=== PATIENT | female | born 1985 | race Caucasian/White ===

== ENCOUNTER 2018-04-23 19:58 | Inpatient (IN) ==
--- NOTE | 2018-04-23 21:26 | ED ---
HPI General Chief Complaint: Psychiatric Symptoms Stated Complaint: Medical Time Seen by Provider: 04/23/18 21:05 Source: patient Mode of arrival: EMS Limitations: no limitations History of Present Illness HPI Narrative: This is a 32-year-old 2 para 0 AB 1 with a 33-week estimated gestational age IUP who presents under a [place] act and psychiatric clearance from [facility]. Patient was initially admitted due to report patient trying to starve herself to start the baby. Patient was delusional. It was noted that she had elevated transaminases. They had discontinued her psychotropic medicines and felt that her elevated transaminases were most likely due to cholestasis. Patient also has had a history of chronic C. difficile. She is on oral vancomycin. Patient's liver functions have normalized according to the medical record. She was transferred to another facility then transferred to our facility for a mental health evaluation. Patient now states that she does want to eat. She does not want to hurt her child at this time. She denies any homicidal or suicidal ideation. She denies any fever chills. No nausea or vomiting. No abdominal pain. No leakage of fluid or abnormal vaginal bleeding. Symptoms are mild at this time. Exacerbated by mental health. Past medical history: IBS, anxiety, chronic C. difficile, depression and agoraphobia. Surgical history: Denies Social history: Denies alcohol tobacco. Denies drugs. Currently . Related Data Allergies Allergy/AdvReac Type Severity Reaction Status Date / Time vortioxetine Allergy Hives Verified 04/23/18 20:36 [From Brintellix] ziprasidone [From Geodon] Allergy Chest Pain Verified 04/23/18 20:36 Review of Systems ROS: all other systems reviewed are negative PMFSH Medical History Medical History Agoraphobia with panic attacks (Acute) Anxiety (Acute) C. difficile diarrhea (Acute) Depression (Acute) History of IBS (Acute) Social History Social History Recent Travel in [facility] within the Last 8 Weeks: No Recent Out of Country Travel within the Last 8 Weeks: No Exam Narrative Exam Narrative: GENERAL: Well-nourished, well-developed patient. SKIN: Warm and dry. HEAD: Normocephalic and atraumatic. EYES: No scleral icterus. No injection or drainage. ENT: No nasal drainage noted. Mucous membranes pink. Airway patent. NECK: Supple, trachea midline. Moves head freely without obvious discomfort. CARDIOVASCULAR: Regular rate and rhythm without murmurs, gallops, or rubs. RESPIRATORY: Breath sounds equal bilaterally. No accessory muscle use. GASTROINTESTINAL: Abdomen soft, non-tender, gravid consistent with 33 weeks. heart tones of 144 noted by nursing staff.. EXTREMITIES: No cyanosis or edema. BACK: Nontender without obvious deformity. No CVA tenderness. NEURO: Patient is alert and oriented. no sensorimotor deficits. Nonfocal. Normal speech. PSYCH: No delusions. No auditory or visual hallucinations. Course Initial Documented Vital Signs Temperature 98.0 F 04/23/18 20:36 Pulse Rate 109 H 04/23/18 20:36 Respiratory Rate 18 04/23/18 20:36 Blood Pressure 117/74 04/23/18 20:36 Pulse Oximetry 96 04/23/18 20:36 Last Documented Vital Signs Temperature 98.0 F 04/23/18 20:36 Pulse Rate 109 H 04/23/18 20:36 Respiratory Rate 18 04/23/18 20:36 Blood Pressure 117/74 04/23/18 20:36 Pulse Oximetry 96 04/23/18 20:36 Medical Decision Making MDM Narrative Medical decision making narrative: Patient is transferred from [facility] for psychiatric evaluation. Patient has been medically cleared. Patient is 33 weeks . She had elevated transaminases at her initial evaluation which allegedly has resolved. Patient has chronic C. difficile is on oral vancomycin. Has been medically cleared to be evaluated by psychiatry. Medical Screen Exam Complete: Yes Emergency Medical Condition: Yes Differential Diagnosis Differential Diagnosis: MDM: High Differential diagnoses: Schizophrenia, schizoaffective disorder, bipolar, anxiety, depression, adjustment reaction, mood disorder NOS, ODD, depressive disorder NOS, psychosis NOS, substance induced mood disorder, -induced help syndrome. Mental health screening discussed with the patient. Psychiatric screen ordered. Discharge Plan Discharge Disposition Patient Disposition: 30 Still Patient Discharge Condition Condition: Stable Discharge Details Anticipated Discharge Date: 04/24/18 Physicians Team ED Provider: Moises Manzano ED Midlevel Provider: Bryan Elliott Status ED Status: With Doctor
[2018-04-24] MEDS ORDERED: Haloperidol Inj 5 MG/ML Ampul IM ONE (11:21)
[2018-04-24] MEDS ORDERED: Aluminum/Magnesium/Simethacone Susp 30 ML UDC PO PRN (11:25)
[2018-04-24] MEDS ORDERED: Bisacodyl 10 MG Supp RECTAL PRN (11:25)
--- NOTE | 2018-04-24 15:27 | P.CONOB ---
History of Present Illness Consult date: 04/24/18 Reason for Consult: 33weeks gestation Primary Care Physician: UNKNOWN History of Present Illness: Neon Sign Worker consulted for pt in mental desai that is 33wks , from records. Upon entering medical desai we are informed that the patient is attempting to leave the desai, and is at the door. We see the pt actively trying to elope. She is not aggressive at this time. We have informed the patient that we will be using a monitor to check on the baby, and she says "he's already ". with further questioning she continues to say the same statement. The following history is obtained for chart review. Past medical history: IBS, anxiety, chronic C. difficile, depression and agoraphobia. Surgical history: Denies Social history: Denies alcohol tobacco. Denies drugs. Currently . Review of Systems All other systems reviewed negative except as stated in HPI [facility] - History History Provided By: Patient - Medical History Medical History: Medical History (Last Reviewed 04/23/18 @ 21:22 by ARIA Arroyo) Agoraphobia with panic attacks Anxiety C. difficile diarrhea Depression History of IBS - Tobacco History Second Hand Smoke Exposure: No Smoking Status: Never smoker - Alcohol History How Often Do You Have a Drink Containing Alcohol: Never - Travel History Recent Travel in the [place] Within the Last 8 Weeks: No Recent Travel Out of the Country Within the Last 8 Weeks: No - Immunization History Tetanus Immunization: Unsure Hx Influenza Vaccine This Season: No Medications and Allergies Active Medications: Active Medications Al Hydrox/Mg Hydrox/Simethicone (Mag-Al Plus Susp Liq) 30 ml PO Q6H PRN PRN Reason: DYSPEPSIA Al Hydroxide/Mg Hydroxide (Milk Of Magnesia Liq) 30 ml PO Q12H PRN PRN Reason: Mild Constipation Bisacodyl (Dulcolax Supp) 10 mg RECTAL DAILY PRN PRN Reason: SEVERE CONSITIPATION Lactulose (Lactulose Liq) 30 ml PO DAILY PRN PRN Reason: SEVERE CONSITIPATION Senna/Docusate Sodium (Gretchen-Colace) 1 tab PO BID VINNY Sennosides (Senokot) 17.2 mg PO Q12H PRN PRN Reason: Moderate Constipation Allergies Allergy/AdvReac Type Severity Reaction Status Date / Time vortioxetine Allergy Hives Verified 04/23/18 20:36 [From Brintellix] ziprasidone [From Geodon] Allergy Chest Pain Verified 04/23/18 20:36 Home Medications Medication Instructions Recorded Confirmed Type PNV cmb#95-ferrous fumarate-FA 1 tab PO DAILY 04/23/18 04/23/18 History [] fluvoxamine 75 mg HS 04/23/18 04/23/18 History lactated Ringers 125 ml 04/23/18 History lamotrigine [Lamictal] 25 PO TID 04/23/18 History mirtazapine [Remeron] 15 mg PO HS 04/23/18 04/23/18 History olanzapine [Zyprexa] BID PRN 04/23/18 History quetiapine [Seroquel] 50 mg PO BID 04/23/18 04/23/18 History quetiapine [Seroquel] 300 mg PO HS 04/23/18 04/23/18 History trazodone 100 mg HS 04/23/18 04/23/18 History ursodiol [Actigall] 300 mg PO BID 04/23/18 04/23/18 History vancomycin 250 mg BID 04/23/18 04/23/18 History Exam Vital signs: Vital Signs 04/23/18 20:36 04/23/18 21:28 04/24/18 01:41 Temperature 98.0 F Pulse Rate 109 H 99 H 88 Respiratory Rate 18 16 16 Blood Pressure 117/74 Pulse Oximetry 96 99 99 04/24/18 03:37 04/24/18 07:27 04/24/18 12:47 Temperature 98.5 F Pulse Rate 98 H 90 86 Respiratory Rate 18 16 18 Blood Pressure 115/74 121/75 120/70 Pulse Oximetry 96 98 99 Intake & Output 04/23/18 04/24/18 04/24/18 18:59 06:59 18:59 Intake Total 320 / 320 Balance 320 / 320 Weight 84.368 kg Intake: Oral 320 / 320 Narrative: Exam unable to be performed due to the patient actively eloping Assessment and Plan - Diagnosis (1) 33 weeks gestation of Code(s): Z3A.33 - 33 weeks gestation of Status: Acute Plan: 33wks gestation - unknown hx, we can attempt to retrieve records from [facility] in [place]? - unable to monitor at this time while pt is up, will have nursing attempt doppler vs have pt come do u/s - will continue to follow as best as we can
--- NOTE | 2018-04-24 16:31 | P.HPPSY ---
Provisional Diagnosis Admission Date: April 24, 2018 11:36 [place] I.: Unspecified psychosis, r/o psychosis with peripartum onset, OCD, LIZ, MDD [place] II.: Deferred [place] III.: 33 weeks , IBS Competence Certification of Person's Competence To Provide Express and Informed Consent I have personally examined Anali Miranda, a person being served at [facility] on, April 24, 2018 1606. Express and informed consent means consent voluntarily given in writing, by a competent person, after sufficient explanation and disclosure of the subject matter involved to enable the person to make a knowing and willful decision without any element of force, fraud, deceit, duress, or other form of constraint or coercion. This person is 18 years of age or older, is not now known to be incompetent to consent to treatment with a guardian advocate, and does not have a health care surrogate or proxy currently making medical treatment decisions. I have found this person to be one of the following: [] Competent to provide express and informed consent, as defined above, for voluntary admission to this facility and is competent to provide express and informed consent for treatment. He/she has the consistent capacity to make well reasoned, willful, and knowing decisions concerning his or her medical or mental health treatment. The person fully and consistently understands the purpose of the admission for examination/placement and is fully capable of personally exercising all rights assured under [place] [x] Incompetent to provide express and informed consent to voluntary admission, and this is incompetent to provide express and informed consent to treatment. The person must be transferred to involuntary status and a petition for a guardian advocate filed with the Circuit Court. [] Refusing to provide express and informed consent to voluntary admission but is competent to provide express and informed consent for treatment. The person must be discharged or transferred to involuntary status. Form shall be completed within 24 hours of a person's arrival at the receiving facility and filed in the clinical record of each person: 1. Admitted on a voluntary basis 2. Permitted to provide express and informed consent to his/her own treatment 3. Allowed to transfer from involuntary to voluntary status 4. Prior to permitting a person to consent to his or her own treatment after having been previously found incompetent to consent to treatment. History of Present Illness Capacity: Lacks capacity History of Present Illness: The patient is a 32-year-old woman, , domiciled in [place] with her , unemployed, with a psychiatric history of OCD, MDD, LIZ, peripartum psychosis,1 recent previous psychiatric hospitalization due to a new onset psychosis (admitted due to report patient trying to starve herself to start the baby), no previous suicidal attempts, the patient has being on Luvox 75 mg, Lamictal 25 mg daily, Seroquel 50 mg twice daily, trazodone 100 mg at bedtime she has an outpatient psychiatric doctor in [place], with a medical history of irritable bowel syndrome, 2 para 0 AB 1 with a 33-week estimated gestational age IUP, chronic C. difficile, hepatic cholangitis, who presents under a Leone act and psychiatric clearance from [facility]. On my psychiatric evaluation today I find a patient that is very agitated, very psychotic, paranoid, stating that she needs to go home, but she is afraid and she does not want to talk with anybody. She says that she carries at baby, "I killed my two babys and the are inside of my". The patient refuses to answer any of my questions. And she continued to try to elope from the ER and have finally to be medicated with Haldol 5 mg IM and Benadryl 25 mg IM in order to calm her down. I got collateral information from her , Ollie Miranda [phone], who explains that the patient has psychiatric history of anxiety, obsessive- compulsive disorder and depression. But about 2 months ago 1 of her checkups it was noted that she had elevated transaminases. They had discontinued her psychotropic medicines and felt that her elevated transaminases were most likely due to cholestasis. Patient also has had a history of chronic C. difficile. She is on oral vancomycin. ( Patient's liver functions have normalized according to the medical record). After the medication was discontinued, the patient started to become psychotic. Initially the patient refused to eat a stating that by eating she was hurting her baby. Then, 1 day he found her inside the bathroom with a knife stating that she wanted to kill her baby. She was hospitalized for 2 weeks in a psychiatric hospital in [facility], but she was discharged back home in 2 -3 days after discharge the patient became psychotic again. He clarifies that the patient does not have any history of schizophrenia or bipolar disorder. The patient has been treated for anxiety and depression as an outpatient by a private psychiatrist in [place]. Patient does not have any previous suicidal attempt. She did become depressed after a miscarriage before this she has been anxious since then. Past psychiatric history :OCD, MDD, LIZ, peripartum psychosis,1 recent previous psychiatric hospitalization due to a new onset psychosis (admitted due to report patient trying to starve herself to start the baby), no previous suicidal attempts, the patient has being on Luvox 75 mg, Lamictal 25 mg daily, Seroquel 50 mg twice daily, trazodone 100 mg at bedtime she has an outpatient psychiatric doctor in [place], past medical history: IBS, anxiety, chronic C. difficile, depression and agoraphobia. Surgical history: Denies Social history: The patient was born in [place], she lives in [place] with her she is unemployed, supported by her , her highest level of education is a master degree in occupational therapy. Substance abuse history :denies alcohol tobacco. Denies drugs. Currently . - Inpatient Certification I certify that the inpatient services were ordered in accordance with Medicare regulations governing the order. This includes certification that hospital inpatient services are reasonable and necessary and in the case of services not specified as inpatient-only under 42 CFR 419.22(n), that they are appropriately provided as inpatient services in accordance to with the 2-midnight benchmark under 43 CFR 412.3(e) I certify that inpatient psychiatric hospital services are medically necessary. Evaluation and treatment and/or diagnostic testing are expected to improve the patient's condition. The patient needs on a daily basis, active treatment furnished directly by or requiring the supervision of inpatient psychiatric facility personnel. Estimated Total Length of Stay (Days): 7 Plans for Post Hospital Care: Home [facility] - History History Provided By: Patient - Medical History Medical History: Medical History (Last Reviewed 04/23/18 @ 21:22 by ARIA Arroyo) Agoraphobia with panic attacks Anxiety C. difficile diarrhea Depression History of IBS - Tobacco History Second Hand Smoke Exposure: No Smoking Status: Never smoker - Alcohol History How Often Do You Have a Drink Containing Alcohol: Never - Substance Use History Substance History: No History of Abuse - Travel History Recent Travel in the [facility] Within the Last 8 Weeks: No Recent Travel Out of the Country Within the Last 8 Weeks: No - Immunization History Tetanus Immunization: Unable to Assess Hx Influenza Vaccine This Season: Unable to Assess Medications and Allergies Active Medications: Active Medications Al Hydrox/Mg Hydrox/Simethicone (Mag-Al Plus Susp Liq) 30 ml PO Q6H PRN PRN Reason: DYSPEPSIA Al Hydroxide/Mg Hydroxide (Milk Of Magnesia Liq) 30 ml PO Q12H PRN PRN Reason: Mild Constipation Bisacodyl (Dulcolax Supp) 10 mg RECTAL DAILY PRN PRN Reason: SEVERE CONSITIPATION Lactulose (Lactulose Liq) 30 ml PO DAILY PRN PRN Reason: SEVERE CONSITIPATION Senna/Docusate Sodium (Gretchen-Colace) 1 tab PO BID VINNY Sennosides (Senokot) 17.2 mg PO Q12H PRN PRN Reason: Moderate Constipation Allergies Allergy/AdvReac Type Severity Reaction Status Date / Time vortioxetine Allergy Hives Verified 04/23/18 20:36 [From Brintellix] ziprasidone [From Geodon] Allergy Chest Pain Verified 04/23/18 20:36 Home Medications Medication Instructions Recorded Confirmed Type PNV cmb#95-ferrous fumarate-FA 1 tab PO DAILY 04/23/18 04/23/18 History [] fluvoxamine 75 mg HS 04/23/18 04/23/18 History lactated Ringers 125 ml 04/23/18 History lamotrigine [Lamictal] 25 PO TID 04/23/18 History mirtazapine [Remeron] 15 mg PO HS 04/23/18 04/23/18 History olanzapine [Zyprexa] BID PRN 04/23/18 History quetiapine [Seroquel] 50 mg PO BID 04/23/18 04/23/18 History quetiapine [Seroquel] 300 mg PO HS 04/23/18 04/23/18 History trazodone 100 mg HS 04/23/18 04/23/18 History ursodiol [Actigall] 300 mg PO BID 04/23/18 04/23/18 History vancomycin 250 mg BID 04/23/18 04/23/18 History Exam Vital signs: Vital Signs 04/23/18 20:36 04/23/18 21:28 04/24/18 01:41 Temperature 98.0 F Pulse Rate 109 H 99 H 88 Respiratory Rate 18 16 16 Blood Pressure 117/74 Pulse Oximetry 96 99 99 04/24/18 03:37 04/24/18 07:27 04/24/18 12:47 Temperature 98.5 F Pulse Rate 98 H 90 86 Respiratory Rate 18 16 18 Blood Pressure 115/74 121/75 120/70 Pulse Oximetry 96 98 99 Intake & Output 04/23/18 04/24/18 04/24/18 18:59 06:59 18:59 Intake Total 320 / 320 Balance 320 / 320 Weight 84.368 kg Intake: Oral 320 / 320 Narrative: Patient is psychomotor agitated, irritable, restless - Constitutional moderate distress - Routine HEENT Exam Head: Present: normocephalic, atraumatic Eye: Present: EOMI ENT: Present: mucous membranes moist Mental Status Examination Appearance: Appropriate Consciousness: Alert Orientation: Person, Place Speech: Incoherent Fund of Knowledge: Poor Attention and Concentration: Easily distracted, Inadequate Memory: Impaired Mood: Angry, Oppositional Affect: Irritable Thought Content: Thought blocking, Delusional Hallucination Type: None Delusion Type: Bizarre, Paranoid, Somatic Suicidal Ideation: No Suicidal Plan: No Suicidal Intention: No Homicidal Ideation: No Homicidal Plan: No Homicidal Intention: No Insight: Poor Judgment: Poor Assessment and Plan - Assessment (1) Brief psychotic disorder with peripartum onset Code(s): O99.345 - Other mental disorders complicating the puerperium Status: Acute - Plan Plan: Estimated LOS: [] days On my psychiatric evaluation today I find a patient that is extremely paranoid, disorganized, agitated, restless, requesting to be discharged, unable to provide any significant information for the psychiatric assessment at the moment. The patient had to be medicated with Haldol 5 mg and Benadryl 25 mg IM in order to calm her down. As per , the patient has been presenting increase symptoms of psychosis in the last month, she was recently hospitalized for 2 weeks in a psychiatric hospital in [place], treated with Seroquel 50 mg in the morning, 300 mg at bedtime, but the patient was discharged still psychotic. The patient has being stating that she has 2 babies inside her , has been refusing to eat stating that the food will kill her baby and at some point she took a knife and tried to stab herself. There is a patient with a psychiatric history of anxiety, depression, but before this psychotic episode she did not have any psychiatric hospitalization, no suicide attempts. She does have a family history of "bipolar/psychosis", but more information needs to be gathered in this aspect. The patient has an elevated risk of danger to herself and her baby given her level of psychosis. She need psychiatric admission for stabilization. I am going to start Haldol 5 mg twice daily, Benadryl 25 mg twice daily for psychosis and EPS respectively. Will consult hospitalist for underlying medical conditions, [employer] to help with . Transfer to med psych unit. Justification for Continued Inpatient Stay: Patient is psychiatric admission
[2018-04-24] MEDS: Senna/Docusate Sodium 8.6/50 MG Tablet PO SCH (21:22)
--- NOTE | 2018-04-25 08:23 | P.OBANTE ---
Subjective Interval History: pt continues to be delusional with psychosis believing her baby is inspite of the normal US last night and reactive NST this morning Objective Vital Signs and I&O: Vital Signs 04/24/18 12:47 04/24/18 18:00 04/25/18 06:00 Temperature 97.5 F L 97.6 F Pulse Rate 86 133 H 120 H Respiratory Rate 18 20 18 Blood Pressure 120/70 162/76 H 129/80 Pulse Oximetry 99 95 97 Physical Exam: GENERAL: Well-nourished, well-developed patient. CARDIOVASCULAR: Regular rate and rhythm without murmurs, gallops, or rubs. RESPIRATORY: Breath sounds equal bilaterally. No accessory muscle use. ABDOMEN/GI: Abdomen soft, non-tender. Fundus: [33-] GENITO Uterine Contractions: [none-] FHT's: Category: [1-] Baseline: [133-] Reactive: [R-] Variability: [mod-] Decels: [-none] Assessment and Plan - Diagnosis (1) 33 weeks gestation of Code(s): Z3A.33 - 33 weeks gestation of Status: Acute (2) Psychosis Code(s): F29 - Unspecified psychosis not due to a substance or known physiological condition Status: Acute - Plan continue daily NSTs
[2018-04-25] MEDS: Senna/Docusate Sodium 8.6/50 MG Tablet PO SCH (08:40)
[2018-04-25 09:19] LABS: Anion Gap 10 meq/L (5-15); Blood Urea Nitrogen 5 mg/dL (7-18); Calcium 8.5 mg/dL (8.5-10.1); Chloride 107 meq/L (98-107); Glomerular Filtration Rate Greater Than 89 mL/min (>89); Glucose,Random 91 mg/dL (74-106); Potassium 3.3 meq/L (3.5-5.1); Sodium 141 meq/L (136-145)
[2018-04-25 09:20] LABS: Cholesterol 193 mg/dL (120-200); Triglycerides 216 mg/dL (42-150)
[2018-04-25 09:22] LABS: Chol/HDL Ratio 5.18 Ratio; HDL Cholesterol 37.2 mg/dL (40.0-60.0); LDL Cholesterol,Calculated 113 mg/dL (0-99)
[2018-04-25 10:50] LABS: Baso % (Auto) 0.4 % (0.0-2.0); Eos # (Auto) 0.1 th/mm3 (0.0-0.4); Eos % (Auto) 0.8 % (0.0-4.0); Hematocrit 35.8 % (35.0-46.0); Lymph # (Auto) 2.2 th/mm3 (1.0-4.8); Lymph % (Auto) 22.1 % (9.0-44.0); Mean Corpuscular HGB Conc 33.6 % (32.0-36.0); Mean Corpuscular Hemoglobin 29.8 pg (27.0-34.0); Mean Corpuscular Volume 88.9 fL (80.0-100.0); Mean Platelet Volume 11.5 fL (7.0-11.0); Mono # (Auto) 0.8 th/mm3 (0.0-0.9); Mono % (Auto) 8.3 % (0.0-8.0); Neut # (Auto) 6.9 th/mm3 (1.8-7.7); Neut % (Auto) 68.4 % (16.0-70.0); Platelet Count 217 th/mm3 (150-450); Red Blood Count 4.03 mil/mm3 (4.00-5.30); Red Cell Distribution Width 15.4 % (11.6-17.2)
[2018-04-25 11:03] LABS: Total Protein 5.4 g/dL (6.4-8.2)
[2018-04-25 11:21] LABS: Albumin 2.1 g/dL (3.4-5.0); Anion Gap 12 meq/L (5-15); Aspartate Aminotransferase 57 U/L (15-37); Blood Urea Nitrogen 4 mg/dL (7-18); Calcium 9.1 mg/dL (8.5-10.1); Carbon Dioxide 21.8 meq/L (21.0-32.0); Chloride 108 meq/L (98-107); Glomerular Filtration Rate Greater Than 89 mL/min (>89); Glucose,Random 76 mg/dL (74-106); Potassium 3.5 meq/L (3.5-5.1); Sodium 142 meq/L (136-145)
[2018-04-25 11:24] LABS: Alanine Aminotransferase 107 U/L (10-53); Alkaline Phosphatase 115 U/L (45-117); Total Protein 5.7 g/dL (6.4-8.2)
--- NOTE | 2018-04-25 11:42 | P.CONPSY ---
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 difficile, hepatic cholangitis and currently with 33-week gestation IUP was brought in under [place] act due to acute psychosis, transferred from medical facility, and admitted to the inpatient psychiatry for further evaluation and management. Patient found to be on one-to -one observation for safety. As per nursing report patient had been attempted to exit the unit and had to be redirected but has not been noted to try to elope today and more engaging with nursing staff continues to be delusional stating that her baby's dad. Patient was found sitting in hospital bed noted B , cooperative, alert and oriented only to person and place and preservative on the delusion that she had killed her baby and that she is not supposed to be in this hospital. Patient was unable to engage in further questioning nor engage in discussion of treatment this patient is currently preservative on this delusion and unable to engage in interview at this time. Patient mentions that she had already killed her baby on purpose when asked about how and when she had done this patient continued to state the same. Patient did acknowledge she was on medications at her prior hospitalization, was endorsing having suicidal ideations stating that she has not been eating and drinking on purpose and had endorsed auditory hallucinations "sometimes" but now elaborate on the content. Reviewed patient's chart patient prior to admission had been transferred from several facilities as well as having been admitted to a psychiatric facility for some time which patient had been continued on fluoxetine, mirtazapine, Seroquel, Lamictal. Patient was found to have elevated LFTs which was suspected to be drug-induced hepatitis and/or cholestasis secondary to . Patient was discontinued on psychotropic medications and LFTs have improved but had become psychotic. Documents that accompanied the patient's poor summary as he is events as stated during her last hospitalization. We will request records from these admissions for further information of her prior treatments as well will attempt to contact patient's outpatient psychiatrist for history of psychiatric treatments. Review of Systems unobtainable due to mental condition PMFSH - History History Provided By: Patient, Medical Record - Medical History Medical History: Medical History (Last Reviewed 04/25/18 @ 19:17 by JANINE Drake) Agoraphobia with panic attacks Anxiety C. difficile diarrhea Depression History of IBS - Tobacco History Second Hand Smoke Exposure: No Smoking Status: Never smoker - Alcohol History How Often Do You Have a Drink Containing Alcohol: Never - Substance Use History Substance History: Unable to Obtain - Travel History Recent Travel in the [place] Within the Last 8 Weeks: No Recent Travel Out of the Country Within the Last 8 Weeks: No - Immunization History Tetanus Immunization: Unable to Assess Hx Influenza Vaccine This Season: Unable to Assess Medications and Allergies Active Medications: Active Medications Al Hydrox/Mg Hydrox/Simethicone (Mag-Al Plus Susp Liq) 30 ml PO Q6H PRN PRN Reason: DYSPEPSIA Al Hydroxide/Mg Hydroxide (Milk Of Magnesia Liq) 30 ml PO Q12H PRN PRN Reason: Mild Constipation Bisacodyl (Dulcolax Supp) 10 mg RECTAL DAILY PRN PRN Reason: SEVERE CONSITIPATION Diphenhydramine HCl (Benadryl) 25 mg PO BID VINNY Haloperidol (Haldol) 5 mg PO BID VINNY Lactulose (Lactulose Liq) 30 ml PO DAILY PRN PRN Reason: SEVERE CONSITIPATION Senna/Docusate Sodium (Gretchen-Colace) 1 tab PO BID [facility] Last Admin: 04/25/18 08:40 Dose: Not Given Sennosides (Senokot) 17.2 mg PO Q12H PRN PRN Reason: Moderate Constipation Allergies Allergy/AdvReac Type Severity Reaction Status Date / Time vortioxetine Allergy Hives Verified 04/23/18 20:36 [From Brintellix] ziprasidone [From Geodon] Allergy Chest Pain Verified 04/23/18 20:36 Home Medications Medication Instructions Recorded Confirmed Type PNV cmb#95-ferrous fumarate-FA 1 tab PO DAILY 04/23/18 04/23/18 History [] fluvoxamine 75 mg HS 10/01/18 10/01/18 History lactated Ringers 125 ml 04/23/18 History lamotrigine [Lamictal] 25 PO TID 04/23/18 History mirtazapine [Remeron] 15 mg PO HS 04/23/18 04/23/18 History olanzapine [Zyprexa] BID PRN 04/23/18 History quetiapine [Seroquel] 50 mg PO BID 04/23/18 04/23/18 History quetiapine [Seroquel] 300 mg PO HS 04/23/18 04/23/18 History trazodone 100 mg HS 04/23/18 04/23/18 History ursodiol [Actigall] 300 mg PO BID 04/23/18 04/23/18 History vancomycin 250 mg BID 04/23/18 04/23/18 History Exam Vital signs: Vital Signs 04/24/18 12:47 04/24/18 18:00 04/25/18 06:00 Temperature 97.5 F L 97.6 F Pulse Rate 86 133 H 120 H Respiratory Rate 18 20 18 Blood Pressure 120/70 162/76 H 129/80 Pulse Oximetry 99 95 97 Intake & Output 04/24/18 04/25/18 04/25/18 18:59 06:59 18:59 Intake Total 120 / 120 Balance 120 / 120 Intake: Oral 120 / 120 - Constitutional no acute distress, disheveled, cooperative Mental Status Examination Appearance: Appropriate Consciousness: Alert Orientation: Person, Place Motor Activity: Normal gait Speech: Incoherent Language: Perseveration (on the idea that she killed her baby) Fund of Knowledge: Poor Attention and Concentration: Easily distracted, Inadequate Memory: Impaired Mood: Anxious Affect: Anxious Thought Process & Associations: Disorganized Thought Content: Hallucinations, Thought blocking, Delusional Hallucination Type: Auditory Delusion Type: Bizarre, Paranoid, Somatic Suicidal Ideation: No Suicidal Plan: No Suicidal Intention: No Homicidal Ideation: No Homicidal Plan: No Homicidal Intention: No Insight: Poor Judgment: Poor Assessment and Plan - Assessment (1) Brief psychotic disorder with peripartum onset Code(s): O99.345 - Other mental disorders complicating the puerperium Status: Acute - Plan Plan: I have seen and examined this patient, reviewed the documentation, discussed personally with Dr. Mustafa, and I agree and concur with his assessment and plan. Consult appreciated. Will continue patient on Haldol 5mg PO BID, diphenhydramine 25mg PO BID with titration of antipsychotic to reach stabilization. Attempted to review medication regimen to patient regarding benefits/risk/alternatives was unsuccessful as patient's current mental status did not permit patient to engage effectively in this conversation. Patient to remain on 1:1 observation for safety. Patient continues with disorganization and delusions, appearing internally preoccupied. Encourage patient to maintain adequate nutritional intake. Hospitalist and OB education sales consultant input appreciated. Will attempt to obtain past psychiatric treatment records from patient's outpatient provider along with medical records from most recent psychiatric admission. Will meet with medical team to discuss treatment plan. Further collateral information pending. Continue to monitor mood and behavior. Discharge planning in progress. Justification for Continued Inpatient Stay: At risk for further decompensation at lower level of care.
[2018-04-25] MEDS: Haloperidol 5 MG Tablet PO SCH ×2 (12:02→22:52)
[2018-04-25 12:09] LABS: Hepatitis A IgM Antibody Nonreactive (Nonreactive); Hepatitits B Surface Antigen Nonreactive (Nonreactive)
--- NOTE | 2018-04-25 13:55 | P.DIET ---
Nutritional Evaluation Type of nutrition evaluation: initial Nutrition screening: (33 weeks ) Subjective Subjective Comments: Very poor po intake noted. Eating only 0-25%. Objective - Diagnosis Unspecified Psychosis - Objective Body Weight Used for Calculations: Upper end of IBW (60 kg) Energy Needs - Lower Range (kCal/kg): 30 Energy Needs - Upper Range (kCal/kg): 35 Lower Limit kCal/kg (kCals): 1,800 Upper Limit kCal/kg (kCals): 2,100 Lower Limit Protein Factor (Grams per Kg): 1.2 Upper Limit Protein Factor (Grams per Kg): 1.5 Lower Protein Needs (Protein): 72 Upper Protein Needs (Protein): 90 Fluid Factor (ml/kg): 35 Estimated Fluid Needs (ml): 2,100 Dietitian Reviewed in Medical Record: Current diet, Curent medications, Intake & Output, Labs, Medical history Oral Diet Intake Amount: Poor <50% Objective Comments: Med hx includes C Diff, IBS Assessment Assessment: Pt is at high nutrition risk 2' to poor po intake and not receiving adequate nutrition for . Request vits/mins be ordered. Will also send Ensure Enlive on trays for added nutrition: each 8 oz serving provides 350 kcals and 20 gms protein. Will monitor supplement acceptance and po intake. Recommendations: 1. Continue regular diet 2. Ensure Enlive tid 3. Please order vits/mins Dietitian to Monitor: Lab values, Supplement acceptance, Intake & Output, Diet tolerance, Weight change, PO Intake, Medical course
[2018-04-25 16:17] LABS: Hemoglobin A1c 5.3 % (4.3-6.0)
--- NOTE | 2018-04-25 17:08 | P.PNADD ---
Addendum to Inpatient Note Reason for Addendum: Additional Documentation Additional information: Patient case discussed with psychiatrist Dr. Mustafa and family member today. History reviewed; including history of multiple psychiatric medications for anxiety and depression including; Luvox, Lamictal, Seroquel, trazodone. History of cholestasis of causing hospitalization discussed. According to report, it was discussed that patient may be delivered early for the severe cholestasis of , however [employer] decided to continue to watch . Psychiatric medications were restarted however patient continued to be in psychosis. Patient did have full care via the following contact [facility] [phone] Attempting to obtain full records. Ob team is aware of hx of cholestasis and is aware of elevated LFTs today. Will continue to f/u bile salts. Will plan a meeting with psych, risk management, and case management to discuss situation including placement of pt and delivery time.
--- NOTE | 2018-04-25 19:21 | P.CONIM ---
History of Present Illness Service: [facility] Consult date: 04/25/18 Reason for Consult: medical management Primary Care Provider: UNKNOWN Chief Complaint: stomach pain History of Present Illness: This is a 32 years old young female, 2 para 0 AB 1 with a 33- week estimated gestational age IUP who presents under a [place] act and psychiatric clearance from [facility]. Patient has a past medical history of IBS, anxiety, chronic C. difficile, depression and agoraphobia. ED report revealed patient was initially admitted due to trying to starve herself to start the baby and was delusional. Patient found to have elevated transaminase on admission which is reported to be more likely due to cholestasis. Psychotropic medications had been discontinued at that time. She was transferred to another facility and then to our facility for mental health status evaluation. STITCH SEPARATOR was consulted for management. Medicine team was consulted for medical management. Patient seen and examined laying in bed, sitter at bedside, patient responds to the questions very slowly and seems reserved. There were questions that she don' t answer and just rolls her eyes as if trying to ignore the questions. Patient complaints of abdominal pain ,states that she had a "problem with diarrhea all the time", stated she had diarrhea all day and mentioned her with history of C. difficile which was taking vancomycin. Patient stated she is 33-week and her due date will be on June 11. Patient is unable to tell me what medication she is taking. Patient denies any headache or dizziness denies any nausea or vomiting denies any chest pain or shortness of breath. Patient denies any fever or chills. Patient states that she have anxiety and feel like she wanted to hurt herself when asked for a plan she stated that she will use a knife to cut herself. Discussed with the patient that it is not a good idea to hurt herself and the baby. Patient was silent in response to the rest of the questions. Review of Systems All other systems reviewed negative except as stated in HPI PMFSH - History History Provided By: Patient - Medical History Medical History: Medical History (Last Reviewed 04/25/18 @ 19:17 by JANINE Drake) Agoraphobia with panic attacks Anxiety C. difficile diarrhea Depression History of IBS - Tobacco History Second Hand Smoke Exposure: No Smoking Status: Never smoker - Alcohol History How Often Do You Have a Drink Containing Alcohol: Never - Substance Use History Substance History: Unable to Obtain - Travel History Recent Travel in the [place] Within the Last 8 Weeks: No Recent Travel Out of the Country Within the Last 8 Weeks: No - Immunization History Tetanus Immunization: Unable to Assess Hx Influenza Vaccine This Season: Unable to Assess Medications and Allergies Active Medications: Active Medications Al Hydrox/Mg Hydrox/Simethicone (Mag-Al Plus Susp Liq) 30 ml PO Q6H PRN PRN Reason: DYSPEPSIA Al Hydroxide/Mg Hydroxide (Milk Of Magnesia Liq) 30 ml PO Q12H PRN PRN Reason: Mild Constipation Bisacodyl (Dulcolax Supp) 10 mg RECTAL DAILY PRN PRN Reason: SEVERE CONSITIPATION Diphenhydramine HCl (Benadryl) 25 mg PO BID [facility] Last Admin: 04/25/18 12:02 Dose: 25 mg Haloperidol (Haldol) 5 mg PO BID [facility] Last Admin: 04/25/18 12:02 Dose: 5 mg Lactulose (Lactulose Liq) 30 ml PO DAILY PRN PRN Reason: SEVERE CONSITIPATION Senna/Docusate Sodium (Gretchen-Colace) 1 tab PO BID [facility] Last Admin: 04/25/18 08:40 Dose: Not Given Sennosides (Senokot) 17.2 mg PO Q12H PRN PRN Reason: Moderate Constipation Allergies Allergy/AdvReac Type Severity Reaction Status Date / Time vortioxetine Allergy Hives Verified 04/23/18 20:36 [From Brintellix] ziprasidone [From Geodon] Allergy Chest Pain Verified 04/23/18 20:36 Home Medications Medication Instructions Recorded Confirmed Type PNV cmb#95-ferrous fumarate-FA 1 tab PO DAILY 04/23/18 04/23/18 History [] fluvoxamine 75 mg HS 04/23/18 04/23/18 History lactated Ringers 125 ml 04/23/18 History lamotrigine [Lamictal] 25 PO TID 04/23/18 History mirtazapine [Remeron] 15 mg PO HS 04/23/18 04/23/18 History olanzapine [Zyprexa] BID PRN 04/23/18 History quetiapine [Seroquel] 50 mg PO BID 04/23/18 04/23/18 History quetiapine [Seroquel] 300 mg PO HS 04/23/18 04/23/18 History trazodone 100 mg HS 04/23/18 04/23/18 History ursodiol [Actigall] 300 mg PO BID 04/23/18 04/23/18 History vancomycin 250 mg BID 04/23/18 04/23/18 History Exam Vital signs: Vital Signs 04/25/18 06:00 04/25/18 18:00 Temperature 97.6 F 98 F Pulse Rate 120 H 126 H Respiratory Rate 18 18 Blood Pressure 129/80 127/79 Pulse Oximetry 97 95 Intake & Output 04/25/18 04/25/18 04/26/18 06:59 18:59 06:59 Intake Total 360 / 360 Balance 360 / 360 Intake: Oral 360 / 360 Other: Date of Last Bowel Movement 04/25/18 Narrative: GENERAL: Well-developed, well-nourished, young lady, alert and oriented x3 with some reservation, in no apparent distress SKIN: Warm and dry. HEAD: Atraumatic. Normocephalic. EYES: Pupils equal and round. No scleral icterus. No injection or drainage. Wearing eyeglasses ENT: No nasal bleeding or discharge. Mucous membranes pink and moist. NECK: Trachea midline. No JVD. CARDIOVASCULAR: Regular rate and rhythm. RESPIRATORY: No accessory muscle use. Clear to auscultation. Breath sounds equal bilaterally. GASTROINTESTINAL: Abdomen round enlarged consistent with , soft, non- tender, nondistended. Hepatic and splenic margins not palpable. MUSCULOSKELETAL: Extremities without clubbing, cyanosis, or edema. No obvious deformities. NEUROLOGICAL: Awake and alert. No obvious cranial nerve deficits. Motor grossly within normal limits. Five out of 5 muscle strength in the arms and legs. Normal speech. PSYCHIATRIC: Flat, reserved mood and affect; insight and judgment unreliable. Cooperative Results - Labs CBC & Chem 7: 04/25/18 10:00 04/25/18 10:00 Labs: Laboratory Results - last 24 hr 04/25/18 04/25/18 04/25/18 08:12 08:12 08:12 WBC RBC Hgb Hct MCV MCH MCHC RDW Plt Count MPV Neut % (Auto) Lymph % (Auto) [place] % (Auto) Eos % (Auto) Baso % (Auto) Neut # (Auto) Lymph # (Auto) [place] # (Auto) Eos # (Auto) Baso # (Auto) WBC Differential Differential Comment Sodium 141 Potassium 3.3 L Chloride 107 Carbon Dioxide 24.0 Anion Gap 10 BUN 5 L Creatinine 0.58 Estimated GFR Greater than 89 Random Glucose 91 Hemoglobin A1c 5.3 Calcium 8.5 Total Bilirubin 0.4 Direct Bilirubin 0.2 Indirect Bilirubin 0.2 AST 54 H ALT 104 H Alkaline Phosphatase 106 Total Protein 5.4 L Albumin 2.0 L Triglycerides 216 H Cholesterol 193 LDL Cholesterol, Calc 113 H HDL Cholesterol 37.2 L Cholesterol/HDL Ratio 5.18 Hepatitis A IgM Ab Hep Bs Antigen Hep B Core IgM Ab Hep C IgG Ab HIV 1&2 Ab/P24 Ag 4thGn Rubella Immunity Screen Rubella Ab, Quant Blood Type Blood Type Recheck Antibody Screen 04/25/18 04/25/18 04/25/18 10:00 10:00 10:00 WBC 10.0 RBC 4.03 Hgb 12.0 Hct 35.8 MCV 88.9 MCH 29.8 MCHC 33.6 RDW 15.4 Plt Count 217 MPV 11.5 H Neut % (Auto) 68.4 Lymph % (Auto) 22.1 [place] % (Auto) 8.3 H Eos % (Auto) 0.8 Baso % (Auto) 0.4 Neut # (Auto) 6.9 Lymph # (Auto) 2.2 [place] # (Auto) 0.8 Eos # (Auto) 0.1 Baso # (Auto) 0.0 WBC Differential . Differential Comment Auto diff final Sodium 142 Potassium 3.5 Chloride 108 H Carbon Dioxide 21.8 Anion Gap 12 BUN 4 L Creatinine 0.51 Estimated GFR Greater than 89 Random Glucose 76 Hemoglobin A1c Calcium 9.1 Total Bilirubin 0.5 Direct Bilirubin Indirect Bilirubin AST 57 H ALT 107 H Alkaline Phosphatase 115 Total Protein 5.7 L Albumin 2.1 L Triglycerides Cholesterol LDL Cholesterol, Calc HDL Cholesterol Cholesterol/HDL Ratio Hepatitis A IgM Ab Nonreactive Hep Bs Antigen Nonreactive Hep B Core IgM Ab Nonreactive Hep C IgG Ab Nonreactive HIV 1&2 Ab/P24 Ag 4thGn Nonreactive Rubella Immunity Screen Immune Rubella Ab, Quant 116.9 Blood Type Blood Type Recheck Antibody Screen 04/25/18 10:00 WBC RBC Hgb Hct MCV MCH MCHC RDW Plt Count MPV Neut % (Auto) Lymph % (Auto) [place] % (Auto) Eos % (Auto) Baso % (Auto) Neut # (Auto) Lymph # (Auto) [place] # (Auto) Eos # (Auto) Baso # (Auto) WBC Differential Differential Comment Sodium Potassium Chloride Carbon Dioxide Anion Gap BUN Creatinine Estimated GFR Random Glucose Hemoglobin A1c Calcium Total Bilirubin Direct Bilirubin Indirect Bilirubin AST ALT Alkaline Phosphatase Total Protein Albumin Triglycerides Cholesterol LDL Cholesterol, Calc HDL Cholesterol Cholesterol/HDL Ratio Hepatitis A IgM Ab Hep Bs Antigen Hep B Core IgM Ab Hep C IgG Ab HIV 1&2 Ab/P24 Ag 4thGn Rubella Immunity Screen Rubella Ab, Quant Blood Type A Positive Blood Type Recheck Required Antibody Screen Negative Assessment and Plan - Assessment (1) 33 weeks gestation of Code(s): Z3A.33 - 33 weeks gestation of Status: Acute (2) Brief psychotic disorder with peripartum onset Code(s): O99.345 - Other mental disorders complicating the puerperium Status: Acute (3) Psychosis Code(s): F29 - Unspecified psychosis not due to a substance or known physiological condition Status: Acute (4) Anxiety Code(s): F41.9 - Anxiety disorder, unspecified Status: Acute (5) IBS (irritable bowel syndrome) Code(s): K58.9 - Irritable bowel syndrome without diarrhea Status: Acute - Plan This is a 32 years old young female, 2 para 0 AB 1 with a 33- week estimated gestational age IUP who presents under a [place] act and psychiatric clearance from [facility]. Patient has a past medical history of IBS, anxiety, chronic C. difficile, depression and agoraphobia. STITCH SEPARATOR was consulted for management. Medicine team was consulted for medical management. 33 weeks gestation of Acute, with unknown History -obtain previous record from [facility] -Obtain Ultrasound OB -STITCH SEPARATOR following -monitor IBS (irritable bowel syndrome)/Abdominal pain/diarrhea Irritable bowel syndrome with diarrhea, Acute -send stool for c-diff if confirmed diarrhea -start Questran, d/c scheduled stool softener -monitor electrolytes, MP and CBC -will continue Vanco tapering dose if ok with STITCH SEPARATOR Transaminitis likely due to previous medications taking, currently discontinued -monitor liver function Tachycardia/Elevated Blood Pressure Likely related to vs dehydration Patient asymptomatic, no SOB, no feeling of palpitation -obtain ECG -will monitor HR and Blood pressure Slight Hypertriglyceridemia no known history, likely related to Transaminitis -Lifestyle modification -monitor lipids and lft Brief psychotic disorder with peripartum onset/ Psychosis/Anxiety Other mental disorders complicating the puerperium, Acute Unspecified psychosis,Acute Anxiety disorder, unspecified, Acute -Management with Psychiatry Team DVT Prophylaxis: Increase ambulation Code Status: full code Discussed Condition With: patient and nurse
[2018-04-26 08:13] LABS: Albumin 2.1 g/dL (3.4-5.0); Anion Gap 9 meq/L (5-15); Aspartate Aminotransferase 49 U/L (15-37); Blood Urea Nitrogen 2 mg/dL (7-18); Calcium 8.3 mg/dL (8.5-10.1); Carbon Dioxide 23.5 meq/L (21.0-32.0); Chloride 110 meq/L (98-107); Glucose,Random 79 mg/dL (74-106); Potassium 3.7 meq/L (3.5-5.1); Sodium 142 meq/L (136-145)
[2018-04-26 08:16] LABS: Alanine Aminotransferase 97 U/L (10-53); Alkaline Phosphatase 109 U/L (45-117); Glomerular Filtration Rate Greater Than 89 mL/min (>89); Total Protein 5.6 g/dL (6.4-8.2)
[2018-04-26] MEDS: Haloperidol 5 MG Tablet PO SCH (08:40)
[2018-04-26] MEDS: Prenatal Vit/Ca/Iron/Folic Acid Tablet PO SCH (08:40)
--- NOTE | 2018-04-26 09:00 | P.PNADD ---
Addendum to Inpatient Note Reason for Addendum: Additional Documentation Additional information: It was noted that patient was started on cholestyramine last night, this medication is not recommended in . Nurse practitioner Mimi Olson was contacted. Discussed with Mimi that ursodiol is a better option for the patient at this time as it is our treatment of choice for cholestasis in . Recommended dosing is 8-10 mg/kg/day divided in 2-3 doses per 24 hours. Bile acids pending. I will also contact patient's OB provider and obtain records today. Case and Plan was discussed with attending Dr. Perdue.
--- NOTE | 2018-04-26 11:50 | P.PNPSY ---
Subjective Remarks: Patient seen for follow up; chart reviewed. Discussion with nursing staff reported patient was talking more with nursing staff but continues to have poor p.o. intake and compliant with medications. Patient was found lying hospital bed superficially cooperative interview was noted to have thought blocking being internally preoccupied throughout interview. Patient mentions that she had to stay awake last evening on purpose but was unable to explain why when asked about her sleep. Patient continues with poor appetite. Was able to mention having spoken to her but did not elaborate. She states that she wants to call her and tell him that she cannot be saved that she did this on purpose. Patient continues to report having killed her baby and continues to have suicidal ideations at this time along with auditory hallucinations but was unable to elaborate. Collateral information obtained by patient's stated that they are along with from home at that he has noticed the patient did not along with himself being wary of having been transferred to multiple hospitals but would like for her to be stabilized to return home as soon as possible. Patient mentions that patient was being followed by outpatient psychiatrist and had her medications stopped due to abnormal liver function tests and when lab results began to improve she resumed on her medications but after 1/2 weeks of not having her treatment. He states that patient had grabbed a knife and left a suicide suicide note which patient this time was brought under Leone act to a nearby facility near her home. He mentions that the patient was brought to [facility] for 13 days in March and was transported back to [facility] where patient was noted to be acutely psychotic and was transferred to [facility] for further obstetrical and psychiatric management. He mentions that patient on one occasion had been given Zyprexa and Ativan which patient had perked up and was more responsive during that incident. Discussion of medications and treatment plan was reviewed with her which she had already consented for blood was reiterated and reviewed with him. Suppression Crew Leader met with OB and hospitalist residential property consultant along with ancillary staff to discuss treatment plan of patient's care and will be continued to be followed by the services during her admission. Review of Systems All other systems reviewed negative except as stated in HPI Mental Status Examination Appearance: Appropriate Consciousness: Alert Orientation: Person, Place Motor Activity: Normal gait Speech: Incoherent Language: Perseveration (on the idea that she killed her baby) Fund of Knowledge: Poor Attention and Concentration: Easily distracted, Inadequate Memory: Impaired Mood: Anxious Affect: Anxious Thought Process & Associations: Disorganized Thought Content: Hallucinations, Thought blocking, Delusional Hallucination Type: Auditory Delusion Type: Bizarre, Paranoid, Somatic Suicidal Ideation: No Suicidal Plan: No Suicidal Intention: No Homicidal Ideation: No Homicidal Plan: No Homicidal Intention: No Insight: Poor Judgment: Poor Assessment and Plan - Assessment (1) Brief psychotic disorder with peripartum onset Code(s): O99.345 - Other mental disorders complicating the puerperium Status: Acute - Plan Plan: Patient this time continues with perseveration on the idea that she had killed her baby along with continue auditory hallucinations and suicidal ideations. Patient to continue one-to-one for safety we will continue to increase Haldol to 5 mg a.m./10 mg at bedtime with upper titration for psychosis. Continue to encourage patient to continue nutritional p.o. intake, we will continue recommendations as per hospitalist residential property consultant as well as OB residential property consultant. We will continue to monitor mood and behavior. Discharge planning in progress. Justification for Continued Inpatient Stay: At risk of further decompensation a low level of care.
--- NOTE | 2018-04-26 15:27 | ECG ---
Date Performed: 04/25/2018 Time Performed: 22:09:09 PTAGE: 32 years EKG: SINUS TACHYCARDIA WITH SHORT CT INTERVAL LOW QRS VOLTAGE IN PRECORDIAL LEADS NONSPECIFIC T- WAVE ABNORMALITY ABNORMAL RHYTHM ECG NO PREVIOUS TRACING DOCTOR: Sadie Arce Interpretating Date/Time 04/26/2018 15:24:58
--- NOTE | 2018-04-26 17:35 | P.PNIM ---
Subjective Interval history: Follow-up 33 weeks gestation of , transaminitis, IBS, chronic C. difficile, anxiety, depression, and agoraphobia. Patient seen and examined, laying in bed denies any pain or shortness of breath, denies any abdominal pain. However the nurse reported patient does not eat well, patient complained of nausea without vomiting. Pain patient states that she have diarrhea and she had messed up all herself in her clothes, however the sitter and the nurse did not confirm this. Most likely patient is delusional. Nurse reported there is a heart in the bathroom waiting for her stool sample however he is not able to provide stool sample at this time. Patient denies any headache or dizziness, denies any fever or chills. Physical Exam Vital signs: Vital Signs 04/25/18 18:00 04/26/18 06:00 Temperature 98 F 98 F Pulse Rate 126 H 111 H Respiratory Rate 18 16 Blood Pressure 127/79 144/85 H Pulse Oximetry 95 95 Intake & Output 04/25/18 04/26/18 04/26/18 18:59 06:59 18:59 Intake Total 360 / 360 720 / 720 Balance 360 / 360 720 / 720 Weight 86.1 kg Intake: Oral 360 / 360 720 / 720 Other: # Voids 2 Date of Last Bowel Movement 04/25/18 04/25/18 # Bowel Movements 0 Narrative: GENERAL: Well-developed, well-nourished, young lady, alert and oriented x3 with some reservation, in no apparent distress SKIN: Warm and dry. HEAD: Atraumatic. Normocephalic. EYES: Pupils equal and round. No scleral icterus. No injection or drainage. Wearing eyeglasses ENT: No nasal bleeding or discharge. Mucous membranes pink and moist. NECK: Trachea midline. No JVD. CARDIOVASCULAR: Regular rate and rhythm. RESPIRATORY: No accessory muscle use. Clear to auscultation. Breath sounds equal bilaterally. GASTROINTESTINAL: Abdomen round enlarged consistent with , soft, non- tender, nondistended. Hepatic and splenic margins not palpable. MUSCULOSKELETAL: Extremities without clubbing, cyanosis, or edema. No obvious deformities. NEUROLOGICAL: Awake and alert. No obvious cranial nerve deficits. Motor grossly within normal limits. Five out of 5 muscle strength in the arms and legs. Normal speech. PSYCHIATRIC: Flat, reserved mood and affect; insight and judgment unreliable. Cooperative Results - Labs CBC & Chem 7: 04/25/18 10:00 04/26/18 07:25 Laboratory Results - last 24 hr 04/25/18 04/25/18 04/26/18 08:12 10:00 07:25 Sodium 142 Potassium 3.7 Chloride 110 H Carbon Dioxide 23.5 Anion Gap 9 BUN 2 L Creatinine 0.46 L Estimated GFR Greater than 89 Random Glucose 79 Hemoglobin A1c 5.3 Calcium 8.3 L D Total Bilirubin 0.5 AST 49 H ALT 97 H Alkaline Phosphatase 109 Total Protein 5.6 L Albumin 2.1 L RPR Nonreactive Assessment and Plan - Assessment (1) 33 weeks gestation of Code(s): Z3A.33 - 33 weeks gestation of Status: Acute (2) Brief psychotic disorder with peripartum onset Code(s): O99.345 - Other mental disorders complicating the puerperium Status: Acute (3) Psychosis Code(s): F29 - Unspecified psychosis not due to a substance or known physiological condition Status: Acute (4) Anxiety Code(s): F41.9 - Anxiety disorder, unspecified Status: Acute (5) IBS (irritable bowel syndrome) Code(s): K58.9 - Irritable bowel syndrome without diarrhea Status: Acute - Plan This is a 32 years old young female, 2 para 0 AB 1 with a 33- week estimated gestational age IUP who presents under a Leone act and psychiatric clearance from [facility]. Patient has a past medical history of IBS, anxiety, chronic C. difficile, depression and agoraphobia. HEEL SEATER was consulted for management. Medicine team was consulted for medical management. 33 weeks gestation of Acute, with unknown History -obtain previous record from [facility] -Obtain Ultrasound OB, monitor doppler -HEEL SEATER following -monitor IBS (irritable bowel syndrome)/Abdominal pain/diarrhea Irritable bowel syndrome with diarrhea, Acute -send stool for c-diff if confirmed diarrhea -start Questran, d/c scheduled stool softener -monitor electrolytes, MP and CBC -will continue Vanco tapering dose if ok with HEEL SEATER Transaminitis likely due to previous medications taking, currently discontinued -improving AST/ALT 49/97 today -monitor liver function Tachycardia/Elevated Blood Pressure Likely related to vs dehydration Patient asymptomatic, no SOB, no feeling of palpitation -improving, HR 111 today -obtain ECG -will monitor HR and Blood pressure Slight Hypertriglyceridemia no known history, likely related to Transaminitis -Lifestyle modification -monitor lipids and lft Brief psychotic disorder with peripartum onset/ Psychosis/Anxiety Other mental disorders complicating the puerperium, Acute Unspecified psychosis,Acute Anxiety disorder, unspecified, Acute -Management with Psychiatry Team DVT Prophylaxis: Increase ambulation Code Status: full code Discussed Condition With: patient and nurse HEEL SEATER Dr Edmond Nolasco Discharge Planning: Plan to transfer to a facility close to her home in [facility] monitor and care for and delivery.
[2018-04-27] MEDS: Prenatal Vit/Ca/Iron/Folic Acid Tablet PO SCH (08:08)
[2018-04-27] MEDS ORDERED: Haloperidol 5 MG Tablet PO SCH (09:00)
--- NOTE | 2018-04-27 11:00 | P.PNPSY ---
Subjective Remarks: Patient seen for follow up; chart reviewed. Discussion with nursing staff reported that patient refuse to speak with nurses last evening although more interactive with daytime nurses. Patient continues to be delusional stating that she does not want the baby. Patient was found lying hospital bed was able to follow some commands, continues to be preservative on having killed her baby on purpose but was able to answer more questions today. She states that the reason why she had killed her baby was that "it made me go to the bathroom too much". She reports feeling "bad" states having spoken to her who he states wants her to come home but did not further elaborate. Patient reports feeling depressed stating that she did not eat or drink but that she has to live here in the hospital. Patient continues to have auditory hallucinations which she reports are strangers voices, a couple of voices but did not elaborate on the content. Patient continues to have suicide ideations at this time. Review of Systems All other systems reviewed negative except as stated in HPI Mental Status Examination Appearance: Appropriate Consciousness: Alert Orientation: Person, Place Motor Activity: Normal gait Speech: Hesitant Language: Perseveration (on the idea that she killed her baby) Fund of Knowledge: Poor Attention and Concentration: Easily distracted, Inadequate Memory: Impaired Mood: Anxious Affect: Anxious Thought Process & Associations: Other ([place]) Thought Content: Hallucinations, Thought blocking, Delusional Hallucination Type: Auditory Delusion Type: Bizarre, Paranoid, Somatic Suicidal Ideation: No Suicidal Plan: No Suicidal Intention: No Homicidal Ideation: No Homicidal Plan: No Homicidal Intention: No Insight: Poor Judgment: Poor Assessment and Plan - Assessment (1) Brief psychotic disorder with peripartum onset Code(s): O99.345 - Other mental disorders complicating the puerperium Status: Acute - Plan Plan: Patient continues to have disorganization, perseverative on the thought that she had killed her baby with poor insight and judgment. Patient continues also with suicidal ideation and auditory hallucinations along with noted thought blocking and internally preoccupied during interview. We will continue to titrate Haldol to 10 mg p.o. twice daily for psychosis. Continue recommendations as her prior medical and OB team. Continue to encourage patient to maintain adequate hygiene, compliant with medications and participating groups and activities on the unit. Continue to encourage patient to maintain adequate p.o. nutritional intake. Continue to monitor mood and behavior. Continue one-to-one observation for safety. Discharge planning in progress. Justification for Continued Inpatient Stay: At risk of further decompensation a lower level of care.
--- NOTE | 2018-04-27 13:09 | P.TTN ---
- Patient Problems Problems: 1. Discharge planning 2. Medication compliance 3. Knowledge deficit 4. Lack of coping skills - Progress Toward Goals Provider Present: Dr. Jolly Garvey Provider Input: 04/25/18: Pt plan includes consultation with OB MD (pt ) , stabilization of pt's cognition, transfer back to previous hospital. Pt remains psychotic, she is 33 wks , on-going medication titration. Psychiatric Counselors Present: Alvarado Muhammad Jr., [facility] Psych[facility] Therapist Input: 04/25/18: Pt expected to be returned to [facility] once stable. Pt is , counselor to follow-up with pt's spouse. Group Spec/RT/OT/AREVALO Present: Alie Johnson, GPS, Rodolfo Cee, OT Group Spec/RT/OT/AREVALO Input: 04/25/18: pt is unable to tolerate groups. Occupational Therapist Input: 04/25/18: Pt is not receiving formal OT treatment. Pt is however, as a pt on , under the care of staff in other capacities and this OTR's interactions with pt have revealed pt as highly delusional/ psychotic, unable to care for herself, continuing on 1:1 supervision and highly unpredictable. Pt has remarked, on many occasions, that "she is a bad person who has been peeing and pooping and is going to be punished." Additional Input: *: Pt is expected to be discharged to her prior hospital in [place], [place], which was her initial admitting facility. It is expected that spouse and area OBGYN will follow pt to term. - Documentation Teaching Recipient: Patient
--- NOTE | 2018-04-27 18:05 | P.PNIM ---
Subjective Interval history: Follow-up 33 weeks gestation of , transaminitis, IBS, chronic C. difficile, anxiety, depression, and agoraphobia. Patient seen and examined, sitting in the bed, nurse in room, sitter at the bedside. Patient answers to question very slow, and very selective. Patient c/o abdominal pain, stated always have diarrhea. Nurse reported only one stool today, not diarrhea but soft and black. Patient denies any nausea or vomiting, denies any headache or dizziness, denies any fever or chills. Physical Exam Vital signs: Vital Signs 04/26/18 18:10 04/27/18 06:19 04/27/18 16:00 Temperature 98.2 F 98.0 F 97.8 F Pulse Rate 128 H 125 H 121 H Respiratory Rate 20 18 15 Blood Pressure 136/77 138/87 106/58 L Pulse Oximetry 94 L 95 92 L Intake & Output 04/26/18 04/27/18 04/27/18 18:59 06:59 18:59 Intake Total 720 / 720 360 / 360 Balance 720 / 720 360 / 360 Intake: Oral 720 / 720 360 / 360 Other: # Voids 2 1 Date of Last Bowel Movement 04/25/18 04/27/18 # Bowel Movements 0 Narrative: GENERAL: Well-developed, well-nourished, young lady, alert and oriented x3 with some reservation, in no apparent distress SKIN: Warm and dry. HEAD: Atraumatic. Normocephalic. EYES: Pupils equal and round. No scleral icterus. No injection or drainage. Wearing eyeglasses ENT: No nasal bleeding or discharge. Mucous membranes pink and moist. NECK: Trachea midline. No JVD. CARDIOVASCULAR: Regular rate and rhythm. RESPIRATORY: No accessory muscle use. Clear to auscultation. Breath sounds equal bilaterally. GASTROINTESTINAL: Abdomen round enlarged consistent with , soft, non- tender, nondistended. Hepatic and splenic margins not palpable. MUSCULOSKELETAL: Extremities without clubbing, cyanosis, or edema. No obvious deformities. NEUROLOGICAL: Awake and alert. No obvious cranial nerve deficits. Motor grossly within normal limits. Five out of 5 muscle strength in the arms and legs. Normal speech. PSYCHIATRIC: Flat, reserved mood and affect; insight and judgment unreliable. Cooperative Results - Labs CBC & Chem 7: 04/25/18 10:00 04/26/18 07:25 Laboratory Results - last 24 hr 04/27/18 11:20 Stl C.difficile DNA Amp Negative St C. diff Tox Epid 027 Negative Assessment and Plan - Assessment (1) 33 weeks gestation of Code(s): Z3A.33 - 33 weeks gestation of Status: Acute (2) Brief psychotic disorder with peripartum onset Code(s): O99.345 - Other mental disorders complicating the puerperium Status: Acute (3) Psychosis Code(s): F29 - Unspecified psychosis not due to a substance or known physiological condition Status: Acute (4) Anxiety Code(s): F41.9 - Anxiety disorder, unspecified Status: Acute (5) IBS (irritable bowel syndrome) Code(s): K58.9 - Irritable bowel syndrome without diarrhea Status: Acute - Plan This is a 32 years old young female, 2 para 0 AB 1 with a 33- week estimated gestational age IUP who presents under a Leone act and psychiatric clearance from [facility]. Patient has a past medical history of IBS, anxiety, chronic C. difficile, depression and agoraphobia. PATIENT INFORMATION COORDINATOR was consulted for management. Medicine team was consulted for medical management. 33 weeks gestation of Acute, with unknown History -obtain previous record from [facility] -Obtain Ultrasound OB, - monitor doppler daily -PATIENT INFORMATION COORDINATOR following -monitor IBS (irritable bowel syndrome)/Abdominal pain/diarrhea Irritable bowel syndrome with diarrhea, Acute -send stool for c-diff if confirmed diarrhea -start Questran, d/c scheduled stool softener -monitor electrolytes, MP and CBC -will continue Vanco tapering dose if ok with PATIENT INFORMATION COORDINATOR Transaminitis likely due to previous medications taking, currently discontinued -improving AST/ALT 49/97 recent -monitor liver function Tachycardia/Elevated Blood Pressure Likely related to vs dehydration Patient asymptomatic, no SOB, no feeling of palpitation -improving, HR 111 today -obtain ECG -will monitor HR and Blood pressure - encourage increase fluid intake -Water pitcher at the bedside to encourage patient, discussed with nurse Slight Hypertriglyceridemia no known history, likely related to Transaminitis -Lifestyle modification -monitor lipids and lft Brief psychotic disorder with peripartum onset/ Psychosis/Anxiety Other mental disorders complicating the puerperium, Acute Unspecified psychosis,Acute Anxiety disorder, unspecified, Acute -Management with Psychiatry Team DVT Prophylaxis: Increase ambulation Code Status: full code Discussed Condition With: patient and nurse Discharge Planning: Plan to transfer to a facility close to her home in [facility] can monitor and care for and delivery.
--- NOTE | 2018-04-28 08:39 | P.PNPSY ---
Subjective Remarks: Patient seen for follow, chart reviewed. Discussion nursing staff reported the patient continues to be quite, limited p.o. nutritional intake but had slightly more dinner compared to lunch and breakfast but is having fluids. Patient was found lying hospital bed noted to be superficially engaging in interview as she continues to be noted to be internally preoccupied with thought blocking. Patient states that she spoke with her on the phone but was unable to elaborate content. Patient was able to recognize of having ultrasound done yesterday but did not engage in further conversation regarding this. Patient continues to state that she killed her baby but did not explain why or how. Patient continues to admit to auditory hallucinations which are loud but did not elaborate on the content. Patient states her mood is "bad" continues to have suicidal ideations at this time. Patient was encouraged to maintain hygiene with help as well as to continue adequate nutritional intake. Review of Systems All other systems reviewed negative except as stated in HPI Mental Status Examination Appearance: Appropriate Consciousness: Alert Orientation: Person, Place Motor Activity: Normal gait Speech: Hesitant Language: Perseveration (on the idea that she killed her baby) Fund of Knowledge: Poor Attention and Concentration: Easily distracted, Inadequate Memory: Impaired Mood: Anxious Affect: Anxious Thought Process & Associations: Other ([place]) Thought Content: Hallucinations, Thought blocking, Delusional Hallucination Type: Auditory Delusion Type: Bizarre, Paranoid, Somatic Suicidal Ideation: No Suicidal Plan: No Suicidal Intention: No Homicidal Ideation: No Homicidal Plan: No Homicidal Intention: No Insight: Poor Judgment: Poor Assessment and Plan - Assessment (1) Brief psychotic disorder with peripartum onset Code(s): O99.345 - Other mental disorders complicating the puerperium Status: Acute - Plan Plan: Patient this time continues with perseveration of delusion that she killed her baby and continues with suicidal ideations and auditory hallucinations and appear internally preoccupied but is responding more with slightly more reactive toward interview. We will continue current treatment. We will request dietitian consult to assist with nutritional p.o. intake. We will continue recommendations as per OB and medical team. Monitor mood and behavior. We will continue one-to-one observation for safety. Discharge planning in progress. Justification for Continued Inpatient Stay: At risk of further decompensation a lower level of care.
[2018-04-28] MEDS: Prenatal Vit/Ca/Iron/Folic Acid Tablet PO SCH (09:18)
[2018-04-28 10:35] LABS: Alanine Aminotransferase 130 U/L (10-53); Albumin 2.5 g/dL (3.4-5.0); Anion Gap 12 meq/L (5-15); Aspartate Aminotransferase 92 U/L (15-37); Blood Urea Nitrogen 3 mg/dL (7-18); Carbon Dioxide 22.1 meq/L (21.0-32.0); Chloride 107 meq/L (98-107); Glomerular Filtration Rate Greater Than 89 mL/min (>89); Glucose,Random 94 mg/dL (74-106); Potassium 4.1 meq/L (3.5-5.1); Sodium 141 meq/L (136-145)
[2018-04-28 10:38] LABS: Alkaline Phosphatase 140 U/L (45-117); Total Protein 6.9 g/dL (6.4-8.2)
--- NOTE | 2018-04-28 18:16 | P.PNIM ---
Subjective Interval history: Follow-up 33 weeks gestation of , transaminitis, IBS, chronic C. difficile, anxiety, depression, and agoraphobia. Patient sitting in her bed, family at bedside identified themselves as her parents. Mother discussed the plan of taking care of the patient back home to [place]. Mother stated she will take a vacation to stay with her and some family members will rotate the vacation to stay with the patient, and plan to have the delivery to her hometown at [place]. Mother stated the patients will be here on Monday and will have a meeting with the bilingual case manager. Patient complains of pooping and peeing all the time. Parents confirmed that it is not true as they were with her for quite sometime today but she had not gone yet, nor she was wet. Patient denies any nausea or vomiting. Patient also denies that she feel the baby moving. Patient was selective on answering questions. Denies any pain or SOB, denies any fever or chills. Mother also addressed concern on Flu vaccine, will discuss with OBGYN Physical Exam Vital signs: Vital Signs 04/28/18 05:59 04/28/18 17:51 Temperature 97.8 F 98.4 F Pulse Rate 119 H 136 H Respiratory Rate 18 20 Blood Pressure 140/85 138/93 H Pulse Oximetry 94 L 93 L Intake & Output 04/27/18 04/28/18 04/28/18 18:59 06:59 18:59 Intake Total 240 / 240 480 / 480 Balance 240 / 240 480 / 480 Intake: Oral 240 / 240 480 / 480 Other: # Voids 1 Date of Last Bowel Movement 04/27/18 Narrative: GENERAL: Well-developed, well-nourished, young lady, alert and oriented x3 with some reservation, in no apparent distress SKIN: Warm and dry. HEAD: Atraumatic. Normocephalic. EYES: Pupils equal and round. No scleral icterus. No injection or drainage. Wearing eyeglasses ENT: No nasal bleeding or discharge. Mucous membranes pink and moist. NECK: Trachea midline. No JVD. CARDIOVASCULAR: Regular rate and rhythm. RESPIRATORY: No accessory muscle use. Clear to auscultation. Breath sounds equal bilaterally. GASTROINTESTINAL: Abdomen round enlarged consistent with , soft, non- tender, nondistended. Hepatic and splenic margins not palpable. MUSCULOSKELETAL: Extremities without clubbing, cyanosis, or edema. No obvious deformities. NEUROLOGICAL: Awake and alert. No obvious cranial nerve deficits. Motor grossly within normal limits. Five out of 5 muscle strength in the arms and legs. Normal speech. PSYCHIATRIC: Flat, reserved mood and affect; insight and judgment unreliable. Cooperative Results - Labs CBC & Chem 7: 04/25/18 10:00 04/28/18 10:01 Laboratory Results - last 24 hr 04/25/18 04/28/18 10:00 10:01 Sodium 141 Potassium 4.1 Chloride 107 Carbon Dioxide 22.1 Anion Gap 12 BUN 3 L Creatinine 0.57 Estimated GFR Greater than 89 Random Glucose 94 Calcium 9.0 Total Bilirubin 0.6 AST 92 H ALT 130 H Alkaline Phosphatase 140 H Total Protein 6.9 D Albumin 2.5 L Bile Acids 14 Assessment and Plan - Assessment (1) 33 weeks gestation of Code(s): Z3A.33 - 33 weeks gestation of Status: Acute (2) Brief psychotic disorder with peripartum onset Code(s): O99.345 - Other mental disorders complicating the puerperium Status: Acute (3) Psychosis Code(s): F29 - Unspecified psychosis not due to a substance or known physiological condition Status: Acute (4) Anxiety Code(s): F41.9 - Anxiety disorder, unspecified Status: Acute (5) IBS (irritable bowel syndrome) Code(s): K58.9 - Irritable bowel syndrome without diarrhea Status: Acute - Plan This is a 32 years old young female, 2 para 0 AB 1 with a 33- week estimated gestational age IUP who presents under a Leone act and psychiatric clearance from [facility]. Patient has a past medical history of IBS, anxiety, chronic C. difficile, depression and agoraphobia. WOOD SASH AND FRAME CARPENTER was consulted for management. Medicine team was consulted for medical management. 33 weeks gestation of Acute, with unknown History -obtain previous record from [facility] -Obtain Ultrasound OB, - monitor doppler daily -WOOD SASH AND FRAME CARPENTER following -monitor, started on multivitamins IBS (irritable bowel syndrome)/Abdominal pain/diarrhea Irritable bowel syndrome with diarrhea, Acute -stool for C-diff negative -discontinued Questran, d/c scheduled stool softener -monitor electrolytes, BMP and CBC -will continue Vanco tapering dose if ok with WOOD SASH AND FRAME CARPENTER Transaminitis likely due to previous medications taking, currently discontinued -Hep B & C negative -worsening AST/ALT, will discontinue the Ursodiol -monitor liver function Tachycardia/Elevated Blood Pressure Likely related to vs dehydration Patient asymptomatic, no SOB, no feeling of palpitation -improving, HR 111 today -obtain ECG -will monitor HR and Blood pressure - encourage increase fluid intake, -Water pitcher at the bedside to encourage patient, discussed with nurse Slight Hypertriglyceridemia no known history, likely related to Transaminitis -Lifestyle modification -monitor lipids and LFT Brief psychotic disorder with peripartum onset/ Psychosis/Anxiety Other mental disorders complicating the puerperium, Acute Unspecified psychosis,Acute Anxiety disorder, unspecified, Acute -Management with Psychiatry Team DVT Prophylaxis: Increase ambulation Code Status: full code Discussed Condition With: parents, patient and nurse Discharge Planning: Plan to transfer to a facility close to her home in [place] that can monitor and care for and delivery Parents planned to care for the patient with family members to rotate day offs to care for the patient .
[2018-04-29 08:26] LABS: Albumin 2.3 g/dL (3.4-5.0)
[2018-04-29 08:28] LABS: Total Protein 6.6 g/dL (6.4-8.2)
[2018-04-29] MEDS: Prenatal Vit/Ca/Iron/Folic Acid Tablet PO SCH (09:33)
--- NOTE | 2018-04-29 09:56 | ECG ---
Date Performed: 04/28/2018 Time Performed: 21:08:28 PTAGE: 32 years EKG: SINUS TACHYCARDIA NONSPECIFIC T-WAVE ABNORMALITY ABNORMAL RHYTHM ECG INTERPRETATION BASED O N A DEFAULT AGE OF 42 YEARS NO PREVIOUS TRACING DOCTOR: Zully Ross Interpretating Date/Time 04/29/2018 09:53:44
--- NOTE | 2018-04-29 10:14 | P.PNPSY ---
Subjective Remarks: Patient seen for follow, chart reviewed. Discussion nursing staff reported the patient continued to be internally preoccupied, continues with poor p.o. intake as was reporting incontinence. Patient was found lying hospital bed noted B, cooperative. Patient noted to have slightly more engagement in interview, continues with poor eye contact but noted with slightly less thought blocking. Patient continues to have limited elaboration on answering but states that she had a visit with her parents which had expressed they are wishing her to come home and patient replied that she could not. Patient could not elaborate as to why she felt that she would not be able to go home. Patient states that parents had mentioned that the baby was coming and that they felt it was a "happy thing and when I asked patient if she thought this was a happy thing patient nodded yes. Patient did not express today that she had killed her baby but continues report having auditory hallucinations mostly at night which she perceives as "noises". Patient mentions having lessening of these auditory hallucinations now. Review of Systems All other systems reviewed negative except as stated in HPI Mental Status Examination Appearance: Appropriate Consciousness: Alert Orientation: Person, Place Motor Activity: Normal gait Speech: Hesitant Language: Perseveration (on the idea that she killed her baby) Fund of Knowledge: Poor Attention and Concentration: Easily distracted, Inadequate Memory: Impaired Mood: Anxious Affect: Anxious Thought Process & Associations: Other (Amorita) Thought Content: Hallucinations, Thought blocking, Delusional Hallucination Type: Auditory Delusion Type: Bizarre, Paranoid, Somatic Suicidal Ideation: No Suicidal Plan: No Suicidal Intention: No Homicidal Ideation: No Homicidal Plan: No Homicidal Intention: No Insight: Poor Judgment: Poor Assessment and Plan - Assessment (1) Brief psychotic disorder with peripartum onset Code(s): O99.345 - Other mental disorders complicating the puerperium Status: Acute - Plan Plan: Patient continues with perceptual disturbances which appears to be lessening, continues with internal preoccupation or thought blocking which slightly is improved but continues with poor nutritional intake. We will continue current treatment. We will continue to monitor mood and behavior. We will continue to encourage patient to increase nutritional intake. Discharge planning in progress. Justification for Continued Inpatient Stay: At risk of further decompensation a lower level of care.
--- NOTE | 2018-04-29 13:53 | P.DIET ---
Nutritional Evaluation Type of nutrition evaluation: follow-up Nutrition screening: [facility] Screening comments: 04/28 [facility] Poor PO Intake Subjective Subjective Comments: Very poor po intake noted. Eating only 0-25%. Objective - Diagnosis Unspecified Psychosis - Objective Body Weight Used for Calculations: Upper end of IBW (60 kg) Energy Needs - Lower Range (kCal/kg): 30 Energy Needs - Upper Range (kCal/kg): 35 Lower Limit kCal/kg (kCals): 1,800 Upper Limit kCal/kg (kCals): 2,100 Lower Limit Protein Factor (Grams per Kg): 1.2 Upper Limit Protein Factor (Grams per Kg): 1.5 Lower Protein Needs (Protein): 72 Upper Protein Needs (Protein): 90 Fluid Factor (ml/kg): 35 Estimated Fluid Needs (ml): 2,100 Dietitian Reviewed in Medical Record: Current diet, Curent medications, Intake & Output, Labs, Medical history Diet Order: Regular Oral Diet Intake Amount: Poor <50% Objective Comments: Med hx includes C Diff, IBS Meds include: Vitamins, Haldol Labs include: elevated LFT's Pt at 33 weeks gestation Assessment Assessment: Pt is at high nutrition risk 2' to poor po intake and not receiving adequate nutrition for . Noted vits/mins are now being given. Pt is receiving Ensure Enlive on trays for added nutrition however, her po intake remains very poor at 25%. Noted plan to move pt to facility closer to family. Will continue to monitor clinical course, additional recs as needed. Recommendations: 1. Continue regular diet 2. Ensure Enlive tid 3. vits/mins Dietitian to Monitor: Lab values, Supplement acceptance, Intake & Output, Diet tolerance, Weight change, PO Intake, Medical course
--- NOTE | 2018-04-29 18:40 | P.PNIM ---
Subjective Interval history: Follow-up 33 weeks gestation of , transaminitis, IBS, chronic C. difficile, anxiety, depression, and agoraphobia. Patient seen and examined, lying in bed, sitter at the bedside, Patient denies any pain or discomfort, very slow to answer, Patient dont answer some of the questions asked, Patient denies any abdominal pain, nausea or vomiting. The sitter reported have 2 bowel movements today with no diarrhea. Patient denies any fever or chills, denies any chest pain or shortness of breath. Physical Exam Vital signs: Vital Signs 04/29/18 05:59 04/29/18 16:30 Temperature 98.1 F 98.1 F Pulse Rate 124 H 81 Respiratory Rate 17 Blood Pressure 145/98 H 131/94 H Pulse Oximetry 93 L 98 Intake & Output 04/28/18 04/29/18 04/29/18 18:59 06:59 18:59 Intake Total 480 / 480 720 / 720 Balance 480 / 480 720 / 720 Intake: Oral 480 / 480 720 / 720 Other: # Voids 1 Date of Last Bowel Movement 04/27/18 Narrative: GENERAL: Well-developed, well-nourished, young lady, alert and oriented x3 with some reservation, in no apparent distress SKIN: Warm and dry. HEAD: Atraumatic. Normocephalic. EYES: Pupils equal and round. No scleral icterus. No injection or drainage. Wearing eyeglasses ENT: No nasal bleeding or discharge. Mucous membranes pink and moist. NECK: Trachea midline. No JVD. CARDIOVASCULAR: Regular rate and rhythm. RESPIRATORY: No accessory muscle use. Clear to auscultation. Breath sounds equal bilaterally. GASTROINTESTINAL: Abdomen round enlarged consistent with , soft, non- tender, nondistended. Hepatic and splenic margins not palpable. MUSCULOSKELETAL: Extremities without clubbing, cyanosis, or edema. No obvious deformities. NEUROLOGICAL: Awake and alert. No obvious cranial nerve deficits. Motor grossly within normal limits. Five out of 5 muscle strength in the arms and legs. Normal speech. PSYCHIATRIC: Flat, reserved mood and affect; insight and judgment unreliable. Cooperative Results - Labs CBC & Chem 7: 04/25/18 10:00 04/28/18 10:01 Laboratory Results - last 24 hr 04/29/18 07:39 Total Bilirubin 0.6 Direct Bilirubin 0.2 Indirect Bilirubin 0.4 AST 116 H ALT 139 H Alkaline Phosphatase 126 H Total Protein 6.6 Albumin 2.3 L Assessment and Plan - Assessment (1) 33 weeks gestation of Code(s): Z3A.33 - 33 weeks gestation of Status: Acute (2) Brief psychotic disorder with peripartum onset Code(s): O99.345 - Other mental disorders complicating the puerperium Status: Acute (3) Psychosis Code(s): F29 - Unspecified psychosis not due to a substance or known physiological condition Status: Acute (4) Anxiety Code(s): F41.9 - Anxiety disorder, unspecified Status: Acute (5) IBS (irritable bowel syndrome) Code(s): K58.9 - Irritable bowel syndrome without diarrhea Status: Acute - Plan This is a 32 years old young female, 2 para 0 AB 1 with a 33- week estimated gestational age IUP who presents under a [place] act and psychiatric clearance from [facility]. Patient has a past medical history of IBS, anxiety, chronic C. difficile, depression and agoraphobia. CERTIFIED MEDICAL TECHNICIAN ASSISTANT was consulted for management. Medicine team was consulted for medical management. 33 weeks gestation of Acute, with unknown History -obtain previous record from [facility] -Obtain Ultrasound OB, - monitor doppler daily, OB nurses came in for heart rate checks -CERTIFIED MEDICAL TECHNICIAN ASSISTANT following -monitor, started on multivitamins -appreciate CERTIFIED MEDICAL TECHNICIAN ASSISTANT recommendation for immunization requirement/Tdap/flu shot per family request IBS (irritable bowel syndrome)/Abdominal pain/diarrhea Irritable bowel syndrome with diarrhea, Acute -stool for C-diff negative -discontinued Questran, d/c scheduled stool softener -monitor electrolytes, BMP and CBC -will continue Vanco tapering dose if ok with CERTIFIED MEDICAL TECHNICIAN ASSISTANT Transaminitis likely due to previous medications taking, currently discontinued -Hep B & C negative per report -worsening AST/ALT, discontinued the Ursodiol, recommend to taper dose of Haldol if pati with Psych due to worsening liver function -monitor liver function -order for liver ultrasound, check for hepatitis function panel Tachycardia/Elevated Blood Pressure Likely related to vs dehydration Patient asymptomatic, no SOB, no feeling of palpitation -improving, HR 84 today, BP slightly elevated -obtain ECG -will monitor HR and Blood pressure - encourage increase fluid intake, -Water pitcher at the bedside to encourage patient, discussed with nurse Slight Hypertriglyceridemia no known history, likely related to Transaminitis -Lifestyle modification -monitor lipids and LFT Brief psychotic disorder with peripartum onset/ Psychosis/Anxiety Other mental disorders complicating the puerperium, Acute Unspecified psychosis,Acute Anxiety disorder, unspecified, Acute -Management with Psychiatry Team DVT Prophylaxis: Increase ambulation Code Status: full code Discussed Condition With: patient and nurse Discharge Planning: Plan to transfer to a facility close to her home in [place] that can monitor and care for and delivery Parents planned to care for the patient with family members to rotate day offs to care for the patient .
[2018-04-29 20:25] LABS: Prothrombin Time 10.2 sec (9.8-11.6)
[2018-04-29 20:51] LABS: Hepatitits B Surface Antigen Nonreactive (Nonreactive)
[2018-04-29 21:23] LABS: Hepatitis A IgM Antibody Nonreactive (Nonreactive)
--- NOTE | 2018-04-29 21:39 | US ---
EXAM DATE: 04/29/2018 12:00 AM EDT AGE/SEX: 32 years / Female INDICATIONS: Elevated lab values. CLINICAL DATA: This is the patient's initial encounter. Patient reports that signs and symptoms have been present for 1 day and indicates a pain score of 0/10. MEDICAL/SURGICAL HISTORY: . Panic attacks. Anxiety. C-diff. Depression. Irritable bowel syndrom e. None. COMPARISON: No prior exams available for comparison. MEASUREMENTS: Liver:__ 16.7 cm. Common Bile Duct:__ 7mm. Right Kidney:__ 10.4 x 3.9 x 5.0 cm. FINDINGS: Liver: Normal echotexture without focal lesion or ductal dilatation. Portal Vein: Hepatopedal flow seen in portal vein. Common Duct: No intraluminal mass or stone visualized. Gallbladder: Demonstrates no wall thickening or pericholecystic fluid. No stones visualized. Pancreas: Not well visualized. Right Kidney: Normal echotexture and cortical thickness. No mass or hydronephrosis. Other: None. CONCLUSION: 1. Negative abdominal sonogram. Electronically signed by: Chuck May MD 04/29/2018 9:38 PM EDT
[2018-04-30 07:25] LABS: Alanine Aminotransferase 138 U/L (10-53); Albumin 2.1 g/dL (3.4-5.0); Anion Gap 6 meq/L (5-15); Aspartate Aminotransferase 118 U/L (15-37); Blood Urea Nitrogen 4 mg/dL (7-18); Calcium 8.6 mg/dL (8.5-10.1); Carbon Dioxide 22.8 meq/L (21.0-32.0); Chloride 107 meq/L (98-107); Glomerular Filtration Rate Greater Than 89 mL/min (>89); Glucose,Random 78 mg/dL (74-106); Potassium 3.7 meq/L (3.5-5.1); Sodium 136 meq/L (136-145)
[2018-04-30 07:27] LABS: Alkaline Phosphatase 117 U/L (45-117)
[2018-04-30 09:06] LABS: Baso # (Auto) 0.1 th/mm3 (0.0-0.2); Baso % (Auto) 0.7 % (0.0-2.0); Eos # (Auto) 0.1 th/mm3 (0.0-0.4); Eos % (Auto) 0.6 % (0.0-4.0); Hematocrit 39.6 % (35.0-46.0); Hemoglobin 13.5 gm/dL (11.6-15.3); Lymph # (Auto) 2.1 th/mm3 (1.0-4.8); Lymph % (Auto) 16.5 % (9.0-44.0); Mean Corpuscular Hemoglobin 29.7 pg (27.0-34.0); Mean Corpuscular Volume 87.4 fL (80.0-100.0); Mean Platelet Volume 10.8 fL (7.0-11.0); Mono # (Auto) 0.7 th/mm3 (0.0-0.9); Mono % (Auto) 5.5 % (0.0-8.0); Neut # (Auto) 9.7 th/mm3 (1.8-7.7); Neut % (Auto) 76.7 % (16.0-70.0); Platelet Count 260 th/mm3 (150-450); Red Blood Count 4.54 mil/mm3 (4.00-5.30); Red Cell Distribution Width 15.5 % (11.6-17.2); White Blood Count 12.6 th/mm3 (4.0-11.0)
[2018-04-30] MEDS: Prenatal Vit/Ca/Iron/Folic Acid Tablet PO SCH (10:12)
--- NOTE | 2018-04-30 10:42 | P.TTN ---
- Patient Problems Problems: 1. Discharge planning 2. Medication compliance 3. Knowledge deficit 4. Lack of coping skills - Progress Toward Goals Provider Present: Dr. Jolly Garvey Provider Input: 04/30/18: Pt continues to present with psychosis and . Spouse has voiced concern regarding home vs placement for pt. 04/25/18: Pt plan includes consultation with OB MD (pt ), stabilization of pt's cognition , transfer back to previous hospital. Pt remains psychotic, she is 33 wks , on-going medication titration. Psychiatric Counselors Present: Alvarado Muhammad Jr., [facility] Psychiatric Therapist Input: 04/30/18: Pt has been unable to attend groups, she is 1:1 supervision and her psychotic statements continue. 04/25/18: Pt expected to be returned to [facility] once stable. Pt is , counselor to follow-up with pt's spouse. Group Spec/RT/OT/AREVALO Present: Alie Johnson, GPS, Rodolfo Cee, OT Group Spec/RT/OT/AREVALO Input: 04/25/18: pt is unable to tolerate groups. Occupational Therapist Input: 04/25/18: Pt is not receiving formal OT treatment. Pt is however, as a pt on , under the care of staff in other capacities and this OTR's interactions with pt have revealed pt as highly delusional/ psychotic, unable to care for herself, continuing on 1:1 supervision and highly unpredictable. Pt has remarked, on many occasions, that "she is a bad person who has been peeing and pooping and is going to be punished." Additional Input: 04/30/18: Pt is expected to discharge when stable which is complicated by her on- going psychosis and her . *: Pt is expected to be discharged to her prior hospital in [place], [place], which was her initial admitting facility. It is expected that spouse and area OBGYN will follow pt to term. - Documentation Teaching Recipient: Patient
--- NOTE | 2018-04-30 11:07 | P.CONGI ---
History of Present Illness Consult date: 04/30/18 Consult reason: Elevated LFTs Chief complaint: Unspecified Psychosis History of Present Illness: This is a 32-year-old female who was admitted to the hospital on 04/23/2018 with symptoms of delusion, history of schizophrenia and psychiatric treatment. According to the record patient initially was under [place] act and was trying to starve herself. Patient is 2 para 0 aborta 1, 33-week estimated gestational age and had continued her psychotropic medicines. Patient has a chronic history of C. difficile and has also been on vancomycin p.o. Gastroenterology was consulted to assist with her transaminitis, possible causes and plan of care. Patient is awake with minimal verbal contact and is a poor historian for now. She did answer and offer simple information such as IBS , chronic diarrhea and does note right mid and lower quadrant discomfort. She does not offer any history to timing aggregating factors relieving factors except for abdominal pain and some cramping has been going on for a long time. Currently unknown family history of any colon cancer or GI disease and unknown history of any GI procedures such as colonoscopy or EGD. Current labs show total bilirubin 0.5, AST 118 ALT 138, alkaline phosphatase 117, albumin 2.1, PT/ INR 1, hemoglobin 12, platelet count 217. Patient does not complain of any nausea vomiting or dyspepsia or dysphasia. She does not note any GI bleeding. <Ludy Britt - Last Filed: 04/30/18 10:54> Review of Systems All other systems reviewed negative except as stated in HPI, unobtainable due to mental condition, unobtainable due to mental status <Ludy Britt - Last Filed: 04/30/18 10:54> PMFSH - History History Provided By: Patient - Medical History Medical History: Medical History (Last Reviewed 04/25/18 @ 19:17 by JANINE Drake) Agoraphobia with panic attacks Anxiety C. difficile diarrhea Depression History of IBS - Tobacco History Second Hand Smoke Exposure: No Smoking Status: Never smoker - Alcohol History How Often Do You Have a Drink Containing Alcohol: Never - Substance Use History Substance History: Unable to Obtain - Travel History Recent Travel in the [place] Within the Last 8 Weeks: No Recent Travel Out of the Country Within the Last 8 Weeks: No - Immunization History Tetanus Immunization: Unable to Assess Hx Influenza Vaccine This Season: Unable to Assess <Ludy Britt - Last Filed: 04/30/18 10:54> - Medical History Medical History: Medical History (Last Reviewed 04/25/18 @ 19:17 by JANINE Drake) Agoraphobia with panic attacks Anxiety C. difficile diarrhea Depression History of IBS <Marco Hines - Last Filed: 04/30/18 15:06> Medications and Allergies Active Medications: Active Medications Al Hydrox/Mg Hydrox/Simethicone (Mag-Al Plus Susp Liq) 30 ml PO Q6H PRN PRN Reason: DYSPEPSIA Al Hydroxide/Mg Hydroxide (Milk Of Magnesia Liq) 30 ml PO Q12H PRN PRN Reason: Mild Constipation Bisacodyl (Dulcolax Supp) 10 mg RECTAL DAILY PRN PRN Reason: SEVERE CONSITIPATION Diphenhydramine HCl (Benadryl) 25 mg PO BID [facility] Last Admin: 04/30/18 10:12 Dose: 25 mg Haloperidol (Haldol) 10 mg PO HS [facility] Last Admin: 04/29/18 21:24 Dose: 10 mg Haloperidol (Haldol) 10 mg PO DAILY [facility] Last Admin: 04/30/18 10:22 Dose: 10 mg Padimate O (Chapstick) 1 applicatio TOPICAL UNSCH PRN PRN Reason: dry lips Last Admin: 04/27/18 17:13 Dose: 1 applicatio Vit/Calcium/Iron/Folic Ac (Stuartnatal Plus 3) 1 tab PO DAILY [facility] Last Admin: 04/30/18 10:12 Dose: 1 tab Sennosides (Senokot) 17.2 mg PO Q12H PRN PRN Reason: Moderate Constipation Vancomycin HCl (Vancomycin Po) 125 mg PO Q6H [facility] Last Admin: 04/30/18 10:13 Dose: 125 mg <Ludy Britt - Last Filed: 04/30/18 10:54> Active Medications: Active Medications Al Hydrox/Mg Hydrox/Simethicone (Mag-Al Plus Susp Liq) 30 ml PO Q6H PRN PRN Reason: DYSPEPSIA Al Hydroxide/Mg Hydroxide (Milk Of Magnesia Liq) 30 ml PO Q12H PRN PRN Reason: Mild Constipation Bisacodyl (Dulcolax Supp) 10 mg RECTAL DAILY PRN PRN Reason: SEVERE CONSITIPATION Diphenhydramine HCl (Benadryl) 25 mg PO BID [facility] Last Admin: 04/30/18 10:12 Dose: 25 mg Haloperidol (Haldol) 10 mg PO HS [facility] Last Admin: 04/29/18 21:24 Dose: 10 mg Haloperidol (Haldol) 10 mg PO DAILY [facility] Last Admin: 04/30/18 10:22 Dose: 10 mg Padimate O (Chapstick) 1 applicatio TOPICAL UNSCH PRN PRN Reason: dry lips Last Admin: 04/27/18 17:13 Dose: 1 applicatio Vit/Calcium/Iron/Folic Ac (Stuartnatal Plus 3) 1 tab PO DAILY [facility] Last Admin: 04/30/18 10:12 Dose: 1 tab Sennosides (Senokot) 17.2 mg PO Q12H PRN PRN Reason: Moderate Constipation Vancomycin HCl (Vancomycin Po) 125 mg PO Q6H [facility] Last Admin: 04/30/18 10:13 Dose: 125 mg <Marco Hines - Last Filed: 04/30/18 15:06> Allergies Allergy/AdvReac Type Severity Reaction Status Date / Time vortioxetine Allergy Hives Verified 04/23/18 20:36 [From Brintellix] ziprasidone [From Geodon] Allergy Chest Pain Verified 04/23/18 20:36 Home Medications Medication Instructions Recorded Confirmed Type PNV cmb#95-ferrous fumarate-FA 1 tab PO DAILY 04/23/18 04/23/18 History [] fluvoxamine 75 mg HS 04/23/18 04/23/18 History lactated Ringers 125 ml 04/23/18 History lamotrigine [Lamictal] 25 PO TID 04/23/18 History mirtazapine [Remeron] 15 mg PO HS 04/23/18 04/23/18 History olanzapine [Zyprexa] BID PRN 04/23/18 History quetiapine [Seroquel] 50 mg PO BID 04/23/18 04/23/18 History quetiapine [Seroquel] 300 mg PO HS 04/23/18 04/23/18 History trazodone 100 mg HS 04/23/18 04/23/18 History ursodiol [Actigall] 300 mg PO BID 04/23/18 04/23/18 History vancomycin 250 mg BID 04/23/18 04/23/18 History Exam Vital signs: Vital Signs 04/29/18 16:30 04/30/18 05:20 Temperature 98.1 F 97.6 F Pulse Rate 81 115 H Respiratory Rate 17 Blood Pressure 131/94 H 108/71 Pulse Oximetry 98 95 Intake & Output 04/29/18 04/30/18 04/30/18 18:59 06:59 18:59 Intake Total 1560 / 1560 340 / 340 480 / 480 Balance 1560 / 1560 340 / 340 480 / 480 Weight 81.8 kg Intake: Oral 1560 / 1560 340 / 340 480 / 480 Oral Supplement 0 / 0 Other: # Voids 3 1 Date of Last Bowel Movement 04/27/18 - Constitutional mild distress, average body habitus (With 33-week ), disheveled, somnolent - Routine HEENT Exam Head: Present: normocephalic ENT: Present: mucous membranes dry - Routine Neck Exam Present: supple - Routine Respiratory Exam Present: accessory muscle use (No obvious shortness of breath wheezing or rhonchi) - Routine Cardiovascular Exam Present: S1, S2 - Routine Abdominal Exam Present: soft (With 33-week ), normoactive bowel sounds (Right mid and lower quadrant discomfort to light palpation) - Routine Skin Exam Present: intact - Routine Neurological Exam Present: alert, altered mental status (Awake), moving all extremities (Speech very soft minimal communication to simple questions) <Ludy Britt - Last Filed: 04/30/18 10:54> Vital signs: Vital Signs 04/29/18 16:30 04/30/18 05:20 Temperature 98.1 F 97.6 F Pulse Rate 81 115 H Respiratory Rate 17 Blood Pressure 131/94 H 108/71 Pulse Oximetry 98 95 Intake & Output 04/29/18 04/30/18 04/30/18 18:59 06:59 18:59 Intake Total 1560 / 1560 340 / 340 960 / 960 Balance 1560 / 1560 340 / 340 960 / 960 Weight 81.8 kg Intake: Oral 1560 / 1560 340 / 340 960 / 960 Oral Supplement 0 / 0 Other: # Voids 3 1 Date of Last Bowel Movement 04/27/18 <Marco Hines - Last Filed: 04/30/18 15:06> Results - Labs CBC & Chem 7: 04/30/18 08:55 04/30/18 06:05 Labs: Laboratory Results - last 24 hr 04/29/18 04/29/18 04/30/18 19:25 19:41 06:05 WBC RBC Hgb Hct MCV MCH MCHC RDW Plt Count MPV Neut % (Auto) Lymph % (Auto) [place] % (Auto) Eos % (Auto) Baso % (Auto) Neut # (Auto) Lymph # (Auto) [place] # (Auto) Eos # (Auto) Baso # (Auto) WBC Differential Differential Comment PT 10.2 INR 1.0 Sodium 136 Potassium 3.7 Chloride 107 Carbon Dioxide 22.8 Anion Gap 6 BUN 4 L Creatinine 0.44 L Estimated GFR Greater than 89 Random Glucose 78 Calcium 8.6 Total Bilirubin 0.5 AST 118 H ALT 138 H Alkaline Phosphatase 117 Total Protein 6.0 L D Albumin 2.1 L Hepatitis A IgM Ab Nonreactive Hep Bs Antigen Nonreactive Hep B Core IgM Ab Nonreactive Hep C IgG Ab Nonreactive 04/30/18 08:55 WBC 12.6 H RBC 4.54 Hgb 13.5 Hct 39.6 MCV 87.4 MCH 29.7 MCHC 34.0 RDW 15.5 Plt Count 260 MPV 10.8 Neut % (Auto) 76.7 H Lymph % (Auto) 16.5 [place] % (Auto) 5.5 Eos % (Auto) 0.6 Baso % (Auto) 0.7 Neut # (Auto) 9.7 H Lymph # (Auto) 2.1 [place] # (Auto) 0.7 Eos # (Auto) 0.1 Baso # (Auto) 0.1 WBC Differential . Differential Comment Auto diff final PT INR Sodium Potassium Chloride Carbon Dioxide Anion Gap BUN Creatinine Estimated GFR Random Glucose Calcium Total Bilirubin AST ALT Alkaline Phosphatase Total Protein Albumin Hepatitis A IgM Ab Hep Bs Antigen Hep B Core IgM Ab Hep C IgG Ab - Imaging Impressions Liver Ultrasound 04/29/18 00:00 CONCLUSION: 1. Negative abdominal sonogram. <Luyd Britt - Last Filed: 04/30/18 10:54> - Labs CBC & Chem 7: 04/30/18 08:55 04/30/18 06:05 Labs: Laboratory Results - last 24 hr 04/29/18 04/29/18 04/30/18 19:25 19:41 06:05 WBC RBC Hgb Hct MCV MCH MCHC RDW Plt Count MPV Neut % (Auto) Lymph % (Auto) [place] % (Auto) Eos % (Auto) Baso % (Auto) Neut # (Auto) Lymph # (Auto) [place] # (Auto) Eos # (Auto) Baso # (Auto) WBC Differential Differential Comment PT 10.2 INR 1.0 Sodium 136 Potassium 3.7 Chloride 107 Carbon Dioxide 22.8 Anion Gap 6 BUN 4 L Creatinine 0.44 L Estimated GFR Greater than 89 Random Glucose 78 Calcium 8.6 Total Bilirubin 0.5 AST 118 H ALT 138 H Alkaline Phosphatase 117 Total Protein 6.0 L D Albumin 2.1 L Hepatitis A IgM Ab Nonreactive Hep Bs Antigen Nonreactive Hep B Core IgM Ab Nonreactive Hep C IgG Ab Nonreactive 04/30/18 08:55 WBC 12.6 H RBC 4.54 Hgb 13.5 Hct 39.6 MCV 87.4 MCH 29.7 MCHC 34.0 RDW 15.5 Plt Count 260 MPV 10.8 Neut % (Auto) 76.7 H Lymph % (Auto) 16.5 [place] % (Auto) 5.5 Eos % (Auto) 0.6 Baso % (Auto) 0.7 Neut # (Auto) 9.7 H Lymph # (Auto) 2.1 [place] # (Auto) 0.7 Eos # (Auto) 0.1 Baso # (Auto) 0.1 WBC Differential . Differential Comment Auto diff final PT INR Sodium Potassium Chloride Carbon Dioxide Anion Gap BUN Creatinine Estimated GFR Random Glucose Calcium Total Bilirubin AST ALT Alkaline Phosphatase Total Protein Albumin Hepatitis A IgM Ab Hep Bs Antigen Hep B Core IgM Ab Hep C IgG Ab - Imaging Impressions Liver Ultrasound 04/29/18 00:00 CONCLUSION: 1. Negative abdominal sonogram. <Marco Hines - Last Filed: 04/30/18 15:06> Assessment and Plan - Plan 32-year-old female who was admitted to the hospital on 04/23/2018 with symptoms of delusion, history of schizophrenia and psychiatric treatment. According to the record patient initially was under [place] act and was trying to starve herself. Patient is 2 para 0 aborta 1, 33-week estimated gestational age and had continued her psychotropic medicines. Patient has a chronic history of C. difficile and has also been on vancomycin p.o. Gastroenterology was consulted to assist with her transaminitis, possible causes and plan of care. Patient is awake with minimal verbal contact and is a poor historian for now. She did answer and offer simple information such as IBS, chronic diarrhea and does note right mid and lower quadrant discomfort. She does not offer any history to timing aggregating factors relieving factors except for abdominal pain and some cramping has been going on for a long time. Currently unknown family history of any colon cancer or GI disease and unknown history of any GI procedures such as colonoscopy or EGD. Current labs show total bilirubin 0.5, AST 118 ALT 138, alkaline phosphatase 117, albumin 2.1, PT/INR 1, hemoglobin 12 , platelet count 217. Patient does not complain of any nausea vomiting or dyspepsia or dysphasia. She does not note any GI bleeding. Transaminitis, unknown pathology but could be related to medications versus intrahepatic cholestasis of , (ICP), abnormal flow of bile duct affected by increased amounts of hormones. History of chronic C. difficile, currently on vancomycin p.o. History of IBS, patient does state, predominantly with diarrhea symptoms Anorexia, could be related to patient's delusional status and history of schizophrenia. Patient is not eating or drinking and is 33 weeks . Plan Diet as tolerated encourage patient to drink p.o. fluids and eat anything that she desires. Discussed with her fruits, vegetables, [place]ron[place] fries, cheeseburgers , anything to motivate her hunger. Consider IV fluids and IV hydration Monitor labs with special attention to LFTs Supportive Consider further outpatient testing such as colonoscopy, after of her baby Patient was seen per myself and Dr. Hines, note was written on his behalf <Ludy Britt - Last Filed: 04/30/18 10:54> - Plan Seen and examined with [employer], unclear if there is any preceeding underlying liver disease. Possible fatty liver of vs. pre eclampsia vs. LFT elevation from patients strong antipsychotic meds. Discussed with Dr Garvey, advised close [employer] fu. Monitor lfts. Liver greene ordered.Will follow, thank you <Marco Hines - Last Filed: 04/30/18 15:06>
--- NOTE | 2018-04-30 15:13 | P.PN ---
Subjective Interval history: Follow up for elevated liver enzymes: Patient seen and examined, sitter at bedside. Patient is not eating, drinking fairly well. Drank only 2 ensures a day. Difficult to obtain any history, not verbalizing much, voice very soft almost childish. When asked given pain she notes she has however she does not pinpoint. She is noted tachycardic. No fever. Physical Exam Vital signs: Vital Signs 04/29/18 16:30 04/30/18 05:20 Temperature 98.1 F 97.6 F Pulse Rate 81 115 H Respiratory Rate 17 Blood Pressure 131/94 H 108/71 Pulse Oximetry 98 95 Intake & Output 04/29/18 04/30/18 04/30/18 18:59 06:59 18:59 Intake Total 1560 / 1560 340 / 340 960 / 960 Balance 1560 / 1560 340 / 340 960 / 960 Weight 81.8 kg Intake: Oral 1560 / 1560 340 / 340 960 / 960 Oral Supplement 0 / 0 Other: # Voids 3 1 Date of Last Bowel Movement 04/27/18 Narrative: GENERAL: Well-developed, well-nourished, laying on side, does not appear in any distress. SKIN: Warm and dry. HEAD: Atraumatic. Normocephalic. EYES: Pupils equal and round. No scleral icterus. No injection or drainage. Wearing eyeglasses ENT: No nasal bleeding or discharge. Mucous membranes pink and moist. NECK: Trachea midline. No JVD. CARDIOVASCULAR: Regular rate and rhythm. RESPIRATORY: No accessory muscle use. Clear to auscultation. Breath sounds equal bilaterally. GASTROINTESTINAL: Abdomen round enlarged consistent with , soft, non- tender, nondistended. Hepatic and splenic margins not palpable. MUSCULOSKELETAL: Extremities without clubbing, cyanosis, or edema. No obvious deformities. NEUROLOGICAL: Awake, speech clear. No focal deficits noted. PSYCHIATRIC: Flat, not engaging in conversation. Results - Labs CBC & Chem 7: 04/30/18 08:55 04/30/18 06:05 Laboratory Results - last 24 hr 04/29/18 04/29/18 04/30/18 19:25 19:41 06:05 WBC RBC Hgb Hct MCV MCH MCHC RDW Plt Count MPV Neut % (Auto) Lymph % (Auto) [place] % (Auto) Eos % (Auto) Baso % (Auto) Neut # (Auto) Lymph # (Auto) [place] # (Auto) Eos # (Auto) Baso # (Auto) WBC Differential Differential Comment PT 10.2 INR 1.0 Sodium 136 Potassium 3.7 Chloride 107 Carbon Dioxide 22.8 Anion Gap 6 BUN 4 L Creatinine 0.44 L Estimated GFR Greater than 89 Random Glucose 78 Calcium 8.6 Total Bilirubin 0.5 AST 118 H ALT 138 H Alkaline Phosphatase 117 Total Protein 6.0 L D Albumin 2.1 L Hepatitis A IgM Ab Nonreactive Hep Bs Antigen Nonreactive Hep B Core IgM Ab Nonreactive Hep C IgG Ab Nonreactive 04/30/18 08:55 WBC 12.6 H RBC 4.54 Hgb 13.5 Hct 39.6 MCV 87.4 MCH 29.7 MCHC 34.0 RDW 15.5 Plt Count 260 MPV 10.8 Neut % (Auto) 76.7 H Lymph % (Auto) 16.5 [place] % (Auto) 5.5 Eos % (Auto) 0.6 Baso % (Auto) 0.7 Neut # (Auto) 9.7 H Lymph # (Auto) 2.1 [place] # (Auto) 0.7 Eos # (Auto) 0.1 Baso # (Auto) 0.1 WBC Differential . Differential Comment Auto diff final PT INR Sodium Potassium Chloride Carbon Dioxide Anion Gap BUN Creatinine Estimated GFR Random Glucose Calcium Total Bilirubin AST ALT Alkaline Phosphatase Total Protein Albumin Hepatitis A IgM Ab Hep Bs Antigen Hep B Core IgM Ab Hep C IgG Ab - Imaging Impressions Liver Ultrasound 04/29/18 00:00 CONCLUSION: 1. Negative abdominal sonogram. Assessment and Plan - Plan Assessment/Plan This is a 32 years old young female, 2 para 0 AB 1 with a 33- week estimated gestational age IUP who presents under a [place] act and psychiatric clearance from [facility]. Patient has a past medical history of IBS, anxiety, chronic C. difficile, depression and agoraphobia. DEAN OF EDUCATION was consulted for management. Medicine team was consulted for medical management. 33 weeks gestation of unknown care -pending record from [facility] -daily doppler per OB staff -DEAN OF EDUCATION following -continue multivitamins -appreciate DEAN OF EDUCATION recommendation for immunization requirement/Tdap/flu shot per family request Irritable bowel syndrome with diarrhea Chronic cdiff -stool for C-diff negative -discontinued Questran, d/c scheduled stool softener -monitor electrolytes, BMP and CBC -will continue Vanco tapering dose Transaminitis, poss due to medications, vs cholestasis secondary to Pt. was taken off psychotropic agents outpatient. -Hep B & C negative per report -Livers enzymes same. -INR okay -Liver US results noted, no acute findings -appreciate GI input. Tachycardia/Elevated Blood Pressure Likely related to vs dehydration No eating much, drinking Ensure -HR still elevated, not eating -will start NS at 50/hr x 1 liter -Enc. PO intake, continue Ensure Slight Hypertriglyceridemia no known history, likely related to Transaminitis -Lifestyle modification -monitor lipids and LFT Psychosis, history of anxiety, depression, agoraphobia, OCD Was on Luvox, Lamictal, Seroquel, Trazodone-these were stopped due to elevated LFTs. -Management with Psychiatry Team, currently on Haldol. DVT Prophylaxis-inc. ambulation Repeat LFTs in the morning, monitor electrolytes Code Status: Full code Discussed Condition With: director of materials Planning: Per psych team Family plans to transfer her eventually to a facility closer to them so they can assist with care
--- NOTE | 2018-04-30 16:52 | P.PNPSY ---
Subjective Remarks: Patient seen for follow-up, chart reviewed. Discussion with nursing staff reported that patient compliant with medications, continues to have poor p.o. intake, patient seen by GI consult today. Patient found lying hospital bed with sitter at bedside. Patient continues to have limited responses to interview but was able to engage. Patient states that her parents visited recently over the weekend and that it went well but states that her mood is "bad " she continues to report auditory hallucinations in the evening which are "loud " but when further questioning regarding auditory hallucinations she mentions these are voices of people in the hallway outside of her door. Patient denied hearing voices of persons she did not see. Patient states that she was also seen by OB consult which have told her that the baby is alive and when asked about her thoughts patient did not respond. Patient continued to state "I know I killed my baby". Patient was encouraged to maintain hygiene, shower and be more mandatory on the unit as well as increase nutritional intake which she noted in agreement. Patient was later noted to be eating lunch. Review of Systems All other systems reviewed negative except as stated in HPI Mental Status Examination Appearance: Appropriate Consciousness: Alert Orientation: Person, Place Motor Activity: Normal gait Speech: Hesitant Language: Perseveration (on the idea that she killed her baby but lessening) Fund of Knowledge: Poor Attention and Concentration: Easily distracted, Inadequate Memory: Impaired Mood: Other ("Bad") Affect: Blunt Thought Process & Associations: Other ([place]) Thought Content: Hallucinations, Thought blocking, Delusional Hallucination Type: Auditory Delusion Type: Bizarre, Paranoid, Somatic Suicidal Ideation: No Suicidal Plan: No Suicidal Intention: No Homicidal Ideation: No Homicidal Plan: No Homicidal Intention: No Insight: Poor Judgment: Poor Assessment and Plan - Assessment (1) Brief psychotic disorder with peripartum onset Code(s): O99.345 - Other mental disorders complicating the puerperium Status: Acute - Plan Plan: Patient continues with perseveration of delusion of the thought that she had killed her baby despite being advised the patient continues to carry viable . Patient continues require much encouragement for ADLs as well as improvement of nutritional intake. We will continue current treatment. Continue to monitor mood and behavior. Patient appears to be engaging more by day in interview. Treatment he will have meeting with patient's tomorrow to discuss his progress as well as treatment plan. GI consult input appreciated. OB consult input appreciated. Hospitalist consult input appreciated. Discharge planning a progress. Justification for Continued Inpatient Stay: At risk of further decompensation at lower level care.
[2018-04-30] MEDS: Sod Chloride 0.9% Inj 1,000 ML IV.CONT SCH ×2 (19:46→19:47)
[2018-04-30 20:09] LABS: Bacteria,Urine Rare /hpf; Bilirubin,Urine Negative (Negative); Clarity,Urine Cloudy (Clear); Color,Urine Amber (Yellw/Straw); Glucose,Urine (UA) Negative (Negative); Leukocyte Esterase,Urine Negative (Negative); Mucus,Urine Moderate /lpf (Occasional); Nitrite,Urine Negative (Negative); Specific Gravity,Urine 1.021 (1.002-1.035); Squamous Epithelial Cell,Urine 25 /hpf (0-5)
[2018-04-30 20:11] LABS: Protein/Creatinine Ratio,Urine 0.22 (0.00-0.14)
[2018-05-01 05:25] VITALS: O2SAT 94
[2018-05-01 07:56] LABS: Albumin 2.1 g/dL (3.4-5.0); Anion Gap 12 meq/L (5-15); Aspartate Aminotransferase 128 U/L (15-37); Blood Urea Nitrogen 7 mg/dL (7-18); Calcium 8.6 mg/dL (8.5-10.1); Carbon Dioxide 20.6 meq/L (21.0-32.0); Chloride 107 meq/L (98-107); Glomerular Filtration Rate Greater Than 89 mL/min (>89); Glucose,Random 80 mg/dL (74-106); Potassium 3.8 meq/L (3.5-5.1); Sodium 140 meq/L (136-145)
[2018-05-01 07:57] LABS: Alanine Aminotransferase 145 U/L (10-53)
[2018-05-01 07:59] LABS: Alkaline Phosphatase 113 U/L (45-117)
[2018-05-01] MEDS: Prenatal Vit/Ca/Iron/Folic Acid Tablet PO SCH (09:45)
--- NOTE | 2018-05-01 13:08 | P.PNGI ---
Subjective Interval history: Patient sitting up in bed conversing with spouse at bedside. Patient spouse states patient did not eat breakfast meal but did eat a cracker. IV hydration infusing. <Sandra French - Last Filed: 05/01/18 12:56> Physical Exam Vital signs: Vital Signs 04/30/18 18:04 05/01/18 04:00 Temperature 97.5 F L 98 F Pulse Rate 129 H 114 H Respiratory Rate 16 16 Blood Pressure 135/85 129/74 Pulse Oximetry 93 L 94 L Intake & Output 04/30/18 05/01/18 05/01/18 18:59 06:59 18:59 Intake Total 1440 / 1440 60 / 60 360 / 360 Balance 1440 / 1440 60 / 60 360 / 360 Intake: Oral 1440 / 1440 60 / 60 360 / 360 - Constitutional no acute distress - Routine HEENT Exam Head: Present: normocephalic - Routine Respiratory Exam Present: CTA bilaterally. Absent: respiratory distress - Routine Cardiovascular Exam Present: RRR - Routine Abdominal Exam Present: soft, normoactive bowel sounds. Absent: tenderness, guarding, firm Comments: 33-week , no reported discomfort on palpation during exam - Routine Extremities Exam Present: full ROM, pulses intact - Routine Skin Exam Present: dry, warm. Absent: jaundice - Routine Neurological Exam Present: alert Quiet and cooperative during exam answers all questions appropriately. - Detailed Neurological Exam: Coma Scale Eye Opening: Spontaneous Verbal Response: Oriented Motor Response: Obey commands Cory Coma Scale Total: 15 - Routine Psychiatric Exam Present: cooperative <Sandra French - Last Filed: 05/01/18 12:56> Vital signs: Vital Signs 04/30/18 18:04 05/01/18 04:00 Temperature 97.5 F L 98 F Pulse Rate 129 H 114 H Respiratory Rate 16 16 Blood Pressure 135/85 129/74 Pulse Oximetry 93 L 94 L Intake & Output 04/30/18 05/01/18 05/01/18 18:59 06:59 18:59 Intake Total 1440 / 1440 60 / 60 360 / 360 Balance 1440 / 1440 60 / 60 360 / 360 Intake: Oral 1440 / 1440 60 / 60 360 / 360 <Marco Hines - Last Filed: 05/01/18 14:19> Results - Labs CBC & Chem 7: 04/30/18 08:55 05/01/18 07:02 Laboratory Results - last 24 hr 04/30/18 04/30/18 05/01/18 18:15 18:15 07:02 Sodium 140 Potassium 3.8 Chloride 107 Carbon Dioxide 20.6 L Anion Gap 12 BUN 7 Creatinine 0.46 L Estimated GFR Greater than 89 Random Glucose 80 Calcium 8.6 Total Bilirubin 0.6 AST 128 H ALT 145 H Alkaline Phosphatase 113 Total Protein 6.0 L Albumin 2.1 L Urine Color Maritza Urine Clarity Cloudy H Urine pH 7.0 Ur Specific [place] 1.021 Urine Protein 30 H Urine Glucose (UA) Negative Urine Ketones 20 Urine Occult Blood Negative Urine Nitrate Negative Urine Bilirubin Negative Urine Urobilinogen Less than 2 Ur Leukocyte Esterase Negative Urine RBC Less than 1 Urine WBC 3 Ur Squamous Epith Cells 25 Urine Bacteria Rare H Urine Mucus Moderate H Micro UA Comment Culture not ind Ur Microscopic Review Not Reportable Urine Culture Comments Culture not ind Ur Random Creatinine 166 U Random Total Protein 36.2 H Protein/Creatinin Ratio 0.22 H <Sandra French - Last Filed: 05/01/18 12:56> - Labs CBC & Chem 7: 04/30/18 08:55 05/01/18 07:02 Laboratory Results - last 24 hr 04/30/18 04/30/18 05/01/18 18:15 18:15 07:02 Sodium 140 Potassium 3.8 Chloride 107 Carbon Dioxide 20.6 L Anion Gap 12 BUN 7 Creatinine 0.46 L Estimated GFR Greater than 89 Random Glucose 80 Calcium 8.6 Total Bilirubin 0.6 AST 128 H ALT 145 H Alkaline Phosphatase 113 Total Protein 6.0 L Albumin 2.1 L Urine Color Marit[place] Urine Clarity Cloudy H Urine pH 7.0 Ur Specific [place] 1.021 Urine Protein 30 H Urine Glucose (UA) Negative Urine Ketones 20 Urine Occult Blood Negative Urine Nitrate Negative Urine Bilirubin Negative Urine Urobilinogen Less than 2 Ur Leukocyte Esterase Negative Urine RBC Less than 1 Urine WBC 3 Ur Squamous Epith Cells 25 Urine Bacteria Rare H Urine Mucus Moderate H Micro UA Comment Culture not ind Ur Microscopic Review Not Reportable Urine Culture Comments Culture not ind Ur Random Creatinine 166 U Random Total Protein 36.2 H Protein/Creatinin Ratio 0.22 H <Marco Hines - Last Filed: 05/01/18 14:19> Assessment and Plan - Plan Transaminitis, unknown pathology but could be related to medications versus intrahepatic cholestasis of , (ICP), abnormal flow of bile duct affected by increased amounts of hormones. History of chronic C. difficile, currently on vancomycin p.o. History of IBS, patient does state, predominantly with diarrhea symptoms Anorexia, could be related to patient's delusional status and history of schizophrenia. Patient is not eating or drinking and is 33 weeks . 05/01/18 Transaminitis-patient 33 weeks , possible cholestasis, possible fatty liver . Patient denies any abdominal pain. We will continue to monitor liver function. Plan Diet as tolerated, patient encouraged to eat. Food and fluids at bedside IV hydration Monitor liver function Avoid hepatotoxins Supportive care Further recommendations to follow This patient has been seen by myself and of a car and this note is written on his behalf - Attending Attestation Dr. Hines <Sandra French - Last Filed: 05/01/18 12:56> - Plan Seen and examined with BEVEL GEAR GENERATOR OPERATOR, sitter in room. LFTs stable. Denies any other symptoms. Monitor labs. <Marco Hines - Last Filed: 05/01/18 14:19>
--- NOTE | 2018-05-01 15:09 | P.PN ---
Subjective Interval history: Follow up for elevated liver enzymes. Patient seen and examined. is at the bedside. Patient eats "bad". She complains of abdominal pain. She has minimal verbalization. Does not answer majority of ROS questions. Discussed with who states patient ate fairly good for lunch today. Physical Exam Vital signs: Vital Signs 04/30/18 18:04 05/01/18 04:00 Temperature 97.5 F L 98 F Pulse Rate 129 H 114 H Respiratory Rate 16 16 Blood Pressure 135/85 129/74 Pulse Oximetry 93 L 94 L Intake & Output 04/30/18 05/01/18 05/01/18 18:59 06:59 18:59 Intake Total 1440 / 1440 60 / 60 360 / 360 Balance 1440 / 1440 60 / 60 360 / 360 Intake: Oral 1440 / 1440 60 / 60 360 / 360 Narrative: GENERAL: Well-developed, well-nourished female patient, no acute distress. at the bedside. SKIN: Warm and dry. HEAD: Atraumatic. Normocephalic. EYES: Pupils equal and round. No scleral icterus. No injection or drainage. Wearing eyeglasses. ENT: No nasal bleeding or discharge. Mucous membranes pink and moist. NECK: Trachea midline. CARDIOVASCULAR: Tachycardiac. RESPIRATORY: No accessory muscle use. Clear to auscultation. Breath sounds equal bilaterally. GASTROINTESTINAL: Abdomen round enlarged consistent with , soft, non- tender, nondistended. MUSCULOSKELETAL: Extremities without clubbing, cyanosis or edema. No obvious deformities. NEUROLOGICAL: Awake. Able to move all extremities spontaneously. No focal neurologic finding. Minimal verbalization. PSYCHIATRIC: Flat affect. Internally preoccupied. Results - Labs CBC & Chem 7: 04/30/18 08:55 05/01/18 07:02 Laboratory Results - last 24 hr 04/30/18 04/30/18 05/01/18 18:15 18:15 07:02 Sodium 140 Potassium 3.8 Chloride 107 Carbon Dioxide 20.6 L Anion Gap 12 BUN 7 Creatinine 0.46 L Estimated GFR Greater than 89 Random Glucose 80 Calcium 8.6 Total Bilirubin 0.6 AST 128 H ALT 145 H Alkaline Phosphatase 113 Total Protein 6.0 L Albumin 2.1 L Urine Color [place] Urine Clarity Cloudy H Urine pH 7.0 Ur Specific [place] 1.021 Urine Protein 30 H Urine Glucose (UA) Negative Urine Ketones 20 Urine Occult Blood Negative Urine Nitrate Negative Urine Bilirubin Negative Urine Urobilinogen Less than 2 Ur Leukocyte Esterase Negative Urine RBC Less than 1 Urine WBC 3 Ur Squamous Epith Cells 25 Urine Bacteria Rare H Urine Mucus Moderate H Micro UA Comment Culture not ind Ur Microscopic Review Not Reportable Urine Culture Comments Culture not ind Ur Random Creatinine 166 U Random Total Protein 36.2 H Protein/Creatinin Ratio 0.22 H Assessment and Plan - Plan 32 year old young female, 2 para 0 AB 1 with a 33-week estimated gestational age IUP who presents under a [place] act and psychiatric clearance from [facility]. Patient has a past medical history of IBS, anxiety, chronic C. difficile, depression and agoraphobia. MEDICAL DIRECTOR was consulted for management. Medicine team was consulted for medical management. 33 weeks gestation of unknown care -pending record from [facility], [place] -daily doppler per OB staff -MEDICAL DIRECTOR following -continue multivitamins -appreciate MEDICAL DIRECTOR recommendation for immunization requirement/Tdap/flu shot per family request Irritable bowel syndrome with diarrhea Chronic cdiff -stool for C-diff negative -discontinued Questran, d/c scheduled stool softener -monitor electrolytes, BMP and CBC -will continue Vanco tapering dose Transaminitis, poss due to medications, vs cholestasis or fatty liver secondary to Pt. was taken off psychotropic agents as outpatient. Hep profile neg x 2 INR 1.0 -GI following, appreciate assistance -Hep B & C negative per report -LFTs trending up slightly -Liver US results noted, no acute findings -Avoid hepatotoxic agents -Continue to monitor LFTs Tachycardia Suspect multifactorial: vs dehydration vs psychosis EKG shows sinus tach No eating much, drinking Ensure -treated with IVF -Enc. PO intake, continue Ensure -monitor HR Slight Hypertriglyceridemia no known history, likely related to Transaminitis -Lifestyle modification -monitor lipids and LFTs Psychosis, history of anxiety, depression, agoraphobia, OCD Was on Luvox, Lamictal, Seroquel, Trazodone-these were stopped due to elevated LFTs. -Management per Psychiatry Team, currently on Haldol. DVT Prophylaxis-inc. ambulation Code Status: FULL Discussed Condition With: patient, nursing staff,
--- NOTE | 2018-05-01 16:22 | P.PNPSY ---
Subjective Remarks: Patient seen for follow-up, chart reviewed. Discussion with nursing staff reported that patient seemed more relaxed, drinking nutritional supplements ( Ensure), eating 50% of melas, showering. Patient was found lying hospital bed continues with thought blocking but able to engage slightly more in interview. Patient states that she is "pooping and peeing constantly". Patient recalls eating more drinking her shakes and eating fries yesterday, reports her mood is "sad" continues reports having thoughts of not wanting to be alive but cannot elaborate. Patient continues to state "I already killed it" referring to her baby. Patient has a gun to hallucinations stating that they are voices he hears outside of her room which may be voices from staff. Treatment team met with patient's to discuss treatment plan which plan to have patient cross titrate clozapine in several days if patient continues to have poor response to Haldol was reviewed. OB team also provided possible delivery date of May 21 if patient continues to require further psychiatric stabilization. Review of Systems All other systems reviewed negative except as stated in HPI Mental Status Examination Appearance: Appropriate Consciousness: Alert Orientation: Person, Place Motor Activity: Normal gait Speech: Hesitant Language: Perseveration (on the idea that she killed her baby but lessening) Fund of Knowledge: Poor Attention and Concentration: Easily distracted, Inadequate Memory: Impaired Mood: Other ("Bad") Affect: Blunt Thought Process & Associations: Other (Boling) Thought Content: Hallucinations, Thought blocking, Delusional Hallucination Type: Auditory Delusion Type: Bizarre, Paranoid, Somatic Suicidal Ideation: No Suicidal Plan: No Suicidal Intention: No Homicidal Ideation: No Homicidal Plan: No Homicidal Intention: No Insight: Poor Judgment: Poor Assessment and Plan - Assessment (1) Brief psychotic disorder with peripartum onset Code(s): O99.345 - Other mental disorders complicating the puerperium Status: Acute - Plan Plan: Patient continues with poor nutritional intake although seems to be slowly improving with encouragement, noted to have some improvement in which patient is engaging slightly more during interview able to express more of her thoughts during questioning. We will continue current treatment. If patient continues to have limited response to current treatment we will cross titrate her clozapine as this was discussed with patient's family. We will continue recommendations as per OB and medical team will continue to monitor mood and behavior. Patient to continue one-to-one observation for safety. Continue to encourage patient to increase nutritional intake and engage more in groups and activities as well as hygiene. Discharge planning in progress. Request to obtain records from outpatient psychiatrist faxed to clinic. Justification for Continued Inpatient Stay: At risk of further decompensation a lower level of care.
[2018-05-02 07:33] LABS: % Iron Saturation 10.6 % (20-50); Albumin 2.1 g/dL (3.4-5.0)
[2018-05-02 07:36] LABS: Total Protein 6.2 g/dL (6.4-8.2)
--- NOTE | 2018-05-02 08:37 | P.PN ---
Subjective Interval history: Follow up for elevated liver enzymes. Patient seen and examined. Patient is encountered in her room awake and alert. Sitter is at the bedside. She says she has stomach pain. She says she feels okay. She denies any fever or chills. She denies any chest pain or shortness of breath. She denies any nausea or vomiting. Physical Exam Vital signs: Vital Signs 05/01/18 18:22 05/02/18 06:00 Temperature 98.3 F 98.0 F Pulse Rate 133 H 133 H Respiratory Rate 18 16 Blood Pressure 135/94 H 128/76 Pulse Oximetry 94 L 94 L Intake & Output 05/01/18 05/02/18 05/02/18 18:59 06:59 18:59 Intake Total 960 / 960 340 / 340 Balance 960 / 960 340 / 340 Intake: Oral 960 / 960 240 / 240 Oral Supplement 100 / 100 Other: # Voids 4 2 # Bowel Movements 3 Narrative: GENERAL: Well-developed, well-nourished female patient, no acute distress. Awake, appears internally preoccupied. Sitter at the bedside. SKIN: Warm and dry. HEAD: Atraumatic. Normocephalic. EYES: Pupils equal and round. No scleral icterus. No injection or drainage. Wearing eyeglasses. ENT: No nasal bleeding or discharge. Mucous membranes pink and moist. NECK: Trachea midline. CARDIOVASCULAR: Tachycardiac. RESPIRATORY: No accessory muscle use. Clear to auscultation. Breath sounds equal bilaterally. GASTROINTESTINAL: Abdomen round enlarged consistent with , soft, non- tender, nondistended. MUSCULOSKELETAL: Extremities without clubbing, cyanosis or edema. No obvious deformities. NEUROLOGICAL: Awake. Able to move all extremities spontaneously. No focal neurologic finding. Minimal verbalization. PSYCHIATRIC: Flat affect. Internally preoccupied. Results - Labs CBC & Chem 7: 04/30/18 08:55 05/01/18 07:02 Laboratory Results - last 24 hr 05/02/18 06:35 Iron 67 TIBC 630 H % Saturation 10.6 L Ferritin 16 Total Bilirubin 0.6 Direct Bilirubin 0.3 H Indirect Bilirubin 0.3 AST 166 H ALT 174 H Alkaline Phosphatase 118 H Total Protein 6.2 L Albumin 2.1 L Assessment and Plan - Plan 32 year old young female, 2 para 0 AB 1 with a 33-week estimated gestational age IUP who presents under a [place] act and psychiatric clearance from [facility]. Patient has a past medical history of IBS, anxiety, chronic C. difficile, depression and agoraphobia. PRINTED CIRCUIT BOARD DRAFTER was consulted for management. Medicine team was consulted for medical management. 33 weeks gestation of - doppler per OB staff -PRINTED CIRCUIT BOARD DRAFTER following. Contacted by Dr. Sahni, diagnosis of cholestasis of with bile acids 50, treated with ursodiol. Plan for c/x 0n . Ursodiol resumed. Check LFTs weekly. -continue multivitamins Irritable bowel syndrome with diarrhea Chronic cdiff -stool for C-diff negative -monitor electrolytes, BMP and CBC -will continue Vanco tapering dose Transaminitis, as above hx of cholestasis of Pt. was taken off psychotropic agents as outpatient. Hep profile neg x 2 Liver US, no acute findings INR 1.0 -GI following, appreciate assistance -LFTs trending up -Ursodiol resumed per OB -Avoid hepatotoxic agents -Continue to monitor LFTs weekly Tachycardia Suspect multifactorial: vs dehydration vs psychosis EKG shows sinus tach No eating much, drinking Ensure -treated with IVF -Enc. PO intake, continue Ensure -monitor HR Slight Hypertriglyceridemia no known history, likely related to Transaminitis -Lifestyle modification -monitor lipids and LFTs Psychosis, history of anxiety, depression, agoraphobia, OCD Was on Luvox, Lamictal, Seroquel, Trazodone-these were stopped due to elevated LFTs. -Management per Psychiatry Team, currently on Haldol. DVT Prophylaxis-inc. ambulation Code Status: Full Discussed Condition With: patient, nursing staff, Dr. Sahni
--- NOTE | 2018-05-02 10:44 | P.OBGPN ---
updates: s/p joint meeting yesterday including family and Stranding Machine Operator Hospitalist. Pt on scheduled for c/s on 05/21/18. Will cont to follow with NST every other day. New information regarding hx of cholestasis of : diagnosis of cholestasis of with bile acids 50, treated with ursodiol. - Will add Ursodiol 300 BID as prior - Cont to follow LFTs weekly
--- NOTE | 2018-05-02 11:49 | P.PNGI ---
Subjective Interval history: Patient resting in bed, sitter at bedside. Patient currently with no complaints but not answering questions at this time. <Petty Leal - Last Filed: 05/02/18 11:45> Interval history: Seen and examined with CONSIGNEE, monitor labs. Actigal if ok with ham rolling machine operator. <Marco Hines - Last Filed: 05/02/18 14:12> Physical Exam Vital signs: Vital Signs 05/01/18 18:22 05/02/18 06:00 Temperature 98.3 F 98.0 F Pulse Rate 133 H 133 H Respiratory Rate 18 16 Blood Pressure 135/94 H 128/76 Pulse Oximetry 94 L 94 L Intake & Output 05/01/18 05/02/18 05/02/18 18:59 06:59 18:59 Intake Total 960 / 960 340 / 340 120 / 120 Balance 960 / 960 340 / 340 120 / 120 Intake: Oral 960 / 960 240 / 240 120 / 120 Oral Supplement 100 / 100 Other: # Voids 4 2 # Bowel Movements 3 - Constitutional no acute distress - Routine HEENT Exam Head: Present: normocephalic, atraumatic - Routine Respiratory Exam Absent: accessory muscle use - Routine Abdominal Exam Present: soft, normoactive bowel sounds. Absent: tenderness Comments: abdomen - Routine Skin Exam Present: dry, warm <Petty Leal - Last Filed: 05/02/18 11:45> Vital signs: Vital Signs 05/01/18 18:22 05/02/18 06:00 Temperature 98.3 F 98.0 F Pulse Rate 133 H 133 H Respiratory Rate 18 16 Blood Pressure 135/94 H 128/76 Pulse Oximetry 94 L 94 L Intake & Output 05/01/18 05/02/18 05/02/18 18:59 06:59 18:59 Intake Total 960 / 960 340 / 340 120 / 120 Balance 960 / 960 340 / 340 120 / 120 Intake: Oral 960 / 960 240 / 240 120 / 120 Oral Supplement 100 / 100 Other: # Voids 4 2 # Bowel Movements 3 <Marco Hines - Last Filed: 05/02/18 14:12> Results - Labs CBC & Chem 7: 04/30/18 08:55 05/01/18 07:02 Laboratory Results - last 24 hr 05/02/18 06:35 Iron 67 TIBC 630 H % Saturation 10.6 L Ferritin 16 Total Bilirubin 0.6 Direct Bilirubin 0.3 H Indirect Bilirubin 0.3 AST 166 H ALT 174 H Alkaline Phosphatase 118 H Total Protein 6.2 L Albumin 2.1 L <Petty Leal - Last Filed: 05/02/18 11:45> - Labs CBC & Chem 7: 04/30/18 08:55 05/01/18 07:02 Laboratory Results - last 24 hr 05/02/18 06:35 Iron 67 TIBC 630 H % Saturation 10.6 L Ferritin 16 Total Bilirubin 0.6 Direct Bilirubin 0.3 H Indirect Bilirubin 0.3 AST 166 H ALT 174 H Alkaline Phosphatase 118 H Total Protein 6.2 L Albumin 2.1 L <Marco Hines - Last Filed: 05/02/18 14:12> Assessment and Plan - Plan Assessment Transaminitis, unknown pathology but could be related to medications versus intrahepatic cholestasis of , (ICP). History of chronic C. difficile, currently on vancomycin p.o. History of IBS, patient does state, predominantly with diarrhea symptoms Anorexia, could be related to patient's delusional status and history of schizophrenia. Patient is not eating or drinking and is 33 weeks . (05/02) Pt currently not answering questions. Some increase in LFTs today, however T bili is normal. Hepatitis panel negative, rest of liver work up pending Plan Liver work up pending Trial of Ursodiol Further recommendations to follow Pt has been seen and examined by myself and Dr. Hines and this note is written on his behalf. <Petty Leal - Last Filed: 05/02/18 11:45>
--- NOTE | 2018-05-02 13:05 | P.TTN ---
- Patient Problems Problems: 1. Discharge planning 2. Medication compliance 3. Knowledge deficit 4. Lack of coping skills - Progress Toward Goals Provider Present: Dr. Karen Rosenthal, Dr. Jolly Garvey Provider Input: 05/02: Pt at max bid dose of Haldol, she has shown signs of positive responsiveness to tx. Pt does continue to present with psychotic behaviors, her status continues to be of additional primary concern. If pt's cognitive presentation does not show significant progress by end of week , alternative medication will be considered. OBG continues to follow pt. : Pt continues to present with psychosis and . Spouse has voiced concern regarding home vs placement for pt. 04/25/18: Pt plan includes consultation with OB MD (pt ), stabilization of pt's cognition, transfer back to previous hospital. Pt remains psychotic, she is 33 wks , on-going medication titration. Psychiatric Counselors Present: Alvarado Muhammad Jr., [facility], Yarely Rosario, [facility] Psychiatric Therapist Input: 05/02: Pt's spouse visited 05/01, he is involved as primary decision-maker. 04/30/18: Pt has been unable to attend groups, she is 1: 1 supervision and her psychotic statements continue. 04/25/18: Pt expected to be returned to [facility] once stable. Pt is , counselor to follow-up with pt's spouse. Group Spec/RT/OT/AREVALO Present: Alie Johnson, [employer], Rodolfo Cee, OT Group Spec/RT/OT/AREVALO Input: 05/02: Pt has not attended groups, to date, pt has been unable to tolerate. Pt does voice her intentions (not to attend). 04/25/18 : pt is unable to tolerate groups. Occupational Therapist Input: 04/25/18: Pt is not receiving formal OT treatment. Pt is however, as a pt on , under the care of staff in other capacities and this OTR's interactions with pt have revealed pt as highly delusional/ psychotic, unable to care for herself, continuing on 1:1 supervision and highly unpredictable. Pt has remarked, on many occasions, that "she is a bad person who has been peeing and pooping and is going to be punished." Additional Input: 05/02: Pt continues to meet psychiatric criteria, no viable discharge plan in place as yet, pt status dependent on her psychiatric stability and progression of . 04/30/18: Pt is expected to discharge when stable which is complicated by her on- going psychosis and her . *: Pt is expected to be discharged to her prior hospital in [place], [place], which was her initial admitting facility. It is expected that spouse and area OBGYN will follow pt to term. - Documentation Teaching Recipient: Patient
[2018-05-02] MEDS: Prenatal Vit/Ca/Iron/Folic Acid Tablet PO SCH (15:10)
[2018-05-02 18:19] VITALS: BP 136/88; PULSE 129; RESP 18; TEMP 97.8
--- NOTE | 2018-05-02 20:16 | ECG ---
Date Performed: 05/02/2018 Time Performed: 15:24:52 PTAGE: 32 years EKG: SINUS TACHYCARDIA POSSIBLE LEFT ATRIAL ENLARGEMENT ABNORMAL RHYTHM ECG PREVIOUS TRACING : 04/28/2018 21.08 No significant change from previous tracing noted. DOCTOR: Yong Bahena Interpretating Date/Time 05/02/2018 20:15:41
--- NOTE | 2018-05-02 20:19 | P.PNPSY ---
Subjective Remarks: Patient seen for follow-up, chart reviewed. Discussion with nursing staff reported that patient continues with poor PO intake, mostly lying in bed, poor motivation requiring encouragement. Patient was found sitting up on hospital bed, previously mostly lying down, noted with more engagement in interview but continues with noted thought blocking. Patient states feeling "not good", reports visit with but did not elaborate She continues to state "I did this on purpose...all of this". She denies any AH, continues with SI. Review of Systems All other systems reviewed negative except as stated in HPI Mental Status Examination Appearance: Appropriate Consciousness: Alert Orientation: Person, Place Motor Activity: Normal gait Speech: Hesitant Language: Perseveration (on the idea that she killed her baby but lessening) Fund of Knowledge: Poor Attention and Concentration: Easily distracted, Inadequate Memory: Impaired Mood: Other ("Bad") Affect: Blunt Thought Process & Associations: Other ([place]) Thought Content: Hallucinations, Thought blocking, Delusional Hallucination Type: Auditory Delusion Type: Bizarre, Paranoid, Somatic Suicidal Ideation: No Suicidal Plan: No Suicidal Intention: No Homicidal Ideation: No Homicidal Plan: No Homicidal Intention: No Insight: Poor Judgment: Poor Assessment and Plan - Assessment (1) Brief psychotic disorder with peripartum onset Code(s): O99.345 - Other mental disorders complicating the puerperium Status: Acute - Plan Plan: Patient continues with thought blocking but slightly improving, continues with delusion that she killed her baby, continues with SI but denying any AH today. Patient noted to be more reactive with staff, noted to have marginal improvement. If patient continues to have minimal response in 1-2 days, will start Clozapine. Continue recommendations as per OB and Medical team. Continue to monitor mood and behavior, discharge planning in progress. Justification for Continued Inpatient Stay: At risk of further decompensation at lower level care.
[2018-05-03] MEDS: Prenatal Vit/Ca/Iron/Folic Acid Tablet PO SCH (08:31)
--- NOTE | 2018-05-03 11:41 | P.PNGI ---
Subjective Interval history: Patient sitting up in bed, sitter at bedside. Patient cooperative with questions during exam. States she has not eaten anything today. Sitter reports that patient had a few sips of Ensure supplement. Patient denies nausea or vomiting and affirms that she had a BM this morning which she states was soft and brown. <Sandra French - Last Filed: 05/03/18 11:31> Physical Exam Vital signs: Vital Signs 05/02/18 18:18 Temperature 97.8 F Pulse Rate 129 H Respiratory Rate 18 Blood Pressure 136/88 Pulse Oximetry 94 L Intake & Output 05/02/18 05/03/18 05/03/18 18:59 06:59 18:59 Intake Total 360 / 360 Balance 360 / 360 Intake: Oral 360 / 360 Other: Date of Last Bowel Movement 04/27/18 - Constitutional no acute distress - Routine HEENT Exam Head: Present: normocephalic - Routine Respiratory Exam Present: CTA bilaterally. Absent: accessory muscle use - Routine Abdominal Exam Present: soft, normoactive bowel sounds. Absent: tenderness, guarding Comments: Patient 33 weeks gestation - Routine Extremities Exam Present: full ROM - Routine Skin Exam Present: dry, warm - Routine Neurological Exam Present: alert - Routine Psychiatric Exam Present: cooperative <Sandra French - Last Filed: 05/03/18 11:31> Vital signs: Vital Signs 05/02/18 18:18 Temperature 97.8 F Pulse Rate 129 H Respiratory Rate 18 Blood Pressure 136/88 Pulse Oximetry 94 L Intake & Output 05/02/18 05/03/18 05/03/18 18:59 06:59 18:59 Intake Total 360 / 360 Balance 360 / 360 Intake: Oral 360 / 360 Other: Date of Last Bowel Movement 04/27/18 04/27/18 <Marco Hines - Last Filed: 05/03/18 17:04> Results - Labs CBC & Chem 7: 04/30/18 08:55 05/01/18 07:02 <Sandra French - Last Filed: 05/03/18 11:31> - Labs CBC & Chem 7: 04/30/18 08:55 05/01/18 07:02 Laboratory Results - last 24 hr 05/02/18 06:35 Anti-Smooth Muscle Ab Negative <Marco Hines - Last Filed: 05/03/18 17:04> Assessment and Plan - Plan 05/03/2018 Transaminitis-possibly related to intrahepatic cholestasis of : patient has history of same and was treated with ursodiol in the past. 04/30/2018--total bilirubin 0.6 AST 166 ALT 174 alk phos 118. Immunology pending. History of chronic C. difficile-patient reports "soft and pasty brown "description of BM this morning History of IBS-patient denies abdominal pain or any diarrhea at this time Anorexia-according to sitter patient had a few sips of Ensure supplement this morning, has not had any solid food intake today Plan -Continue to monitor liver function -Immunology pending -Continue ursodiol -Supportive care -Further recommendations to follow This patient has been seen by myself and Dr. Hines and this note is written on his behalf - Attending Attestation Dr. Hines <Sandra French - Last Filed: 05/03/18 11:31> - Plan Monitor labs. Stool c. diff check. Continue ursodiol. GI will sign off, reconsult as needed. Thank you <Mraco Hines - Last Filed: 05/03/18 17:04>
--- NOTE | 2018-05-03 11:55 | P.PN ---
Subjective Interval history: Follow up for elevated liver enzymes. Patient seen and examined. Patient states she is "bad". She does not verbalize any other complaints. Shakes her head no to all other ROS questions except for abdominal pain which she shakes her head yes to. Sitter is at the bedside. Discussed with nursing staff, no adverse events noted overnight. Physical Exam Vital signs: Vital Signs 05/02/18 18:18 Temperature 97.8 F Pulse Rate 129 H Respiratory Rate 18 Blood Pressure 136/88 Pulse Oximetry 94 L Intake & Output 05/02/18 05/03/18 05/03/18 18:59 06:59 18:59 Intake Total 360 / 360 Balance 360 / 360 Intake: Oral 360 / 360 Other: Date of Last Bowel Movement 04/27/18 04/27/18 Narrative: GENERAL: Well-developed, well-nourished female patient, no acute distress. Awake, appears internally preoccupied. Sitter at the bedside. SKIN: Warm and dry. HEENT: Atraumatic. Normocephalic. Pupils equal and round. No scleral icterus. No injection or drainage. Wearing eyeglasses. No nasal bleeding or discharge. Dry mucus membranes. NECK: Trachea midline. CARDIOVASCULAR: Tachycardiac. RESPIRATORY: No accessory muscle use. Clear to auscultation. Breath sounds equal bilaterally. GASTROINTESTINAL: Abdomen round enlarged consistent with , soft, non- tender, nondistended. MUSCULOSKELETAL: Extremities without clubbing, cyanosis or edema. No obvious deformities. NEUROLOGICAL: Awake. Able to move all extremities spontaneously. No focal neurologic finding. Minimal verbalization. PSYCHIATRIC: Flat affect. Internally preoccupied. Results - Labs CBC & Chem 7: 04/30/18 08:55 05/01/18 07:02 Assessment and Plan - Plan 32 year old young female, 2 para 0 AB 1 with a 33-week estimated gestational age IUP who presents under a Leone act and psychiatric clearance from [facility]. Patient has a past medical history of IBS, anxiety, chronic C. difficile, depression and agoraphobia. PLASTIC SURGEON was consulted for management. Medicine team was consulted for medical management. 33 weeks gestation of - doppler per OB staff -PLASTIC SURGEON following. Contacted by Dr. Sahni, diagnosis of cholestasis of with bile acids 50, treated with ursodiol. Plan for c/x 0n . Ursodiol resumed. Check LFTs weekly. -continue multivitamins Irritable bowel syndrome with diarrhea Chronic cdiff -stool for C-diff negative -monitor electrolytes, BMP and CBC -will continue Vanco tapering dose Transaminitis, as above hx of cholestasis of Pt. was taken off psychotropic agents as outpatient. Hep profile neg x 2 Liver US, no acute findings INR 1.0 -GI following, appreciate assistance -LFTs trending up. Started on Ursodiol yesterday by OB. Continue to monitor LFTs weekly. -Avoid hepatotoxic agents Tachycardia, likely due to dehydration/poor oral intake Suspect multifactorial: vs dehydration vs psychosis EKG shows sinus tach No eating much, drinking small sips of Ensure -start on IVF -Enc. PO intake, continue Ensure -monitor HR Slight Hypertriglyceridemia no known history, likely related to Transaminitis -Lifestyle modification -monitor lipids and LFTs Psychosis, history of anxiety, depression, agoraphobia, OCD Was on Luvox, Lamictal, Seroquel, Trazodone-these were stopped due to elevated LFTs. -Management per Psychiatry Team, currently on Haldol. DVT Prophylaxis-inc. ambulation Code Status: Full Discussed Condition With: patient, nursing staff
[2018-05-03 13:14] LABS: Smooth Muscle Total Auto Abs Negative (Negative)
[2018-05-03] MEDS ORDERED: Sodium Chloride 0.9% 2 ML Flush PRN IV.FLUSH (16:28)
[2018-05-03] MEDS ORDERED: Sod Chloride 0.9% Inj 1,000 ML IV.CONT SCH (16:30)
--- NOTE | 2018-05-03 20:16 | P.DSPSY ---
Psychiatry Discharge Summary Inpatient Psychiatric care?: Yes Advance Directives: No Mental Health Advance Directive: No Health Care Proxy: No - Admission Admission Date: April 24, 2018 11:36 - Admission Diagnosis (1) Brief psychotic disorder with peripartum onset Code(s): O99.345 - Other mental disorders complicating the puerperium Brief History: The patient is a 32-year-old woman, , domiciled in [place] with her , unemployed, with a psychiatric history of OCD, MDD, LIZ, peripartum psychosis,1 recent previous psychiatric hospitalization due to a new onset psychosis (admitted due to report patient trying to starve herself to start the baby), no previous suicidal attempts, the patient has being on Luvox 75 mg, Lamictal 25 mg daily, Seroquel 50 mg twice daily, trazodone 100 mg at bedtime she has an outpatient psychiatric doctor in [place], with a medical history of irritable bowel syndrome, 2 para 0 AB 1 with a 33-week estimated gestational age IUP, chronic C. difficile, hepatic cholangitis, who presents under a Leone act and psychiatric clearance from [facility]. On my psychiatric evaluation today I find a patient that is very agitated, very psychotic, paranoid, stating that she needs to go home, but she is afraid and she does not want to talk with anybody. She says that she carries at baby, "I killed my two babys and the are inside of my". The patient refuses to answer any of my questions. And she continued to try to elope from the ER and have finally to be medicated with Haldol 5 mg IM and Benadryl 25 mg IM in order to calm her down. I got collateral information from her , Ollie Miranda [phone], who explains that the patient has psychiatric history of anxiety, obsessive- compulsive disorder and depression. But about 2 months ago 1 of her checkups it was noted that she had elevated transaminases. They had discontinued her psychotropic medicines and felt that her elevated transaminases were most likely due to cholestasis. Patient also has had a history of chronic C. difficile. She is on oral vancomycin. ( Patient's liver functions have normalized according to the medical record). After the medication was discontinued, the patient started to become psychotic. Initially the patient refused to eat a stating that by eating she was hurting her baby. Then, 1 day he found her inside the bathroom with a knife stating that she wanted to kill her baby. She was hospitalized for 2 weeks in a psychiatric hospital in [facility], but she was discharged back home in 2 -3 days after discharge the patient became psychotic again. He clarifies that the patient does not have any history of schizophrenia or bipolar disorder. The patient has been treated for anxiety and depression as an outpatient by a private psychiatrist in [place]. Patient does not have any previous suicidal attempt. She did become depressed after a miscarriage before this she has been anxious since then. Past psychiatric history :OCD, MDD, LIZ, peripartum psychosis,1 recent previous psychiatric hospitalization due to a new onset psychosis (admitted due to report patient trying to starve herself to start the baby), no previous suicidal attempts, the patient has being on Luvox 75 mg, Lamictal 25 mg daily, Seroquel 50 mg twice daily, trazodone 100 mg at bedtime she has an outpatient psychiatric doctor in [place], past medical history: IBS, anxiety, chronic C. difficile, depression and agoraphobia. Surgical history: Denies Social history: The patient was born in [place], she lives in [place] with her she is unemployed, supported by her , her highest level of education is a master degree in occupational therapy. Substance abuse history :denies alcohol tobacco. Denies drugs. Currently . Tobacco Use In Past 30 Days: No How Often Do You Have a Drink Containing Alcohol: Never Hospital Course: Patient is a 32-year-old woman, , domiciled, with a past psychiatric history of OCD, LIZ, depression, peripartum psychosis, one previous psychiatric admission, denies suicide attempts with a past medical history significant for IBS, chronic C. difficile, hepatic cholangitis and currently with 33-week gestation IUP was brought in under Leone act due to acute psychosis, transferred from medical facility, and admitted to the inpatient psychiatry for further evaluation and management. Patient was admitted to a locked, inpatient psychiatric unit. Appropriate precautions were in place. Patient was seen and examined on the unit by psychiatry and consulted OB and hospitalist teams for obstetrical and medical evaluation and management respectively. Psychotropic medications were started and adjusted which patient was noted with slow and minimal improvement on current regimen while on the inpatient unit with plan to cross titrate to different agent if limited response. Patient continues to endorse suicide ideations as well as persistent delusions that she had killed her baby along with poor p.o. intake requiring encouragement for ADLs. Upon continued monitoring and evaluation by OB team, concern for current status prompted immediate transfer to the OB service for continued obstetrical evaluation and management. Patient will be discharged to the OB service with psychiatry to follow for psychiatric management of the patient while on the obstetrical service. - Discharge Discharge Date: 05/03/18 - Discharge Diagnosis (1) Brief psychotic disorder with peripartum onset Code(s): O99.345 - Other mental disorders complicating the puerperium Status: Acute Discharge Disposition: Patient discharged to OB service for further evaluation and management. - Discharge Instructions Discharge Diet: DIet Activities You Can Perform: Weight Bearing As Tolerat - Discharge Time > 30 minutes Mental Status Examination Appearance: Appropriate Consciousness: Alert Orientation: Person, Place Motor Activity: Normal gait Speech: Hesitant Language: Perseveration (on the idea that she killed her baby but less perseverative) Fund of Knowledge: Poor Attention and Concentration: Easily distracted, Inadequate Memory: Impaired Mood: Other ("Bad") Affect: Blunt Thought Process & Associations: Other ([place]) Thought Content: Thought blocking, Delusional Hallucination Type: None Delusion Type: Bizarre, Paranoid, Somatic Suicidal Ideation: No Suicidal Plan: No Suicidal Intention: No Homicidal Ideation: No Homicidal Plan: No Homicidal Intention: No Insight: Poor Judgment: Poor Discharge/Advance Care Plan - Results Vital Signs: Last Vital Signs Temp 97.8 F 05/02/18 18:18 Pulse 129 H 05/02/18 18:18 Resp 18 05/02/18 18:18 BP 136/88 05/02/18 18:18 Pulse Ox 94 L 05/02/18 18:18 Lab Results: Abnormal Lab Results 05/02/18 05/03/18 06:35 16:50 Anti-Smooth Muscle Ab Negative Blood Type A Positive Blood Type Recheck Required Antibody Screen Negative Laboratory Results Hemoglobin A1c 5.3 % (4.3-6.0) 04/25/18 08:12 Triglycerides 216 mg/dL (42-150) H 04/25/18 08:12 Cholesterol 193 mg/dL (120-200) 10/03/18 08:12 LDL Cholesterol, Calc 113 mg/dL (0-99) H 04/25/18 08:12 HDL Cholesterol 37.2 mg/dL (40.0-60.0) L 04/25/18 08:12 Urine Culture Comments Culture not ind 04/30/18 18:15 Summary of Procedures: none Imaging: ITS Impressions Liver Ultrasound 04/29/18 00:00 CONCLUSION: 1. Negative abdominal sonogram. Pending Results: Lab Results - Medications Number of antipsychotic medications at discharge: 1 - Discharge Care Plan Goals to Promote Your Health: * To prevent worsening of your condition and complications * To maintain your health at the optimal level Directions to Meet Your Goals: Take your medications as prescribed Follow your dietary instruction Follow activity as directed Keep your appointments as scheduled Take your immunizations and boosters as scheduled If your symptoms worsen call your PCP, if no PCP go to Urgent Care Center or Emergency Room For 13/02 questions related to your inpatient stay or results of tests pending at discharge, please contact Dr. Ollie Garvey MD at Smoking is Dangerous to Your Health. Avoid second hand smoking
[2018-05-03] MEDS ORDERED: Sodium Chloride 0.9% 2 ML Flush BID IV.FLUSH SCH (21:00)
[2018-05-03 23:51] LABS: DS DNA Ab (Crithidia) NEGATIVE (NEGATIVE)
[2018-05-04 17:53] LABS: Ceruloplasmin 41 mg/dL (18-53)
== END 2018-05-03 16:15 | disposition short-term general hospital (02) ==
LOC: NEPD 19:58 → NEDA 04-24 11:36 → H4EA 04-24 14:26
PROVIDERS: ADMIT Student in an Organized Health Care Education/Training Program; ATTEND Student in an Organized Health Care Education/Training Program

== ENCOUNTER 2018-05-03 16:31 | Inpatient (IN) ==
[2018-05-03 17:20] LABS: Baso % (Auto) 0.3 % (0.0-2.0); Eos % (Auto) 0.4 % (0.0-4.0); Hematocrit 36.6 % (35.0-46.0); Hemoglobin 12.3 gm/dL (11.6-15.3); Lymph # (Auto) 1.8 th/mm3 (1.0-4.8); Lymph % (Auto) 16.3 % (9.0-44.0); Mean Corpuscular HGB Conc 33.5 % (32.0-36.0); Mean Corpuscular Hemoglobin 30.2 pg (27.0-34.0); Mean Corpuscular Volume 90.4 fL (80.0-100.0); Mean Platelet Volume 10.7 fL (7.0-11.0); Mono # (Auto) 0.7 th/mm3 (0.0-0.9); Mono % (Auto) 6.8 % (0.0-8.0); Neut # (Auto) 8.3 th/mm3 (1.8-7.7); Neut % (Auto) 76.2 % (16.0-70.0); Platelet Count 218 th/mm3 (150-450); Red Blood Count 4.05 mil/mm3 (4.00-5.30); Red Cell Distribution Width 15.6 % (11.6-17.2); White Blood Count 10.8 th/mm3 (4.0-11.0)
[2018-05-03 17:41] LABS: Alanine Aminotransferase 227 U/L (10-53); Albumin 2.2 g/dL (3.4-5.0); Anion Gap 14 meq/L (5-15); Aspartate Aminotransferase 213 U/L (15-37); Blood Urea Nitrogen 9 mg/dL (7-18); Calcium 8.9 mg/dL (8.5-10.1); Carbon Dioxide 23.3 meq/L (21.0-32.0); Chloride 104 meq/L (98-107); Glomerular Filtration Rate Greater Than 89 mL/min (>89); Glucose,Random 79 mg/dL (74-106); Potassium 3.8 meq/L (3.5-5.1); Sodium 141 meq/L (136-145)
[2018-05-03 17:42] LABS: Uric Acid 4.8 mg/dl (2.6-6.0)
[2018-05-03 17:44] LABS: Alkaline Phosphatase 118 U/L (45-117); Total Protein 6.1 g/dL (6.4-8.2)
[2018-05-03 17:51] LABS: Thyroid Stimulating Hormone 1.53 uIU/mL (0.358-3.740)
[2018-05-03 17:56] LABS: Bacteria,Urine Many /hpf; Bilirubin,Urine Negative (Negative); Clarity,Urine Cloudy (Clear); Color,Urine Amber (Yellw/Straw); Glucose,Urine (UA) 50 mg/dL (Negative); Leukocyte Esterase,Urine Moderate (Negative); Mucus,Urine Many /lpf (Occasional); Nitrite,Urine Negative (Negative); Specific Gravity,Urine 1.028 (1.002-1.035); Squamous Epithelial Cell,Urine 72 /hpf (0-5)
--- NOTE | 2018-05-03 18:16 | P.HPOB ---
History of Present Illness Primary Care Physician: UNKNOWN History of Present Illness: Patient is a 32 yo at 34 weeks and 3 days . EDC is 06-11-2018 based on a first trimester ultrasound. Pt had initial care in [place] Pt was transferred here under [place] Act, since 04/24/2018 with florid pyschotic episode, from [facility]. She has been under the care of the Psych team here since admission. There was a team meeting with her and decision was here to stay here till delivery. Pt has been scheduled for Primary C Section at 37 weeks, timing because of diagnosis of intrahepatic cholestatic disease GI have also been involved for elevated LFTS. Cardiology/ Hospitalist team were also consulted and involved in her care. Pt has h/o Intrahepatic Cholestatic disease and Ursodiol has been restarted today. Pt was being followed by OB after initial consult , with daily NSTs, Prior NSTs have been cat 1. During the check today, fetus was noted to be having episodic arryhthmias I was called to review strip. Baseline 130s, with good variability and then short run of tachycardia 160s. Arrythmia was also audible. TOCO also showed contractions about 3-5 minutes apart. Cervical exam showed cervix long, closed, with high presenting part. Patient was transferred to L&D for continuous monitoring. BPP was 8/8. Active movements. It was difficult extracting any history from the patient. Weeks Gestation:: 34 Para: 0 : 2 Total # of Miscarriage(s): 1 - Inpatient Certification I certify that the inpatient services were ordered in accordance with Medicare regulations governing the order. This includes certification that hospital inpatient services are reasonable and necessary and in the case of services not specified as inpatient-only under 42 CFR 419.22(n), that they are appropriately provided as inpatient services in accordance to with the 2-midnight benchmark under 43 CFR 412.3(e) Estimated Total Length of Stay (Days): 7 Plans for Post Hospital Care: Not yet determined Review of Systems All other systems reviewed negative except as stated in HPI Psychiatric: Reports depression, Reports mood swings PMFSH - History History Provided By: Patient, Medical Record - Medical / Surgical Hx Neg / Unobtainable Surgical History: No Previous Surgery - Medical History Medical History: Medical History (Last Reviewed 04/25/18 @ 19:17 by JANINE Drake) Agoraphobia with panic attacks Anxiety C. difficile diarrhea Depression History of IBS - Social History I have reviewed the patient's Social History: Yes - Tobacco History Second Hand Smoke Exposure: No Smoking Status: Never smoker - Alcohol History How Often Do You Have a Drink Containing Alcohol: Never - Substance Use History Substance History: Unable to Obtain Medications and Allergies Allergies Allergy/AdvReac Type Severity Reaction Status Date / Time vortioxetine Allergy Hives Verified 04/23/18 20:36 [From Brintellix] ziprasidone [From Geodon] Allergy Chest Pain Verified 04/23/18 20:36 Home Medications Medication Instructions Recorded Confirmed Type PNV cmb#95-ferrous fumarate-FA 1 tab PO DAILY 04/23/18 04/23/18 History [] fluvoxamine 75 mg HS 04/23/18 04/23/18 History lactated Ringers 125 ml 04/23/18 History lamotrigine [Lamictal] 25 PO TID 04/23/18 History mirtazapine [Remeron] 15 mg PO HS 04/23/18 04/23/18 History olanzapine [Zyprexa] BID PRN 04/23/18 History quetiapine [Seroquel] 50 mg PO BID 04/23/18 04/23/18 History quetiapine [Seroquel] 300 mg PO HS 04/23/18 04/23/18 History trazodone 100 mg HS 04/23/18 04/23/18 History ursodiol [Actigall] 300 mg PO BID 04/23/18 04/23/18 History vancomycin 250 mg BID 04/23/18 04/23/18 History Exam Narrative: GENERAL: Well-nourished, well-developed patient. SKIN: Warm and dry. HEAD: Normocephalic and atraumatic. EYES: No scleral icterus. No injection or drainage. ENT: No nasal drainage noted. Mucous membranes pink. Airway patent. NECK: Supple, trachea midline. No JVD. CARDIOVASCULAR: Regular rate and rhythm without murmurs, gallops, or rubs. RESPIRATORY: Breath sounds equal bilaterally. No accessory muscle use. BREASTS: Bilateral exam showed no masses , no retractions, no nipple discharge. ABDOMEN/GI: Abdomen soft, non-tender, bowel sounds present, no rebound, no guarding Gravid to [34] weeks size Fundal Height: [-] GENITOURINARY: External Genitalia: intact and normal in appearance BUS glands: [wnl] Cervix: [soft] Dilatation: [closed] Effacement: [50%] Station: [-3] Presentation: [vertex] Membranes: [intact] Uterine Contractions: [3-5 minutes] FHT's: Category: [II] Baseline: [130] Reactive: [-] Variability: [good] Decels: [none] epidodes of arrythmia, with brief tachycardia EXTREMITIES: No cyanosis or edema. BACK: Nontender without obvious deformity. No CVA tenderness. NEUROLOGICAL: - Constitutional somnolent - Routine HEENT Exam Head: Present: normocephalic Eye: Present: PERRL ENT: Present: mucous membranes moist - Routine Neck Exam Present: supple - Routine Respiratory Exam Present: CTA bilaterally Results - Labs CBC & Chem 7: 05/03/18 16:50 05/03/18 16:50 Labs: Laboratory Results - last 24 hr 05/03/18 05/03/18 05/03/18 16:50 16:50 16:50 WBC 10.8 RBC 4.05 Hgb 12.3 Hct 36.6 MCV 90.4 MCH 30.2 MCHC 33.5 RDW 15.6 Plt Count 218 MPV 10.7 Neut % (Auto) 76.2 H Lymph % (Auto) 16.3 [place] % (Auto) 6.8 Eos % (Auto) 0.4 Baso % (Auto) 0.3 Neut # (Auto) 8.3 H Lymph # (Auto) 1.8 [place] # (Auto) 0.7 Eos # (Auto) 0.0 Baso # (Auto) 0.0 WBC Differential . Differential Comment Auto diff final Sodium 141 Potassium 3.8 Chloride 104 Carbon Dioxide 23.3 Anion Gap 14 BUN 9 Creatinine 0.55 Estimated GFR Greater than 89 Random Glucose 79 Uric Acid 4.8 Calcium 8.9 Total Bilirubin 0.5 AST 213 H ALT 227 H Alkaline Phosphatase 118 H Total Protein 6.1 L Albumin 2.2 L TSH 1.530 Caprini VTE Risk Assessment Caprini VTE Risk Assessment: No/Low Risk (score <= 1) (patient is ambulatory) Caprini Risk Assessment Model: Point Value = 1 Point Value = 2 Point Value = 3 Point Value = 5 Age 41-60 Minor surgery BMI > 25 kg/m2 Swollen legs Varicose veins or History of unexplained or recurrent spontaneous Oral contraceptives or hormone replacement Sepsis (< 1 month) Serious lung disease, including pneumonia (< 1 month) Abnormal pulmonary function Acute myocardial infarction Congestive heart failure (< 1 month) History of inflammatory bowel disease Medical patient at bed rest Age 61-74 Arthroscopic surgery Major open surgery (> 45 min) Laparoscopic surgery (> 45 min) Malignancy Confined to bed (> 72 hours) Immobilizing plaster cast Central venous access Age >= 75 History of VTE Family history of VTE Factor V Leiden Prothrombin [id number] Lupus anticoagulant Anticardiolipin antibodies Elevated serum homocysteine Heparin-induced thrombocytopenia Other congenital or acquired thrombophilia Stroke (< 1 month) Elective arthroplasty Hip, pelvis, or leg fracture Acute spinal cord injury (< 1 month) Prophylaxis Regimen: Total Risk Factor Score Risk Level Prophylaxis Regimen 0-1 Low Early ambulation 2 Moderate Order ONE of the following: *Sequential Compression Device (SCD) *Heparin 5000 units SQ BID 3-4 Higher Order ONE of the following medications: *Heparin 5000 units SQ TID *Enoxaparin/Lovenox 40 mg SQ daily (WT < 150 kg, CrCl > 30 mL/min) *Enoxaparin/Lovenox 30 mg SQ daily (WT < 150 kg, CrCl > 10-29 mL/min) *Enoxaparin/Lovenox 30 mg SQ BID (WT < 150 kg, CrCl > 30 mL/min) AND/OR *Sequential Compression Device (SCD) 5 or more Highest Order ONE of the following medications: *Heparin 5000 units SQ TID (Preferred with Epidurals) *Enoxaparin/Lovenox 40 mg SQ daily (WT < 150 kg, CrCl > 30 mL/min) *Enoxaparin/Lovenox 30 mg SQ daily (WT < 150 kg, CrCl > 10-29 mL/min) *Enoxaparin/Lovenox 30 mg SQ BID (WT < 150 kg, CrCl > 30 mL/min) AND *Sequential Compression Device (SCD) Assessment and Plan - Diagnosis (1) 34 weeks gestation of Code(s): Z3A.34 - 34 weeks gestation of Status: Acute Plan: complicated buy acute pyschotic episode. Transferred valdo Leone Act here. Prior care in [place]. (2) Psychosis Code(s): F29 - Unspecified psychosis not due to a substance or known physiological condition Status: Acute (3) IBS (irritable bowel syndrome) Code(s): K58.9 - Irritable bowel syndrome without diarrhea Status: Acute Plan: GI has been following, and will be reconsulted. Abnormal LFTs (4) Anxiety Code(s): F41.9 - Anxiety disorder, unspecified Status: Acute (5) cardiac arrhythmia Status: Acute Plan: Continuous heart rate monitoring, BPP 8/8 TSH sent NST now Cat I (6) Cholestatic liver disease Code(s): K76.89 - Other specified diseases of liver Status: Acute Plan: Restarted on Ursodiol. GI to be reconsulted. LFTs being follwed. (7) uterine contractions in third trimester, antepartum Code(s): O47.03 - False labor before 37 completed weeks of gestation, third trimester Status: Acute Plan: Cervix closed, 50%, -3. Patient's urinalysis suggests UTI. Dr Leavitt has ordered Ancef 1 G (2) Psychosis Qualifiers: Schizoaffective disorder type: depressive (3) IBS (irritable bowel syndrome) Qualifiers: Irritable bowel syndrome type: with diarrhea Qualified Code(s): K58.0 - Irritable bowel syndrome with diarrhea
[2018-05-03] MEDS ORDERED: Betamethasone Sod Phos/Acetate Inj 30 MG/5 ML Vial IM SCH (18:30)
[2018-05-04 06:05] LABS: Baso % (Auto) 0.2 % (0.0-2.0); Hematocrit 35.1 % (35.0-46.0); Hemoglobin 11.9 gm/dL (11.6-15.3); Lymph # (Auto) 1.4 th/mm3 (1.0-4.8); Lymph % (Auto) 10.4 % (9.0-44.0); Mean Corpuscular HGB Conc 33.9 % (32.0-36.0); Mean Corpuscular Hemoglobin 30.1 pg (27.0-34.0); Mean Corpuscular Volume 88.8 fL (80.0-100.0); Mean Platelet Volume 11.5 fL (7.0-11.0); Mono # (Auto) 0.5 th/mm3 (0.0-0.9); Mono % (Auto) 3.5 % (0.0-8.0); Neut # (Auto) 11.1 th/mm3 (1.8-7.7); Neut % (Auto) 85.9 % (16.0-70.0); Platelet Count 215 th/mm3 (150-450); Red Blood Count 3.95 mil/mm3 (4.00-5.30); Red Cell Distribution Width 15.2 % (11.6-17.2)
[2018-05-04 06:24] LABS: Albumin 2.1 g/dL (3.4-5.0); Uric Acid 5.3 mg/dl (2.6-6.0)
[2018-05-04 06:26] LABS: Total Protein 6.1 g/dL (6.4-8.2)
--- NOTE | 2018-05-04 09:08 | P.CONGI ---
History of Present Illness Consult date: 05/04/18 Consult reason: Continuation of management, transferred to [facility] floor Chief complaint: Continuous monitoring History of Present Illness: This is a 32-year-old female who was initially admitted to inpatient psych unit [facility] for symptoms of delusion with a known history of schizophrenia and psychiatric treatment. Our service was previously consulted to evaluate patient for elevated liver enzymes. Liver ultrasound was done which was negative. Patient also had extensive workup done which so far is negative for autoimmune hepatitis, alpha 1 antitrypsin deficiency, hemochromatosis and hepatitis The elevation was noted to be likely secondary to either psych medication or -induced cholestasis. Patient was started on ursodiol which has so far not made significant improvement in her LFTs. Patient was noted to have chronic history of C. difficile and was started on vancomycin, tested in the hospital negative for C. difficile and this is been since discontinued. Patient does report one bowel movement overnight, states that it was "messy". Discussed with sitter at bedside who states patient has not had a bowel movement yesterday. Patient denies any nausea, vomiting, abdominal pain. History is limited at this time due to patient giving minimal answers. Did discuss with Dr. Leavitt. <Petty Leal - Last Filed: 05/04/18 08:54> Review of Systems Gastrointestinal: Reports loose stools, Denies abdominal pain, Denies black, tarry stools, Denies bright, red blood in stools, Denies incontinent of stools, Denies nausea, Denies vomiting <Petty Leal - Last Filed: 05/04/18 08:54> PMF - History History Provided By: Patient, Medical Record - Medical History Medical History: Medical History (Last Reviewed 04/25/18 @ 19:17 by JANINE Drake) Agoraphobia with panic attacks Anxiety C. difficile diarrhea Depression History of IBS - Tobacco History Second Hand Smoke Exposure: No Smoking Status: Never smoker - Alcohol History How Often Do You Have a Drink Containing Alcohol: Never - Substance Use History Substance History: Unable to Obtain - Travel History Recent Travel in the [place] Within the Last 8 Weeks: No Recent Travel Out of the Country Within the Last 8 Weeks: No <Petty Leal - Last Filed: 05/04/18 08:54> - Medical History Medical History: Medical History (Last Reviewed 04/25/18 @ 19:17 by JANINE Drake) Agoraphobia with panic attacks Anxiety C. difficile diarrhea Depression History of IBS <Marco Hines - Last Filed: 05/04/18 13:03> Medications and Allergies Active Medications: Active Medications Betamethasone Acet/Betameth SodPhos (Celestone Soluspan Inj) 12 mg IM Q24H [facility] Stop: 05/04/18 18:31 Last Admin: 05/03/18 18:35 Dose: 12 mg Haloperidol (Haldol) 10 mg PO [facility] Last Admin: 05/03/18 21:04 Dose: 10 mg Lactated Ringer's (Lr 1000 Ml Inj) 1,000 mls @ 100 mls/hr IV.SIG .Q10H VINNY Ursodiol (Actigall) 300 mg PO BID [facility] Last Admin: 05/04/18 08:49 Dose: 300 mg <Petty Leal - Last Filed: 05/04/18 08:54> Active Medications: Active Medications Betamethasone Acet/Betameth SodPhos (Celestone Soluspan Inj) 12 mg IM Q24H [facility] Stop: 05/04/18 18:31 Last Admin: 05/03/18 18:35 Dose: 12 mg Citric Acid/Sodium Citrate (Sodium Citrate/Citric Acid Liq) 30 ml PO [employer]IFIC [employer]S ANALYST [facility] Stop: 05/08/18 10:44 Enoxaparin Sodium (Lovenox Inj) 120 mg SQ UNSCH PRN PRN Reason: pulmonary embolism Stop: 05/06/18 11:04 Haloperidol (Haldol) 10 mg PO [facility] Last Admin: 05/03/18 21:04 Dose: 10 mg Lactated Ringer's (Lr 1000 Ml Inj) 1,000 mls @ 100 mls/hr IV.SIG .Q10H VINNY Cefazolin Sodium/Dextrose (Ancef 2 Gm Premix Inj) 2 gm in 50 mls @ 100 mls/hr IV.SIG SCIENTIFIC SYSTEMS ANALYST PRN PRN Reason: surgery Stop: 05/08/18 10:34 Lactated Ringer's (Lr 1000 Ml Inj) 1,000 mls @ 150 mls/hr IV.CONT .Q6H40M [facility] Ursodiol (Actigall) 300 mg PO BID [facility] Last Admin: 05/04/18 08:49 Dose: 300 mg <Marco Hines - Last Filed: 05/04/18 13:03> Allergies Allergy/AdvReac Type Severity Reaction Status Date / Time vortioxetine Allergy Hives Verified 04/23/18 20:36 [From Brintellix] ziprasidone [From Geodon] Allergy Chest Pain Verified 04/23/18 20:36 Home Medications Medication Instructions Recorded Confirmed Type PNV cmb#95-ferrous fumarate-FA 1 tab PO DAILY 04/23/18 05/03/18 History [] ursodiol [Actigall] 300 mg PO BID 04/23/18 05/03/18 History Exam Vital signs: Vital Signs 05/03/18 18:25 05/03/18 18:40 05/03/18 20:15 Temperature 98.0 F Pulse Rate 124 H 123 H 121 H Respiratory Rate 18 Blood Pressure 129/94 H 140/85 05/04/18 00:17 05/04/18 00:30 05/04/18 07:19 Temperature 98.7 F 98.7 F Pulse Rate 117 H 129 H Respiratory Rate 18 Blood Pressure 135/77 127/86 05/04/18 07:32 05/04/18 08:25 05/04/18 08:30 Temperature 99.2 F Pulse Rate 123 H Respiratory Rate 16 Blood Pressure 05/04/18 08:45 05/04/18 08:50 Temperature Pulse Rate 117 H 120 H Respiratory Rate Blood Pressure Intake & Output 05/03/18 05/04/18 05/04/18 18:59 06:59 18:59 Weight 81.8 kg - Constitutional no acute distress - Routine HEENT Exam Head: Present: normocephalic, atraumatic - Routine Abdominal Exam Present: normoactive bowel sounds. Absent: tenderness Comments: - Routine Skin Exam Present: dry, warm - Routine Neurological Exam Present: alert, oriented X3 <Petty Leal - Last Filed: 05/04/18 08:54> Vital signs: Vital Signs 05/03/18 18:25 05/03/18 18:40 05/03/18 20:15 Temperature 98.0 F Pulse Rate 124 H 123 H 121 H Respiratory Rate 18 Blood Pressure 129/94 H 140/85 05/04/18 00:17 05/04/18 00:30 05/04/18 07:19 Temperature 98.7 F 98.7 F Pulse Rate 117 H 129 H Respiratory Rate 18 Blood Pressure 135/77 127/86 05/04/18 07:32 05/04/18 08:25 05/04/18 08:30 Temperature 99.2 F Pulse Rate 123 H Respiratory Rate 16 Blood Pressure 05/04/18 08:45 05/04/18 08:50 05/04/18 08:55 Temperature Pulse Rate 117 H 120 H 119 H Respiratory Rate Blood Pressure 05/04/18 09:05 05/04/18 09:25 05/04/18 09:35 Temperature 98.6 F Pulse Rate 121 H 120 H 120 H Respiratory Rate Blood Pressure 134/73 05/04/18 10:17 05/04/18 10:45 05/04/18 11:45 Temperature Pulse Rate 131 H 125 H 131 H Respiratory Rate 22 Blood Pressure 131/84 138/82 05/04/18 12:00 05/04/18 12:46 Temperature Pulse Rate 125 H 121 H Respiratory Rate 18 Blood Pressure 131/75 Intake & Output 05/03/18 05/04/18 05/04/18 18:59 06:59 18:59 Weight 81.8 kg <Marco Hines - Last Filed: 05/04/18 13:03> Results - Labs CBC & Chem 7: 05/04/18 05:11 05/03/18 16:50 Labs: Laboratory Results - last 24 hr 05/03/18 05/03/18 05/03/18 16:50 16:50 16:50 WBC 10.8 RBC 4.05 Hgb 12.3 Hct 36.6 MCV 90.4 MCH 30.2 MCHC 33.5 RDW 15.6 Plt Count 218 MPV 10.7 Neut % (Auto) 76.2 H Lymph % (Auto) 16.3 Bland % (Auto) 6.8 Eos % (Auto) 0.4 Baso % (Auto) 0.3 Neut # (Auto) 8.3 H Lymph # (Auto) 1.8 Bland # (Auto) 0.7 Eos # (Auto) 0.0 Baso # (Auto) 0.0 WBC Differential . Differential Comment Auto diff final Sodium 141 Potassium 3.8 Chloride 104 Carbon Dioxide 23.3 Anion Gap 14 BUN 9 Creatinine 0.55 Estimated GFR Greater than 89 Random Glucose 79 Uric Acid 4.8 Calcium 8.9 Total Bilirubin 0.5 Direct Bilirubin Indirect Bilirubin AST 213 H ALT 227 H Alkaline Phosphatase 118 H Total Protein 6.1 L Albumin 2.2 L TSH 1.530 Urine Color Urine Clarity Urine pH Ur Specific [place] Urine Protein Urine Glucose (UA) Urine Ketones Urine Occult Blood Urine Nitrate Urine Bilirubin Urine Urobilinogen Ur Leukocyte Esterase Urine RBC Urine WBC Ur Squamous Epith Cells Urine Bacteria Urine Mucus Micro UA Comment Ur Microscopic Review Urine Culture Comments 05/03/18 05/04/18 05/04/18 17:11 05:11 05:11 WBC 13.0 H RBC 3.95 L Hgb 11.9 Hct 35.1 MCV 88.8 MCH 30.1 MCHC 33.9 RDW 15.2 Plt Count 215 MPV 11.5 H Neut % (Auto) 85.9 H Lymph % (Auto) 10.4 Bland % (Auto) 3.5 Eos % (Auto) 0.0 Baso % (Auto) 0.2 Neut # (Auto) 11.1 H Lymph # (Auto) 1.4 Bland # (Auto) 0.5 Eos # (Auto) 0.0 Baso # (Auto) 0.0 WBC Differential . Differential Comment Auto diff final Sodium Potassium Chloride Carbon Dioxide Anion Gap BUN Creatinine Estimated GFR Random Glucose Uric Acid 5.3 Calcium Total Bilirubin 0.7 Direct Bilirubin 0.3 H Indirect Bilirubin 0.4 AST 229 H ALT 242 H Alkaline Phosphatase 120 H Total Protein 6.1 L Albumin 2.1 L TSH Urine Color [place] Urine Clarity Cloudy H Urine pH 6.0 Ur Specific [place] 1.028 Urine Protein 100 H Urine Glucose (UA) 50 Urine Ketones 20 Urine Occult Blood Negative Urine Nitrate Negative Urine Bilirubin Negative Urine Urobilinogen Less than 2 Ur Leukocyte Esterase Moderate H Urine RBC 2 Urine WBC 13 H Ur Squamous Epith Cells 72 Urine Bacteria Many H Urine Mucus Many H Micro UA Comment Culture indicated Ur Microscopic Review Not Reportable Urine Culture Comments Culture indicated <Petty Leal - Last Filed: 05/04/18 08:54> - Labs CBC & Chem 7: 05/04/18 10:35 05/04/18 10:35 Labs: Laboratory Results - last 24 hr 05/03/18 05/03/18 05/03/18 16:50 16:50 16:50 WBC 10.8 RBC 4.05 Hgb 12.3 Hct 36.6 MCV 90.4 MCH 30.2 MCHC 33.5 RDW 15.6 Plt Count 218 MPV 10.7 Neut % (Auto) 76.2 H Lymph % (Auto) 16.3 Bland % (Auto) 6.8 Eos % (Auto) 0.4 Baso % (Auto) 0.3 Neut # (Auto) 8.3 H Lymph # (Auto) 1.8 Bland # (Auto) 0.7 Eos # (Auto) 0.0 Baso # (Auto) 0.0 WBC Differential . Differential Comment Auto diff final Sodium 141 Potassium 3.8 Chloride 104 Carbon Dioxide 23.3 Anion Gap 14 BUN 9 Creatinine 0.55 Estimated GFR Greater than 89 Random Glucose 79 Uric Acid 4.8 Calcium 8.9 Total Bilirubin 0.5 Direct Bilirubin Indirect Bilirubin AST 213 H ALT 227 H Alkaline Phosphatase 118 H Total Protein 6.1 L Albumin 2.2 L TSH 1.530 Urine Color Urine Clarity Urine pH Ur Specific [place] Urine Protein Urine Glucose (UA) Urine Ketones Urine Occult Blood Urine Nitrate Urine Bilirubin Urine Urobilinogen Ur Leukocyte Esterase Urine RBC Urine WBC Ur Squamous Epith Cells Urine Bacteria Urine Mucus Micro UA Comment Ur Microscopic Review Urine Culture Comments 05/03/18 05/04/18 05/04/18 17:11 05:11 05:11 WBC 13.0 H RBC 3.95 L Hgb 11.9 Hct 35.1 MCV 88.8 MCH 30.1 MCHC 33.9 RDW 15.2 Plt Count 215 MPV 11.5 H Neut % (Auto) 85.9 H Lymph % (Auto) 10.4 Bland % (Auto) 3.5 Eos % (Auto) 0.0 Baso % (Auto) 0.2 Neut # (Auto) 11.1 H Lymph # (Auto) 1.4 Bland # (Auto) 0.5 Eos # (Auto) 0.0 Baso # (Auto) 0.0 WBC Differential . Differential Comment Auto diff final Sodium Potassium Chloride Carbon Dioxide Anion Gap BUN Creatinine Estimated GFR Random Glucose Uric Acid 5.3 Calcium Total Bilirubin 0.7 Direct Bilirubin 0.3 H Indirect Bilirubin 0.4 AST 229 H ALT 242 H Alkaline Phosphatase 120 H Total Protein 6.1 L Albumin 2.1 L TSH Urine Color [place] Urine Clarity Cloudy H Urine pH 6.0 Ur Specific [place] 1.028 Urine Protein 100 H Urine Glucose (UA) 50 Urine Ketones 20 Urine Occult Blood Negative Urine Nitrate Negative Urine Bilirubin Negative Urine Urobilinogen Less than 2 Ur Leukocyte Esterase Moderate H Urine RBC 2 Urine WBC 13 H Ur Squamous Epith Cells 72 Urine Bacteria Many H Urine Mucus Many H Micro UA Comment Culture indicated Ur Microscopic Review Not Reportable Urine Culture Comments Culture indicated 05/04/18 05/04/18 10:35 10:35 WBC 14.7 H RBC 4.01 Hgb 11.9 Hct 35.8 MCV 89.2 MCH 29.8 MCHC 33.4 RDW 15.2 Plt Count 240 MPV 11.2 H Neut % (Auto) 79.0 H Lymph % (Auto) 14.2 Bland % (Auto) 6.4 Eos % (Auto) 0.1 Baso % (Auto) 0.3 Neut # (Auto) 11.7 H Lymph # (Auto) 2.1 Bland # (Auto) 0.9 Eos # (Auto) 0.0 Baso # (Auto) 0.0 WBC Differential . Differential Comment Auto diff final Sodium 138 Potassium 3.7 Chloride 104 Carbon Dioxide 18.5 L Anion Gap 16 H BUN 4 L Creatinine 0.37 L Estimated GFR Greater than 89 Random Glucose 70 L Uric Acid Calcium 8.6 Total Bilirubin 0.6 Direct Bilirubin Indirect Bilirubin AST 244 H ALT 251 H Alkaline Phosphatase 125 H Total Protein 6.1 L Albumin 2.2 L TSH Urine Color Urine Clarity Urine pH Ur Specific [place] Urine Protein Urine Glucose (UA) Urine Ketones Urine Occult Blood Urine Nitrate Urine Bilirubin Urine Urobilinogen Ur Leukocyte Esterase Urine RBC Urine WBC Ur Squamous Epith Cells Urine Bacteria Urine Mucus Micro UA Comment Ur Microscopic Review Urine Culture Comments - Imaging Impressions Chest CTA 05/04/18 00:00 CONCLUSION: 1. This study is negative for pulmonary embolism. Chest X-Ray 05/04/18 00:00 CONCLUSION: Negative examination. <Marco Hines - Last Filed: 05/04/18 13:03> Assessment and Plan - Plan Assessment Elevated LFTspatient was initially seen by our service while admitted to inpatient psychiatric unit, she has now been transferred to OB floor and they have reconsult our service to continue with management. Liver workup so far: Ultrasound liver negative. Hepatitis panel negative. LYLE negative. ASMA negative. LYLE pending. Ceruloplasmin pending Alpha-1 [id number] iron67 ADVX486% saturation 10.6 [id number] bile acids 14 Elevation noted to be secondary to -induced cholestasis versus medication induced Patient has been started on ursodiol History of chronic C. difficilewas started on vancomycin while inpatient psych , C. difficile testing negative this has since discontinued. Patient reports one bowel movement overnight, states loose. There is no need for vancomycin to be continued at this time. Plan Continue to monitor LFTs Ursodiol Avoid hepatotoxins Encourage p.o. intake No need for vancomycin Our service will sign off, please reconsult as needed Have patient follow-up with GI after discharge Discussed with Dr. Leavitt This patient has been seen and examined by myself and Dr. Hines and this note is written on his behalf <Petty Leal - Last Filed: 05/04/18 08:54> - Plan Seen and examined with [facility], add lactinex 1 po tid x 14 days if ok with [facility]. Also consider cholestyramine 4 gm po as needed for diarrhea. <Marco Hines - Last Filed: 05/04/18 13:03>
[2018-05-04] MEDS ORDERED: ceFAZolin 2 GM Premix Inj 2 GM/50 ML PIGGYBACK IV.SIG PRN (10:35)
[2018-05-04] MEDS ORDERED: Citric Acid/Sodium Citrate Liq 30 ML UDC PO SCH (10:45)
[2018-05-04 11:04] LABS: Baso % (Auto) 0.3 % (0.0-2.0); Eos % (Auto) 0.1 % (0.0-4.0); Hematocrit 35.8 % (35.0-46.0); Hemoglobin 11.9 gm/dL (11.6-15.3); Lymph # (Auto) 2.1 th/mm3 (1.0-4.8); Lymph % (Auto) 14.2 % (9.0-44.0); Mean Corpuscular HGB Conc 33.4 % (32.0-36.0); Mean Corpuscular Hemoglobin 29.8 pg (27.0-34.0); Mean Corpuscular Volume 89.2 fL (80.0-100.0); Mean Platelet Volume 11.2 fL (7.0-11.0); Mono # (Auto) 0.9 th/mm3 (0.0-0.9); Mono % (Auto) 6.4 % (0.0-8.0); Neut # (Auto) 11.7 th/mm3 (1.8-7.7); Platelet Count 240 th/mm3 (150-450); Red Blood Count 4.01 mil/mm3 (4.00-5.30); Red Cell Distribution Width 15.2 % (11.6-17.2); White Blood Count 14.7 th/mm3 (4.0-11.0)
[2018-05-04] MEDS ORDERED: Enoxaparin Inj 120 MG/0.8 ML Syringe SQ PRN (11:05)
--- NOTE | 2018-05-04 11:06 | XR ---
EXAM DATE: 05/04/2018 12:00 AM EDT AGE/SEX: 32 years / Female INDICATIONS: . Bilateral chest pain. CLINICAL DATA: This is the patient's initial encounter. Patient reports that signs and symptoms have been present for 1 day and indicates a pain score of 3/10. MEDICAL/SURGICAL HISTORY: . Panic attacks. Anxiety. C-diff. Depression. Irritable bowel syndro me. None. . COMPARISON: No prior exams available for comparison. FINDINGS: AP and lateral views of the chest demonstrate the lungs to be symmetrically aerated without evidence of mass, infiltrate or effusion. The cardiomediastinal contours are unremarkable. Osseous structure s are intact. CONCLUSION: Negative examination. Electronically signed by: Chuck Tellez MD 05/04/2018 11:05 AM EDT
--- NOTE | 2018-05-04 11:10 | P.OBGPN ---
Patient is 34 weeks and 4 days. Here times several days on psych unit for brief psychotic episode. Received signout from Dr. Leavitt-who was evaluated the patient and suspect possible PE. I have seen the patient-her affect is flat , on room air O2 sats are about 92 currently nasal cannula in place running at 5 L. Blood pressures are elevated. On examination cardiac S1-S2 tachycardia present, lungs no wheezing however sound congested. Abdomen is soft gravid. heart rate category 1. Pelvic exam deferred. Bilateral extremities no Homans. Plan stat spiral CT. Repeat CBC CMP. This morning LFTs were in the 200s. Platelets are normal H&H normal. Based on presentation severe preeclampsia rule out for PE rule out pulmonary congestion. Plan to deliver by delivery. Patient counseled of alternatives benefits complications. Please note she was counseled previously with her who is her advocate. Since she had been scheduled for delivery due to cholelithiasis diagnosed earlier in . Patient verbalizes understanding. At present her is over 5 hours away will not delay surgery for her to arrive. Only delay at this time is awaiting the CT results and regards to management whether we will keep the patient on the floor. Plan magnesium sulfate postdelivery will not initiate prior secondary to maternal indications decrease the likelihood of intraoperative hemorrhage as well as for indications since the fetus is premature to decrease the likelihood of poor respiratory effort on the with . Immediately after will initiate magnesium sulfate and Lovenox therapeutic range although contraindicated immediately after delivery however if PE is suspected benefits outweigh risks. Of note Venodyne's or SCDs have been placed. Dr. Leavitt also stated agree with delivery. Addendum-CT performed pulmonary edema as well as PE have been ruled out. We will plan Lovenox subcutaneous prophylactically patient is not ambulatory. Still proceed with delivery all criteria consistent with severe preeclampsia `
--- NOTE | 2018-05-04 11:19 | CT ---
EXAM DATE: 05/04/2018 10:58 AM EDT AGE/SEX: 32 years / Female INDICATIONS: Suspected Embolism, 3rd trimester CLINICAL DATA: This is the patient's initial encounter. Patient reports that signs and symptoms have been present for 1 day and indicates a pain score of 5/10. MEDICAL/SURGICAL HISTORY: None. None. RADIATION DOSE: 19.64 CTDI (mGy) COMPARISON: No prior exams available for comparison. TECHNIQUE: Volumetric scanning was performed using a multi-row detector CT scanner during bolus infu olman of 72ML ml Omnipaque 350 (iohexol) nonionic water-soluble contrast as a single exam dose. The d damien was post processed with a variety of visualization algorithms including full volume maximum inten sity projection and sliding thin slab reformation. Using automated exposure control and adjustment of the mA and/or kV according to patient size, radiation dose was kept as low as reasonably achievable to obtain optimal diagnostic quality images. DICOM format image data is available electronically for review and comparison. FINDINGS: Pulmonary Arteries: No filling defects are seen in the pulmonary arteries out to the subsegmental ve ssels. The left and right pulmonary arteries are normal in diameter. Lung: No infiltrates seen. Effusion: None. Mediastinum: No evidence of mediastinal or hilar adenopathy. Other: The axilla is unremarkable. CONCLUSION: 1. This study is negative for pulmonary embolism. Electronically signed by: Chuck Tellez MD 05/04/2018 11:18 AM EDT
[2018-05-04 12:33] LABS: Alanine Aminotransferase 251 U/L (10-53); Albumin 2.2 g/dL (3.4-5.0); Anion Gap 16 meq/L (5-15); Aspartate Aminotransferase 244 U/L (15-37); Blood Urea Nitrogen 4 mg/dL (7-18); Calcium 8.6 mg/dL (8.5-10.1); Carbon Dioxide 18.5 meq/L (21.0-32.0); Chloride 104 meq/L (98-107); Glomerular Filtration Rate Greater Than 89 mL/min (>89); Glucose,Random 70 mg/dL (74-106); Potassium 3.7 meq/L (3.5-5.1); Sodium 138 meq/L (136-145)
[2018-05-04 12:35] LABS: Alkaline Phosphatase 125 U/L (45-117); Total Protein 6.1 g/dL (6.4-8.2)
[2018-05-04] MEDS ORDERED: Phenylephrine/NS 1000 MCG/10ML Syringe IV.PUSH ONE (13:00)
[2018-05-04] MEDS ORDERED: fentaNYL Citrate Inj 100 MCG/2 ML Ampul ONE (13:02)
[2018-05-04] MEDS ORDERED: Morphine Sulfate PF Inj 5 MG/10 ML Ampul ONE (13:02)
[2018-05-04] MEDS ORDERED: Naloxone Inj 0.4 MG/ML Vial IV.PUSH PRN ×2 (13:05→16:43)
[2018-05-04] MEDS ORDERED: Oxytocin 30 Units/500ml Premix 30 UNITS/500 ML BAG IV.SIG ONE (13:57)
[2018-05-04] MEDS ORDERED: Senna/Docusate Sodium 8.6/50 MG Tablet PO PRN (13:57)
[2018-05-04] MEDS ORDERED: Simethicone 80 MG Chew Tablet PO PRN (13:57)
[2018-05-04] MEDS ORDERED: Mag Sulf/Water 4 gm/100 ml 100 ML IV.SIG ONE ×2 (13:59→14:35)
[2018-05-04] MEDS ORDERED: Mag Sulf/Water 40 gm/1000 ml 40 GM/1,000 ML BAG IV.CONT ONE (14:35)
[2018-05-04] MEDS: Mag Sulf/Water 40 gm/1000 ml 40 GM/1,000 ML BAG IV.CONT SCH (14:51)
--- NOTE | 2018-05-04 15:50 | P.OP ---
- Preoperative Diagnosis (1) Severe preeclampsia (2) 34 weeks gestation of (3) Severe pre-eclampsia (4) 34 weeks gestation of (5) True knot of umbilical cord, delivered Date of procedure: 05/04/18 Procedure: Primary C/S Anesthesia: spinal Surgeon: Lorenza Perdue MD Lobster Catcher: Kimberlee PUGH PGY 3 Estimated blood loss (mL): 500 Operation and Findings: Patient counseled on alternatives benefits complications, including but not limited to permanent injury to the bowel bladder nerves blood vessels ureters any structures in the abdomen or pelvis infection hemorrhage morbidity mortality related surgery and/or anesthesia related procedures even remote possibility of . Risk of injury. Risks associated with delivery please note patient did receive 1 course of steroids prior to delivery. Of note this patient was admitted for a psychotic break and patient had provided consent earlier with Dr. Weaver. Patient's was notified that the patient was being taken to the OR for delivery secondary to severe preeclampsia indications were maternal with decompensation noted in the mother with tachycardia noted desaturation CT was negative for pulmonary embolus and pulmonary edema. However based on the maternal presentation at this time the benefits of delivering the mother outweigh the risks of a fetus. Patient was subsequently taken to the OR placed under spinal analgesia which was found to be adequate prepped and draped in normal sterile fashion. A Pfannenstiel incision was made on the skin carried down to the underlying layer of fascia which was incised in the midline and then subsequently dissected laterally digitally. The rectus muscle was with blunt entrance into the peritoneum with care to avoid the bladder. Vesicle peritoneum was identified noted a bladder blade was placed and the vesical peritoneum was incised in a transverse fashion to affect the bladder flap with repositioning of the bladder blade. A transverse incision on the uterus extended laterally digitally amniotomy clear fluid. A viable infant female was delivered Apgars 2/6 /7. Note the vertex was delivered nares and mouth were bulb suctioned nuchal cord x2 noted as well as a true knot close to the umbilicus /or fetus. Somersault delivery to reduce the cord followed by delivery of the remainder of the body without incident delayed cord clamping. was handed to awaiting NICU team. Cord blood collected placenta was sent for pathology. The placenta had been removed manually uterus externalized cleared of all clot and debris. Uterine incision was closed with 1 chromic in a running locked fashion followed by a second imbricating Lembert suture. Note that there was bleeding noted along the uterine incision which was subsequently controlled with a third suture but no further bleeding no further oozing noted. Bilateral tubes and ovaries are noted to be within normal limits on inspection. Paracolic gutters were cleared of all clot and debris the uterus was repositioned to the pelvic abdominal cavity. The uterine incision was observed times several minutes no further bruising no further bleeding noted. The fascia was identified closed with 1 Vicryl in a running fashion. Subcutaneous bleeding which was minimal controlled with Bovie pencil followed by copious irrigation closure of the skin with Monocryl with a Robin needle. Mother stable. Baby taken to the NICU in stable condition as well.
--- NOTE | 2018-05-04 17:50 | P.PNPSY ---
Subjective Remarks: Patient seen for follow-up, chart reviewed. Discussion with nursing staff reported that patient Assessment and Plan - Plan Plan: Estimated LOS: [] days
--- NOTE | 2018-05-04 17:51 | P.CONPSY ---
Provisional Diagnosis Admission Date: May 03, 2018 16:31 [place].: Peripartum psychosis History of Present Illness Service: Psychiatry Consult date: 05/04/18 Requesting Physician: Jimbo Leavitt Reason for Consult: 34 week Primary Care Provider: UNKNOWN History of Present Illness: Patient is a 32-year-old woman, , domiciled in [place] with her , unemployed, with a psychiatric history of OCD, MDD, LIZ, peripartum psychosis,1 recent previous psychiatric hospitalization due to a new onset psychosis (admitted due to report patient trying to starve herself to start the baby), no previous suicidal attempts, previously on Luvox 75 mg, Lamictal 25 mg daily, Seroquel 50 mg twice daily, trazodone 100 mg at bedtime she has an outpatient psychiatric doctor in [place], with a medical history of irritable bowel syndrome, chronic C. difficile, hepatitis, recently with a 34 -week estimated gestational age IUP, recently admitted to the inpatient psychiatric unit who during ongoing treatment was followed by medical and OB taxation consultant teams and was found with distress which she was sent to the OB service with subsequent section which psychiatry was consulted for further evaluation. Patient was found lying on hospital bed, noted to be tired, slightly somnolent as she was recovering from the section. Patient states feeling "bad", states that her baby will suffering from side effects from all the medications she took during the . Patient continues to endorse suicidal ideation and unreliable to contract for safety at this time. She reports hearing voices outside of the room and denies any auditory hallucinations. Patient agrees to continue with improving nutritional PO intake. Denies any VH, now focused on baby having withdrawal from psychotropic medications. Attempted to reach patient's outpatient psychiatrist, Dr. Caraballo ([phone]) but unsuccessful. Review of Systems All other systems reviewed negative except as stated in HPI PMFSH - History History Provided By: Patient, Medical Record - Medical History Medical History: Medical History (Last Reviewed 04/25/18 @ 19:17 by JANINE Drake) Agoraphobia with panic attacks Anxiety C. difficile diarrhea Depression History of IBS - Tobacco History Second Hand Smoke Exposure: No Smoking Status: Never smoker - Alcohol History How Often Do You Have a Drink Containing Alcohol: Never - Substance Use History Substance History: Unable to Obtain - Travel History Recent Travel in the [facility] Within the Last 8 Weeks: No Recent Travel Out of the Country Within the Last 8 Weeks: No Medications and Allergies Active Medications: Active Medications Betamethasone Acet/Betameth SodPhos (Celestone Soluspan Inj) 12 mg IM Q24H VINNY Stop: 05/04/18 18:31 Last Admin: 05/03/18 18:35 Dose: 12 mg Calcium Gluconate (Calcium Gluconate Inj) 1 gm IV.PUSH PRN PRN PRN Reason: Magnesium toxicity Citric Acid/Sodium Citrate (Sodium Citrate/Citric Acid Liq) 30 ml PO DAM TENDER VINNY Stop: 05/08/18 10:44 Diphenhydramine HCl (Benadryl Inj) 25 mg IV.PUSH Q6H PRN PRN Reason: MILD TO MODERATE ITCHING Stop: 05/05/18 13:04 Diphenhydramine HCl (Benadryl) 50 mg PO Q6H PRN PRN Reason: MILD TO MODERATE ITCHING Stop: 05/05/18 13:04 Diphtheria/Pertussis/Tetanus Vacc (Boostrix Vaccine Inj) 0.5 ml IM .ONCE ONE Stop: 05/05/18 16:01 Enoxaparin Sodium (Lovenox Inj) 60 mg SQ Q12H VINNY Haloperidol (Haldol) 10 mg PO HS [facility] Last Admin: 05/03/18 21:04 Dose: 10 mg Haloperidol (Haldol) 10 mg PO BID [facility] Cefazolin Sodium/Dextrose (Ancef 2 Gm Premix Inj) 2 gm in 50 mls @ 100 mls/hr IV.SIG DAM TENDER PRN PRN Reason: surgery Stop: 05/08/18 10:34 Cefazolin Sodium 2,000 mg/ (Sodium Chloride) 100 mls @ 200 mls/hr IV.SIG Q8H VINNY Stop: 05/05/18 05:29 Oxytocin (Pitocin 30 Units/Ns 500 Ml Premix) 30 units in 500 mls @ 100 mls/hr IV.SIG ONCE ONE Stop: 05/04/18 18:56 Last Admin: 05/04/18 17:12 Dose: 100 mls/hr Oxytocin (Pitocin 30 Units/Ns 500 Ml Premix) 30 units in 500 mls @ 100 mls/hr IV.SIG UNSCH PRN PRN Reason: Heavy bleeding Magnesium Sulfate (Magnesium Sulfate/Water 40 Gm/1000 Ml Premix) 40 gm in 1, 000 mls @ 50 mls/hr IV.CONT Q24H VINNY Last Admin: 05/04/18 14:51 Dose: 2 gm/hr, 50 mls/hr Lactated Ringer's (Lr 1000 Ml Inj) 1,000 mls @ 75 mls/hr IV.CONT .K30Q02H VINNY Acetaminophen (Ofirmev Inj) 1,000 mg in 100 mls @ 400 mls/hr IV.SIG Q6H VINNY Stop: 05/05/18 11:14 Last Admin: 05/04/18 17:12 Dose: 400 mls/hr Measles/Mumps/Rubella Vaccine Live (M-M-R Ii Vaccine Inj) 0.5 ml SQ .ONCE ONE Stop: 05/05/18 16:01 Miscellaneous Information ([facility] Nursing Information) 1 each OTHER UNSCH PRN PRN Reason: SEE LABEL COMMENTS Stop: 05/05/18 13:04 Miscellaneous Information ([facility] Nursing Information) 1 each OTHER UNSCH PRN PRN Reason: SEE LABEL COMMENTS Stop: 05/05/18 13:04 Naloxone HCl (Narcan Inj) 0.4 mg IV.PUSH UNSCH PRN PRN Reason: SEE LABEL COMMENTS Naloxone HCl (Narcan Inj) 0.4 mg IV.PUSH UNSCH PRN PRN Reason: SEE LABEL COMMENTS Stop: 05/05/18 13:04 Ondansetron HCl (Zofran Inj) 4 mg IV.PUSH Q6H PRN PRN Reason: NAUSEA OR VOMITING Oxycodone/Acetaminophen (Percocet 5/325 Mg) 1 tab PO Q4H PRN PRN Reason: PAIN SCALE 3 TO 5 Oxycodone/Acetaminophen (Percocet 5/325 Mg) 2 tab PO Q4H PRN PRN Reason: PAIN SCALE 6 TO 10 Senna/Docusate Sodium (Gretchen-Colace) 2 tab PO Q12H PRN PRN Reason: CONSTIPATION Simethicone (Mylicon Chew) 80 mg PO QID PRN PRN Reason: FLATULENCE Sodium Chloride (Ns Flush) 2 ml IV.FLUSH BID VINNY Sodium Chloride (Ns Flush) 2 ml IV.FLUSH PRN PRN PRN Reason: FLUSH AFTER USING IV ACCESS Vancomycin HCl (Vancomycin Po) 125 mg PO BID [facility] Allergies Allergy/AdvReac Type Severity Reaction Status Date / Time vortioxetine Allergy Hives Verified 04/23/18 20:36 [From Brintellix] ziprasidone [From Geodon] Allergy Chest Pain Verified 04/23/18 20:36 Home Medications Medication Instructions Recorded Confirmed Type PNV cmb#95-ferrous fumarate-FA 1 tab PO DAILY 04/23/18 05/03/18 History [] ursodiol [Actigall] 300 mg PO BID 04/23/18 05/03/18 History Exam Vital signs: Vital Signs 05/03/18 18:25 05/03/18 18:40 05/03/18 20:15 Temperature 98.0 F Pulse Rate 124 H 123 H 121 H Respiratory Rate 18 Blood Pressure 129/94 H 140/85 05/04/18 00:17 05/04/18 00:30 05/04/18 07:19 Temperature 98.7 F 98.7 F Pulse Rate 117 H 129 H Respiratory Rate 18 Blood Pressure 135/77 127/86 05/04/18 07:32 05/04/18 08:25 05/04/18 08:30 Temperature 99.2 F Pulse Rate 123 H Respiratory Rate 16 Blood Pressure 05/04/18 08:45 05/04/18 08:50 05/04/18 08:55 Temperature Pulse Rate 117 H 120 H 119 H Respiratory Rate Blood Pressure 05/04/18 09:05 05/04/18 09:25 05/04/18 09:35 Temperature 98.6 F Pulse Rate 121 H 120 H 120 H Respiratory Rate Blood Pressure 134/73 05/04/18 10:17 05/04/18 10:45 05/04/18 11:45 Temperature Pulse Rate 131 H 125 H 131 H Respiratory Rate 22 Blood Pressure 131/84 138/82 05/04/18 12:00 05/04/18 12:46 05/04/18 12:50 Temperature Pulse Rate 125 H 121 H 128 H Respiratory Rate 18 Blood Pressure 131/75 05/04/18 14:09 05/04/18 14:27 05/04/18 14:33 Temperature 98.0 F Pulse Rate 108 H 122 H 113 H Respiratory Rate 18 19 20 Blood Pressure 107/56 L 108/56 L 124/73 05/04/18 14:46 05/04/18 14:58 05/04/18 15:01 Temperature Pulse Rate 131 H 117 H 22 L Respiratory Rate 20 22 Blood Pressure 132/77 127/71 130/59 L 05/04/18 15:05 05/04/18 15:06 05/04/18 15:10 Temperature Pulse Rate 115 H 115 H Respiratory Rate Blood Pressure 115/57 L 123/61 05/04/18 15:15 05/04/18 15:21 05/04/18 15:25 Temperature Pulse Rate 106 H 111 H Respiratory Rate 20 Blood Pressure 121/61 114/60 118/62 05/04/18 15:36 05/04/18 16:24 05/04/18 16:25 Temperature 99.2 F Pulse Rate 114 H 114 H Respiratory Rate 15 Blood Pressure 123/70 131/76 05/04/18 16:30 05/04/18 16:45 05/04/18 16:50 Temperature Pulse Rate 112 H 109 H 111 H Respiratory Rate 18 Blood Pressure 130/75 130/76 05/04/18 17:00 05/04/18 17:10 05/04/18 17:16 Temperature 99.2 F Pulse Rate 108 H 113 H Respiratory Rate 20 Blood Pressure 126/70 124/75 05/04/18 17:18 05/04/18 17:20 05/04/18 17:35 Temperature Pulse Rate 115 H 107 H Respiratory Rate 20 Blood Pressure 127/71 05/04/18 17:40 Temperature Pulse Rate 110 H Respiratory Rate Blood Pressure Intake & Output 05/03/18 05/04/18 05/04/18 18:59 06:59 18:59 Weight 81.8 kg - Constitutional no acute distress, cooperative Mental Status Examination Appearance: Appropriate Consciousness: Somnolent (slightly) Orientation: Person, Place Speech: Slow Language: Other Fund of Knowledge: Inadequate Attention and Concentration: Inadequate Memory: Unremarkable Mood: Sad Affect: Sad Thought Process & Associations: Other (concrete) Thought Content: Bizarre thinking, Thought blocking Hallucination Type: None Delusion Type: Bizarre Suicidal Ideation: Yes Suicidal Plan: No Suicidal Intention: Yes Homicidal Ideation: No Homicidal Plan: No Homicidal Intention: No Insight: Poor Judgment: Poor Assessment and Plan - Assessment (1) Brief psychotic disorder with peripartum onset Code(s): O99.345 - Other mental disorders complicating the puerperium Status: Acute - Plan Plan: Estimated LOS: [] days Patient with recent section, now in recovery room, continues with preoccupation of guilt with recent hospitalizations and perseveration of delusion that the baby is not well due to her taking medications during . She continues with suicidal ideation and unreliable to contract for safety which she will require continued 1:1 observation for safety. Continue Haldol 10mg PO BID for psychosis, Ativan 0.5mg PO BID for anxiety, continue to monitor mood and behavior. Patient to be transferred back to med/psych once medically cleared. Consult appreciated. Justification for Continued Inpatient Stay: At risk of further decompensation at lower level care.
[2018-05-04] MEDS ORDERED: Oxytocin 30 Units/500ml Premix 30 UNITS/500 ML BAG IV.SIG PRN (18:57)
[2018-05-04] MEDS: ceFAZolin Inj 2,000 MG in Sodium Chlor 0.9% Inj 80 ML IV.SIG SCH (21:47)
--- NOTE | 2018-05-05 00:08 | P.CON ---
History of Present Illness Service: Hospitalist Consult date: 05/05/18 Reason for Consult: medical management Primary Care Provider: UNKNOWN Chief Complaint: tachycardia History of Present Illness: Ms. Miranda is a pleasant 32 year old female with a history of IBS, anxiety, C. Diff colitis who under emergent due to pre-eclampsia on . Patient was transferred from med-psych floor to Ob floor. She was originally admitted to psychiatry under [place] act due to depression, delusional thoughts including thoughts of hurting herself and her baby. At the time of this interview, patient is resting in bed, does not have any specific concerns. She denies any chest pain, shortness of breath, fever or chills. She is currently on supplemental oxygen 2 L via nasal cannula. She is also on magnesium sulfate IV. While patient was in the med psych unit, she was being followed by hospitalist service as well as GI due to elevated LFTs. Per discussion with patient's nurse, patient has had significant workup with regards to tachycardia as well as diarrhea in the outpatient setting. Patient' s outpatient GI physician recommended continuing p.o. vancomycin. Patient underwent CT pulmonary angiogram which was negative for PE. However due to increased risk of thrombosis, patient is currently on Lovenox 60 mg twice daily. Past medical history: Agoraphobia with panic attacks, anxiety, C. difficile colitis, depression, IBS Past surgical history: on 05/04/2018 Social history: Patient denies using tobacco or alcohol. Family history: Father with heart disease. Review of Systems All other systems reviewed negative except as stated in HPI PMFSH - History History Provided By: Patient, Medical Record - Medical History Medical History: Medical History (Last Reviewed 04/25/18 @ 19:17 by JANINE Drake) Agoraphobia with panic attacks Anxiety C. difficile diarrhea Depression History of IBS - Tobacco History Second Hand Smoke Exposure: No Smoking Status: Never smoker - Alcohol History How Often Do You Have a Drink Containing Alcohol: Never - Substance Use History Substance History: Unable to Obtain - Travel History Recent Travel in the [place] Within the Last 8 Weeks: No Recent Travel Out of the Country Within the Last 8 Weeks: No Medications and Allergies Active Medications: Active Medications Calcium Gluconate (Calcium Gluconate Inj) 1 gm IV.PUSH PRN PRN PRN Reason: Magnesium toxicity Citric Acid/Sodium Citrate (Sodium Citrate/Citric Acid Liq) 30 ml PO HOTEL SERVER VINNY Stop: 05/08/18 10:44 Diphenhydramine HCl (Benadryl Inj) 25 mg IV.PUSH Q6H PRN PRN Reason: MILD TO MODERATE ITCHING Stop: 05/05/18 13:04 Diphenhydramine HCl (Benadryl) 50 mg PO Q6H PRN PRN Reason: MILD TO MODERATE ITCHING Stop: 05/05/18 13:04 Diphtheria/Pertussis/Tetanus Vacc (Boostrix Vaccine Inj) 0.5 ml IM .ONCE ONE Stop: 05/05/18 16:01 Enoxaparin Sodium (Lovenox Inj) 60 mg SQ Q12H VINNY Haloperidol (Haldol) 10 mg PO BID [facility] Last Admin: 05/04/18 21:28 Dose: 10 mg Cefazolin Sodium/Dextrose (Ancef 2 Gm Premix Inj) 2 gm in 50 mls @ 100 mls/hr IV.SIG HOTEL SERVER PRN PRN Reason: surgery Stop: 05/08/18 10:34 Last Admin: 05/04/18 21:47 Dose: 100 mls/hr Cefazolin Sodium 2,000 mg/ (Sodium Chloride) 100 mls @ 200 mls/hr IV.SIG Q8H [facility] Stop: 05/05/18 05:29 Last Admin: 05/04/18 21:47 Dose: Not Given Oxytocin (Pitocin 30 Units/Ns 500 Ml Premix) 30 units in 500 mls @ 100 mls/hr IV.SIG UNSCH PRN PRN Reason: Heavy bleeding Magnesium Sulfate (Magnesium Sulfate/Water 40 Gm/1000 Ml Premix) 40 gm in 1, 000 mls @ 50 mls/hr IV.CONT Q24H [facility] Last Admin: 05/04/18 14:51 Dose: 2 gm/hr, 50 mls/hr Lactated Ringer's (Lr 1000 Ml Inj) 1,000 mls @ 75 mls/hr IV.CONT .[id number] [facility] Acetaminophen (Ofirmev Inj) 1,000 mg in 100 mls @ 400 mls/hr IV.SIG Q6H VINNY Stop: 05/05/18 11:14 Last Admin: 05/04/18 23:16 Dose: 400 mls/hr Measles/Mumps/Rubella Vaccine Live (M-M-R Ii Vaccine Inj) 0.5 ml SQ .ONCE ONE Stop: 05/05/18 16:01 Miscellaneous Information ([facility] Nursing Information) 1 each OTHER UNSCH PRN PRN Reason: SEE LABEL COMMENTS Stop: 05/05/18 13:04 Miscellaneous Information ([facility] Nursing Information) 1 each OTHER UNSCH PRN PRN Reason: SEE LABEL COMMENTS Stop: 05/05/18 13:04 Naloxone HCl (Narcan Inj) 0.4 mg IV.PUSH UNSCH PRN PRN Reason: SEE LABEL COMMENTS Naloxone HCl (Narcan Inj) 0.4 mg IV.PUSH UNSCH PRN PRN Reason: SEE LABEL COMMENTS Stop: 05/05/18 13:04 Ondansetron HCl (Zofran Inj) 4 mg IV.PUSH Q6H PRN PRN Reason: NAUSEA OR VOMITING Oxycodone/Acetaminophen (Percocet 5/325 Mg) 1 tab PO Q4H PRN PRN Reason: PAIN SCALE 3 TO 5 Oxycodone/Acetaminophen (Percocet 5/325 Mg) 2 tab PO Q4H PRN PRN Reason: PAIN SCALE 6 TO 10 Senna/Docusate Sodium (Gretchen-Colace) 2 tab PO Q12H PRN PRN Reason: CONSTIPATION Simethicone (Mylicon Chew) 80 mg PO QID PRN PRN Reason: FLATULENCE Sodium Chloride (Ns Flush) 2 ml IV.FLUSH BID [facility] Last Admin: 05/04/18 21:58 Dose: 2 ml Sodium Chloride (Ns Flush) 2 ml IV.FLUSH PRN PRN PRN Reason: FLUSH AFTER USING IV ACCESS Vancomycin HCl (Vancomycin Po) 125 mg PO BID [facility] Last Admin: 05/04/18 21:48 Dose: 125 mg Allergies Allergy/AdvReac Type Severity Reaction Status Date / Time vortioxetine Allergy Hives Verified 04/23/18 20:36 [From Brintellix] ziprasidone [From Geodon] Allergy Chest Pain Verified 04/23/18 20:36 Home Medications Medication Instructions Recorded Confirmed Type PNV cmb#95-ferrous fumarate-FA 1 tab PO DAILY 04/23/18 05/03/18 History [] ursodiol [Actigall] 300 mg PO BID 04/23/18 05/03/18 History Physical Exam Vital signs: Vital Signs 05/04/18 00:17 05/04/18 00:30 05/04/18 07:19 Temperature 98.7 F 98.7 F Pulse Rate 117 H 129 H Respiratory Rate 18 Blood Pressure 135/77 127/86 05/04/18 07:32 05/04/18 08:25 05/04/18 08:30 Temperature 99.2 F Pulse Rate 123 H Respiratory Rate 16 Blood Pressure 05/04/18 08:45 05/04/18 08:50 05/04/18 08:55 Temperature Pulse Rate 117 H 120 H 119 H Respiratory Rate Blood Pressure 05/04/18 09:05 05/04/18 09:25 05/04/18 09:35 Temperature 98.6 F Pulse Rate 121 H 120 H 120 H Respiratory Rate Blood Pressure 134/73 05/04/18 10:17 05/04/18 10:45 05/04/18 11:45 Temperature Pulse Rate 131 H 125 H 131 H Respiratory Rate 22 Blood Pressure 131/84 138/82 05/04/18 12:00 05/04/18 12:46 05/04/18 12:50 Temperature Pulse Rate 125 H 121 H 128 H Respiratory Rate 18 Blood Pressure 131/75 05/04/18 14:09 05/04/18 14:27 05/04/18 14:33 Temperature 98.0 F Pulse Rate 108 H 122 H 113 H Respiratory Rate 18 19 20 Blood Pressure 107/56 L 108/56 L 124/73 05/04/18 14:46 05/04/18 14:58 05/04/18 15:01 Temperature Pulse Rate 131 H 117 H 22 L Respiratory Rate 20 22 Blood Pressure 132/77 127/71 130/59 L 05/04/18 15:05 05/04/18 15:06 05/04/18 15:10 Temperature Pulse Rate 115 H 115 H Respiratory Rate Blood Pressure 115/57 L 123/61 05/04/18 15:15 05/04/18 15:21 05/04/18 15:25 Temperature Pulse Rate 106 H 111 H Respiratory Rate 20 Blood Pressure 121/61 114/60 118/62 05/04/18 15:36 05/04/18 16:24 05/04/18 16:25 Temperature 99.2 F Pulse Rate 114 H 114 H Respiratory Rate 15 Blood Pressure 123/70 131/76 05/04/18 16:30 05/04/18 16:45 05/04/18 16:50 Temperature Pulse Rate 112 H 109 H 111 H Respiratory Rate 18 Blood Pressure 130/75 130/76 05/04/18 17:00 05/04/18 17:10 05/04/18 17:16 Temperature 99.2 F Pulse Rate 108 H 113 H Respiratory Rate 20 Blood Pressure 126/70 124/75 05/04/18 17:18 05/04/18 17:20 05/04/18 17:35 Temperature Pulse Rate 115 H 107 H Respiratory Rate 20 Blood Pressure 127/71 05/04/18 17:40 05/04/18 17:50 05/04/18 18:00 Temperature 98.6 F Pulse Rate 110 H 112 H Respiratory Rate Blood Pressure 127/71 05/04/18 18:10 05/04/18 18:15 05/04/18 18:20 Temperature Pulse Rate 109 H 115 H 119 H Respiratory Rate Blood Pressure 128/76 05/04/18 18:25 05/04/18 18:30 05/04/18 18:35 Temperature Pulse Rate 111 H 111 H 105 H Respiratory Rate Blood Pressure 05/04/18 18:40 05/04/18 18:45 05/04/18 19:45 Temperature Pulse Rate 105 H 102 H 104 H Respiratory Rate Blood Pressure 122/70 05/04/18 19:49 05/04/18 20:05 05/04/18 20:10 Temperature 98.6 F Pulse Rate 112 H 107 H Respiratory Rate 16 Blood Pressure 127/73 05/04/18 21:05 05/04/18 21:17 05/04/18 21:55 Temperature Pulse Rate 109 H 105 H Respiratory Rate 16 Blood Pressure 120/68 05/04/18 22:45 05/04/18 22:55 05/04/18 23:05 Temperature Pulse Rate 107 H 93 H 96 H Respiratory Rate Blood Pressure 121/68 114/69 05/04/18 23:08 05/04/18 23:10 Temperature 98.7 F Pulse Rate 102 H Respiratory Rate 18 Blood Pressure Intake & Output 05/04/18 05/04/18 05/05/18 06:59 18:59 06:59 Intake Total 100 / 100 Balance 100 / 100 Intake: IV 100 / 100 Ofirmev Inj 1,000 mg In 100 ml 100 / 100 @ 400 mls/hr IV.SIG Q6H [facility] Rx# :[id number] Narrative: GENERAL: This is a well-nourished, well-developed patient, in no apparent distress. Somewhat flat affect SKIN: No rashes, ecchymoses or lesions. Warm and dry. HEAD: Atraumatic. Normocephalic. No temporal or scalp tenderness. EYES: Pupils equal round and reactive. No injection or drainage. ENT: Nose without bleeding, purulent drainage or septal hematoma. Airway patent. NECK: Trachea midline. No lymphadenopathy. Supple, nontender, no meningeal signs. CARDIOVASCULAR: Regular rhythm, tachycardic without murmurs, gallops, or rubs. No JVD. RESPIRATORY: Clear to auscultation. Breath sounds equal bilaterally. No wheezes , rales, or rhonchi. GASTROINTESTINAL: Abdomen soft, non-tender, nondistended. No guarding. MUSCULOSKELETAL: Extremities without clubbing, cyanosis, or edema. SCDs on NEUROLOGICAL: Awake and alert. Cranial nerves II through XII intact. No focal neurological deficits. Normal speech. Assessment and Plan - Plan Ms. Miranda is a pleasant 32-year-old female with a history of depression, IBS, C. difficile colitis who underwent emergent delivery due to preeclampsia on 05/04/2018. Patient was previously admitted to med psych unit due to delusional thoughts. Preeclampsia -Status post on 05/04/2018. -Patient is currently on IV magnesium sulfate per HOTEL BAGGAGE HANDLER. -Patient will likely go back to MedPsych once cleared by HOTEL BAGGAGE HANDLER. Possible C. difficile colitis -GI was consulted in-house. GI recommended no vancomycin at this point. -However patient's outpatient GI doctor recommended continuation of p.o. vancomycin. -Patient can follow-up with her GI doctor in the outpatient setting. Sinus tachycardia -Much improved. Patient has been hydrated well and currently on maintenance IV fluid as well as magnesium sulfate -TSH was within normal range -Apparently, patient has been worked up for this by cardiology in the outpatient setting. -Low-dose beta-lorena could be considered for tachycardia. This can be done in the outpatient setting with consultation with her electrical and instrument engineer. Elevated LFTs -GI workup so far negative. Follow-up with GI in the outpatient setting. Hypocalcemia - Corrected Calcium 7.3. Will give 1 g of Calcium gluconate IV. Other: We will start incentive spirometer Full code. Lovenox 60 mg twice daily. Thank you for the consultation. At this point patient is hemodynamically stable. We will sign off. Once patient goes to MedPsych unit, hospitalist service can be reconsulted if needed.
[2018-05-05 00:15] LABS: Hemoglobin 10.9 gm/dL (11.6-15.3); Mean Corpuscular HGB Conc 33.9 % (32.0-36.0); Mean Corpuscular Hemoglobin 30.1 pg (27.0-34.0); Mean Corpuscular Volume 88.7 fL (80.0-100.0); Mean Platelet Volume 10.7 fL (7.0-11.0); Platelet Count 213 th/mm3 (150-450); Red Blood Count 3.61 mil/mm3 (4.00-5.30); Red Cell Distribution Width 15.4 % (11.6-17.2)
[2018-05-05 00:58] LABS: Alanine Aminotransferase 217 U/L (10-53); Albumin 1.9 g/dL (3.4-5.0); Alkaline Phosphatase 105 U/L (45-117); Anion Gap 11 meq/L (5-15); Aspartate Aminotransferase 219 U/L (15-37); Blood Urea Nitrogen 3 mg/dL (7-18); Carbon Dioxide 23.1 meq/L (21.0-32.0); Chloride 104 meq/L (98-107); Glomerular Filtration Rate Greater Than 89 mL/min (>89); Glucose,Random 82 mg/dL (74-106); Potassium 3.4 meq/L (3.5-5.1); Sodium 138 meq/L (136-145); Total Protein 5.3 g/dL (6.4-8.2)
[2018-05-05] MEDS ORDERED: Enoxaparin Inj 60 MG/0.6 ML Syringe SQ SCH ×2 (02:00→08:00)
[2018-05-05] MEDS: ceFAZolin Inj 2,000 MG in Sodium Chlor 0.9% Inj 80 ML IV.SIG SCH (05:16)
--- NOTE | 2018-05-05 06:14 | P.PNOB ---
Subjective Interval history: Patient complains of some incisional pain On exam vital signs noted to be improved/tachycardia significantly improved as well high as noted by psychiatry 170s here 110-120s GENERAL: Well-nourished, well-developed patient. Patient is awake/alert/flat affect CARDIOVASCULAR: Regular rate and rhythm without murmurs, gallops, or rubs. RESPIRATORY: Breath sounds equal bilaterally. No accessory muscle use. ABDOMEN/GI: Abdomen soft, non-tender, bowel sounds present. Incision: Clean, dry and intact. Fundus: Firm, non-tender at umbilicus. Lochia scant GENITOURINARY: Light to moderate bleeding. EXTREMITIES: No cyanosis or edema, non-tender, without signs of DVT. SCDs in place-Lovenox ordered Objective Vital Signs/I&O: Vital Signs 05/04/18 07:19 05/04/18 07:32 05/04/18 08:25 Temperature 98.7 F Pulse Rate 129 H 123 H Respiratory Rate 16 Blood Pressure 127/86 05/04/18 08:30 05/04/18 08:45 05/04/18 08:50 Temperature 99.2 F Pulse Rate 117 H 120 H Respiratory Rate Blood Pressure 05/04/18 08:55 05/04/18 09:05 05/04/18 09:25 Temperature 98.6 F Pulse Rate 119 H 121 H 120 H Respiratory Rate Blood Pressure 134/73 05/04/18 09:35 05/04/18 10:17 05/04/18 10:45 Temperature Pulse Rate 120 H 131 H 125 H Respiratory Rate 22 Blood Pressure 131/84 05/04/18 11:45 05/04/18 12:00 05/04/18 12:46 Temperature Pulse Rate 131 H 125 H 121 H Respiratory Rate 18 Blood Pressure 138/82 131/75 05/04/18 12:50 05/04/18 14:09 05/04/18 14:27 Temperature 98.0 F Pulse Rate 128 H 108 H 122 H Respiratory Rate 18 19 Blood Pressure 107/56 L 108/56 L 05/04/18 14:33 05/04/18 14:46 05/04/18 14:58 Temperature Pulse Rate 113 H 131 H 117 H Respiratory Rate 20 20 Blood Pressure 124/73 132/77 127/71 05/04/18 15:01 05/04/18 15:05 05/04/18 15:06 Temperature Pulse Rate 22 L 115 H Respiratory Rate 22 Blood Pressure 130/59 L 115/57 L 05/04/18 15:10 05/04/18 15:15 05/04/18 15:21 Temperature Pulse Rate 115 H 106 H Respiratory Rate 20 Blood Pressure 123/61 121/61 114/60 05/04/18 15:25 05/04/18 15:36 05/04/18 16:24 Temperature 99.2 F Pulse Rate 111 H 114 H Respiratory Rate 15 Blood Pressure 118/62 123/70 05/04/18 16:25 05/04/18 16:30 05/04/18 16:45 Temperature Pulse Rate 114 H 112 H 109 H Respiratory Rate 18 Blood Pressure 131/76 130/75 130/76 05/04/18 16:50 05/04/18 17:00 05/04/18 17:10 Temperature Pulse Rate 111 H 108 H 113 H Respiratory Rate 20 Blood Pressure 126/70 124/75 05/04/18 17:16 05/04/18 17:18 05/04/18 17:20 Temperature 99.2 F Pulse Rate 115 H Respiratory Rate 20 Blood Pressure 05/04/18 17:35 05/04/18 17:40 05/04/18 17:50 Temperature Pulse Rate 107 H 110 H 112 H Respiratory Rate Blood Pressure 127/71 127/71 05/04/18 18:00 05/04/18 18:10 05/04/18 18:15 Temperature 98.6 F Pulse Rate 109 H 115 H Respiratory Rate Blood Pressure 128/76 05/04/18 18:20 05/04/18 18:25 05/04/18 18:30 Temperature Pulse Rate 119 H 111 H 111 H Respiratory Rate Blood Pressure 05/04/18 18:35 05/04/18 18:40 05/04/18 18:45 Temperature Pulse Rate 105 H 105 H 102 H Respiratory Rate Blood Pressure 05/04/18 19:45 05/04/18 19:49 05/04/18 20:05 Temperature 98.6 F Pulse Rate 104 H 112 H Respiratory Rate 16 Blood Pressure 122/70 127/73 05/04/18 20:10 05/04/18 21:05 05/04/18 21:17 Temperature Pulse Rate 107 H 109 H Respiratory Rate 16 Blood Pressure 120/68 05/04/18 21:55 05/04/18 22:45 10/12/18 22:55 Temperature Pulse Rate 105 H 107 H 93 H Respiratory Rate Blood Pressure 121/68 05/04/18 23:05 05/04/18 23:08 05/04/18 23:10 Temperature 98.7 F Pulse Rate 96 H 102 H Respiratory Rate 18 Blood Pressure 114/69 05/04/18 23:30 05/05/18 00:55 05/05/18 01:00 Temperature Pulse Rate 97 H 100 H Respiratory Rate 16 Blood Pressure 113/70 05/05/18 01:50 05/05/18 02:00 05/05/18 02:55 Temperature Pulse Rate 92 H 95 H 93 H Respiratory Rate Blood Pressure 110/67 116/69 05/05/18 03:16 05/05/18 03:40 05/05/18 03:55 Temperature 98.2 F Pulse Rate 98 H 95 H 92 H Respiratory Rate 16 Blood Pressure 120/65 05/05/18 04:05 05/05/18 04:50 05/05/18 04:52 Temperature Pulse Rate 91 H 90 Respiratory Rate 16 Blood Pressure 118/69 05/05/18 05:05 05/05/18 05:25 05/05/18 05:30 Temperature Pulse Rate 94 H 90 92 H Respiratory Rate Blood Pressure 116/72 05/05/18 05:34 05/05/18 05:35 05/05/18 05:45 Temperature 98.4 F Pulse Rate 104 H Respiratory Rate 6 L Blood Pressure 05/05/18 06:00 Temperature Pulse Rate 91 H Respiratory Rate Blood Pressure 109/73 Intake & Output 05/04/18 05/04/18 05/05/18 06:59 18:59 06:59 Intake Total 100 / 100 100 / 100 Balance 100 / 100 100 / 100 Intake: IV 100 / 100 100 / 100 Ofirmev Inj 1,000 mg In 100 ml 100 / 100 100 / 100 @ 400 mls/hr IV.SIG Q6H [facility] Rx# :[id number] Result Diagrams: 05/05/18 00:09 05/05/18 00:09 Objective Remarks: GENERAL: Well-nourished, well-developed patient. CARDIOVASCULAR: Regular rate and rhythm without murmurs, gallops, or rubs. RESPIRATORY: Breath sounds equal bilaterally. No accessory muscle use. ABDOMEN/GI: Abdomen soft, non-tender, bowel sounds present. Incision: Clean, dry and intact. Fundus: Firm, non-tender at umbilicus. GENITOURINARY: Light to moderate bleeding. EXTREMITIES: No cyanosis or edema, non-tender, without signs of DVT. Medications and IVs: Active Medications Calcium Gluconate (Calcium Gluconate Inj) 1 gm IV.PUSH PRN PRN PRN Reason: Magnesium toxicity Citric Acid/Sodium Citrate (Sodium Citrate/Citric Acid Liq) 30 ml PO PILE DRIVER OPERATOR [facility] Stop: 05/08/18 10:44 Diphenhydramine HCl (Benadryl Inj) 25 mg IV.PUSH Q6H PRN PRN Reason: MILD TO MODERATE ITCHING Stop: 05/05/18 13:04 Diphenhydramine HCl (Benadryl) 50 mg PO Q6H PRN PRN Reason: MILD TO MODERATE ITCHING Stop: 05/05/18 13:04 Diphtheria/Pertussis/Tetanus Vacc (Boostrix Vaccine Inj) 0.5 ml IM .ONCE ONE Stop: 05/05/18 16:01 Enoxaparin Sodium (Lovenox Inj) 60 mg SQ Q12H [facility] Last Admin: 05/05/18 05:10 Dose: Not Given Haloperidol (Haldol) 10 mg PO BID [facility] Last Admin: 05/04/18 21:28 Dose: 10 mg Cefazolin Sodium/Dextrose (Ancef 2 Gm Premix Inj) 2 gm in 50 mls @ 100 mls/hr IV.SIG PILE DRIVER OPERATOR PRN PRN Reason: surgery Stop: 05/08/18 10:34 Last Admin: 05/04/18 21:47 Dose: 100 mls/hr Oxytocin (Pitocin 30 Units/Ns 500 Ml Premix) 30 units in 500 mls @ 100 mls/hr IV.SIG UNSCH PRN PRN Reason: Heavy bleeding Magnesium Sulfate (Magnesium Sulfate/Water 40 Gm/1000 Ml Premix) 40 gm in 1, 000 mls @ 50 mls/hr IV.CONT Q24H [facility] Last Admin: 05/04/18 14:51 Dose: 2 gm/hr, 50 mls/hr Lactated Ringer's (Lr 1000 Ml Inj) 1,000 mls @ 75 mls/hr IV.CONT .[id number] [facility] Last Admin: 05/05/18 01:00 Dose: 75 mls/hr Acetaminophen (Ofirmev Inj) 1,000 mg in 100 mls @ 400 mls/hr IV.SIG Q6H [facility] Stop: 05/05/18 11:14 Last Admin: 05/05/18 05:12 Dose: 400 mls/hr Measles/Mumps/Rubella Vaccine Live (M-M-R Ii Vaccine Inj) 0.5 ml SQ .ONCE ONE Stop: 05/05/18 16:01 Miscellaneous Information ([facility] Nursing Information) 1 each OTHER UNSCH PRN PRN Reason: SEE LABEL COMMENTS Stop: 05/05/18 13:04 Miscellaneous Information ([facility] Nursing Information) 1 each OTHER UNSCH PRN PRN Reason: SEE LABEL COMMENTS Stop: 05/05/18 13:04 Naloxone HCl (Narcan Inj) 0.4 mg IV.PUSH UNSCH PRN PRN Reason: SEE LABEL COMMENTS Naloxone HCl (Narcan Inj) 0.4 mg IV.PUSH UNSCH PRN PRN Reason: SEE LABEL COMMENTS Stop: 05/05/18 13:04 Ondansetron HCl (Zofran Inj) 4 mg IV.PUSH Q6H PRN PRN Reason: NAUSEA OR VOMITING Oxycodone/Acetaminophen (Percocet 5/325 Mg) 1 tab PO Q4H PRN PRN Reason: PAIN SCALE 3 TO 5 Oxycodone/Acetaminophen (Percocet 5/325 Mg) 2 tab PO Q4H PRN PRN Reason: PAIN SCALE 6 TO 10 Senna/Docusate Sodium (Gretchen-Colace) 2 tab PO Q12H PRN PRN Reason: CONSTIPATION Simethicone (Mylicon Chew) 80 mg PO QID PRN PRN Reason: FLATULENCE Sodium Chloride (Ns Flush) 2 ml IV.FLUSH BID [facility] Last Admin: 05/04/18 21:58 Dose: 2 ml Sodium Chloride (Ns Flush) 2 ml IV.FLUSH PRN PRN PRN Reason: FLUSH AFTER USING IV ACCESS Vancomycin HCl (Vancomycin Po) 125 mg PO BID [facility] Last Admin: 05/04/18 21:48 Dose: 125 mg Assessment and Plan - Diagnosis (1) Status post delivery Code(s): Z98.891 - History of uterine scar from previous surgery Status: Acute - Plan Plan is to continue mag sulfate times 24 hours total from delivery. Once the magnesium sulfate was discontinued patient will be transferred back to Psyche unit 4E- OB team will follow from a perspective
[2018-05-05 06:27] LABS: Baso % (Auto) 0.2 % (0.0-2.0); Eos # (Auto) 0.1 th/mm3 (0.0-0.4); Eos % (Auto) 0.8 % (0.0-4.0); Hematocrit 31.9 % (35.0-46.0); Hemoglobin 10.8 gm/dL (11.6-15.3); Lymph # (Auto) 1.3 th/mm3 (1.0-4.8); Lymph % (Auto) 10.3 % (9.0-44.0); Mean Corpuscular HGB Conc 33.7 % (32.0-36.0); Mean Corpuscular Hemoglobin 30.3 pg (27.0-34.0); Mean Corpuscular Volume 89.8 fL (80.0-100.0); Mean Platelet Volume 10.6 fL (7.0-11.0); Mono % (Auto) 7.4 % (0.0-8.0); Neut # (Auto) 10.4 th/mm3 (1.8-7.7); Neut % (Auto) 81.3 % (16.0-70.0); Platelet Count 206 th/mm3 (150-450); Red Blood Count 3.55 mil/mm3 (4.00-5.30); Red Cell Distribution Width 15.3 % (11.6-17.2); White Blood Count 12.9 th/mm3 (4.0-11.0)
[2018-05-05 07:15] LABS: Alanine Aminotransferase 196 U/L (10-53); Albumin 1.8 g/dL (3.4-5.0); Alkaline Phosphatase 103 U/L (45-117); Anion Gap 10 meq/L (5-15); Aspartate Aminotransferase 197 U/L (15-37); Blood Urea Nitrogen 2 mg/dL (7-18); Calcium 6.4 mg/dL (8.5-10.1); Carbon Dioxide 22.6 meq/L (21.0-32.0); Chloride 105 meq/L (98-107); Glomerular Filtration Rate Greater Than 89 mL/min (>89); Glucose,Random 78 mg/dL (74-106); Potassium 3.6 meq/L (3.5-5.1); Sodium 138 meq/L (136-145); Total Protein 5.2 g/dL (6.4-8.2)
[2018-05-05] MEDS ORDERED: Calcium Gluconate Inj 1 GM in Dextrose 5% in Water Inj 100 ML IV.SIG ONE ×2 (09:00)
[2018-05-05 10:09] VITALS: O2SAT 95
[2018-05-05 11:38] VITALS: TEMP 98.3
[2018-05-05] MEDS ORDERED: Ketorolac Inj 30 MG/ML (IVP) Vial IV.PUSH PRN (12:44)
[2018-05-05] MEDS: Mag Sulf/Water 40 gm/1000 ml 40 GM/1,000 ML BAG IV.CONT SCH (13:57)
[2018-05-05 15:18] VITALS: RESP 16
[2018-05-05] MEDS ORDERED: Diphtheria/Tetanus/Pertussis Vaccine Inj 0.5 ML Syringe IM ONE (16:00)
[2018-05-05] MEDS ORDERED: Measles/Mumps/Rubella Vaccine Inj 0.5 ML Vial SQ ONE (16:00)
[2018-05-05] MEDS ORDERED: LORazepam 1 MG Tablet PO SCH (16:30)
--- NOTE | 2018-05-05 17:05 | P.OBGPN ---
Subjective: Patient completed 24 hours of magnesium sulfate. Patient evaluated at 1700 prior to discharge to psych floor. Patient denies chest pain, SOB, calf pain. Objective: Breasts: soft Abdomen: nontender, fundus at umbilicus, pressure dressing in place, incision clean and dry, no signs of infection Genitourinary: minimal lochia Extremities: calves nontender Assessment and Plan: Patient to return to psych floor Continue Lovenox 72 hours Discontinued ursodiol The exam, history, and the medical decision-making described in the above note were completed with the assistance of the resident physician. I reviewed and agree with the findings presented. I attest that I had a [id number] encounter with the patient on the same day, and personally performed and documented my assessment and findings in the medical record.
[2018-05-05 18:25] VITALS: BP 127/81; PULSE 103
== END 2018-05-05 19:39 ==
LOC: H2E 16:31
PROVIDERS: ADMIT Obstetrics & Gynecology; ATTEND Obstetrics & Gynecology

== ENCOUNTER 2018-05-05 18:30 | Inpatient (IN) ==
[2018-05-05] MEDS ORDERED: Acetaminophen 325 MG Tablet PO PRN (23:08)
[2018-05-05] MEDS ORDERED: Naloxone Inj 0.4 MG/ML Vial IV.PUSH PRN (23:08)
[2018-05-06] MEDS: Enoxaparin Inj 60 MG/0.6 ML Syringe SQ SCH ×3 (02:11→20:40)
--- NOTE | 2018-05-06 08:29 | P.PNOB ---
Subjective Post op day: 2 Interval history: Patient is a 32-year-old G 2 P 1 delivered at 34 weeks and 4 days. Patient is day 2 after section. Patient complains of mild incisional pain. Patient reports eating and drinking without any nausea or vomiting. Patient reports minimal bleeding. Patient has passed gas and bowel movements. She reports loose stools. Patient is walking without lower extremity pain or shortness of breath. Objective Vital Signs/I&O: Vital Signs 05/05/18 21:20 05/06/18 06:25 Temperature 98.5 F 97.6 F Pulse Rate 104 H 115 H Respiratory Rate 18 16 Blood Pressure 123/73 145/85 H Pulse Oximetry 94 L 95 Intake & Output 05/05/18 05/06/18 05/06/18 18:59 06:59 18:59 Intake Total 240 / 240 Balance 240 / 240 Weight 83.2 kg Intake: Oral 240 / 240 Other: # Voids 2 Weight On Admission 83.2 kg Objective Remarks: GENERAL: Well-nourished, well-developed patient. CARDIOVASCULAR: Regular rate and rhythm without murmurs, gallops, or rubs. RESPIRATORY: Breath sounds equal bilaterally. No accessory muscle use. ABDOMEN/GI: Abdomen soft, non-tender, bowel sounds present. Incision: Adhesive present on the skin left behind from pressure dressing, minimal drainage from incision, no signs of infection Fundus: Firm, non-tender at umbilicus. GENITOURINARY: Light to moderate bleeding. EXTREMITIES: No cyanosis or edema, non-tender, without signs of DVT. Medications and IVs: Active Medications Acetaminophen (Tylenol) 650 mg PO Q4H PRN PRN Reason: PAIN SCALE 1 TO 2 Enoxaparin Sodium (Lovenox Inj) 60 mg SQ Q12HR [facility] Last Admin: 05/06/18 02:11 Dose: 60 mg Haloperidol (Haldol) 10 mg PO BID [facility] Ibuprofen (Motrin) 800 mg PO Q8H PRN PRN Reason: For Cramping Naloxone HCl (Narcan Inj) 0.1 mg IV.PUSH Q2M PRN PRN Reason: for opiate reversal Ondansetron HCl (Zofran Odt) 4 mg PO Q6H PRN PRN Reason: NAUSEA OR VOMITING Oxycodone/Acetaminophen (Percocet 5/325 Mg) 2 tab PO Q4H PRN PRN Reason: PAIN SCALE 6 TO 10 Oxycodone/Acetaminophen (Percocet 5/325 Mg) 1 tab PO Q4H PRN PRN Reason: PAIN SCALE 3 TO 5 Sennosides (Senokot) 17.2 mg PO Q12H PRN PRN Reason: Moderate Constipation Sodium Chloride (Ns Flush) 2 ml IV.FLUSH PRN PRN PRN Reason: FLUSH AFTER USING IV ACCESS Sodium Chloride (Ns Flush) 2 ml IV.FLUSH BID [facility] Vancomycin HCl (Vancomycin Po) 125 mg PO BID [facility] Assessment and Plan - Diagnosis (1) delivery delivered Code(s): O82 - Encounter for delivery without indication Status: Acute - Plan Patient is a 32-year-old delivered at 34 weeks and 4 days. Patient is day 2 after section. --AF VSS --Continue routine care --Motrin and Percocet when necessary for pain --Encourage OOB --Encouraged patient to eat and drink --Pelvic rest for 6 weeks will need follow-up appointment at that time. --Continue Lovenox for 24 more hours for a total of 72 hours. --OB will continue to follow - Attending Attestation The exam, history, and the medical decision-making described in the above note were completed with the assistance of the resident physician. I reviewed and agree with the findings presented. I attest that I had a [id number] encounter with the patient on the same day, and personally performed and documented my assessment and findings in the medical record.
[2018-05-06] MEDS ORDERED: Haloperidol 5 MG Tablet PO SCH (09:00)
--- NOTE | 2018-05-06 13:23 | P.HPPSY ---
Provisional Diagnosis Admission Date: May 05, 2018 18:30 Competence Certification of Person's Competence To Provide Express and Informed Consent I have personally examined Anali Miranda, a person being served at [facility] on, May 06, 2018 1317. Express and informed consent means consent voluntarily given in writing, by a competent person, after sufficient explanation and disclosure of the subject matter involved to enable the person to make a knowing and willful decision without any element of force, fraud, deceit, duress, or other form of constraint or coercion. This person is 18 years of age or older, is not now known to be incompetent to consent to treatment with a guardian advocate, and does not have a health care surrogate or proxy currently making medical treatment decisions. I have found this person to be one of the following: [] Competent to provide express and informed consent, as defined above, for voluntary admission to this facility and is competent to provide express and informed consent for treatment. He/she has the consistent capacity to make well reasoned, willful, and knowing decisions concerning his or her medical or mental health treatment. The person fully and consistently understands the purpose of the admission for examination/placement and is fully capable of personally exercising all rights assured under [place] [X] Incompetent to provide express and informed consent to voluntary admission, and this is incompetent to provide express and informed consent to treatment. The person must be transferred to involuntary status and a petition for a guardian advocate filed with the Circuit Court. [] Refusing to provide express and informed consent to voluntary admission but is competent to provide express and informed consent for treatment. The person must be discharged or transferred to involuntary status. Form shall be completed within 24 hours of a person's arrival at the receiving facility and filed in the clinical record of each person: 1. Admitted on a voluntary basis 2. Permitted to provide express and informed consent to his/her own treatment 3. Allowed to transfer from involuntary to voluntary status 4. Prior to permitting a person to consent to his or her own treatment after having been previously found incompetent to consent to treatment. History of Present Illness Capacity: Lacks capacity Chief Complaint: psychosis History of Present Illness: The patient is a 32-year-old woman, , domiciled in [place] with her , unemployed, with a psychiatric history of OCD, MDD, LIZ, peripartum psychosis,1 recent previous psychiatric hospitalization due to a new onset psychosis. Patient was transferred to the medical floor after her stay here in psychiatry. She is subsequently gave 2 days ago to daughter named Jocelyn. Today, patient is quite psychotic. She is very flat and actively responding to internal stimuli. She admits to auditory hallucinations telling her her baby is going to . She says that if she does not see the baby she is going to however she refused a visit with her baby this morning. She continues to be monitored by the one-to-one. Patient is a poor historian, is quite flat and minimally interactive during the interview. Patient admits to suicidal ideation today with plan to stab herself with a knife. She denies any intent of hurting herself on the unit From the her previous note: "On my psychiatric evaluation today I find a patient that is very agitated, very psychotic, paranoid, stating that she needs to go home, but she is afraid and she does not want to talk with anybody. She says that she carries at baby, "I killed my two babys and the are inside of my". The patient refuses to answer any of my questions. And she continued to try to elope from the ER and have finally to be medicated with Haldol 5 mg IM and Benadryl 25 mg IM in order to calm her down. I got collateral information from her , Ollie Miranda [phone], who explains that the patient has psychiatric history of anxiety, obsessive- compulsive disorder and depression. But about 2 months ago 1 of her checkups it was noted that she had elevated transaminases. They had discontinued her psychotropic medicines and felt that her elevated transaminases were most likely due to cholestasis. Patient also has had a history of chronic C. difficile. She is on oral vancomycin. ( Patient's liver functions have normalized according to the medical record). After the medication was discontinued, the patient started to become psychotic. Initially the patient refused to eat a stating that by eating she was hurting her baby. Then, 1 day he found her inside the bathroom with a knife stating that she wanted to kill her baby. She was hospitalized for 2 weeks in a psychiatric hospital in [facility], but she was discharged back home in 2 -3 days after discharge the patient became psychotic again. He clarifies that the patient does not have any history of schizophrenia or bipolar disorder. The patient has been treated for anxiety and depression as an outpatient by a private psychiatrist in [place]. Patient does not have any previous suicidal attempt. She did become depressed after a miscarriage before this she has been anxious since then." Past psychiatric history :OCD, MDD, LIZ, peripartum psychosis,1 recent previous psychiatric hospitalization due to a new onset psychosis (admitted due to report patient trying to starve herself to start the baby), no previous suicidal attempts, the patient has being on Luvox 75 mg, Lamictal 25 mg daily, Seroquel 50 mg twice daily, trazodone 100 mg at bedtime she has an outpatient psychiatric doctor in [place], past medical history: IBS, anxiety, chronic C. difficile, depression and agoraphobia. Surgical history: Denies Social history: The patient was born in [place], she lives in [place] with her she is unemployed, supported by her , her highest level of education is a master degree in occupational therapy. Substance abuse history :denies alcohol tobacco. Denies drugs. Currently . - Inpatient Certification I certify that the inpatient services were ordered in accordance with Medicare regulations governing the order. This includes certification that hospital inpatient services are reasonable and necessary and in the case of services not specified as inpatient-only under 42 CFR 419.22(n), that they are appropriately provided as inpatient services in accordance to with the 2-midnight benchmark under 43 CFR 412.3(e) I certify that inpatient psychiatric hospital services are medically necessary. Evaluation and treatment and/or diagnostic testing are expected to improve the patient's condition. The patient needs on a daily basis, active treatment furnished directly by or requiring the supervision of inpatient psychiatric facility personnel. Plans for Post Hospital Care: Home Review of Systems All other systems reviewed negative except as stated in HPI PMFSH - History History Provided By: Patient, Medical Record - Medical History Medical History: Medical History (Last Reviewed 05/06/18 @ 13:20 by Nelson Monsivais DO) Agoraphobia with panic attacks Anxiety C. difficile diarrhea Depression History of IBS - Tobacco History Second Hand Smoke Exposure: No Smoking Status: Never smoker - Alcohol History How Often Do You Have a Drink Containing Alcohol: Never - Substance Use History Substance History: Unable to Obtain Medications and Allergies Active Medications: Active Medications Acetaminophen (Tylenol) 650 mg PO Q4H PRN PRN Reason: PAIN SCALE 1 TO 2 Last Admin: 05/06/18 08:34 Dose: 650 mg Enoxaparin Sodium (Lovenox Inj) 60 mg SQ Q12HR [facility] Last Admin: 05/06/18 08:34 Dose: 60 mg Haloperidol (Haldol) 10 mg PO BID [facility] Last Admin: 05/06/18 09:58 Dose: Not Given Ibuprofen (Motrin) 800 mg PO Q8H PRN PRN Reason: For Cramping Naloxone HCl (Narcan Inj) 0.1 mg IV.PUSH Q2M PRN PRN Reason: for opiate reversal Ondansetron HCl (Zofran Odt) 4 mg PO Q6H PRN PRN Reason: NAUSEA OR VOMITING Oxycodone/Acetaminophen (Percocet 5/325 Mg) 2 tab PO Q4H PRN PRN Reason: PAIN SCALE 6 TO 10 Oxycodone/Acetaminophen (Percocet 5/325 Mg) 1 tab PO Q4H PRN PRN Reason: PAIN SCALE 3 TO 5 Sennosides (Senokot) 17.2 mg PO Q12H PRN PRN Reason: Moderate Constipation Sodium Chloride (Ns Flush) 2 ml IV.FLUSH PRN PRN PRN Reason: FLUSH AFTER USING IV ACCESS Sodium Chloride (Ns Flush) 2 ml IV.FLUSH BID [facility] Last Admin: 05/06/18 08:41 Dose: 2 ml Vancomycin HCl (Vancomycin Po) 125 mg PO BID [facility] Last Admin: 05/06/18 10:35 Dose: 125 mg Allergies Allergy/AdvReac Type Severity Reaction Status Date / Time vortioxetine Allergy Hives Verified 04/23/18 20:36 [From Brintellix] ziprasidone [From Geodon] Allergy Chest Pain Verified 04/23/18 20:36 Home Medications Medication Instructions Recorded Confirmed Type PNV cmb#95-ferrous fumarate-FA 1 tab PO DAILY 04/23/18 05/03/18 History [] ursodiol [Actigall] 300 mg PO BID 04/23/18 05/03/18 History Exam Vital signs: Vital Signs 05/05/18 21:20 05/06/18 06:25 Temperature 98.5 F 97.6 F Pulse Rate 104 H 115 H Respiratory Rate 18 16 Blood Pressure 123/73 145/85 H Pulse Oximetry 94 L 95 Intake & Output 05/05/18 05/06/18 05/06/18 18:59 06:59 18:59 Intake Total 240 / 240 560 / 560 Balance 240 / 240 560 / 560 Weight 83.2 kg Intake: Oral 240 / 240 560 / 560 Other: # Voids 2 Weight On Admission 83.2 kg Mental Status Examination Appearance: Appropriate, Disheveled Consciousness: Clouded Orientation: Person, Place Motor Activity: Normal gait Speech: Hesitant, Slow Language: Adequate Fund of Knowledge: Adequate Attention and Concentration: Inadequate Memory: Impaired Mood: Sad Affect: Flat Thought Process & Associations: Disorganized Thought Content: Bizarre thinking, Hallucinations, Delusional Delusion Type: Bizarre, Paranoid Suicidal Ideation: Yes Suicidal Plan: Yes Suicidal Intention: No Homicidal Ideation: No Homicidal Plan: No Homicidal Intention: No Insight: Poor Judgment: Poor Assessment and Plan - Plan Plan: Estimated LOS: [] days Continue with one-to-one. I will call her guardian to determine consent to resume her Haldol. I recommend she not see the baby until she is restarted on her antipsychotics. Patient will be petitioned Justification for Continued Inpatient Stay: Patient would decompensate in a less restrictive setting Request Healthcare Surrogate/Guardian Advocate?: Yes
[2018-05-06] MEDS ORDERED: LORazepam 1 MG Tablet PO SCH (14:15)
[2018-05-06] MEDS: LORazepam 1 MG Tablet PO SCH (20:39)
[2018-05-07] MEDS: Enoxaparin Inj 60 MG/0.6 ML Syringe SQ SCH ×2 (10:07→21:01)
[2018-05-07] MEDS: LORazepam 1 MG Tablet PO SCH ×2 (10:08→21:01)
--- NOTE | 2018-05-07 16:24 | P.PNPSY ---
Subjective Chief Complaint: psychosis Remarks: Patient seen for follow-up, chart reviewed. Discussion with nursing staff reported that patient over the weekend had refused to see the baby on one occasion and continues to endorse suicidal ideation. Patient was found sitting hospital bed noted to have decrease in thought blocking and more reactive engaging interview today. Patient states that "my baby is going to because I pee and poop too much". Patient continues to endorse suicide ideation as well unable to contract for safety. Patient reports her sleep has been "a little bit" which has been an improvement as endorsed by the patient and when asked about her mood being "bad" she states "because of all of it" but did not further elaborate. Patient was encouraged to continue to eat and drink well as well as to have blade on unit where she just nodded yes. Patient also explained plan of cross titrating to olanzapine and to continue Ativan. Review of Systems All other systems reviewed negative except as stated in HPI Mental Status Examination Appearance: Appropriate Consciousness: Clouded Orientation: Person, Place Motor Activity: Normal gait Speech: Hesitant, Slow Language: Adequate Fund of Knowledge: Adequate Attention and Concentration: Inadequate Memory: Impaired Mood: Sad Affect: Flat Thought Process & Associations: Disorganized, Other ([place]) Thought Content: Bizarre thinking, Delusional Hallucination Type: None Delusion Type: Bizarre, Paranoid Suicidal Ideation: Yes Suicidal Plan: Yes Suicidal Intention: No Homicidal Ideation: No Homicidal Plan: No Homicidal Intention: No Insight: Poor Judgment: Poor Assessment and Plan - Assessment (1) Brief psychotic disorder with peripartum onset Code(s): O99.345 - Other mental disorders complicating the puerperium Status: Acute - Plan Plan: Patient continues with disorganized thought process and delusional stating that her baby is going to continues to report depressed mood along with suicide ideation but noted to have less thought blocking and more reactive during interview today. We will start olanzapine 2.5 mg p.o. twice daily, continue Haldol at 10 mg p.o. twice daily with plan to cross titrate. We will continue to monitor mood and behavior. We will order EKG to monitor QTc interval. Discharge planning in progress. Justification for Continued Inpatient Stay: At risk of further decompensation at lower level care. Request Healthcare Surrogate/Guardian Advocate?: Yes
[2018-05-08] MEDS: Enoxaparin Inj 60 MG/0.6 ML Syringe SQ SCH ×2 (08:41→21:02)
[2018-05-08] MEDS: LORazepam 1 MG Tablet PO SCH ×2 (08:42→21:02)
--- NOTE | 2018-05-08 15:35 | P.DIET ---
Nutritional Evaluation Type of nutrition evaluation: initial Nutrition consult regarding: Diet Evaluation Nutrition screening: [facility] Screening comments: 05/08/18 [facility] Poor PO Intake Subjective Subjective Comments: Pt visited after lunch today. Pt receptive to receiving Ensure and says she likes vanilla. Sitter at bedside and says she assisted the pt w/ordering lunch today. The pt and sitter were verbally informed of additional menu options available for a la carte selections. Above discussed w/ERIKA Dixon. ERIKA Dixon reports pt needs encouragement to have po intake. Objective - Diagnosis Unspecified Psychosis - Objective [place] body weight: 54.5 kg % IBW: 149 Body Weight Used for Calculations: IBW (54.5kg) Energy Needs - Lower Range (kCal/kg): 30 Energy Needs - Upper Range (kCal/kg): 35 Lower Limit kCal/kg (kCals): 1,635 Upper Limit kCal/kg (kCals): 1,908 Lower Limit Protein Factor (Grams per Kg): 1.3 Upper Limit Protein Factor (Grams per Kg): 1.5 Lower Protein Needs (Protein): 71 Upper Protein Needs (Protein): 82 Fluid Factor (ml/kg): 30 Estimated Fluid Needs (ml): 1,635 Dietitian Reviewed in Medical Record: Current diet, Curent medications, Intake & Output, Labs, Medical history Diet Order: Regular Oral Diet Intake Amount: Poor <50% Objective Comments: PMH: Agoraphobia w/panic attacks, anxiety, c-diff, depression, IBS Recent -delivered 05/04/18 @ 34 weeks gestation Assessment Assessment: Pt is at nutritional risk r/t poor po intake. PO intake less than 50% for meals here. Send Ensure Enlive TID(= 350 kcal and 20g protein per serving). Pt provided w/options for a la carte menu items to assist w/po intake. Pt needs encouragement to have po intake. Labs reviewed. Dietitian following. Recommendations: 1. Send Ensure Enlive TID 2. a la carte menu options to assist w/po intake 3. Pt needs encouragement to have po intake 4. Dietitian following Dietitian to Monitor: Lab values, Supplement acceptance, Intake & Output, Weight change, PO Intake
--- NOTE | 2018-05-08 15:56 | P.PNPSY ---
Subjective Chief Complaint: psychosis Remarks: Patient seen for follow up; chart reviewed. Discussion with nursing staff that patient went to see the baby once continue with suicide ideation and poor p.o. intake eating about 25% of her tray. Patient was found lying hospital bed noted with limited eye contact but noted to be responding more today. Patient continues with flat affect stating that she had 2 bowel movements today and there was soft stools and preservative on the fact that she states she has problem with her bowels. Patient states when her baby is going to , it is too late". Patient reports having difficulty with sleep last evening denying any perceptional services and continues to endorse suicide ideations at this time. Review of Systems All other systems reviewed negative except as stated in HPI Mental Status Examination Appearance: Appropriate Consciousness: Clouded Orientation: Person, Place Motor Activity: Normal gait Speech: Hesitant, Slow Language: Adequate Fund of Knowledge: Adequate Attention and Concentration: Inadequate Memory: Impaired Mood: Sad Affect: Flat Thought Process & Associations: Disorganized, Other ([place]) Thought Content: Bizarre thinking, Delusional Hallucination Type: None Delusion Type: Bizarre, Paranoid Suicidal Ideation: Yes Suicidal Plan: Yes Suicidal Intention: No Homicidal Ideation: No Homicidal Plan: No Homicidal Intention: No Insight: Poor Judgment: Poor Assessment and Plan - Assessment (1) Brief psychotic disorder with peripartum onset Code(s): O99.345 - Other mental disorders complicating the puerperium Status: Acute - Plan Plan: Patient this time noted to have more response engage in interview but continues to state that her baby is going to and continues to have suicidal ideation but denying any auditory hallucinations at this time. Patient encouraged to improve nutritional intake and being out of bed more. We will increase olanzapine to 2.5 mg daily/5 mg p.o. at bedtime. Continue rest of medication. Continue to monitor mood and behavior. We will request dietitian consult for poor p.o. intake. We will order EKG to monitor QTC. Discharge planning a progress. Justification for Continued Inpatient Stay: At risk of further decompensation at lower level care. Request Healthcare Surrogate/Guardian Advocate?: Yes
--- NOTE | 2018-05-08 16:00 | ECG ---
Date Performed: 05/07/2018 Time Performed: 20:47:36 PTAGE: 32 years EKG: SINUS TACHYCARDIA LOW QRS VOLTAGE IN PRECORDIAL LEADS POSSIBLE ANTERIOR MYOCARDIAL INFARCTI ON , OF INDETERMINATE AGE Since previous tracing, no significant change noted ABNORMAL ECG PREVIOUS TRACING : 05/02/2018 15.24 DOCTOR: Mariely Díaz Interpretating Date/Time 05/08/2018 15:58:40
[2018-05-09] MEDS: LORazepam 1 MG Tablet PO SCH ×2 (08:05→21:51)
[2018-05-09] MEDS: Enoxaparin Inj 60 MG/0.6 ML Syringe SQ SCH ×2 (08:05→21:52)
--- NOTE | 2018-05-09 22:05 | P.PNPSY ---
Subjective Chief Complaint: psychosis Remarks: Patient seen for follow-up, chart reviewed. Discussion with nursing staff reported that patient patient more active, continues to have flat affect and continue poor p.o. intake and states that not wanting to see the baby. Patient was found lying hospital bed noted to be, cooperative. Patient with improve eye contact and less speech delay with increased response to questioning. Patient reports she had slept "a little bit" and stated that her mood has been "upset" but did not elaborate. Patient continues with suicidal ideation denying any perceptional services at this time. Patient states she has not seen her baby recently and when asked if she wishes to see the baby she denies now. She was encouraged to continue p.o. intake and to ambulate on the unit as well as participating some groups which she nodded in agreement. Patient EKG were reviewed QTC is 394 ms. Review of Systems All other systems reviewed negative except as stated in HPI Mental Status Examination Appearance: Appropriate Consciousness: Clouded Orientation: Person, Place Motor Activity: Normal gait Speech: Hesitant, Slow Language: Adequate Fund of Knowledge: Adequate Attention and Concentration: Inadequate Memory: Impaired Mood: Sad Affect: Flat Thought Process & Associations: Disorganized, Other ([place]) Thought Content: Bizarre thinking, Delusional Hallucination Type: None Delusion Type: Bizarre, Paranoid Suicidal Ideation: Yes Suicidal Plan: Yes Suicidal Intention: No Homicidal Ideation: No Homicidal Plan: No Homicidal Intention: No Insight: Poor Judgment: Poor Assessment and Plan - Assessment (1) Brief psychotic disorder with peripartum onset Code(s): O99.345 - Other mental disorders complicating the puerperium Status: Acute - Plan Plan: Patient this time noted to have less thought blocking more reactive during interview. We will continue to titrate olanzapine to 5 mg p.o. twice daily continue rest of medications. Continue to monitor mood and behavior. We will order repeat labs to monitor trend lab values. Discharge planning a progress. Justification for Continued Inpatient Stay: At risk of further decompensation at lower level care. Request Healthcare Surrogate/Guardian Advocate?: Yes
[2018-05-10] MEDS: LORazepam 1 MG Tablet PO SCH ×2 (08:21→20:47)
[2018-05-10] MEDS: Enoxaparin Inj 60 MG/0.6 ML Syringe SQ SCH ×2 (08:21→20:47)
[2018-05-10 11:07] LABS: Baso % (Auto) 0.4 % (0.0-2.0); Eos # (Auto) 0.2 th/mm3 (0.0-0.4); Eos % (Auto) 1.5 % (0.0-4.0); Hematocrit 40.5 % (35.0-46.0); Hemoglobin 13.3 gm/dL (11.6-15.3); Lymph # (Auto) 2.1 th/mm3 (1.0-4.8); Lymph % (Auto) 17.5 % (9.0-44.0); Mean Corpuscular HGB Conc 32.9 % (32.0-36.0); Mean Corpuscular Hemoglobin 29.8 pg (27.0-34.0); Mean Corpuscular Volume 90.7 fL (80.0-100.0); Mean Platelet Volume 9.9 fL (7.0-11.0); Mono # (Auto) 0.7 th/mm3 (0.0-0.9); Neut # (Auto) 9.2 th/mm3 (1.8-7.7); Neut % (Auto) 74.6 % (16.0-70.0); Platelet Count 352 th/mm3 (150-450); Red Blood Count 4.46 mil/mm3 (4.00-5.30); Red Cell Distribution Width 15.6 % (11.6-17.2); White Blood Count 12.3 th/mm3 (4.0-11.0)
[2018-05-10 11:31] LABS: Albumin 2.6 g/dL (3.4-5.0); Anion Gap 9 meq/L (5-15); Aspartate Aminotransferase 33 U/L (15-37); Blood Urea Nitrogen 9 mg/dL (7-18); Calcium 9.3 mg/dL (8.5-10.1); Carbon Dioxide 26.6 meq/L (21.0-32.0); Chloride 105 meq/L (98-107); Glomerular Filtration Rate Greater Than 89 mL/min (>89); Glucose,Random 82 mg/dL (74-106); Sodium 141 meq/L (136-145)
[2018-05-10 11:34] LABS: Alanine Aminotransferase 56 U/L (10-53); Alkaline Phosphatase 119 U/L (45-117); Total Protein 7.4 g/dL (6.4-8.2)
--- NOTE | 2018-05-10 19:15 | P.PNPSY ---
Subjective Chief Complaint: psychosis Remarks: Patient seen for follow-up, chart reviewed. Discussion with nursing staff reported that patient yesterday did well which she was much more ambulatory walked on the unit about 3 times and attended group continues with monotone speech. Patient today seclusive, showered continued with marginal improvement in p.o. intake. Patient was found lying hospital bed noted with improved eye contact, continues to have improvement in engagement in interview. Patient states she feels "sick" stating that she is having 3-4 bouts of loose stool although nursing report has not evidenced this. Patient states she slept "okay ", states she has not walked around the unit today. Patient was encouraged to do so. Patient also encouraged to go visit her baby which she nodded in agreement. Patient also provided importance of to maintain adequate nutritional intake. Labs reviewed and showed slightly elevated white count, UA pending, CMP noted with decrease in LFTs. Review of Systems All other systems reviewed negative except as stated in HPI Mental Status Examination Appearance: Appropriate Consciousness: Clouded Orientation: Person, Place Motor Activity: Normal gait Speech: Hesitant (Lessening), Slow Language: Adequate Fund of Knowledge: Adequate Attention and Concentration: Inadequate Memory: Impaired Mood: Sad, Other ("Okay") Affect: Blunt Thought Process & Associations: Disorganized (Lessening), Other ([place]) Thought Content: Bizarre thinking, Delusional (Focused on having multiple bouts of loose stool although nursing staff has not noticed seen this.) Hallucination Type: None Delusion Type: Bizarre, Paranoid Suicidal Ideation: Yes Suicidal Plan: No Suicidal Intention: No Homicidal Ideation: No Homicidal Plan: No Homicidal Intention: No Insight: Poor Judgment: Poor Assessment and Plan - Assessment (1) Brief psychotic disorder with peripartum onset Code(s): O99.345 - Other mental disorders complicating the puerperium Status: Acute - Plan Plan: Patient this time noted to have some improvement in engagement in activities that she has been out of the room and walking more and had attended groups yesterday. She continues to be preservative on the belief that she has been having multiple thoughts of this to although not seen by nursing staff. We will place receptacle and toilet to monitor for loose stool. Continue to encourage patient to participate in groups and activities as well as improving and nutritional intake. UA pending. Labs reviewed. Continue current treatment , continue the cross titrate Haldol with olanzapine. Continue to monitor mood and behavior. Discharge planning in progress. Justification for Continued Inpatient Stay: At risk of further decompensation at lower level care. Request Healthcare Surrogate/Guardian Advocate?: Yes
[2018-05-10] MEDS: Haloperidol 5 MG Tablet PO SCH (20:47)
[2018-05-10] MEDS ORDERED: OLANZapine 10 MG Tablet PO SCH (21:00)
--- NOTE | 2018-05-10 22:46 | P.PNOB ---
Subjective Post op day: 6 Interval history: This patient 6 days out from section. She has done well and been taken back to the [facility] where she is still admitted for psychoses and therapy for her mental health. Their floor called here earlier today about her incision bleeding some look at it On exam--incisions intact to the left lateral side of the incision is intact and with the is a little tiny amount of blood there they have had a bandage on it today and its stained it a little bit but not much I took the bandages and Steri-Strips off the area and try to express some blood serous drainage did get essentially no drainage out with firm palpation. The wound did not seem to want to open up. And since it was intact and was not bleeding much at this stage I would just cover it up and watch it, if it is bleeding or soaks a pad that she got on it then I think it does tend to be reexamined and probably opened up on that lateral edge to allow egress of blood and also packing off that area. Otherwise patient seems fine have any other problems from the physical clinical standpoint postoperatively Objective Vital Signs/I&O: Intake & Output 05/10/18 05/10/18 05/11/18 06:59 18:59 06:59 Intake Total 720 / 720 240 / 240 60 / 60 Balance 720 / 720 240 / 240 60 / 60 Intake: Oral 720 / 720 240 / 240 60 / 60 Other: # Voids 0 1 Result Diagrams: 05/10/18 10:08 05/10/18 10:08 Objective Remarks: GENERAL: Well-nourished, well-developed patient. CARDIOVASCULAR: Regular rate and rhythm without murmurs, gallops, or rubs. RESPIRATORY: Breath sounds equal bilaterally. No accessory muscle use. ABDOMEN/GI: Abdomen soft, non-tender, bowel sounds present. t. Fundus: Firm, non-tender at umbilicus. GENITOURINARY: Light to moderate bleeding. EXTREMITIES: No cyanosis or edema, non-tender, without signs of DVT. Medications and IVs: Active Medications Acetaminophen (Tylenol) 650 mg PO Q4H PRN PRN Reason: PAIN SCALE 1 TO 2 Last Admin: 05/06/18 08:34 Dose: 650 mg Enoxaparin Sodium (Lovenox Inj) 60 mg SQ Q12HR [facility] Last Admin: 05/10/18 20:47 Dose: 60 mg Haloperidol (Haldol) 10 mg PO DAILY [facility] Haloperidol (Haldol) 5 mg PO HS [facility] Last Admin: 05/10/18 20:47 Dose: 5 mg Ibuprofen (Motrin) 800 mg PO Q8H PRN PRN Reason: For Cramping Last Admin: 05/10/18 20:51 Dose: 800 mg Lorazepam (Ativan) 1 mg PO BID [facility] Last Admin: 05/10/18 20:47 Dose: 1 mg Miscellaneous (Pill Splitter) 1 each OTHER UNSCH PRN PRN Reason: SEE LABEL COMMENTS Naloxone HCl (Narcan Inj) 0.1 mg IV.PUSH Q2M PRN PRN Reason: for opiate reversal Olanzapine (Zyprexa Zydis Odt) 5 mg PO DAILY [facility] Last Admin: 05/10/18 08:21 Dose: 5 mg Olanzapine (Zyprexa) 10 mg PO HS [facility] Last Admin: 05/10/18 20:48 Dose: 10 mg Ondansetron HCl (Zofran Odt) 4 mg PO Q6H PRN PRN Reason: NAUSEA OR VOMITING Oxycodone/Acetaminophen (Percocet 5/325 Mg) 2 tab PO Q4H PRN PRN Reason: PAIN SCALE 6 TO 10 Oxycodone/Acetaminophen (Percocet 5/325 Mg) 1 tab PO Q4H PRN PRN Reason: PAIN SCALE 3 TO 5 Sennosides (Senokot) 17.2 mg PO Q12H PRN PRN Reason: Moderate Constipation Sodium Chloride (Ns Flush) 2 ml IV.FLUSH PRN PRN PRN Reason: FLUSH AFTER USING IV ACCESS Sodium Chloride (Ns Flush) 2 ml IV.FLUSH BID [facility] Last Admin: 05/10/18 20:47 Dose: 2 ml Vancomycin HCl (Vancomycin Po) 125 mg PO BID [facility] Last Admin: 05/10/18 20:51 Dose: 125 mg Assessment and Plan - Diagnosis (1) delivery delivered Code(s): O82 - Encounter for delivery without indication Status: Acute - Plan Patient is a 32-year-old delivered at 34 weeks and 4 days. Patient is day 6 after section. --AF VSS -Minimal bloody drainage from the incisions left lateral side, no sign of infection plan conservative care and just keep the wound covered for the time being if bleeding increases then would consider opening the wound up on that left lateral area and packing it off
[2018-05-11] MEDS: Enoxaparin Inj 60 MG/0.6 ML Syringe SQ SCH ×2 (08:47→21:32)
[2018-05-11] MEDS: LORazepam 1 MG Tablet PO SCH ×2 (08:49→21:33)
--- NOTE | 2018-05-11 11:23 | P.PNOB ---
Subjective Interval history: Incision check performed on pt. Denies any pain or excessive drainage from incision. Steri strips removed from left side and no drainage noted on bandage. No drainage can be expressed. No pus or signs of infection. Bruising normal. Appears to be healing. Objective Vital Signs/I&O: Intake & Output 05/10/18 05/11/18 05/11/18 18:59 06:59 18:59 Intake Total 240 / 240 180 / 180 600 / 600 Balance 240 / 240 180 / 180 600 / 600 Intake: Oral 240 / 240 180 / 180 600 / 600 Other: # Voids 1 # Urine Diapers 1 Result Diagrams: 05/10/18 10:08 05/10/18 10:08 Objective Remarks: GENERAL: Well-nourished, well-developed patient. CARDIOVASCULAR: Regular rate and rhythm without murmurs, gallops, or rubs. RESPIRATORY: Breath sounds equal bilaterally. No accessory muscle use. ABDOMEN/GI: Abdomen soft, non-tender, bowel sounds present. Incision: Clean, dry and intact. dressing in place, removed for inspection Fundus: Firm, non-tender at umbilicus. GENITOURINARY: Light to moderate bleeding. EXTREMITIES: No cyanosis or edema, non-tender, without signs of DVT. Medications and IVs: Active Medications Acetaminophen (Tylenol) 650 mg PO Q4H PRN PRN Reason: PAIN SCALE 1 TO 2 Last Admin: 05/06/18 08:34 Dose: 650 mg Enoxaparin Sodium (Lovenox Inj) 60 mg SQ Q12HR [facility] Last Admin: 05/11/18 08:47 Dose: 60 mg Haloperidol (Haldol) 10 mg PO DAILY [facility] Last Admin: 05/11/18 08:48 Dose: 10 mg Haloperidol (Haldol) 5 mg PO HS [facility] Last Admin: 05/10/18 20:47 Dose: 5 mg Ibuprofen (Motrin) 800 mg PO Q8H PRN PRN Reason: For Cramping Last Admin: 05/11/18 10:26 Dose: 800 mg Lorazepam (Ativan) 1 mg PO BID [facility] Last Admin: 05/11/18 08:49 Dose: 1 mg Miscellaneous (Pill Splitter) 1 each OTHER UNSCH PRN PRN Reason: SEE LABEL COMMENTS Naloxone HCl (Narcan Inj) 0.1 mg IV.PUSH Q2M PRN PRN Reason: for opiate reversal Olanzapine (Zyprexa Zydis Odt) 5 mg PO DAILY [facility] Last Admin: 05/11/18 08:48 Dose: 5 mg Olanzapine (Zyprexa) 10 mg PO HS [facility] Last Admin: 05/10/18 20:48 Dose: 10 mg Ondansetron HCl (Zofran Odt) 4 mg PO Q6H PRN PRN Reason: NAUSEA OR VOMITING Oxycodone/Acetaminophen (Percocet 5/325 Mg) 2 tab PO Q4H PRN PRN Reason: PAIN SCALE 6 TO 10 Oxycodone/Acetaminophen (Percocet 5/325 Mg) 1 tab PO Q4H PRN PRN Reason: PAIN SCALE 3 TO 5 Sennosides (Senokot) 17.2 mg PO Q12H PRN PRN Reason: Moderate Constipation Sodium Chloride (Ns Flush) 2 ml IV.FLUSH PRN PRN PRN Reason: FLUSH AFTER USING IV ACCESS Sodium Chloride (Ns Flush) 2 ml IV.FLUSH BID [facility] Last Admin: 05/11/18 10:18 Dose: Not Given Vancomycin HCl (Vancomycin Po) 125 mg PO BID [facility] Last Admin: 05/11/18 08:46 Dose: 125 mg Assessment and Plan - Diagnosis (1) delivery delivered Code(s): O82 - Encounter for delivery without indication Status: Acute - Plan Patient is a 32-year-old delivered at 34 weeks and 4 days. Patient is post- op day 7 after section. --AF VSS --Continue to keep the wound covered and change dressing -- Call Ob with any excessive drainage/expression of pus/signs of infxn
[2018-05-11 12:33] LABS: Bacteria,Urine Moderate /hpf; Bilirubin,Urine Negative (Negative); Clarity,Urine Cloudy (Clear); Color,Urine Yellow (Yellw/Straw); Glucose,Urine (UA) Negative (Negative); Leukocyte Esterase,Urine Trace (Negative); Mucus,Urine Few /lpf (Occasional); Nitrite,Urine Negative (Negative); Specific Gravity,Urine 1.026 (1.002-1.035); Squamous Epithelial Cell,Urine 15 /hpf (0-5)
--- NOTE | 2018-05-11 14:16 | P.PNPSY ---
Subjective Chief Complaint: psychosis Remarks: Patient seen for follow-up, chart reviewed. Discussion with nursing staff reported that patient continued with flat affect, continued with suicide ideation but eating breakfast today. Patient was found sitting in hospital bed eating breakfast noted to have drink the Ensure and continues to be noted with improved engagement in interview. Patient states that she had walked yesterday had been eating breakfast but continues report feeling "sad" and that she continues to have suicide ideation which has been unchanged since admission. She denies any perceptional services. Patient was encouraged to continue to be active and ambulating on the unit as well as attending groups which she agreed. Patient also agreed to visit with her baby today. Review of Systems All other systems reviewed negative except as stated in HPI Mental Status Examination Appearance: Appropriate Consciousness: Clouded Orientation: Person, Place Motor Activity: Normal gait Speech: Hesitant (Lessening), Slow Language: Adequate Fund of Knowledge: Adequate Attention and Concentration: Inadequate Memory: Impaired Mood: Sad, Other ("Okay") Affect: Blunt (Lessening) Thought Process & Associations: Other ([place]) Thought Content: Delusional (Focused on having multiple bouts of loose stool although nursing staff has not noticed seen this.) Hallucination Type: None Delusion Type: Paranoid Suicidal Ideation: Yes Suicidal Plan: No Suicidal Intention: No Homicidal Ideation: No Homicidal Plan: No Homicidal Intention: No Insight: Poor Judgment: Poor Assessment and Plan - Assessment (1) Brief psychotic disorder with peripartum onset Code(s): O99.345 - Other mental disorders complicating the puerperium Status: Acute - Plan Plan: Patient continues with slow improvement but is attending more to her hygiene as well as more participatory and more engaging during interview. We will continue to cross titrate with olanzapine at 10 mg p.o. twice daily and decrease Haldol to 5 mg p.o. twice daily with continued cross titration, continue rest of medications. Continue to monitor mood and behavior. Continue to encourage adequate p.o. nutritional intake as well as participating in groups and activities. Discharge planning in progress. Justification for Continued Inpatient Stay: At risk of further decompensation at lower level care. Request Healthcare Surrogate/Guardian Advocate?: Yes
[2018-05-11] MEDS: Haloperidol 5 MG Tablet PO SCH (21:33)
[2018-05-11] MEDS: OLANZapine 10 MG Tablet PO SCH (21:33)
[2018-05-12] MEDS: OLANZapine 10 MG Tablet PO SCH ×2 (08:38→21:57)
[2018-05-12] MEDS: LORazepam 1 MG Tablet PO SCH ×2 (08:38→21:57)
[2018-05-12] MEDS: Enoxaparin Inj 60 MG/0.6 ML Syringe SQ SCH ×2 (08:39→21:57)
[2018-05-12] MEDS: Haloperidol 5 MG Tablet PO SCH ×2 (09:00→21:57)
--- NOTE | 2018-05-12 14:18 | P.PNPSY ---
Subjective Chief Complaint: psychosis Remarks: Patient was seen today for psychiatric reevaluation. The patient is in her bed , initially just superficially cooperative, very distant, disengaged, at times seems to be even perplexed. She reports feeling better, but at the same time she says that she feels "very guilty because of what I have done". The patient seems to be internally preoccupied, does not answer my questions when I try to ask her why does she feel guilty and what she has done. The patient has a very flat affect, when talking about her does not show any emotional expression. She has been compliant her medications, no significant side effects. Mental Status Examination Appearance: Appropriate Consciousness: Clouded Orientation: Person, Place Motor Activity: Normal gait Speech: Hesitant (Lessening), Slow Language: Adequate Fund of Knowledge: Adequate Attention and Concentration: Inadequate Memory: Impaired Mood: Sad, Other ("Okay") Affect: Blunt (Lessening) Thought Process & Associations: Other ([place]) Thought Content: Delusional (Focused on having multiple bouts of loose stool although nursing staff has not noticed seen this.) Hallucination Type: None Delusion Type: Paranoid Suicidal Ideation: Yes Suicidal Plan: No Suicidal Intention: No Homicidal Ideation: No Homicidal Plan: No Homicidal Intention: No Insight: Poor Judgment: Poor Assessment and Plan - Assessment (1) Brief psychotic disorder with peripartum onset Code(s): O99.345 - Other mental disorders complicating the puerperium Status: Acute - Plan Plan: Patient continues to be internally preoccupied, paranoid, with a psychotic feeling of guiltiness. Continue psychotropic regimen. Justification for Continued Inpatient Stay: Patient has an elevated risk of danger to self and others. Request Healthcare Surrogate/Guardian Advocate?: Yes
[2018-05-13] MEDS: LORazepam 1 MG Tablet PO SCH ×2 (08:42→20:52)
[2018-05-13] MEDS: Enoxaparin Inj 60 MG/0.6 ML Syringe SQ SCH ×2 (08:43→15:40)
[2018-05-13] MEDS: Haloperidol 5 MG Tablet PO SCH ×2 (08:43→20:52)
--- NOTE | 2018-05-13 13:23 | P.PNPSY ---
Subjective Chief Complaint: psychosis Remarks: Pt seen and discussed with staff. Chart reviewed. Staff report that she has been fixated on somatic delusions and disorganized in thought process. She has been isolative to room and spending most of day laying in bed, interacting minimally. Staff report that with strong encouragement and staff support, pt has done ADLs and taking walks around unit. Mental Status Examination Appearance: Appropriate Consciousness: Clouded Orientation: Person, Place Motor Activity: Normal gait Speech: Hesitant (Lessening), Slow Language: Adequate Fund of Knowledge: Adequate Attention and Concentration: Inadequate Memory: Impaired Mood: Sad Affect: Blunt ([place]) Thought Process & Associations: Other ([place]) Thought Content: Delusional (somatic delusions) Hallucination Type: None Delusion Type: Paranoid Suicidal Ideation: Yes Suicidal Plan: No Suicidal Intention: No Homicidal Ideation: No Homicidal Plan: No Homicidal Intention: No Insight: Poor Judgment: Poor Assessment and Plan - Assessment (1) Brief psychotic disorder with peripartum onset Code(s): O99.345 - Other mental disorders complicating the puerperium Status: Acute - Plan Plan: Continue current tx plan. . Justification for Continued Inpatient Stay: impairments in reality testing Request Healthcare Surrogate/Guardian Advocate?: Yes
[2018-05-13] MEDS: OLANZapine 10 MG Tablet PO SCH (17:56)
[2018-05-14] MEDS: Haloperidol 5 MG Tablet PO SCH ×2 (09:15→21:00)
[2018-05-14] MEDS: LORazepam 1 MG Tablet PO SCH ×2 (09:15→21:00)
--- NOTE | 2018-05-14 16:46 | P.PNPSY ---
Subjective Chief Complaint: psychosis Remarks: Patient seen for follow-up, chart reviewed. Discussion with nursing staff reported that patient saw to be a bit of the weekend, had attended some groups as well, showered and had requested to go see the baby. Patient was found sitting in hospital bed noted B, cooperative noted with more reactive affect less speech delay and more engaging and more fluent conversation. Patient states that she is feeling "bad" continues to have suicide ideations, but denying any perceptional services, and reports sleeping has improved and is attempting to participate more in groups and visitation with her baby. Patient continues to be preservative on having diarrhea although reminded that there has not been any evidence of this through observation by nursing staff. Patient continues to agree to continue treatment and to continue to increase participation in p.o. nutritional intake. Review of Systems All other systems reviewed negative except as stated in HPI Mental Status Examination Appearance: Appropriate Consciousness: Clouded Orientation: Person, Place Motor Activity: Normal gait Speech: Hesitant (Lessening), Slow Language: Adequate Fund of Knowledge: Adequate Attention and Concentration: Inadequate Memory: Impaired Mood: Sad Affect: Blunt ([place]) Thought Process & Associations: Other ([place]) Thought Content: Preoccupations (Preoccupied with the notion that she has diarrhea) Hallucination Type: None Delusion Type: Bizarre Suicidal Ideation: Yes Suicidal Plan: No Suicidal Intention: No Homicidal Ideation: No Homicidal Plan: No Homicidal Intention: No Insight: Poor Judgment: Poor Assessment and Plan - Assessment (1) Brief psychotic disorder with peripartum onset Code(s): O99.345 - Other mental disorders complicating the puerperium Status: Acute - Plan Plan: Patient this time continues to have perseveration on having diarrhea although none has been noted by staff. Noted to be more reactive and engaging in interview and more appropriate responses. Patient continues to have suicide ideation but denying any perceptional services and noted to be participatory more in groups and activities hygiene and attempted to improve nutritional intake. Continue to encourage patient from these faculties as well as continue one-to-one observation for safety. We will continue to decrease Haldol and maintain olanzapine at 10 mg p.o. twice daily. Continue rest of medications. Continue to monitor mood and behavior. Discharge planning in progress. Justification for Continued Inpatient Stay: At risk of further decompensation at lower level care. Request Healthcare Surrogate/Guardian Advocate?: Yes
[2018-05-15] MEDS: LORazepam 1 MG Tablet PO SCH ×2 (08:46→20:33)
--- NOTE | 2018-05-15 15:12 | P.TTN ---
- Patient Problems Problems: 1. Discharge planning 2. Medication compliance 3. Knowledge deficit 4. Lack of coping skills - Progress Toward Goals Provider Present: Dr. Jolly Garvey Provider Input: 05/14/2018; patient mood is lifted minimum, still requires titration with meds Nurse(s) Present: RN Nurse Input: 05/14/2018: Per RN patient requires coaching and prompting with daily activites/needs, medication, meals and ALD's. Patient remain 1:1 Psychiatric Counselors Present: Yarely Rosario [facility] Psychiatric Therapist Input: 05/14/2018; counselor will work with family with dc planning if needed into an inpatient treatment program when dc from this facility or with appropriate outpatient providers if dc home with and baby Group Spec/RT/OT/AREVALO Present: MICKEY Bach, Rodolfo Cee, OT Group Spec/RT/OT/AREVALO Input: 05/14/2018; patient has been unable to tolerate groups or activities - Documentation Teaching Recipient: Patient
--- NOTE | 2018-05-15 16:12 | P.DIET ---
Nutritional Evaluation Type of nutrition evaluation: follow-up Nutrition consult regarding: Diet Evaluation Nutrition screening: [facility] Screening comments: 05/08/18 [facility] Poor PO Intake Subjective Subjective Comments: ERIKA Ryan obtained a bedscale wt for this pt of 79.2kg during this visit. Pt says she drinks the Ensure; "I like the Ensure". Encouraged pt to have po intake. Reviewed a la carte menu options available to pt. Objective - Diagnosis Unspecified Psychosis - Objective [place] body weight: 54.5 kg % IBW: 149 Body Weight Used for Calculations: IBW (54.5kg) Energy Needs - Lower Range (kCal/kg): 30 Energy Needs - Upper Range (kCal/kg): 35 Lower Limit kCal/kg (kCals): 1,635 Upper Limit kCal/kg (kCals): 1,908 Lower Limit Protein Factor (Grams per Kg): 1.3 Upper Limit Protein Factor (Grams per Kg): 1.5 Lower Protein Needs (Protein): 71 Upper Protein Needs (Protein): 82 Fluid Factor (ml/kg): 30 Estimated Fluid Needs (ml): 1,635 Dietitian Reviewed in Medical Record: Current diet, Curent medications, Intake & Output, Labs, Medical history Diet Order: Regular Oral Diet Intake Amount: Poor <50% Objective Comments: PMH: Agoraphobia w/panic attacks, anxiety, c-diff, depression, IBS Recent -delivered 05/04/18 @ 34 weeks gestation Meds Include: Luvox, Ativan, Zyprexa Feeding - Current PO Supplement Current Supplement: Ensure Enlive Current Frequency of Supplement: Three times a day Current kCals Provided by Supplement: 350 Current Protein Provided by Supplement: 20 Assessment Assessment: Pt continues at nutritional risk r/t poor po intake. PO intake continues to be 50% or less for meals here. Continue Ensure Enlive TID. Pt needs encouragement to have po intake-discussed w/ERIKA Ryan. Reviewed menu options for a la carte items w/pt during this visit, to assist w/po intake. Labs reviewed. Pt is noted w/a 4kg wt decrease since 05/05. Noted pt delivered at 34-weeks gestation 05/04/18. Dietitian following. Recommendations: 1. Continue Ensure Enlive TID 2. Pt needs encouragement to have po intake 3. Reviewed menu options for a la carte items w/pt during this visit, to assist w/po intake 4. Dietitian following Dietitian to Monitor: Lab values, Supplement acceptance, Intake & Output, Weight change, PO Intake
--- NOTE | 2018-05-15 16:25 | P.PNPSY ---
Subjective Chief Complaint: psychosis Remarks: Patient seen for follow-up, chart reviewed. Discussion with nursing staff reported that patient with flat affect, now noted to be eating in her own at times, and requested to shower but continues report of mood being "not good". Patient was found sitting hospital bed noted B, cooperative. Patient noted to be engaging more with fair eye contact, and no longer noted to be internally preoccupied and manages to engage in interview. She states her mood is "not so good" stating that she is focused on diarrhea and multiple episodes but nursing staff has not observed this. Patient also states that her stools are "mushy" but denying any loose or watery stools and states that she has to "keep wiping a lot". Patient denies any physical complaints at this time. Patient states that this is the reason that she is not participatory more groups activities due to her worry of having an "accident" referring to episodes of diarrhea. She states that she visited with her baby yesterday, spoke with her parents as well which they feel that the patient is not "doing my part" which refers to increase nutritional intake and participation in groups and activities. Patient denies any perceptional services and agrees to visit with her baby this afternoon. Patient states her recent delivery for her baby, her and her parents. Collateral admission was obtained by patient's outpatient psychiatrist Dr. Viera who agreed with restarting patient on fluoxetine for depression for OCD symptoms and stated that patient did well this regimen. He was updated as well on patient's progress and explored possible facilities which makes the patient for interhospital transfer so that patient may be closer to her family as patient's will be discharged tomorrow back to the family and return back to [place]. Possibility of patient requiring ECT if pharmacological interventions fail was reviewed as well. Patient's was also contacted and updated with this recent conversation with patient's outpatient psychiatrist as well as treatment plan with continuing patient on olanzapine and starting patient on fluvoxamine with the possibility requiring ECT if patient does not continue to improve or requires further inpatient psychiatric stabilization. Review of Systems All other systems reviewed negative except as stated in HPI Mental Status Examination Appearance: Appropriate Consciousness: Clouded Orientation: Person, Place Motor Activity: Normal gait Speech: Other (Low volume) Language: Adequate Fund of Knowledge: Adequate Attention and Concentration: Inadequate (Improved) Memory: Impaired Mood: Sad Affect: Blunt (Lessening) Thought Process & Associations: Linear, Other ([place]) Thought Content: Preoccupations (Preoccupied with the notion that she has diarrhea) Hallucination Type: None Delusion Type: Bizarre Suicidal Ideation: Yes Suicidal Plan: No Suicidal Intention: No Homicidal Ideation: No Homicidal Plan: No Homicidal Intention: No Insight: Poor Judgment: Poor Assessment and Plan - Assessment (1) Brief psychotic disorder with peripartum onset Code(s): O99.345 - Other mental disorders complicating the puerperium Status: Acute - Plan Plan: Patient continues with perseveration that she has diarrhea which she states if he is here from wanting to participate more in groups and activities and leaving the room. This is not been noted by nursing staff the patient continued to be encouraged to participate in groups and activities and increase nutritional intake. We will discontinue Haldol and patient will now continue on olanzapine 10 mg p.o. twice daily with the start of fluoxetine 50 mg p.o. daily tomorrow. We will continue rest of medications. We will continue to monitor mood and behavior. Continue to encourage patient to increase nutritional intake and participating more in groups and activities. Patient to continue one-to-one observation for safety. Will attempt to contact Psychiatric facilities near patient's hometown to attempt transfer with the purpose of patient to continue inpatient level of care if needed and be in close proximity to family. Justification for Continued Inpatient Stay: At risk of further decompensation at lower level care. Request Healthcare Surrogate/Guardian Advocate?: Yes
[2018-05-16] MEDS: LORazepam 1 MG Tablet PO SCH ×2 (09:47→20:23)
--- NOTE | 2018-05-16 15:03 | P.TTN ---
- Patient Problems Problems: 1. Discharge planning 2. Medication compliance 3. Knowledge deficit 4. Lack of coping skills - Progress Toward Goals Provider Present: Dr. Jolly Garvey Provider Input: 05/16/2018: patient continues to show depressed mood, antidepressant with be restarted; doctor will contact psychiatrist / Chuck or Yohannes with [facility] [phone]. 05/14/2018; patient mood is lifted minimum, still requires titration with meds Nurse(s) Present: RN Nurse Input: 05/16/2018: Per Rn patient continues to require 1:1 with prompting and encouragement needed with mood. Patient is eating and taking her medication. 05/14/2018: Per RN patient requires coaching and prompting with daily activites/needs, medication, meals and ALD's. Patient remain 1:1 Psychiatric Counselors Present: Yarely Rosario [facility] Psychiatric Therapist Input: 05/16/2018: counselor have contact [facility] to reach out for transfer information. 05/14/2018; counselor will work with family with dc planning if needed into an inpatient treatment program when dc from this facility or with appropriate outpatient providers if dc home with and baby Group Spec/RT/OT/AREVALO Present: MICKEY Bach, Rodolfo Cee, OT Group Spec/RT/OT/AREVALO Input: 05/16/2018: patient is unable to tolerate peer activities or groups. 05/14/2018; patient has been unable to tolerate groups or activities - Documentation Teaching Recipient: Patient
--- NOTE | 2018-05-16 15:05 | P.TTN ---
- Patient Problems Problems: 1. Discharge planning 2. Medication compliance 3. Knowledge deficit 4. Lack of coping skills - Progress Toward Goals Provider Present: Dr. Jolly Garvey Provider Input: 05/16/2018: patient continues to show depressed mood, antidepressant with be restarted; doctor will contact psychiatrist / Chuck or Yohannes with [facility] [phone]. 05/14/2018; patient mood is lifted minimum, still requires titration with meds Nurse(s) Present: RN Nurse Input: 05/16/2018: Per Rn patient continues to require 1:1 with prompting and encouragement needed with mood. Patient is eating and taking her medication. 05/14/2018: Per RN patient requires coaching and prompting with daily activites/needs, medication, meals and ALD's. Patient remain 1:1 Psychiatric Counselors Present: Yarely Rosario [facility] Psychiatric Therapist Input: 05/16/2018: counselor have contact [facility] to reach out for transfer information. 05/14/2018; counselor will work with family with dc planning if needed into an inpatient treatment program when dc from this facility or with appropriate outpatient providers if dc home with and baby Group Spec/RT/OT/AREVALO Present: MICKEY Bach, Rodolfo Cee, OT Group Spec/RT/OT/AREVALO Input: 05/16/2018: patient is unable to tolerate peer activities or groups. 05/14/2018; patient has been unable to tolerate groups or activities - Documentation Teaching Recipient: Patient
--- NOTE | 2018-05-16 21:56 | P.PNPSY ---
Subjective Chief Complaint: psychosis Remarks: Patient seen for follow-up, chart reviewed. Discussion with nursing staff reported that patient . Saw her baby yesterday, interacting well, having spontaneous conversation with nurses well with baby. Continues to have poor p.o. intake. Patient was found lying hospital bed noted B, cooperative. Patient states that she is feeling "bad" continues to have reluctance and participating actively in groups and activities. Patient states that she is upset that baby is going home and that she is still here in the hospital. Patient denies any perceptional disturbances but continues to have suicidal ideations at this time. Review of Systems All other systems reviewed negative except as stated in HPI Mental Status Examination Appearance: Appropriate Consciousness: Clouded Orientation: Person, Place Motor Activity: Normal gait Speech: Other (Low volume) Language: Adequate Fund of Knowledge: Adequate Attention and Concentration: Inadequate (Improved) Memory: Impaired Mood: Sad Affect: Blunt (Lessening) Thought Process & Associations: Linear, Other ([place]) Thought Content: Preoccupations (Preoccupied with the notion that she has diarrhea) Hallucination Type: None Delusion Type: Bizarre Suicidal Ideation: Yes Suicidal Plan: No Suicidal Intention: No Homicidal Ideation: No Homicidal Plan: No Homicidal Intention: No Insight: Poor Judgment: Poor Assessment and Plan - Assessment (1) Brief psychotic disorder with peripartum onset Code(s): O99.345 - Other mental disorders complicating the puerperium Status: Acute - Plan Plan: Patient this time noted with less perseveration on delusion of having diarrhea but continues to have depressed mood along with suicide ideations. Patient recently started on fluoxetine for depression and continues on olanzapine 10 mg p.o. twice daily. Patient continues with poor p.o. intake and continues require encouragement to eat and participating groups and activities. Despite these difficulties patient noted to be more interactive and more engaging with baby. We will continue to monitor mood and behavior. Discharge planning in progress. Justification for Continued Inpatient Stay: At risk of further decompensation at lower level care. Request Healthcare Surrogate/Guardian Advocate?: Yes
[2018-05-17] MEDS: LORazepam 1 MG Tablet PO SCH ×2 (12:52→21:08)
--- NOTE | 2018-05-17 14:32 | P.OBGPN ---
Patient is a 32-year-old POD 13 s/p delivery who is [facility] due to her psychosis We were called due to bleeding from the incisional site today. She states that she had significant blood all over her pants starting this morning. Her nurse put a new dressing on the area two hours before we saw the patient. Exam: -No distress, well perfused throughout, breathing comfortably in bed -Two pinpoint areas of slowly oozing blood, minimal amount of blood on the old dressing -12cm x 3cm area of mild erythema surrounding the incision -Significant surrounding induration surrounding the incision -4cm x <1cm area of dark purple blistering on the incision Assessment and plan: Erythema and blistering over the incision -This may represent incisional infection -The areas of erythema and blistering were marked with a sharpie -CBC and CMP -CT scan of the area to assess for necrotizing infection -Consult to ID and General surgery for further evaluation -Start vancomycin and Zosyn Incisional bleeding -Her bleeding is minimal, we replaced the dressing -Dressing changes when saturated or after bathing Patient was seen and examined with Dr. Kuo 1600 OB Attending: Called to assess some bleeding from patient's incision that was noted by RN. The patient is POD#13 s/p Primary C/S for severe preeclampsia, currently admitted to [facility] for acute psychosis. On examination, only a small amount of dark blood wass noted to be leaking from 2 very small defects of the incision and the incision appears well healed otherwise and was unable to be opened manually during the examination. There is a firm area palpable located superior to the incision on the left side that may be consistent with a hematoma. Abdominal bruising is noted that appears to be resolving. There is an erythematous area around the incision that was marked measuring 12cm x 3cm. On the right side, superior to the healing incision, there is a dark area noted measuring 4cm x <1cm that is dark purple in color and appears that it may be starting to blister and a second dark area measuring approximately 1 cm x <1cm. Both of these sites were marked. A CT scan with contrast ordered to further evaluate. Discussed with ID, will start vancomycin and zosyn, and ID will see patient in consult. Will also consult general surgery to evaluate for necrotizing infection.
[2018-05-17] MEDS ORDERED: Vancomycin Inj 1,000 MG in Sodium Chlor 0.9% Inj 250 ML IV.SIG ONE (16:24)
[2018-05-17] MEDS ORDERED: Vancomycin Consult Pharmacy OTHER PRN (16:24)
[2018-05-17 16:35] LABS: Hematocrit 36.1 % (35.0-46.0); Hemoglobin 12.3 gm/dL (11.6-15.3); Mean Corpuscular HGB Conc 34.1 % (32.0-36.0); Mean Corpuscular Hemoglobin 30.3 pg (27.0-34.0); Mean Corpuscular Volume 88.8 fL (80.0-100.0); Mean Platelet Volume 9.2 fL (7.0-11.0); Platelet Count 464 th/mm3 (150-450); Red Blood Count 4.07 mil/mm3 (4.00-5.30); White Blood Count 12.1 th/mm3 (4.0-11.0)
[2018-05-17 16:51] LABS: Albumin 2.9 g/dL (3.4-5.0); Anion Gap 10 meq/L (5-15); Blood Urea Nitrogen 14 mg/dL (7-18); Calcium 8.9 mg/dL (8.5-10.1); Carbon Dioxide 23.7 meq/L (21.0-32.0); Chloride 105 meq/L (98-107); Glomerular Filtration Rate Greater Than 89 mL/min (>89); Glucose,Random 92 mg/dL (74-106); Potassium 3.8 meq/L (3.5-5.1); Sodium 139 meq/L (136-145)
[2018-05-17 16:53] LABS: Alanine Aminotransferase 33 U/L (10-53); Aspartate Aminotransferase 26 U/L (15-37)
[2018-05-17 16:54] LABS: Alkaline Phosphatase 111 U/L (45-117); Total Protein 7.4 g/dL (6.4-8.2)
--- NOTE | 2018-05-17 17:16 | CT ---
EXAM DATE: 05/17/2018 5:05 PM EDT AGE/SEX: 32 years / Female INDICATIONS: Asses for necrotizing infection. CLINICAL DATA: This is the patient's initial encounter. Patient reports that signs and symptoms have been present for 1 day and indicates a pain score of 4/10. MEDICAL/SURGICAL HISTORY: Irritable bowel syndrome. Cdiff. None. RADIATION DOSE: 14.68 CTDI (mGy) COMPARISON: No prior exams available for comparison. TECHNIQUE: Multiple contiguous helical axial images were obtained through pelvis following bolus inf usion of 95 ml Omnipaque 350 (iohexol) nonionic water-soluble contrast as a single exam dose. Imag es were obtained using multiple row detector helical technique. . Using automated exposure control an d adjustment of the mA and/or kV according to patient size, radiation dose was kept as low as reasona elana achievable to obtain optimal diagnostic quality images. DICOM format image data is available monisha ctronically for review and comparison. FINDINGS: There is a high density collection in the anterior wall of the low pelvic subcutaneous tissues which measures slightly less than 5 cm x 4 cm x 15 cm (sagittal by AP by transverse). In the right rectus a bdominis muscle at a slightly higher level, a slightly less than 3 cm rounded low density collection is noted. The pelvic bowel structures are nondilated and focally unremarkable. The uterus is slightly heterogen eous. There is no evidence of adnexal mass or free pelvic fluid. The urinary bladder is decompressed. There is no evidence of pelvic or inguinal adenopathy. The bony elements are benign in appearance. CONCLUSION: High density collection in the subcutaneous tissues of the low anterior pelvic wall which looks most like a hematoma. Small low density collection in the right rectus abdominis muscle which could be liquefied hematoma o r small abscess. Electronically signed by: Abner Doe MD 05/17/2018 5:15 PM EDT
--- NOTE | 2018-05-17 18:47 | P.CON ---
History of Present Illness Consult date: 05/17/18 Reason for Consult: Wound drainage, possible necrotizing infection Primary Care Provider: UNKNOWN History of Present Illness: Patient is a 32-year-old female who underwent 13 days ago. Patient had admission to the psychiatric unit for treatment. Patient apparently had some drainage began 2-3 days ago according to her and the nurses notified physicians this morning. Patient was seen by the doctors at approximately 230 this afternoon and there was some concern for infection and CT was ordered stat. I have reviewed the scan results with Dr. Scott of radiology and the thermostatic controls supervisor. [facility] - History History Provided By: Patient, Medical Record - Medical History Medical History: Medical History (Last Reviewed 05/06/18 @ 13:20 by Nelson Monsivais DO) Agoraphobia with panic attacks Anxiety C. difficile diarrhea Depression History of IBS - Tobacco History Second Hand Smoke Exposure: No Smoking Status: Never smoker - Alcohol History How Often Do You Have a Drink Containing Alcohol: Never - Substance Use History Substance History: Unable to Obtain Medications and Allergies Active Medications: Active Medications Acetaminophen (Tylenol) 650 mg PO Q4H PRN PRN Reason: PAIN SCALE 1 TO 2 Last Admin: 05/06/18 08:34 Dose: 650 mg Fluvoxamine Maleate (Luvox) 50 mg PO DAILY [facility] Last Admin: 05/17/18 12:52 Dose: 50 mg Piperacillin/Tazobactam/Dextrose (Zosyn 3.375 Gm Premix) 50 mls @ 100 mls/hr IV.SIG Q8H VINNY Vancomycin HCl 1,250 mg/ (Sodium Chloride) 262.5 mls @ 262.5 mls/hr IV.SIG Q12H VINNY Ibuprofen (Motrin) 800 mg PO Q8H PRN PRN Reason: For Cramping Last Admin: 05/12/18 21:56 Dose: 800 mg Lorazepam (Ativan) 1 mg PO BID [facility] Last Admin: 05/17/18 12:52 Dose: 1 mg Miscellaneous (Pill Splitter) 1 each OTHER UNSCH PRN PRN Reason: SEE LABEL COMMENTS Naloxone HCl (Narcan Inj) 0.1 mg IV.PUSH Q2M PRN PRN Reason: for opiate reversal Olanzapine (Zyprexa) 10 mg PO BID [facility] Last Admin: 05/13/18 17:56 Dose: Not Given Ondansetron HCl (Zofran Odt) 4 mg PO Q6H PRN PRN Reason: NAUSEA OR VOMITING Oxycodone/Acetaminophen (Percocet 5/325 Mg) 2 tab PO Q4H PRN PRN Reason: PAIN SCALE 6 TO 10 Oxycodone/Acetaminophen (Percocet 5/325 Mg) 1 tab PO Q4H PRN PRN Reason: PAIN SCALE 3 TO 5 Pharmacy Profile Note (Vancomycin Consult Pharmacy) 1 each OTHER UNSCH PRN PRN Reason: Pharmacy to dose Sennosides (Senokot) 17.2 mg PO Q12H PRN PRN Reason: Moderate Constipation Sodium Chloride (Ns Flush) 2 ml IV.FLUSH PRN PRN PRN Reason: FLUSH AFTER USING IV ACCESS Sodium Chloride (Ns Flush) 2 ml IV.FLUSH BID [facility] Last Admin: 05/17/18 12:53 Dose: Not Given Vancomycin HCl (Vancomycin Po) 125 mg PO BID [facility] Last Admin: 05/17/18 12:53 Dose: 125 mg Allergies Allergy/AdvReac Type Severity Reaction Status Date / Time vortioxetine Allergy Hives Verified 04/23/18 20:36 [From Brintellix] ziprasidone [From Geodon] Allergy Chest Pain Verified 04/23/18 20:36 Home Medications Medication Instructions Recorded Confirmed Type PNV cmb#95-ferrous fumarate-FA 1 tab PO DAILY 04/23/18 05/03/18 History [] ursodiol [Actigall] 300 mg PO BID 04/23/18 05/03/18 History Physical Exam Vital signs: Vital Signs 05/17/18 05:57 Temperature 99.3 F Pulse Rate 106 H Respiratory Rate 18 Blood Pressure 111/68 Pulse Oximetry 93 L Intake & Output 05/16/18 05/17/18 05/17/18 18:59 06:59 18:59 Intake Total 2400 / 2400 1200 / 1200 Balance 2400 / 2400 1200 / 1200 Weight 78.1 kg Intake: Oral 2400 / 2400 1200 / 1200 Other: # Voids 3 1 - Constitutional no acute distress - Routine HEENT Exam Head: Present: normocephalic, atraumatic - Routine Neck Exam Present: supple - Routine Respiratory Exam Present: CTA bilaterally - Routine Cardiovascular Exam Present: RRR - Routine Abdominal Exam Present: soft, wound (Some ecchymotic discoloration at the incision. Significant ecchymosis superior to the incision on the lower abdomen. Palpable mass under the skin. This is nontender) Assessment and Plan - Assessment (1) Postprocedural hematoma of abdominal wall Code(s): M96.89 - Other intraoperative and postprocedural complications and disorders of the musculoskeletal system Status: Acute Plan: Patient is not febrile and white blood cell count is 12.1. Hemoglobin is stable as well. She does not appear to be actively bleeding. There is no blush on CT scan demonstrating any active hemorrhage. I reviewed this with Dr. Kuo who is the on-call hospitalist for LABOR RELATIONS DIRECTOR. We both agree that this does not require any urgent intervention. While this may become infected in the future, there is nothing at the present time warranting urgent or emergent intervention, such as irrigation and debridement. I will follow as needed. Thank you for this consultation - Plan Discussed Condition With: Nursing staff, charge nurse OB physician director recreation Patient - Attending Attestation I attest that I had a [id number] encounter with the patient on the same day, and personally performed and documented my assessment and findings in the medical record. The following services were provided during this hospital visit: Chart data review, vital sign assessments/reviewing monitor data Review of consultation notes if present Medication orders/review and/or management Ordering and/or reviewing lab tests Ordering and/or interpreting/reviewing x-rays and/or diagnostic studies Care of the patient and discussion of the patient with the care team Documentation time To help prompt me to consider important information that might be impacting today's encounter and assessment, Information from prior notes written by myself or my colleagues may have been "brought forward/copy and pasted" into today's note.
--- NOTE | 2018-05-17 19:30 | P.PNPSY ---
Subjective Chief Complaint: psychosis Remarks: Patient seen for follow-up, chart reviewed. Discussion with nursing staff reported that patient patient has a compliant medications, sobbing yesterday continues report feeling depressed and continue suicide ideations. Patient was found lying hospital bed noted B, cooperative. Patient states that she had been having bleeding last evening and upon inspection noted that her clothing was stained with blood which she reports began last night. She continues report her mood being "bad" stating her had visited her yesterday which went well and had time with the baby for a couple of hours yesterday. Patient denies any perceptional services at this time. She continues to endorse suicidal ideation and poor motivation to eat and to participate in groups and activities. Review of Systems All other systems reviewed negative except as stated in HPI Mental Status Examination Appearance: Appropriate Consciousness: Clouded Orientation: Person, Place Motor Activity: Normal gait Speech: Other (Low volume) Language: Adequate Fund of Knowledge: Adequate Attention and Concentration: Inadequate (Improved) Memory: Impaired Mood: Sad Affect: Blunt (Lessening) Thought Process & Associations: Linear, Other ([place]) Thought Content: Preoccupations Hallucination Type: None Delusion Type: Bizarre Suicidal Ideation: Yes Suicidal Plan: No Suicidal Intention: No Homicidal Ideation: No Homicidal Plan: No Homicidal Intention: No Insight: Poor Judgment: Poor Assessment and Plan - Assessment (1) Brief psychotic disorder with peripartum onset Code(s): O99.345 - Other mental disorders complicating the puerperium Status: Acute - Plan Plan: Patient this time continues with depressed mood along suicide ideations. Patient noted with decreased bleeding from incision site from previous C- section. We will reconsult OB distributor sales consultant's to evaluate previous incision. We will continue current treatment for now will continue to monitor mood and behavior. Attempts were made to reach psychiatrists at psychiatric facility near [place] to discuss possible transfer to this facility which is closer to her family. We will attempt tomorrow to reach this facility again to explore this option. We will continue patient on one-to-one observation for safety. We will continue to monitor mood and behavior. Discharge planning a progress. Justification for Continued Inpatient Stay: At risk of further decompensation at lower level care. Request Healthcare Surrogate/Guardian Advocate?: Yes
--- NOTE | 2018-05-17 19:33 | P.PNADD ---
Addendum to Inpatient Note Additional information: seen around 1800 full note to follow A/P: post op evolving hematoma small fluid collection - abscess vs liquified hematoma no e/o infx dc abx consider to aspirate the fluid collection dw Marlon Martinez
--- NOTE | 2018-05-17 19:38 | P.CONID ---
History of Present Illness Service: ID Consult date: 05/17/18 Requesting Physician: Edouard Brito Reason for Consult: ? necrotising infection of abdominal wall Primary Care Provider: UNKNOWN History of Present Illness: Pt was seen on May 17 @ around 1800 Patient is a 32-year-old delivered at 34 weeks and 4 days. Patient is post- op day 13 after section Noted to have a small black descoloration at her low transverse incision minimal bloody drainage She denies abdominal pain, no fevers. There was a concern over infection of the area and pt was started on IV abx broad spectrum. Pt was also seen by Dr Mason CT was done and showed hematoma Pt is on med/psych for SI, acute psychosis Pt is afebrile, WBC mildly elevated @ 12K + thrombocytosis Review of Systems All other systems reviewed negative except as stated in HPI PMFSH - History History Provided By: Patient, Medical Record - Medical History Medical History: Medical History (Last Reviewed 05/06/18 @ 13:20 by Nelson Monsivais DO) Agoraphobia with panic attacks Anxiety C. difficile diarrhea Depression History of IBS - Tobacco History Second Hand Smoke Exposure: No Smoking Status: Never smoker - Alcohol History How Often Do You Have a Drink Containing Alcohol: Never - Substance Use History Substance History: Unable to Obtain Medications and Allergies Active Medications: Active Medications Acetaminophen (Tylenol) 650 mg PO Q4H PRN PRN Reason: PAIN SCALE 1 TO 2 Last Admin: 05/06/18 08:34 Dose: 650 mg Fluvoxamine Maleate (Luvox) 50 mg PO DAILY [facility] Last Admin: 05/17/18 12:52 Dose: 50 mg Ibuprofen (Motrin) 800 mg PO Q8H PRN PRN Reason: For Cramping Last Admin: 05/12/18 21:56 Dose: 800 mg Lorazepam (Ativan) 1 mg PO BID [facility] Last Admin: 05/17/18 12:52 Dose: 1 mg Miscellaneous (Pill Splitter) 1 each OTHER UNSCH PRN PRN Reason: SEE LABEL COMMENTS Naloxone HCl (Narcan Inj) 0.1 mg IV.PUSH Q2M PRN PRN Reason: for opiate reversal Olanzapine (Zyprexa) 10 mg PO BID [facility] Last Admin: 05/13/18 17:56 Dose: Not Given Ondansetron HCl (Zofran Odt) 4 mg PO Q6H PRN PRN Reason: NAUSEA OR VOMITING Oxycodone/Acetaminophen (Percocet 5/325 Mg) 2 tab PO Q4H PRN PRN Reason: PAIN SCALE 6 TO 10 Oxycodone/Acetaminophen (Percocet 5/325 Mg) 1 tab PO Q4H PRN PRN Reason: PAIN SCALE 3 TO 5 Pharmacy Profile Note (Vancomycin Consult Pharmacy) 1 each OTHER UNSCH PRN PRN Reason: Pharmacy to dose Sennosides (Senokot) 17.2 mg PO Q12H PRN PRN Reason: Moderate Constipation Sodium Chloride (Ns Flush) 2 ml IV.FLUSH PRN PRN PRN Reason: FLUSH AFTER USING IV ACCESS Sodium Chloride (Ns Flush) 2 ml IV.FLUSH BID [facility] Last Admin: 05/17/18 12:53 Dose: Not Given Allergies Allergy/AdvReac Type Severity Reaction Status Date / Time vortioxetine Allergy Hives Verified 04/23/18 20:36 [From Brintellix] ziprasidone [From Geodon] Allergy Chest Pain Verified 04/23/18 20:36 Home Medications Medication Instructions Recorded Confirmed Type PNV cmb#95-ferrous fumarate-FA 1 tab PO DAILY 04/23/18 05/03/18 History [] ursodiol [Actigall] 300 mg PO BID 04/23/18 05/03/18 History Exam Vital signs: Vital Signs 05/17/18 05:57 05/17/18 18:00 Temperature 99.3 F 98.1 F Pulse Rate 106 H 99 H Respiratory Rate 18 18 Blood Pressure 111/68 126/80 Pulse Oximetry 93 L 98 Intake & Output 05/17/18 05/17/18 05/18/18 06:59 18:59 06:59 Intake Total 1200 / 1200 240 / 240 Balance 1200 / 1200 240 / 240 Weight 78.1 kg Intake: Oral 1200 / 1200 240 / 240 Other: # Voids 1 3 - Constitutional no acute distress, average body habitus - Routine HEENT Exam Head: Present: normocephalic, atraumatic Eye: Present: EOMI, PERRL ENT: Present: mucous membranes moist, oropharynx clear - Routine Neck Exam Present: supple. Absent: JVD, lymphadenopathy - Routine Respiratory Exam Present: CTA bilaterally. Absent: accessory muscle use, respiratory distress - Routine Cardiovascular Exam Present: RRR, S1, S2. Absent: murmur, gallop, rubs - Routine Abdominal Exam Present: soft, normoactive bowel sounds. Absent: tenderness, distended, organomegaly Comments: Nearly completely healed low transverse incision from her C section One area of small opening draining dark blood Large about 6 cm firm non tender mass a/w L aspect of inciison, cw hematoma Extensive ecchymoses of abdominal wall No erythem, no tenderness no crepitus on plapation. Dark discoloration around incision cw ecchymoses - Routine Extremities Exam Absent: cyanosis, clubbing, edema - Routine Skin Exam Present: intact, warm. Absent: rash - Routine Neurological Exam Present: alert, oriented X3, CN II-XII intact. Absent: sensory deficit, motor deficit - Routine Psychiatric Exam Present: depressed. Absent: normal affect (flat affet) Results - Labs CBC & Chem 7: 05/17/18 15:54 05/17/18 15:54 Labs: Laboratory Results - last 24 hr 05/17/18 05/17/18 15:54 15:54 WBC 12.1 H RBC 4.07 Hgb 12.3 Hct 36.1 MCV 88.8 MCH 30.3 MCHC 34.1 RDW 15.0 Plt Count 464 H D MPV 9.2 Sodium 139 Potassium 3.8 Chloride 105 Carbon Dioxide 23.7 Anion Gap 10 BUN 14 Creatinine 0.58 Estimated GFR Greater than 89 Random Glucose 92 Calcium 8.9 Total Bilirubin 0.8 AST 26 ALT 33 Alkaline Phosphatase 111 Total Protein 7.4 Albumin 2.9 L - Imaging Impressions Pelvis CT 05/17/18 16:02 CONCLUSION: High density collection in the subcutaneous tissues of the low anterior pelvic wall which looks most like a hematoma. Small low density collection in the right rectus abdominis muscle which could be liquefied hematoma or small abscess. Assessment and Plan - Plan A/P: S/p C section on 05/04 post op evolving hematoma small fluid collection - abscess vs liquified hematoma no e/o infx dc abx consider to aspirate the fluid collection to r/o infection (suspicious is low based on drainage appearance, lack of fever ) lars Kuo (RN EMERGENCY), [place]
[2018-05-17] MEDS ORDERED: Piperacil/Tazo 3.375 GM Premix 50 ML IV.SIG SCH (20:00)
[2018-05-17] MEDS ORDERED: Vancomycin Inj 1,250 MG in Sodium Chlor 0.9% Inj 250 ML IV.SIG SCH (21:00)
[2018-05-18] MEDS: LORazepam 1 MG Tablet PO SCH ×2 (09:16→21:31)
--- NOTE | 2018-05-18 10:34 | P.OBGPN ---
S:Patient denies acute events over night. No increase in incisional or abdominal pain. Denies additional significant drainage. Exam: -Not significantly changed from yesterday -No distress, well perfused throughout, breathing comfortably in bed -Two pinpoint areas of slowly oozing blood, minimal amount of blood on the old dressing -12cm x 3cm area of mild erythema surrounding the incision -Significant surrounding induration surrounding the incision -4cm x <1cm area of dark purple blistering on the incision A/P: 32-year-old POD 14 s/p delivery who is currently on the med- psych floor 2/2 psychosis. Erythema and blistering over the incision -The areas of erythema and blistering were marked with a sharpie, no significant extension since yesterday -ABx Per ID -Surgery consulted, no intervention at this time -Continue to monitor Incisional bleeding -Dressing change later today Patient was seen and examined with Dr. Kuo
--- NOTE | 2018-05-18 13:34 | P.PNADD ---
Addendum to Inpatient Note Additional information: dw IR rad Dr Rivas: fluid collection cw hematoma will cancell aspiration
[2018-05-18] MEDS ORDERED: OLANZapine 10 MG Tablet PO ONE (16:00)
[2018-05-18] MEDS ORDERED: OLANZapine 10 MG Tablet PO SCH (21:00)
[2018-05-18] MEDS: OLANZapine 10 MG Tablet PO SCH (21:32)
--- NOTE | 2018-05-18 22:05 | P.PNPSY ---
Subjective Chief Complaint: psychosis Remarks: Patient seen for follow up; chart reviewed. Discussion with nursing staff reported that patient continues to have poor eye contact with flat affect and has decrease in p.o. intake recently. Patient was found lying hospital bed patient now focused on recent hematoma which is managed by medical team and not requiring any surgical intervention at this time. She states she is feeling "bad" and has been focused on recent bleeding stating that she is not able to stand up and is noted to be resistant when encouraged to do so. Patient states she spoke with her mother but did not elaborate on content. Patient continues to report feeling depressed and continues to endorse suicidal ideations. Review of Systems All other systems reviewed negative except as stated in HPI Mental Status Examination Appearance: Appropriate Consciousness: Clouded Orientation: Person, Place Motor Activity: Normal gait Speech: Other (Low volume) Language: Adequate Fund of Knowledge: Adequate Attention and Concentration: Inadequate (Improved) Memory: Impaired Mood: Sad Affect: Blunt (Lessening) Thought Process & Associations: Linear, Other ([place]) Thought Content: Preoccupations (With recent bleeding from hematoma and reluctant to get up from the bed) Hallucination Type: None Delusion Type: None Suicidal Ideation: Yes Suicidal Plan: No Suicidal Intention: No Homicidal Ideation: No Homicidal Plan: No Homicidal Intention: No Insight: Poor Judgment: Poor Assessment and Plan - Assessment (1) Brief psychotic disorder with peripartum onset Code(s): O99.345 - Other mental disorders complicating the puerperium Status: Acute - Plan Plan: Patient at this time has not noted to have decrease in p.o. intake which she was improving on several days ago, recent increase in Luvox, we will continue to monitor mood. Patient continues to report feeling depressed along with suicide ideations. Hospitalist input appreciated. Infectious disease consult input appreciated. Patient to be encouraged to continue to participate in groups and activities and increase nutritional intake. Patient attempts to reach psychiatrist that inpatient facilities near [place] have been unsuccessful we will continue to attempt to reach providers for possible transfer closer to [place] where her family is. Patient also may need to require ECT as current pharmacologic interventions have been effective for psychosis but now currently with depressive symptoms resistant to treatment. We will continue current medication regimen. We will continue to monitor mood and behavior. Discharge planning in progress. Justification for Continued Inpatient Stay: At risk of further decompensation at lower level care. Request Healthcare Surrogate/Guardian Advocate?: Yes
[2018-05-19] MEDS: LORazepam 1 MG Tablet PO SCH ×2 (09:41→20:21)
[2018-05-19] MEDS: OLANZapine 10 MG Tablet PO SCH ×2 (09:42→20:21)
--- NOTE | 2018-05-19 16:09 | P.OBGPN ---
S:Patient denies acute events over night. No increase in incisional or abdominal pain. Denies additional significant drainage. Per nursing reports she has not been ambulating much. Exam: -No distress, well perfused throughout, breathing comfortably in bed -Three pinpoint areas of slowly oozing blood, minimal amount of blood on the old dressing, pressure was applied to theses areas expressing about a teaspoon of old blood -12cm x 3cm area of mild erythema surrounding the incision, mild improvement -Significant surrounding induration surrounding the incision, no significant interval change -4cm x <1cm area of light purple blistering on the incision, significant improvement since yesterday A/P: 32-year-old POD 15 s/p delivery who is currently on the med- psych floor for psychosis. Erythema and blistering over the incision -The areas of erythema and blistering were marked with a sharpie, they are improving -No ABx Per ID and no intervention per Surgery -Will continue to monitor Incisional bleeding -Dressing changed this morning, continue dressing changes after bathing Patient was seen and examined with Dr. Lantigua Attestation Attestation: The exam, history, and the medical decision-making described in the above note were completed with the assistance of the resident physician. I reviewed and agree with the findings presented. I attest that I had a [id number] encounter with the patient on the same day, and personally performed and documented my assessment and findings in the medical record.
--- NOTE | 2018-05-19 17:17 | P.PNPSY ---
Subjective Chief Complaint: psychosis Remarks: Patient was seen and case discussed with nursing. Patient is now back in her Zyprexa. She is tolerating it well. She remains floridly psychotic. She is flat with poor eye contact spending her day laying in bed as confirmed by the sitter. Continues to have bizarre delusions and preoccupations with her urine and stool. Patient says she is afraid and feels that she will be in the hospital for ever. She admits to suicidal ideation without intent or plan. No thoughts of hurting her baby. Says she wants to see the baby when she goes home. Compliant with medication Mental Status Examination Appearance: Appropriate Consciousness: Clouded Orientation: Person, Place Motor Activity: Normal gait Speech: Other (Low volume) Language: Adequate Fund of Knowledge: Adequate Attention and Concentration: Inadequate (Improved) Memory: Impaired Mood: Sad Affect: Blunt (Lessening) Thought Process & Associations: Linear, Other ([place]) Thought Content: Preoccupations Hallucination Type: None Delusion Type: Bizarre Suicidal Ideation: Yes Suicidal Plan: No Suicidal Intention: No Homicidal Ideation: No Homicidal Plan: No Homicidal Intention: No Insight: Poor Judgment: Poor Assessment and Plan - Assessment (1) Brief psychotic disorder with peripartum onset Code(s): O99.345 - Other mental disorders complicating the puerperium Status: Acute - Plan Plan: Continue current treatment plan Justification for Continued Inpatient Stay: Patient would decompensate in a less restrictive setting Request Healthcare Surrogate/Guardian Advocate?: Yes
--- NOTE | 2018-05-20 08:31 | P.PNOB ---
Subjective Post op day: 16 Interval history: Ms. Person is now postop day 16 from a now with Pfannenstiel incision hematoma, the wound has dark ecchymoses around the top edge and then above that an area of induration that all the way the length of the incision very firm about 5 cm wide and this whole area is purple yellow blue-black consistent with old blood and blood infiltrating the subcu tissues. There are 2 micro spots on the incision line that are oozing old blood both were open with a small end of the Q-tip and and 1 of the incisions on the left side that opening was big enough to let the head with a Q-tip through in that wound when pressed upon expressed moderate amount of old blood and even some clot. The nursing staff will do this twice a day clean the wound taking Q-tip and either peroxide or Betadine place it into that open spot to clean and treat. Objective Vital Signs/I&O: Vital Signs 05/19/18 19:51 05/20/18 06:12 Temperature 98.0 F 98 F Pulse Rate 98 H 126 H Respiratory Rate 18 16 Blood Pressure 120/66 120/77 Pulse Oximetry 94 L 94 L Intake & Output 05/19/18 05/20/18 05/20/18 18:59 06:59 18:59 Intake Total 260 / 260 Balance 260 / 260 Intake: Oral 260 / 260 Other: # Voids 1 4 Date of Last Bowel Movement 05/18/18 Result Diagrams: 05/17/18 15:54 05/17/18 15:54 Objective Remarks: GENERAL: Well-nourished, well-developed patient. CARDIOVASCULAR: Regular rate and rhythm without murmurs, gallops, or rubs. RESPIRATORY: Breath sounds equal bilaterally. No accessory muscle use. ABDOMEN/GI: See above note on the incision status Fundus: Firm, non-tender at umbilicus. GENITOURINARY: Light to moderate bleeding. EXTREMITIES: No cyanosis or edema, non-tender, without signs of DVT. Medications and IVs: Active Medications Acetaminophen (Tylenol) 650 mg PO Q4H PRN PRN Reason: PAIN SCALE 1 TO 2 Last Admin: 05/06/18 08:34 Dose: 650 mg Fluvoxamine Maleate (Luvox) 50 mg PO BID [facility] Last Admin: 05/19/18 20:21 Dose: 50 mg Ibuprofen (Motrin) 800 mg PO Q8H PRN PRN Reason: For Cramping Last Admin: 05/19/18 09:39 Dose: 800 mg Lorazepam (Ativan) 1 mg PO BID [facility] Last Admin: 05/19/18 20:21 Dose: 1 mg Miscellaneous (Pill Splitter) 1 each OTHER UNSCH PRN PRN Reason: SEE LABEL COMMENTS Naloxone HCl (Narcan Inj) 0.1 mg IV.PUSH Q2M PRN PRN Reason: for opiate reversal Olanzapine (Zyprexa) 10 mg PO BID [facility] Last Admin: 05/19/18 20:21 Dose: 10 mg Ondansetron HCl (Zofran Odt) 4 mg PO Q6H PRN PRN Reason: NAUSEA OR VOMITING Oxycodone/Acetaminophen (Percocet 5/325 Mg) 2 tab PO Q4H PRN PRN Reason: PAIN SCALE 6 TO 10 Oxycodone/Acetaminophen (Percocet 5/325 Mg) 1 tab PO Q4H PRN PRN Reason: PAIN SCALE 3 TO 5 Sennosides (Senokot) 17.2 mg PO Q12H PRN PRN Reason: Moderate Constipation Sodium Chloride (Ns Flush) 2 ml IV.FLUSH PRN PRN PRN Reason: FLUSH AFTER USING IV ACCESS Sodium Chloride (Ns Flush) 2 ml IV.FLUSH BID [facility] Last Admin: 05/19/18 20:21 Dose: Not Given Assessment and Plan - Diagnosis (1) delivery delivered Code(s): O82 - Encounter for delivery without indication Status: Acute (2) Wound hematoma following section, Code(s): O90.2 - Hematoma of obstetric wound Status: Acute - Plan Patient with wound hematoma and moderate induration and discoloration, plan to hydrogen peroxide Q-tip to clean the open incision that was opened today to allow blood out. Twice daily cleanings, begin on p.o. Cipro 500 twice daily And follow closely -
[2018-05-20] MEDS: LORazepam 1 MG Tablet PO SCH ×2 (09:29→20:22)
[2018-05-20] MEDS: Ciprofloxacin 500 MG Tablet PO SCH ×2 (09:29→20:22)
[2018-05-20] MEDS: OLANZapine 10 MG Tablet PO SCH ×2 (09:29→20:22)
--- NOTE | 2018-05-20 11:22 | P.PNPSY ---
Subjective Chief Complaint: psychosis Remarks: Patient was seen and case discussed with nursing. Patient remains floridly psychotic. She has preoccupations and obsessions with her feces and urine. She is convinced that she is soiled herself multiple times. Attempts to explain to her that is not accurate failed. She refuses to leave the room. Continues to have suicidal ideation without plan Mental Status Examination Appearance: Appropriate Consciousness: Clouded Orientation: Person, Place Motor Activity: Normal gait Speech: Other (Low volume) Language: Adequate Fund of Knowledge: Adequate Attention and Concentration: Inadequate (Improved) Memory: Impaired Mood: Sad Affect: Blunt (Lessening) Thought Process & Associations: Linear, Other ([place]) Thought Content: Preoccupations Hallucination Type: None Delusion Type: Bizarre Suicidal Ideation: Yes Suicidal Plan: No Suicidal Intention: No Homicidal Ideation: No Homicidal Plan: No Homicidal Intention: No Insight: Poor Judgment: Poor Assessment and Plan - Assessment (1) Brief psychotic disorder with peripartum onset Code(s): O99.345 - Other mental disorders complicating the puerperium Status: Acute - Plan Plan: Continue current treatment plan Justification for Continued Inpatient Stay: Patient would decompensate in a less restrictive setting Request Healthcare Surrogate/Guardian Advocate?: Yes
[2018-05-21] MEDS: LORazepam 1 MG Tablet PO SCH ×2 (09:03→21:49)
[2018-05-21] MEDS: Ciprofloxacin 500 MG Tablet PO SCH ×2 (09:03→21:49)
[2018-05-21] MEDS: OLANZapine 10 MG Tablet PO SCH ×2 (09:03→21:50)
--- NOTE | 2018-05-21 09:21 | P.PNOB ---
Subjective Post op day: 17 Interval history: Pt is now POD 17 from LTCS. She is tolerating PO, but has to be encouraged to do same. Minimal lochia. Afebrile. no nausea or vomiting. She reports some incisional pain. Objective Vital Signs/I&O: Vital Signs 05/20/18 19:05 05/21/18 05:38 Temperature 98.9 F 97.0 F L Pulse Rate 115 H 104 H Respiratory Rate 20 16 Blood Pressure 119/62 127/75 Pulse Oximetry 95 96 Intake & Output 05/20/18 05/21/18 05/21/18 18:59 06:59 18:59 Intake Total 360 / 360 340 / 340 Balance 360 / 360 340 / 340 Intake: Oral 360 / 360 240 / 240 Oral Supplement 100 / 100 Other: # Voids 1 1 Result Diagrams: 05/17/18 15:54 05/17/18 15:54 Objective Remarks: GENERAL: Well-nourished, well-developed patient. CARDIOVASCULAR: Regular rate and rhythm without murmurs, gallops, or rubs. RESPIRATORY: Breath sounds equal bilaterally. No accessory muscle use. ABDOMEN/GI: Abdomen soft, non-tender, bowel sounds present. area of clearing acchymoses , non expanding. Gretchen-incisional induration Incision: small incisional openings. larger on left, drains small amount dark blood. dressing changed. Fundus: Firm, non-tender at umbilicus. GENITOURINARY: Light to moderate bleeding. EXTREMITIES: No cyanosis or edema, non-tender, without signs of DVT. Medications and IVs: Active Medications Acetaminophen (Tylenol) 650 mg PO Q4H PRN PRN Reason: PAIN SCALE 1 TO 2 Last Admin: 05/06/18 08:34 Dose: 650 mg Ciprofloxacin HCl (Cipro) 500 mg PO Q12HR [facility] Last Admin: 05/21/18 09:03 Dose: 500 mg Fluvoxamine Maleate (Luvox) 50 mg PO BID [facility] Last Admin: 05/21/18 09:03 Dose: 50 mg Ibuprofen (Motrin) 800 mg PO Q8H PRN PRN Reason: For Cramping Last Admin: 05/19/18 09:39 Dose: 800 mg Lorazepam (Ativan) 1 mg PO BID [facility] Last Admin: 05/21/18 09:03 Dose: 1 mg Miscellaneous (Pill Splitter) 1 each OTHER UNSCH PRN PRN Reason: SEE LABEL COMMENTS Naloxone HCl (Narcan Inj) 0.1 mg IV.PUSH Q2M PRN PRN Reason: for opiate reversal Olanzapine (Zyprexa) 10 mg PO BID [facility] Last Admin: 05/21/18 09:03 Dose: 10 mg Ondansetron HCl (Zofran Odt) 4 mg PO Q6H PRN PRN Reason: NAUSEA OR VOMITING Oxycodone/Acetaminophen (Percocet 5/325 Mg) 2 tab PO Q4H PRN PRN Reason: PAIN SCALE 6 TO 10 Oxycodone/Acetaminophen (Percocet 5/325 Mg) 1 tab PO Q4H PRN PRN Reason: PAIN SCALE 3 TO 5 Sennosides (Senokot) 17.2 mg PO Q12H PRN PRN Reason: Moderate Constipation Sodium Chloride (Ns Flush) 2 ml IV.FLUSH PRN PRN PRN Reason: FLUSH AFTER USING IV ACCESS Sodium Chloride (Ns Flush) 2 ml IV.FLUSH BID [facility] Last Admin: 05/21/18 09:04 Dose: Not Given Assessment and Plan - Diagnosis (1) delivery delivered Code(s): O82 - Encounter for delivery without indication Status: Acute (2) Wound hematoma following section, Code(s): O90.2 - Hematoma of obstetric wound Status: Acute Plan: Likely incisional hematoma, slowly draining. Remains afebrile. Continue Ciprofloxacin. Continue twice daily wound care Will check CBC today. - Plan Patient with wound hematoma and moderate induration and discoloration, plan to hydrogen peroxide Q-tip to clean the open incision that was opened today to allow blood out. Twice daily cleanings, begin on p.o. Cipro 500 twice daily And follow closely -
[2018-05-21 10:43] LABS: Baso # (Auto) 0.1 th/mm3 (0.0-0.2); Baso % (Auto) 0.5 % (0.0-2.0); Eos # (Auto) 0.1 th/mm3 (0.0-0.4); Hematocrit 38.5 % (35.0-46.0); Lymph # (Auto) 1.8 th/mm3 (1.0-4.8); Lymph % (Auto) 17.4 % (9.0-44.0); Mean Corpuscular HGB Conc 33.7 % (32.0-36.0); Mean Platelet Volume 8.8 fL (7.0-11.0); Mono # (Auto) 0.6 th/mm3 (0.0-0.9); Mono % (Auto) 5.9 % (0.0-8.0); Neut % (Auto) 75.2 % (16.0-70.0); Platelet Count 399 th/mm3 (150-450); Red Blood Count 4.33 mil/mm3 (4.00-5.30); Red Cell Distribution Width 15.1 % (11.6-17.2); White Blood Count 10.6 th/mm3 (4.0-11.0)
--- NOTE | 2018-05-21 12:46 | P.TTN ---
- Patient Problems Problems: 1. Discharge planning 2. Medication compliance 3. Knowledge deficit 4. Lack of coping skills - Progress Toward Goals Provider Present: Dr. Jolly Garvey (Pt. is eating better, no med adjustment) Provider Input: 05/16/2018: patient continues to show depressed mood, antidepressant with be restarted; doctor will contact psychiatrist / Chuck or Yohannes with [facility] [phone]. 05/14/2018; patient mood is lifted minimum, still requires titration with meds Nurse(s) Present: RN Nurse Input: 05/16/2018: Per Rn patient continues to require 1:1 with prompting and encouragement needed with mood. Patient is eating and taking her medication. 05/14/2018: Per RN patient requires coaching and prompting with daily activites/needs, medication, meals and ALD's. Patient remain 1:1 Psychiatric Counselors Present: CARLIN Rascon (Pt. will be d/c either home with or another treating facility.) Psychiatric Therapist Input: 05/16/2018: counselor have contact [facility] to reach out for transfer information. 05/14/2018; counselor will work with family with dc planning if needed into an inpatient treatment program when dc from this facility or with appropriate outpatient providers if dc home with and baby Group Spec/RT/OT/AREVALO Present: MICKEY Bach, Rodolfo Cee, OT Group Spec/RT/OT/AREVALO Input: 05/16/2018: patient is unable to tolerate peer activities or groups. 05/14/2018; patient has been unable to tolerate groups or activities - Documentation Teaching Recipient: Patient
--- NOTE | 2018-05-21 19:40 | P.PNPSY ---
Subjective Chief Complaint: psychosis Remarks: Patient seen for follow-up, chart reviewed. Discussion with nursing staff reported that patient continued with delusions of incontinence continue more internally preoccupied with the same. Patient was found lying hospital bed noted be more reactive and engaging conversation but continues with delusions of incontinence and stated that she is not able to get up from the bed although she has not done this multiple times in the past. Patient keeps repeating "I cannot do this anymore" and continues to be resistant with recommendations to have patient continue with adequate nutritional intake and participation in ambulation in groups and activities. Patient yesterday did eat 75% of her lunch and 100% of dinner was refusing to eat breakfast this morning. Patient was vague about suicide ideations today but later had endorse to nursing staff of continued thoughts of wanting to . Review of Systems All other systems reviewed negative except as stated in HPI Mental Status Examination Appearance: Appropriate Consciousness: Alert Orientation: Person, Place Motor Activity: Normal gait Speech: Other (Low volume) Language: Adequate Fund of Knowledge: Adequate Attention and Concentration: Inadequate (Improved) Memory: Impaired Mood: Sad Affect: Flat Thought Process & Associations: Linear, Other ([place]) Thought Content: Preoccupations (With recent bleeding from hematoma and reluctant to get up from the bed) Hallucination Type: None Delusion Type: None Suicidal Ideation: Yes Suicidal Plan: No Suicidal Intention: No Homicidal Ideation: No Homicidal Plan: No Homicidal Intention: No Insight: Poor Judgment: Poor Assessment and Plan - Assessment (1) Brief psychotic disorder with peripartum onset Code(s): O99.345 - Other mental disorders complicating the puerperium Status: Acute - Plan Plan: Patient appears more reactive and engaging interview continues to have perseveration of delusion that she is incontinent. Patient appears to be anxious and preoccupied with this notion and delusion. We will increase lorazepam to 1 mg p.o. 3 times daily. We will continue rest of medications. We will likely increase Luvox tomorrow for depression. Continue olanzapine 10 mg p.o. twice daily for psychosis. We will continue recommendations as per OB consult team regarding management of post incision and current hematoma. Documents for request for possible transfer to inpatient psychiatry facility closer to [place] (patient's home town (was sent out today we will await response. Continue to monitor mood and behavior. Discharge planning in progress. Justification for Continued Inpatient Stay: At risk of further decompensation at lower level care. Request Healthcare Surrogate/Guardian Advocate?: Yes
[2018-05-22] MEDS: OLANZapine 10 MG Tablet PO SCH ×2 (08:18→21:48)
[2018-05-22] MEDS: LORazepam 1 MG Tablet PO SCH ×3 (08:19→21:47)
[2018-05-22] MEDS: Ciprofloxacin 500 MG Tablet PO SCH ×2 (08:19→21:47)
--- NOTE | 2018-05-22 09:30 | P.PNOB ---
Subjective Post op day: 18 Interval history: Patient is now postop day 18 from section with Pfannenstiel incision. She is still hospitalized due to her psychosis, and we are still following her due to incisional hematoma. No acute events overnight. No new complaints this morning. Objective Vital Signs/I&O: Vital Signs 05/21/18 17:57 05/22/18 06:31 Temperature 97.8 F 98.1 F Pulse Rate 101 H 111 H Respiratory Rate 18 15 Blood Pressure 120/81 121/68 Pulse Oximetry 95 94 L Intake & Output 05/21/18 05/22/18 05/22/18 18:59 06:59 18:59 Intake Total 120 / 120 Balance 120 / 120 Intake: Oral 120 / 120 Oral Supplement 0 / 0 Other: # Voids 1 Result Diagrams: 05/21/18 10:37 05/17/18 15:54 Objective Remarks: General: Alert, well appearing, in no acute distress Skin: Warm and dry HEENT: Atraumatic. Moist mucus membranes Cardiovascular: Well perfused throughout, 2+ pedal pulses Pulmonary: No increased work of breathing. Abdominal: Non-tender. + Bowel sounds. Uterus firm and non-tender. Area of clearing ecchymoses and armen-incisional induration with interval improvement. Minimal old blood expressed from two pinpoint areas in the wound when pressure is applied. Medications and IVs: Active Medications Acetaminophen (Tylenol) 650 mg PO Q4H PRN PRN Reason: PAIN SCALE 1 TO 2 Last Admin: 05/06/18 08:34 Dose: 650 mg Ciprofloxacin HCl (Cipro) 500 mg PO Q12HR [facility] Last Admin: 05/22/18 08:19 Dose: 500 mg Fluvoxamine Maleate (Luvox) 50 mg PO BID@0900,1800 [facility] Last Admin: 05/22/18 08:19 Dose: 50 mg Ibuprofen (Motrin) 800 mg PO Q8H PRN PRN Reason: For Cramping Last Admin: 05/19/18 09:39 Dose: 800 mg Lorazepam (Ativan) 1 mg PO BID [facility] Last Admin: 05/22/18 08:19 Dose: 1 mg Lorazepam (Ativan) 1 mg PO DAILY@1500 [facility] Miscellaneous (Pill Splitter) 1 each OTHER UNSCH PRN PRN Reason: SEE LABEL COMMENTS Naloxone HCl (Narcan Inj) 0.1 mg IV.PUSH Q2M PRN PRN Reason: for opiate reversal Olanzapine (Zyprexa) 10 mg PO BID [facility] Last Admin: 05/22/18 08:18 Dose: 10 mg Ondansetron HCl (Zofran Odt) 4 mg PO Q6H PRN PRN Reason: NAUSEA OR VOMITING Oxycodone/Acetaminophen (Percocet 5/325 Mg) 2 tab PO Q4H PRN PRN Reason: PAIN SCALE 6 TO 10 Oxycodone/Acetaminophen (Percocet 5/325 Mg) 1 tab PO Q4H PRN PRN Reason: PAIN SCALE 3 TO 5 Sennosides (Senokot) 17.2 mg PO Q12H PRN PRN Reason: Moderate Constipation Sodium Chloride (Ns Flush) 2 ml IV.FLUSH PRN PRN PRN Reason: FLUSH AFTER USING IV ACCESS Sodium Chloride (Ns Flush) 2 ml IV.FLUSH BID [facility] Last Admin: 05/22/18 08:19 Dose: Not Given Assessment and Plan - Diagnosis (1) delivery delivered Code(s): O82 - Encounter for delivery without indication Status: Acute - Plan Patient is a 32-year-old female 18 days status post delivery with fundal steel incision. She is still hospitalized due to her psychosis and we are still following her due to her hematoma under the incision. -Significant interval improvement -Continue hydrogen peroxide Q-tip to clean the open incision, twice daily cleanings -Continue Cipro 500 twice daily -Will continue to follow Care discussed with: Dr. Weaver
--- NOTE | 2018-05-22 14:39 | P.DIET ---
Nutritional Evaluation Type of nutrition evaluation: follow-up Nutrition consult regarding: Diet Evaluation Nutrition screening: [facility] [place]: 05/08/18 [facility] Poor PO Intake Subjective Subjective Comments: Pt visited after lunch today. Sitter at bedside. PO intake 0% for breakfast and 25% for lunch(pt drank Ensure supplement and a soda plus a few bites of a dinner roll). Pt Encouraged pt to have po intake; a la carte menu options available to pt. reviewed again. RN Destiny notified that a Calorie count has been started. Objective - Diagnosis Unspecified Psychosis - Objective [place] body weight: 54.5 kg % IBW: 149 Body Weight Used for Calculations: IBW (54.5kg) Energy Needs - Lower Range (kCal/kg): 30 Energy Needs - Upper Range (kCal/kg): 35 Lower Limit kCal/kg (kCals): 1,635 Upper Limit kCal/kg (kCals): 1,908 Lower Limit Protein Factor (Grams per Kg): 1.3 Upper Limit Protein Factor (Grams per Kg): 1.5 Lower Protein Needs (Protein): 71 Upper Protein Needs (Protein): 82 Fluid Factor (ml/kg): 30 Estimated Fluid Needs (ml): 1,635 Dietitian Reviewed in Medical Record: Current diet, Curent medications, Intake & Output, Labs, Medical history Diet Order: Regular Oral Diet Intake Amount: Poor <50% Objective Comments: PMH: Agoraphobia w/panic attacks, anxiety, c-diff, depression, IBS Recent -delivered 05/04/18 @ 34 weeks gestation Meds Include: Luvox, Ativan, Zyprexa Feeding - Current PO Supplement Current Supplement: Ensure Enlive Current Frequency of Supplement: Three times a day Current kCals Provided by Supplement: 350 Current Protein Provided by Supplement: 20 Assessment Assessment: Pt continues at nutritional risk r/t poor po intake. PO intake continues to be less than 50% for meals here. Continue Ensure Enlive TID. Pt needs encouragement to have po intake. Reviewed menu options for a la carte items w/ pt during this visit, to assist w/po intake. Calorie Count stared today 05/22 through 05/24 w/Nutrition Recs to follow 05/25. Labs reviewed. Pt is noted w/a 5.1kg wt decrease since 05/05. Noted pt is post-op Day#18 . Dietitian following. Recommendations: 1. Continue Ensure Enlive TID 2. Pt needs encouragement to have po intake 3. Reviewed menu options for a la carte items w/pt during this visit, to assist w/po intake 4. Calorie Count stared today 05/22 through 05/24 w/Nutrition Recs to follow . Labs reviewed. Pt is noted w/a 5.1kg wt decrease since 05/05-noted pt is post-op Day#18 5. Dietitian following Dietitian to Monitor: Lab values, Supplement acceptance, Intake & Output, Weight change, PO Intake
--- NOTE | 2018-05-22 21:50 | P.PNPSY ---
Subjective Chief Complaint: psychosis Remarks: Patient seen for follow-up, chart reviewed. Discussion with nursing staff reported that patient still has draining from incision site continue to be monitored by OB consult team. Patient continue with suicide ideations. Patient was found lying hospital bed continues to have poor motivation stating "I cannot do this anymore" continues to be focused on delusion and having incontinence of urine or feces although now having more insight into realization that patient has not had any of these episodes and states "it is because I am close to a bathroom". Patient states that she continues to have thoughts of going to be alive but at the same time states that her recent delivery for her family, to be happy and to go back home. Patient continues report feeling depressed although states that she is wanting to try to participate more and nutritional p.o. intake in groups and activities. Discussion of having patient transferred to Hospital facility closer to her home town was reviewed which patient states that she did not want to move to a different hospital and wanted to stay in this facility but was encouraged that patient actively participated in her recovery if he wanted to be discharged home from this facility. Patient agreed to continue to make effort into her recovery and was noted to stand up after interview to go shower. Review of Systems All other systems reviewed negative except as stated in HPI Mental Status Examination Appearance: Appropriate Consciousness: Alert Orientation: Person, Place Motor Activity: Normal gait Speech: Other (Low volume) Language: Adequate Fund of Knowledge: Adequate Attention and Concentration: Inadequate (Improved) Memory: Impaired Mood: Sad Affect: Flat Thought Process & Associations: Linear, Other ([place]) Thought Content: Preoccupations (With recent bleeding from hematoma and reluctant to get up from the bed) Hallucination Type: None Delusion Type: None Suicidal Ideation: Yes Suicidal Plan: No Suicidal Intention: No Homicidal Ideation: No Homicidal Plan: No Homicidal Intention: No Insight: Poor Judgment: Poor Assessment and Plan - Assessment (1) Brief psychotic disorder with peripartum onset Code(s): O99.345 - Other mental disorders complicating the puerperium Status: Acute - Plan Plan: Patient noted to have more engagement and better eye contact with more organization during interview although continues to have perseveration on delusion of having fecal or urinary incontinence which I continue to be not observed by staff but noted to be lessening now. Patient now agreeing to participate more in her recovery that she does not want to be transferred to another facility for continued stabilization. Patient agreed to comply with recommendations while on the inpatient unit here. We will continue recommendations as per OB medical team for ongoing hematoma and draining from surgical incision from section. We will decrease fluvoxamine to 50 mg a.m./75 mg p.m. for depression. Continue to monitor mood and behavior. Continue one-to-one observation for safety. Discharge planning a progress. Justification for Continued Inpatient Stay: At risk of further decompensation at lower level care. Request Healthcare Surrogate/Guardian Advocate?: Yes
[2018-05-23] MEDS: Ciprofloxacin 500 MG Tablet PO SCH (08:31)
[2018-05-23] MEDS: LORazepam 1 MG Tablet PO SCH ×3 (08:31→21:09)
[2018-05-23] MEDS: OLANZapine 10 MG Tablet PO SCH ×2 (08:32→21:10)
--- NOTE | 2018-05-23 10:02 | P.OBGPN ---
S:Patient denies acute events over night. No increase in incisional or abdominal pain. Denies additional significant drainage. States "I can't keep doing this." Notes she has brought this up with psychiatry Exam: General: Alert, well appearing, in no acute distress. Skin: Warm and dry. Fresh blood at area of incision HEENT: Atraumatic. Moist mucus membranes Cardiovascular: Well perfused throughout, 2+ pedal pulses Pulmonary: No increased work of breathing. Abdominal: Non-tender. + Bowel sounds. Uterus firm and non-tender. Area of clearing ecchymoses and armen-incisional induration with interval improvement. Minimal old blood expressed from two pinpoint areas in the wound when pressure is applied. Abdominal induration, improved from yesterday. A/P: Patient is a 32-year-old female 19 days status post . She is still hospitalized due to her psychosis and we are still following her due to her hematoma under the incision. Hematoma improving. -Significant interval improvement -Continue hydrogen peroxide Q-tip to clean the open incision, twice daily cleanings -Continue Cipro 500 twice daily -Will continue to follow Patient was seen and examined with Dr. Kuo
--- NOTE | 2018-05-23 10:44 | P.PNADD ---
Addendum to Inpatient Note Reason for Addendum: Additional Documentation Additional information: Patient currently Obstetrically cleared from TOMOGRAPHIC TECH team. Hematoma resolving. Can be followed up outpatient. D/W Dr. Weaver
--- NOTE | 2018-05-23 14:48 | P.PNPSY ---
Subjective Chief Complaint: psychosis Remarks: Patient seen for follow-up, chart reviewed. Discussion with nursing staff reported that patient continues to require encouragement for p.o. and nutritional intake continues to eat poorly and continues require encouragement to participate in groups and activities which she will do reluctantly with much encouragement. OB specialty development consultant's had followed up with patient's recent incision hematoma which states that is resolving and can be followed up outpatient not requiring any surgical intervention at this time. Patient was found participating group earlier in the day and when approached during group patient to continue with perseveration stating "I cannot do this anymore" but was provided with supportive comments of encouragement. Patient was later seen in her room with sitter at bedside and seen with nurse. Patient was found lying hospital bed continues to state that "I cannot do this anymore" stating that it is too late. Patient continues to state that she wants to continues report feeling depressed. Patient noted to be more reactive engaging in interview no longer noted with thought blocking but is noted to be perseverating with these thoughts of "peeing and pooping of myself" which patient has not done since admission. Patient denies any perceptional disturbances at this time. Review of Systems All other systems reviewed negative except as stated in HPI Mental Status Examination Appearance: Appropriate Consciousness: Alert Orientation: Person, Place Motor Activity: Normal gait Speech: Other (Low volume) Language: Adequate Fund of Knowledge: Adequate Attention and Concentration: Inadequate (Improved) Memory: Impaired Mood: Sad Affect: Flat Thought Process & Associations: Linear, Other ([place]) Thought Content: Preoccupations (With recent bleeding from hematoma and reluctant to get up from the bed) Hallucination Type: None Delusion Type: None Suicidal Ideation: Yes Suicidal Plan: No Suicidal Intention: No Homicidal Ideation: No Homicidal Plan: No Homicidal Intention: No Insight: Poor Judgment: Poor Assessment and Plan - Assessment (1) Brief psychotic disorder with peripartum onset Code(s): O99.345 - Other mental disorders complicating the puerperium Status: Acute - Plan Plan: Patient currently participating more than before that she is shower today and was able to go to groups but with much encouragement. Patient continues to have poor p.o. intake particularly in the morning but is noted to eat more during the afternoon and evening. Patient recently had fluvoxamine increased to 50 mg a.m./75 g nightly for depression we will continue rest of medications. We will continue to monitor mood and behavior. We will continue to pursue her transfer to facility closer to patient's home and family in [place]. Documents to request review for acceptance of patient transfer was sent will await response. patient continue one-to-one observation for safety. Discharge planning a progress. Justification for Continued Inpatient Stay: At risk of further decompensation at lower level care. Request Healthcare Surrogate/Guardian Advocate?: Yes
[2018-05-24] MEDS: OLANZapine 10 MG Tablet PO SCH ×2 (08:03→21:08)
[2018-05-24] MEDS: LORazepam 1 MG Tablet PO SCH ×3 (08:03→21:08)
--- NOTE | 2018-05-24 14:24 | P.PNPSY ---
Subjective Chief Complaint: psychosis Remarks: Patient seen for follow-up, chart reviewed. Discussion with nursing staff reported that patient participated yesterday in groups and activities but today had refused participating and continues with poor p.o. intake but compliant with medications. Patient was found lying hospital bed noted to be, cooperative. Patient noted to be more engaging interview today. Patient states that her brother had come visited and she would like to go home with her brother and that she would do better at home. Patient states she does not want to go to a different facility and would like to be able to go home from this hospital. She reports being concerned of currently resolving hematoma from her incision from the section. Patient was stating "I cannot do this" several times during interview but less intense slightly less perseverative today. Patient was encouraged to participate in groups and activities and participated in self-care as well as nutritional intake if she wanted to be able to transition home. Patient agreed and stated wanting to continue providing effort. She states that she has been having lessening of suicide ideation last time was earlier this morning but denies at time of interview. Patient continues to deny any further perceptual disturbances. Review of Systems All other systems reviewed negative except as stated in HPI Mental Status Examination Appearance: Appropriate Consciousness: Alert Orientation: Person, Place Motor Activity: Normal gait Speech: Other (Low volume) Language: Adequate Fund of Knowledge: Adequate Attention and Concentration: Inadequate (Improved) Memory: Impaired Mood: Sad Affect: Blunt (More reactive affect) Thought Process & Associations: Linear Thought Content: Preoccupations (With thoughts of having frequent diarrhea) Hallucination Type: None Delusion Type: None Suicidal Ideation: Yes (Denies at time of interview but did endorse having suicide ideation earlier this morning) Suicidal Plan: No Suicidal Intention: No Homicidal Ideation: No Homicidal Plan: No Homicidal Intention: No Insight: Poor Judgment: Poor Assessment and Plan - Assessment (1) Brief psychotic disorder with peripartum onset Code(s): O99.345 - Other mental disorders complicating the puerperium Status: Acute - Plan Plan: Patient noted to be more reactive and engaging. Patient continues to have some perseveration on believing that she cannot participate in her care although has been improving and her participation as noted yesterday. Patient continues require much encouragement to engage in self-care and nutritional intake and participatory in groups and activities as well as ambulation. Patient agrees to continue to provide effort to do these things as condition to have a safe discharge. Patient denies any suicide at the time of interview stating that it is lessening now. We will continue current treatment. We will continue to monitor mood and behavior. Discharge planning a progress. Justification for Continued Inpatient Stay: At risk of further decompensation at lower level care. Request Healthcare Surrogate/Guardian Advocate?: Yes
--- NOTE | 2018-05-24 16:05 | P.TTN ---
- Patient Problems Problems: 1. Discharge planning 2. Medication compliance 3. Knowledge deficit 4. Lack of coping skills - Progress Toward Goals Provider Present: Dr. Jolly Garvey (Pt. is eating better, no med adjustment) Provider Input: 05/23/2018; per doctor patient's antidepressant med is being titrated. 05/16/2018: patient continues to show depressed mood, antidepressant with be restarted; doctor will contact psychiatrist / Chuck or Yohannes with [facility] [phone]. 05/14/2018; patient mood is lifted minimum, still requires titration with meds Nurse(s) Present: RN Nurse Input: 05/23/2018; no behavior, continues to require coaching and prompting with mood. 05/16/2018: Per Rn patient continues to require 1:1 with prompting and encouragement needed with mood. Patient is eating and taking her medication. 05/14/2018: Per RN patient requires coaching and prompting with daily activites/needs, medication, meals and ALD's. Patient remain 1:1 Psychiatric Counselors Present: CARLIN Rascon (Pt. will be d/c either home with or another treating facility.) Psychiatric Therapist Input: 05/23/2018; [facility] has denied patient; therefore counselor will try [facility] patient's home in [facility]. 05/16/2018: counselor have contact [facility] [phone] to reach out for transfer information. 05/14/2018; counselor will work with family with dc planning if needed into an inpatient treatment program when dc from this facility or with appropriate outpatient providers if dc home with and baby Group Spec/RT/OT/AREVALO Present: MICKEY Bach, Rodolfo Cee, OT Group Spec/RT/OT/AREVALO Input: 05/23/2018' per OT/RT patient is only able to tolerate limited activities and groups. 05/16/2018: patient is unable to tolerate peer activities or groups. 05/14/2018; patient has been unable to tolerate groups or activities - Documentation Teaching Recipient: Patient
[2018-05-25] MEDS: LORazepam 1 MG Tablet PO SCH ×3 (08:47→21:24)
[2018-05-25] MEDS: OLANZapine 10 MG Tablet PO SCH ×2 (08:47→21:24)
--- NOTE | 2018-05-25 10:48 | P.DIET ---
Nutritional Evaluation Type of nutrition evaluation: follow-up Nutrition consult regarding: Diet Evaluation Nutrition [place] [facility] [place] [facility] [place] PO Intake Subjective Subjective Comments: Brought forward from previous note: Pt Encouraged pt to have po intake; a la carte menu options available to pt. reviewed again. ERIKA Dixon notified that a Calorie count has been started. Objective - Diagnosis Unspecified Psychosis - Objective [place] body weight: 54.5 kg % IBW: 149 Body Weight Used for Calculations: IBW (54.5kg) Energy Needs - Lower Range (kCal/kg): 30 Energy Needs - Upper Range (kCal/kg): 35 Lower Limit kCal/kg (kCals): 1,635 Upper Limit kCal/kg (kCals): 1,908 Lower Limit Protein Factor (Grams per Kg): 1.3 Upper Limit Protein Factor (Grams per Kg): 1.5 Lower Protein Needs (Protein): 71 Upper Protein Needs (Protein): 82 Fluid Factor (ml/kg): 30 Estimated Fluid Needs (ml): 1,635 Dietitian Reviewed in Medical Record: Current diet, Curent medications, Intake & Output, Labs, Medical history Diet Order: Regular Oral Diet Intake Amount: Poor <50% Objective Comments: PMH: Agoraphobia w/panic attacks, anxiety, c-diff, depression, IBS Recent -delivered 05/04/18 @ 34 weeks gestation Meds Include: Luvox, Ativan, Zyprexa Feeding - Current PO Supplement Current Supplement: Ensure Enlive Current Frequency of Supplement: Three times a day Current kCals Provided by Supplement: 350 Current Protein Provided by Supplement: 20 - kCal Count Day 1 kCal Intake: 1,120 Day 1 Protein Intake: 61 Day 2 kCal Intake: 1,105 Day 2 Protein Intake: 70 Day 3 kCal Intake: 1,355 Day 3 Protein Intake: 61 Assessment Assessment: Pt continues at nutritional risk r/t poor po intake. Calorie Count 05/22 through 05/24 w/Adequate PO intake for an average over 3-days w/73% PO for kcals and 90% PO for protein. Ensure Enlive TID is primary source for pt's nutrition. Please continue to encourage pt to have po intake. Pt has menu and a la carte items available to assist w/po intake. Labs reviewed. Pt is noted w/a 5.1kg wt decrease since 05/05. Noted pt is post-op Day#21 . Dietitian following. Recommendations: 1. Calorie Count 05/22 through 05/24 w/Adequate PO intake for an average over 3- days w/73% PO for kcals and 90% PO for protein 2. Ensure Enlive TID is primary source for pt's nutrition 3. Please continue to encourage pt to have po intake 4. menu and a la carte items available for this pt to assist w/po intake 5. Pt is noted w/a 5.1kg wt decrease since 05/05-Noted pt is post-op Day#21 C- Section 6. Dietitian following Dietitian to Monitor: Lab values, Supplement acceptance, Intake & Output, Weight change, PO Intake
--- NOTE | 2018-05-25 15:41 | P.PNPSY ---
Subjective Chief Complaint: psychosis Remarks: Patient seen for follow-up, chart reviewed. Discussion with nursing staff reported that patient ate all of her dinner last night, showered, still stating that she cannot do this anymore. Patient was found lying on hospital bed, alert and oriented. Patient states that she is feeling "sad", denied any SI and states last was yesterday. She states that she would like to be discharged home but also stating "I can't do this anymore". She denies any perceptual disturbances but continues to require much encouragement with poor self motivation. Compliance and compliance with recommendations appears to be slowly improving. Review of Systems All other systems reviewed negative except as stated in HPI Mental Status Examination Appearance: Appropriate Consciousness: Alert Orientation: Person, Place Motor Activity: Normal gait Speech: Other (Low volume) Language: Adequate Fund of Knowledge: Adequate Attention and Concentration: Inadequate (Improved) Memory: Impaired Mood: Sad Affect: Blunt (More reactive affect) Thought Process & Associations: Linear Thought Content: Preoccupations (With thoughts of having frequent diarrhea) Hallucination Type: None Delusion Type: None Suicidal Ideation: Yes (denies today but unreliable to contract for safety) Suicidal Plan: No Suicidal Intention: No Homicidal Ideation: No Homicidal Plan: No Homicidal Intention: No Insight: Poor Judgment: Poor Assessment and Plan - Assessment (1) Brief psychotic disorder with peripartum onset Code(s): O99.345 - Other mental disorders complicating the puerperium Status: Acute - Plan Plan: Patient continues with motivation, continues to require much encouragement for ADLs, continues with perseveration of episodes of diarrhea despite nursing not reporting any frequent bouts of bowel movement as observed from the patient. She continues to endorse helplessness but is expressing now desire to want to go home. Patient to continue current treatment, will likely increase fluvoxamine in two days for depression. Continue rest of medications, continue to monitor mood and behavior. Continue 1:1 observation for safety. Discharge planning in progress. Justification for Continued Inpatient Stay: At risk for further decompensation at lower level of care. Request Healthcare Surrogate/Guardian Advocate?: Yes
[2018-05-26] MEDS: LORazepam 1 MG Tablet PO SCH ×3 (09:19→20:09)
[2018-05-26] MEDS: OLANZapine 10 MG Tablet PO SCH ×2 (09:22→20:09)
--- NOTE | 2018-05-26 09:27 | P.CONIM ---
History of Present Illness Service: [facility] Consult date: 05/26/18 Reason for Consult: Medical management/ CDIFF Primary Care Provider: UNKNOWN Chief Complaint: "Pooping and Peeing all the time" History of Present Illness: This is a 32 years old young female, , domiciled in [place] with her , who recently gave to a daughter on 04/23/2018 with past medical history of IBS, anxiety, chronic C. difficile, depression, agoraphobia and new onset psychosis. Patient was initially admitted to the psychiatric unit under the [place] act trying to hurt her and herself. Her baby was sent home with the family. Patient was transferred to the psychiatric unit for this psychiatric evaluation and management. CUFF SETTER OVERLOCK was following and was cleared from the CUFF SETTER OVERLOCK team. Medicine team was consulted for medical management. Patient seen and examined laying in bed, sitter at bedside, patient complained that "I cannot do this anymore." When asked what stated "peeping and pooping all the time." When verified with a sitter states that she is just had gone one void once this morning and does not have any bowel movement yet. Noted hat was placed in the bathroom to monitor her stools.. Patient denies any abdominal pain, nausea,or vomiting. Patient denies any headache or dizziness, pain, chest pain, or shortness of breath. Patient denies any fever or chills. Nurse denies any acute concerns. Review of Systems All other systems reviewed negative except as stated in HPI PMFSH - History History Provided By: Patient, Medical Record - Medical History Medical History: Medical History (Last Updated 05/26/18 @ 09:23 by JANINE Drake) Previous section complicating Agoraphobia with panic attacks Anxiety C. difficile diarrhea Depression History of IBS - Tobacco History Second Hand Smoke Exposure: No Smoking Status: Never smoker - Alcohol History How Often Do You Have a Drink Containing Alcohol: Never - Substance Use History Substance History: Unable to Obtain Medications and Allergies Active Medications: Active Medications Acetaminophen (Tylenol) 650 mg PO Q4H PRN PRN Reason: PAIN SCALE 1 TO 2 Last Admin: 05/06/18 08:34 Dose: 650 mg Fluvoxamine Maleate (Luvox) 75 mg PO DAILY@1800 [facility] Last Admin: 05/25/18 17:39 Dose: 75 mg Fluvoxamine Maleate (Luvox) 50 mg PO DAILY@0900 [facility] Last Admin: 05/25/18 08:47 Dose: 50 mg Ibuprofen (Motrin) 800 mg PO Q8H PRN PRN Reason: For Cramping Last Admin: 05/19/18 09:39 Dose: 800 mg Lorazepam (Ativan) 1 mg PO BID [facility] Last Admin: 05/25/18 21:24 Dose: 1 mg Lorazepam (Ativan) 1 mg PO DAILY@1500 [facility] Last Admin: 05/25/18 14:29 Dose: 1 mg Miscellaneous (Pill Splitter) 1 each OTHER UNSCH PRN PRN Reason: SEE LABEL COMMENTS Naloxone HCl (Narcan Inj) 0.1 mg IV.PUSH Q2M PRN PRN Reason: for opiate reversal Olanzapine (Zyprexa) 10 mg PO BID [facility] Last Admin: 05/25/18 21:24 Dose: 10 mg Ondansetron HCl (Zofran Odt) 4 mg PO Q6H PRN PRN Reason: NAUSEA OR VOMITING Oxycodone/Acetaminophen (Percocet 5/325 Mg) 2 tab PO Q4H PRN PRN Reason: PAIN SCALE 6 TO 10 Oxycodone/Acetaminophen (Percocet 5/325 Mg) 1 tab PO Q4H PRN PRN Reason: PAIN SCALE 3 TO 5 Sennosides (Senokot) 17.2 mg PO Q12H PRN PRN Reason: Moderate Constipation Sodium Chloride (Ns Flush) 2 ml IV.FLUSH PRN PRN PRN Reason: FLUSH AFTER USING IV ACCESS Sodium Chloride (Ns Flush) 2 ml IV.FLUSH BID [facility] Last Admin: 05/25/18 21:24 Dose: Not Given Allergies Allergy/AdvReac Type Severity Reaction Status Date / Time vortioxetine Allergy Hives Verified 04/23/18 20:36 [From Brintellix] ziprasidone [From Geodon] Allergy Chest Pain Verified 04/23/18 20:36 Home Medications Medication Instructions Recorded Confirmed Type PNV cmb#95-ferrous fumarate-FA 1 tab PO DAILY 04/23/18 05/03/18 History [] ursodiol [Actigall] 300 mg PO BID 04/23/18 05/03/18 History Exam Vital signs: Vital Signs 05/25/18 18:00 05/26/18 06:17 Temperature 97.4 F L 97.9 F Pulse Rate 95 H 126 H Respiratory Rate 20 18 Blood Pressure 113/69 121/69 Pulse Oximetry 94 L 94 L Intake & Output 05/25/18 05/26/18 05/26/18 18:59 06:59 18:59 Intake Total 1680 / 1680 0 / 0 Output Total 2 / 2 Balance 1678 / 1678 0 / 0 Intake: Oral 1680 / 1680 0 / 0 Output: Urine 2 / 2 Other: # Voids 0 Narrative: GENERAL: Well-developed, well-nourished, young female, laying in bed in no apparent distress SKIN: Warm and dry. HEAD: Atraumatic. Normocephalic. EYES: Pupils equal and round. No scleral icterus. No injection or drainage. ENT: No nasal bleeding or discharge. Mucous membranes pink and moist. NECK: Trachea midline. No JVD. CARDIOVASCULAR: Regular rate and rhythm. RESPIRATORY: No accessory muscle use. Clear to auscultation. Breath sounds equal bilaterally. GASTROINTESTINAL: Abdomen obese, soft, slight lower abdominal tenderness, on the incision site. Lower abdominal incision site dressed with dry sanguinous drainage noted. nondistended. Hepatic and splenic margins not palpable. MUSCULOSKELETAL: Extremities without clubbing, cyanosis, or edema. No obvious deformities. NEUROLOGICAL: Awake and alert. No obvious cranial nerve deficits. Motor grossly within normal limits. Five out of 5 muscle strength in the arms and legs. Normal speech. PSYCHIATRIC: Flat mood and affect; insight and judgment poor. Results - Labs CBC & Chem 7: 05/21/18 10:37 05/17/18 15:54 Assessment and Plan - Assessment (1) Hx of Clostridium difficile infection Code(s): Z86.19 - Personal history of other infectious and parasitic diseases Status: Acute (2) Psychosis Code(s): F29 - Unspecified psychosis not due to a substance or known physiological condition Status: Acute (3) Anxiety Code(s): F41.9 - Anxiety disorder, unspecified Status: Acute (4) IBS (irritable bowel syndrome) Code(s): K58.9 - Irritable bowel syndrome without diarrhea Status: Acute (5) Cholestatic liver disease Code(s): K76.89 - Other specified diseases of liver Status: Acute (6) Status post delivery Code(s): Z98.891 - History of uterine scar from previous surgery Status: Acute (7) Wound hematoma following section, Code(s): O90.2 - Hematoma of obstetric wound Status: Acute - Plan This is a 32 years old young female, , domiciled in [place] with her , who recently gave to a daughter on 04/23/2018 with past medical history of IBS, anxiety, chronic C. difficile, depression, agoraphobia and new onset psychosis. Patient was initially admitted to the psychiatric unit under the [place] act trying to hurt her and herself. Her baby was sent home with the family. Patient was transferred to the psychiatric unit for this psychiatric evaluation and management. CUFF SETTER OVERLOCK was following and was cleared from the CUFF SETTER OVERLOCK team. Medicine team was consulted for medical management. Hx of Clostridium difficile infection/IBS (irritable bowel syndrome) Personal history of other infectious and parasitic diseases, Acute on chronic -complaints of "pooping and peeping" all the time, but unwitnessed -monitor for stools, place a hat int he bathroom commode, discussed with nursing to monitor stools and report diarrhea -Send stool if have diarrhea -send Urine for UA with C & S if indicated -monitor labs, CBC, BMP, Mag level Status post delivery/Wound hematoma following section, History of uterine scar from previous surgery, Acute Hematoma of obstetric wound, Acute -OBGYN signed off -continue wound care and dressing changes Cholestatic liver disease Other specified diseases of liver, Acute pre- Resolved post monitor LFT Psychosis/ Anxiety/depression/agopraphobia Unspecified psychosis not due to a substance or known physiological condition, Acute -continue on current medications -Management by the psychiatry Team DVT prophylaxis: ambulatory (2) Psychosis Qualifiers: Schizoaffective disorder type: depressive (4) IBS (irritable bowel syndrome) Qualifiers: Irritable bowel syndrome type: with diarrhea Qualified Code(s): K58.0 - Irritable bowel syndrome with diarrhea
[2018-05-26 09:36] LABS: Baso # (Auto) 0.1 th/mm3 (0.0-0.2); Baso % (Auto) 0.6 % (0.0-2.0); Eos # (Auto) 0.4 th/mm3 (0.0-0.4); Eos % (Auto) 3.1 % (0.0-4.0); Hemoglobin 13.2 gm/dL (11.6-15.3); Lymph # (Auto) 1.5 th/mm3 (1.0-4.8); Lymph % (Auto) 11.8 % (9.0-44.0); Mean Corpuscular Hemoglobin 29.3 pg (27.0-34.0); Mean Corpuscular Volume 88.7 fL (80.0-100.0); Mean Platelet Volume 9.5 fL (7.0-11.0); Mono # (Auto) 0.7 th/mm3 (0.0-0.9); Mono % (Auto) 5.3 % (0.0-8.0); Neut # (Auto) 9.8 th/mm3 (1.8-7.7); Neut % (Auto) 79.2 % (16.0-70.0); Platelet Count 397 th/mm3 (150-450); Red Blood Count 4.51 mil/mm3 (4.00-5.30); Red Cell Distribution Width 14.6 % (11.6-17.2); White Blood Count 12.4 th/mm3 (4.0-11.0)
[2018-05-26 10:11] LABS: Calcium 9.3 mg/dL (8.5-10.1); Carbon Dioxide 28.7 meq/L (21.0-32.0); Potassium 4.4 meq/L (3.5-5.1)
--- NOTE | 2018-05-26 17:12 | P.PNPSY ---
Subjective Chief Complaint: psychosis Remarks: Patient was seen and case discussed with nursing. Patient remains scared of her surroundings and oppositional throughout the day. She is perseverant on the phrase "I cannot do that anymore." She is perseverant with her bowel movements. Nursing was able to get her to go outside and change her own pants earlier. Continues to lay in bed most of the time Mental Status Examination Appearance: Appropriate Consciousness: Alert Orientation: Person, Place Motor Activity: Normal gait Speech: Other (Low volume) Language: Adequate Fund of Knowledge: Adequate Attention and Concentration: Inadequate (Improved) Memory: Impaired Mood: Sad Affect: Blunt (More reactive affect) Thought Process & Associations: Linear Thought Content: Preoccupations (With thoughts of having frequent diarrhea) Hallucination Type: None Delusion Type: None Suicidal Ideation: Yes (denies today but unreliable to contract for safety) Suicidal Plan: No Suicidal Intention: No Homicidal Ideation: No Homicidal Plan: No Homicidal Intention: No Insight: Poor Judgment: Poor Assessment and Plan - Assessment (1) Brief psychotic disorder with peripartum onset Code(s): O99.345 - Other mental disorders complicating the puerperium Status: Acute - Plan Plan: Consider ECT treatment at another facility, Continue current treatment plan Justification for Continued Inpatient Stay: Patient would decompensate in a less restrictive setting Request Healthcare Surrogate/Guardian Advocate?: Yes
[2018-05-27] MEDS: LORazepam 1 MG Tablet PO SCH ×3 (08:24→20:13)
[2018-05-27] MEDS: OLANZapine 10 MG Tablet PO SCH ×2 (08:24→20:13)
[2018-05-27 08:59] LABS: Albumin 3.1 g/dL (3.4-5.0); Magnesium 2.2 mg/dL (1.5-2.5); Thyroid Stimulating Hormone 1.14 uIU/mL (0.358-3.740); Total Protein 7.1 g/dL (6.4-8.2)
--- NOTE | 2018-05-27 09:14 | P.PNIM ---
Subjective Interval history: Pt just get out of the bathroom, stated no bowels," just pee" Patient stated "I cannot do this anymore" Patient stated have "some blood on the abdomen, and just change the dressing this morning and pooping and peeing all the time" patient denies any pain, chest pain or SOB. denies any abdominal pain, sacral pain or bottom discomfort. Denies any nausea or vomiting. Denies any fever or chills. Nurse denies any acute complaints for the patient. Discussed Hat in the bathroom to cath the stool. Reported pt so far have 1 stool that is formed but soft and brown. Physical Exam Vital signs: Vital Signs 05/26/18 17:52 05/27/18 05:58 Temperature 98.6 F 98.6 F Pulse Rate 102 H 110 H Respiratory Rate 18 15 Blood Pressure 113/69 111/79 Pulse Oximetry 95 94 L Intake & Output 05/26/18 05/27/18 05/27/18 19:59 06:59 18:59 Intake Total Balance Intake: Oral Other: # Voids Date of Last Bowel Movement Narrative: GENERAL: Well-developed, well-nourished, young female, laying in bed in no apparent distress SKIN: Warm and dry. HEAD: Atraumatic. Normocephalic. EYES: Pupils equal and round. No scleral icterus. No injection or drainage. ENT: No nasal bleeding or discharge. Mucous membranes pink and moist. NECK: Trachea midline. No JVD. CARDIOVASCULAR: Regular rate and rhythm. RESPIRATORY: No accessory muscle use. Clear to auscultation. Breath sounds equal bilaterally. GASTROINTESTINAL: Abdomen obese, soft, slight lower abdominal tenderness, on the incision site. Lower abdominal incision site dressed with dry sanguinous drainage noted. Incision with ecchimosis and small hematoma noted with sanguinous drainage. nondistended. Hepatic and splenic margins not palpable. MUSCULOSKELETAL: Extremities without clubbing, cyanosis, or edema. No obvious deformities. NEUROLOGICAL: Awake and alert. No obvious cranial nerve deficits. Motor grossly within normal limits. Five out of 5 muscle strength in the arms and legs. Normal speech. PSYCHIATRIC: Flat mood and affect; insight and judgment poor. Results - Labs CBC & Chem 7: 05/26/18 09:18 05/26/18 09:18 Laboratory Results - last 24 hr 05/26/18 05/27/18 09:18 07:27 Sodium 142 Potassium 4.4 Chloride 106 Carbon Dioxide 28.7 Anion Gap 7 BUN 11 Creatinine 0.86 Estimated GFR 77 L Random Glucose 98 Calcium 9.3 Magnesium 2.2 Total Bilirubin 0.6 Direct Bilirubin 0.1 Indirect Bilirubin 0.5 AST 30 ALT 33 Alkaline Phosphatase 105 Total Protein 7.1 Albumin 3.1 L TSH 1.140 Assessment and Plan - Assessment (1) Hx of Clostridium difficile infection Code(s): Z86.19 - Personal history of other infectious and parasitic diseases Status: Acute (2) Psychosis Code(s): F29 - Unspecified psychosis not due to a substance or known physiological condition Status: Acute (3) Anxiety Code(s): F41.9 - Anxiety disorder, unspecified Status: Acute (4) IBS (irritable bowel syndrome) Code(s): K58.9 - Irritable bowel syndrome without diarrhea Status: Acute (5) Cholestatic liver disease Code(s): K76.89 - Other specified diseases of liver Status: Acute (6) Status post delivery Code(s): Z98.891 - History of uterine scar from previous surgery Status: Acute (7) Wound hematoma following section, Code(s): O90.2 - Hematoma of obstetric wound Status: Acute - Plan This is a 32 years old young female, , domiciled in [place] with her , who recently gave to a daughter on 04/23/2018 with past medical history of IBS, anxiety, chronic C. difficile, depression, agoraphobia and new onset psychosis. Patient was initially admitted to the psychiatric unit under the [place] act trying to hurt her and herself. Her baby was sent home with the family. Patient was transferred to the psychiatric unit for this psychiatric evaluation and management. ARMATURE BALANCER was following and was cleared from the ARMATURE BALANCER team. Medicine team was consulted for medical management. Hx of Clostridium difficile infection/IBS (irritable bowel syndrome) Personal history of other infectious and parasitic diseases, Acute on chronic -complaints of "pooping and peeping" all the time, but unwitnessed -monitor for stools, place a hat int he bathroom commode, discussed with nursing to monitor stools and report diarrhea -Send stool if have diarrhea -send Urine for UA with C & S if indicated -monitor labs, CBC, BMP, Mag level -no diarrhea reported by nursing, continue to monitor stool and have hat in the commode at all times Status post delivery/Wound hematoma following section, History of uterine scar from previous surgery, Acute Hematoma of obstetric wound, Acute -OBGYN signed off -continue wound care and dressing changes Leukocytosis WBC slightly elevated Likely related to post op with incision complication -no fever or chills -monitor CBC Cholestatic liver disease Other specified diseases of liver, Acute pre- Resolved post monitor LFT Psychosis/ Anxiety/depression/agopraphobia Unspecified psychosis not due to a substance or known physiological condition, Acute -continue on current medications -Management by the psychiatry Team DVT prophylaxis: ambulatory Code Status: full code Discussed Condition With: patient and nurse (2) Psychosis Qualifiers: Schizoaffective disorder type: depressive (4) IBS (irritable bowel syndrome) Qualifiers: Irritable bowel syndrome type: with diarrhea Qualified Code(s): K58.0 - Irritable bowel syndrome with diarrhea
--- NOTE | 2018-05-27 13:35 | P.PNPSY ---
Subjective Chief Complaint: psychosis Remarks: Patient was seen and case discussed with nursing. Today there is a small improvement in patient's thought process and behavior. She was able to get out of bed and I asked her to do 10 laps around the unit. On each lap she kept asking me about diarrhea and did this in an attempt to show her that she can move around without having such an episode. She is interested in going home supportive therapy was done. Mental Status Examination Appearance: Appropriate Consciousness: Alert Orientation: Person, Place Motor Activity: Normal gait Speech: Other (Low volume) Language: Adequate Fund of Knowledge: Adequate Attention and Concentration: Inadequate (Improved) Memory: Impaired Mood: Sad Affect: Blunt (More reactive affect) Thought Process & Associations: Linear Thought Content: Preoccupations (With thoughts of having frequent diarrhea) Hallucination Type: None Delusion Type: None Suicidal Ideation: Yes (denies today but unreliable to contract for safety) Suicidal Plan: No Suicidal Intention: No Homicidal Ideation: No Homicidal Plan: No Homicidal Intention: No Insight: Poor Judgment: Poor Assessment and Plan - Assessment (1) Brief psychotic disorder with peripartum onset Code(s): O99.345 - Other mental disorders complicating the puerperium Status: Acute - Plan Plan: Consider ECT treatment at another facility, Continue current treatment plan Justification for Continued Inpatient Stay: Patient would decompensate in a less restrictive setting Request Healthcare Surrogate/Guardian Advocate?: Yes
[2018-05-28 07:09] LABS: Baso % (Auto) 0.5 % (0.0-2.0); Eos # (Auto) 0.5 th/mm3 (0.0-0.4); Eos % (Auto) 4.7 % (0.0-4.0); Hematocrit 40.5 % (35.0-46.0); Hemoglobin 13.4 gm/dL (11.6-15.3); Lymph # (Auto) 2.1 th/mm3 (1.0-4.8); Lymph % (Auto) 20.5 % (9.0-44.0); Mean Corpuscular HGB Conc 33.1 % (32.0-36.0); Mean Corpuscular Hemoglobin 29.6 pg (27.0-34.0); Mean Corpuscular Volume 89.5 fL (80.0-100.0); Mean Platelet Volume 9.9 fL (7.0-11.0); Mono # (Auto) 0.6 th/mm3 (0.0-0.9); Mono % (Auto) 5.9 % (0.0-8.0); Neut # (Auto) 7.1 th/mm3 (1.8-7.7); Neut % (Auto) 68.4 % (16.0-70.0); Platelet Count 406 th/mm3 (150-450); Red Blood Count 4.53 mil/mm3 (4.00-5.30); Red Cell Distribution Width 14.9 % (11.6-17.2); White Blood Count 10.4 th/mm3 (4.0-11.0)
--- NOTE | 2018-05-28 08:33 | P.PNIM ---
Subjective Interval history: Follow up IBS, anxiety, chronic C. difficile, depression, agoraphobia and new onset psychosis. Pt lying in bed, awake, denies any pain or SOB, Denies abdominal pain, nausea, or vomiting. c/o"I Cannot do this anymore", stated does not want to go to activity, c/o "pooping too much", when asked when was the last time she goes, pt stated " I did not go last night coz I held it" and "dressing bleeding too much " Nurse reported no diarrhea, and output being monitored Physical Exam Vital signs: Vital Signs 05/27/18 18:17 05/28/18 06:00 Temperature 98.9 F 98.3 F Pulse Rate 102 H 131 H Respiratory Rate 18 16 Blood Pressure 115/66 127/81 Pulse Oximetry 95 98 Intake & Output 05/27/18 05/28/18 05/28/18 18:59 06:59 18:59 Intake Total 560 / 560 Balance 560 / 560 Weight 78.4 kg Intake: Oral 560 / 560 Other: # Voids 2 1 Date of Last Bowel Movement 05/27/18 05/27/18 Narrative: GENERAL: Well-developed, well-nourished, young female, laying in bed in no apparent distress SKIN: Warm and dry. HEAD: Atraumatic. Normocephalic. EYES: Pupils equal and round. No scleral icterus. No injection or drainage. ENT: No nasal bleeding or discharge. Mucous membranes pink and moist. NECK: Trachea midline. No JVD. CARDIOVASCULAR: Regular rate and rhythm. RESPIRATORY: No accessory muscle use. Clear to auscultation. Breath sounds equal bilaterally. GASTROINTESTINAL: Abdomen obese, soft, slight lower abdominal tenderness, on the incision site. nondistended.Hepatic and splenic margins not palpable. SAMPLE MAKER HAND: Lower abdominal incision site dressed with dry and intact. Incision with ecchimosis and small hematoma noted with sanguinous drainage. MUSCULOSKELETAL: Extremities without clubbing, cyanosis, or edema. No obvious deformities. NEUROLOGICAL: Awake and alert. No obvious cranial nerve deficits. Motor grossly within normal limits. Five out of 5 muscle strength in the arms and legs. Normal speech. PSYCHIATRIC: Flat mood and affect; insight and judgment poor. Results - Labs CBC & Chem 7: 05/28/18 06:39 05/26/18 09:18 Laboratory Results - last 24 hr 05/27/18 05/28/18 07:27 06:39 WBC 10.4 RBC 4.53 Hgb 13.4 Hct 40.5 MCV 89.5 MCH 29.6 MCHC 33.1 RDW 14.9 Plt Count 406 MPV 9.9 Neut % (Auto) 68.4 Lymph % (Auto) 20.5 [place] % (Auto) 5.9 Eos % (Auto) 4.7 H Baso % (Auto) 0.5 Neut # (Auto) 7.1 Lymph # (Auto) 2.1 [place] # (Auto) 0.6 Eos # (Auto) 0.5 H Baso # (Auto) 0.0 WBC Differential . Differential Comment Auto diff final Magnesium 2.2 Total Bilirubin 0.6 Direct Bilirubin 0.1 Indirect Bilirubin 0.5 AST 30 ALT 33 Alkaline Phosphatase 105 Total Protein 7.1 Albumin 3.1 L TSH 1.140 Assessment and Plan - Assessment (1) Hx of Clostridium difficile infection Code(s): Z86.19 - Personal history of other infectious and parasitic diseases Status: Acute (2) Psychosis Code(s): F29 - Unspecified psychosis not due to a substance or known physiological condition Status: Acute (3) Anxiety Code(s): F41.9 - Anxiety disorder, unspecified Status: Acute (4) IBS (irritable bowel syndrome) Code(s): K58.9 - Irritable bowel syndrome without diarrhea Status: Acute (5) Cholestatic liver disease Code(s): K76.89 - Other specified diseases of liver Status: Acute (6) Status post delivery Code(s): Z98.891 - History of uterine scar from previous surgery Status: Acute (7) Wound hematoma following section, Code(s): O90.2 - Hematoma of obstetric wound Status: Acute - Plan This is a 32 years old young female, , domiciled in [place] with her , who recently gave to a daughter on 04/23/2018 with past medical history of IBS, anxiety, chronic C. difficile, depression, agoraphobia and new onset psychosis. Patient was initially admitted to the psychiatric unit under the [place] act trying to hurt her and herself. Her baby was sent home with the family. Patient was transferred to the psychiatric unit for this psychiatric evaluation and management. GAME TECHNICIAN was following and was cleared from the GAME TECHNICIAN team. Medicine team was consulted for medical management. Hx of Clostridium difficile infection/IBS (irritable bowel syndrome) Personal history of other infectious and parasitic diseases, Acute on chronic -complaints of "pooping and peeping" all the time, but unwitnessed -monitor for stools, place a hat int he bathroom commode, discussed with nursing to monitor stools and report diarrhea -Send stool if have diarrhea: no diarrhea - Urine for UA with C & S if indicated: negative -monitor labs, CBC, BMP, Mag level -no diarrhea reported by nursing, continue to monitor stool and have hat in the commode at all times -WBC 10.4 Status post delivery/Wound hematoma following section, History of uterine scar from previous surgery, Acute Hematoma of obstetric wound, Acute -OBGYN signed off -continue incision care and dressing changes -slight sanguinous drainage noted on the incision site, ecchymosis and small hematoma, resolving Leukocytosis WBC slightly elevated, improving, 10.4 today Likely related to post op with incision complication -no fever or chills -monitor CBC Cholestatic liver disease Other specified diseases of liver, Acute -pre- -Resolved post -LFT, within normal limits Psychosis/ Anxiety/depression/agopraphobia Unspecified psychosis not due to a substance or known physiological condition, Acute -continue on current medications -Management by the psychiatry Team DVT prophylaxis: ambulatory Code Status: full code Discussed Condition With: patient and nurse (2) Psychosis Qualifiers: Schizoaffective disorder type: depressive (4) IBS (irritable bowel syndrome) Qualifiers: Irritable bowel syndrome type: with diarrhea Qualified Code(s): K58.0 - Irritable bowel syndrome with diarrhea
[2018-05-28] MEDS: LORazepam 1 MG Tablet PO SCH ×3 (09:49→20:31)
[2018-05-28] MEDS: OLANZapine 10 MG Tablet PO SCH ×2 (11:50→20:31)
--- NOTE | 2018-05-28 13:00 | P.TTN ---
- Patient Problems Problems: 1. Discharge planning 2. Medication compliance 3. Knowledge deficit 4. Lack of coping skills - Progress Toward Goals Provider Present: Dr. Jolly Garvey (Pt. is eating better, no med adjustment) Provider Input: 05/28/2018; per doctor patient exhibit minor improvement with her mood/behavior continues to require stablization and possible ECT as dc option. 05/23/2018; per doctor patient's antidepressant med is being titrated. 05/16/2018: patient continues to show depressed mood, antidepressant with be restarted; doctor will contact psychiatrist / Chuck or Yohannes with [facility] [phone]. 05/14/2018; patient mood is lifted minimum, still requires titration with meds Nurse(s) Present: RN Nurse Input: 05/28/2018; per RN patient lacks movitation, and requires coaching with behavior and activity participation. Patient is taking her medication and eating meals. 05/23/2018; no behavior, continues to require coaching and prompting with mood. 05/16/2018: Per Rn patient continues to require 1:1 with prompting and encouragement needed with mood. Patient is eating and taking her medication. 05/14/2018: Per RN patient requires coaching and prompting with daily activites/needs, medication, meals and ALD's. Patient remain 1:1 Psychiatric Counselors Present: CARLIN Rascon (Pt. will be d/c either home with or another treating facility.) Psychiatric Therapist Input: 05/28/2018; Counselor faxed package to [facility] who report they will staff package within the next 24 hours; counselor had RN complete nurse to nurse on 05/25/18. Per facility they would like 3 negative Cdiff. 05/23/2018; [facility] has denied patient; therefore counselor will try [facility] patient's home in [facility]. 05/16/2018: counselor have contact [facility] [phone] to reach out for transfer information. 05/14/2018; counselor will work with family with dc planning if needed into an inpatient treatment program when dc from this facility or with appropriate outpatient providers if dc home with and baby Group Spec/RT/OT/AREVALO Present: MICKEY Bach, Rodolfo Cee, OT Group Spec/RT/OT/AREVALO Input: 05/28/2018; per OT/RT patient participates with limited groups. 05/23/2018' per OT/RT patient is only able to tolerate limited activities and groups. 05/16/2018: patient is unable to tolerate peer activities or groups. 05/14/2018; patient has been unable to tolerate groups or activities - Documentation Teaching Recipient: Patient
--- NOTE | 2018-05-28 15:37 | P.PNPSY ---
Subjective Chief Complaint: psychosis Remarks: Patient seen for follow-up, chart reviewed. Discussion with nursing staff reported that patient patient slept, no diarrhea noted. Patient was found lying hospital bed noted initially react to investigative writer's presence as staff was attempting to have patient participate in groups and activity and was calling to my attention stating that she cannot do this. Patient states that over the weekend she stayed mostly in bed but it a little bit and on Monday she states she had a normal whole dinner and drank all of the Ensure on her tray. She states that she wants to be able to be discharged home asking to be discharged today. She patient reports having slept better last evening and that her mood continues to be "a little depressed" but denying any suicide ideation at this time. Patient states the last time she had suicide ideation was several days ago. She mentions having been visited by her parents which she states went well which they were encouraged her to continue to participate more in her care. Patient after interview was encouraged by staff and was able to comply and participating group today. Patient noted to be less resistant to encouragement and appears to be improving. Collateral formation obtained by patient stated that he believes she is doing better and that the parents upon visiting with a week and also thought she was doing better. Plan of having patient transferred to another psychiatric facility if she continues to require more time for recovery was reviewed but 's and patient's parents preference was to for patient to be discharged home as a state they would have someone with her every day to monitor her progress and work closely with her outpatient psychiatrist. Review of Systems All other systems reviewed negative except as stated in HPI Mental Status Examination Appearance: Appropriate Consciousness: Alert Orientation: Person, Place Motor Activity: Normal gait Speech: Other (Low volume) Language: Adequate Fund of Knowledge: Adequate Attention and Concentration: Inadequate (Improved) Memory: Impaired Mood: Sad ("A little bit") Affect: Blunt (More reactive affect) Thought Process & Associations: Goal directed (Want to be discharged home), Linear Thought Content: Preoccupations (With thoughts of having frequent diarrhea are less intense and thoughts of not being able to "do it" also lessening in intensity) Hallucination Type: None Delusion Type: None Suicidal Ideation: No Suicidal Plan: No Suicidal Intention: No Homicidal Ideation: No Homicidal Plan: No Homicidal Intention: No Insight: Poor Judgment: Poor Assessment and Plan - Assessment (1) Brief psychotic disorder with peripartum onset Code(s): O99.345 - Other mental disorders complicating the puerperium Status: Acute - Plan Plan: Patient this time noted with improved affect and more engaging in interview with improve eye contact as well. Patient continues to have some depressed mood as well as continues to have perseveration that she "cannot do it" but less intense and less resistant to encouragement to participate in groups and activities. Patient continues to require encouragement as well as continues to request to be discharged home at the same time. Patient denies any suicide ideation and denies having had this since the past couple of days. Patient has been also would like patient to be discharged home but is concerned about her safety and aware the patient has denied any suicide ideation for the past couple of days although aware that patient motivation continues to be a concern which patient continues to require encouragement for ADLs but appears to be improving at this ends as well. We will continue plan to have patient presented to Hospital local to [place] where they live if patient worsens requiring more time for stabilization. Possibility of patient returning back to her residence with her family and the support plan may be likely if patient continues to maintain improved mood denying any suicidality and participating in ADLs and activities. We will increase fluvoxamine to 75 mg p.o. twice daily , continue rest of medications. Continue to monitor mood and behavior. Patient to continue one-to-one observation for safety continue to encourage patient to participate in ADLs in groups and activities. Discharge planning a progress. Justification for Continued Inpatient Stay: At risk of further decompensation at lower level care. Request Healthcare Surrogate/Guardian Advocate?: Yes
--- NOTE | 2018-05-29 08:19 | P.PNIM ---
Subjective Interval history: Follow up IBS, anxiety, chronic C. difficile, depression, agoraphobia and new onset psychosis. Pt lying in the bed, awake, alert and oriented x 3. Stated "she cannot do this anymore", stated does not want to go to activity because she is "pooping a lot" when asked when was the last time she pooped, stated yesterday. Nurse reported no diarrhea. Pt denies any abdominal pain, nausea, vomiting, diarrhea or constipation. Denies any pain, chest pain or SOB, Denies any fever or chills. Physical Exam Vital signs: Vital Signs 05/28/18 17:41 05/29/18 06:04 Temperature 98.0 F 98.6 F Pulse Rate 101 H 129 H Respiratory Rate 17 18 Blood Pressure 126/90 124/87 Pulse Oximetry 96 96 Intake & Output 05/28/18 05/29/18 05/29/18 18:59 06:59 18:59 Intake Total 960 / 960 670 / 670 Balance 960 / 960 670 / 670 Intake: Oral 960 / 960 670 / 670 Other: # Voids 2 Date of Last Bowel Movement 05/27/18 # Bowel Movements 1 Narrative: GENERAL: Well-developed, well-nourished, young female, laying in bed in no apparent distress SKIN: Warm and dry. HEAD: Atraumatic. Normocephalic. EYES: Pupils equal and round. No scleral icterus. No injection or drainage. ENT: No nasal bleeding or discharge. Mucous membranes pink and moist. NECK: Trachea midline. No JVD. CARDIOVASCULAR: Regular rate and rhythm. RESPIRATORY: No accessory muscle use. Clear to auscultation. Breath sounds equal bilaterally. GASTROINTESTINAL: Abdomen obese, soft, slight lower abdominal tenderness, on the incision site. nondistended.Hepatic and splenic margins not palpable. CHILD CARE COORDINATOR: Lower abdominal incision site dressed with dry and intact. Incision with ecchimosis and medium size hematoma noted and marked, with sanguinous drainage on 3 areas of incision site. MUSCULOSKELETAL: Extremities without clubbing, cyanosis, or edema. No obvious deformities. NEUROLOGICAL: Awake and alert. No obvious cranial nerve deficits. Motor grossly within normal limits. Five out of 5 muscle strength in the arms and legs. Normal speech. PSYCHIATRIC: Flat mood and affect; insight and judgment poor. Results - Labs CBC & Chem 7: 05/28/18 06:39 05/26/18 09:18 Assessment and Plan - Assessment (1) Hx of Clostridium difficile infection Code(s): Z86.19 - Personal history of other infectious and parasitic diseases Status: Acute (2) Psychosis Code(s): F29 - Unspecified psychosis not due to a substance or known physiological condition Status: Acute (3) Anxiety Code(s): F41.9 - Anxiety disorder, unspecified Status: Acute (4) IBS (irritable bowel syndrome) Code(s): K58.9 - Irritable bowel syndrome without diarrhea Status: Acute (5) Cholestatic liver disease Code(s): K76.89 - Other specified diseases of liver Status: Acute (6) Status post delivery Code(s): Z98.891 - History of uterine scar from previous surgery Status: Acute (7) Wound hematoma following section, Code(s): O90.2 - Hematoma of obstetric wound Status: Acute - Plan This is a 32 years old young female, , domiciled in [place] with her , who recently gave to a daughter on 04/23/2018 with past medical history of IBS, anxiety, chronic C. difficile, depression, agoraphobia and new onset psychosis. Patient was initially admitted to the psychiatric unit under the [place] act trying to hurt her and herself. Her baby was sent home with the family. Patient was transferred to the psychiatric unit for this psychiatric evaluation and management. SUPERVISORY CIVIL ENGINEER was following and was cleared from the SUPERVISORY CIVIL ENGINEER team. Medicine team was consulted for medical management. Hx of Clostridium difficile infection/IBS (irritable bowel syndrome) Personal history of other infectious and parasitic diseases, Acute on chronic -complaints of "pooping and peeping" all the time, but unwitnessed -monitor for stools, place a hat int he bathroom commode, discussed with nursing to monitor stools and report diarrhea -Send stool if have diarrhea: no diarrhea - Urine for UA with C & S if indicated: negative -monitor labs, CBC, BMP, Mag level -no diarrhea reported by nursing, continue to monitor stool and have hat in the commode at all times -WBC 10.4, no fever or chills, monitor signs and symptoms Status post delivery/ Wound hematoma following section, History of uterine scar from previous surgery, Acute Hematoma of obstetric wound, Acute -OBGYN signed off -continue incision care and dressing changes -slight sanguinous drainage noted on the incision site, 3 small open areas with sanguinous drainaige,ecchymosis and moderate size hematoma -wound care consult for incisional wound management Leukocytosis WBC slightly elevated, improving, 10.4 today Likely related to post op with incision complication -no fever or chills -monitor CBC Cholestatic liver disease Other specified diseases of liver, Acute -pre- -Resolved post -LFT, within normal limits Psychosis/ Anxiety/depression/agopraphobia Unspecified psychosis not due to a substance or known physiological condition, Acute -continue on current medications -Management by the psychiatry Team DVT prophylaxis: ambulatory Code Status: full code Discussed Condition With: patient and nurse (2) Psychosis Qualifiers: Schizoaffective disorder type: depressive (4) IBS (irritable bowel syndrome) Qualifiers: Irritable bowel syndrome type: with diarrhea Qualified Code(s): K58.0 - Irritable bowel syndrome with diarrhea
--- NOTE | 2018-05-29 09:13 | P.PNWCN ---
Wound Care Nurse Consult Additional information: Patient not seen for lower abdominal incision site. General surgery is consulted for possible necrotizing infection. OBGYN has signed off, but has been less than 30 days. Please reconsult OBGYN for incision site management.
[2018-05-29] MEDS: OLANZapine 10 MG Tablet PO SCH ×2 (09:57→20:35)
[2018-05-29] MEDS: LORazepam 1 MG Tablet PO SCH ×3 (09:57→20:35)
[2018-05-29 14:30] LABS: Amorphous Sediment,Urine Rare /hpf; Bilirubin,Urine Negative (Negative); Clarity,Urine Clear (Clear); Color,Urine Yellow (Yellw/Straw); Glucose,Urine (UA) Negative (Negative); Leukocyte Esterase,Urine Small (Negative); Mucus,Urine Few /lpf (Occasional); Nitrite,Urine Negative (Negative); Squamous Epithelial Cell,Urine 1 /hpf (0-5)
--- NOTE | 2018-05-29 16:05 | P.PNPSY ---
Subjective Chief Complaint: psychosis Remarks: Patient seen for follow up; chart reviewed. Discussion with nursing staff reported drinking sure juice and ate a banana this morning, we will be consulted for patient noted to have continued bleeding from incision. Patient was found lying hospital bed noted to be more reactive and responsive to interview today. Patient continues report feeling depressed but states that she denies any suicide ideation last time being days ago. She continues to deny any perceptional disturbances. Patient was encouraged to participate in groups and activities stating that she did not want to go to groups was agreeable to go to day room watching television and walk around the unit. Patient continues to request to be discharged home. Review of Systems All other systems reviewed negative except as stated in HPI Mental Status Examination Appearance: Appropriate Consciousness: Alert Orientation: Person, Place Motor Activity: Normal gait Speech: Other (Low volume) Language: Adequate Fund of Knowledge: Adequate Attention and Concentration: Inadequate (Improved) Memory: Impaired Mood: Anxious Affect: Anxious Thought Process & Associations: Goal directed (Want to be discharged home), Linear Thought Content: Preoccupations (thoughts of not being able to "do it" also lessening in intensity) Hallucination Type: None Delusion Type: None Suicidal Ideation: No Suicidal Plan: No Suicidal Intention: No Homicidal Ideation: No Homicidal Plan: No Homicidal Intention: No Insight: Poor Judgment: Impulsive Assessment and Plan - Assessment (1) Brief psychotic disorder with peripartum onset Code(s): O99.345 - Other mental disorders complicating the puerperium Status: Acute - Plan Plan: Patient this time continues denying suicide ideations but continues report feeling somewhat depressed noted to be more reactive and engaging with interview and was able to agree to participating in walking on the unit and sitting in day room but continues to require encouragement. We will continue to monitor mood and behavior. OB consult eval of incision still pending. Patient to continue current treatment. We will continue to monitor mood and behavior. Continue to encourage patient to participate in ambulation and out of room into the room, groups and activities. Continue to encourage nutritional intake. Continue one-to-one observation for safety. Discharge planning in progress. Justification for Continued Inpatient Stay: At risk of further decompensation at lower level care. Request Healthcare Surrogate/Guardian Advocate?: Yes
--- NOTE | 2018-05-30 08:47 | P.PNIM ---
Subjective Interval history: Follow up IBS, anxiety, chronic C. difficile, depression, agoraphobia and new onset psychosis. Patient seen and examined laying in bed, stated "I cannot do this anymore" and keep on repeating "I cannot do this anymore." When asked what she cannot do she stop and think stated pooping and peeing all the time when asked when was the last time she had a bowel movement she cannot say when when asked if it is today did not have anything today the last time was yesterday. Discussed with the patient, stated patient stated "it is mushy and all over the place."Nurse reported patient does not have any diarrhea. Patient denies any abdominal pain , nausea, or vomiting. Patient denies any headache or dizziness, denies any chest pain or shortness of breath, denies any fever or chills. Physical Exam Vital signs: Vital Signs 05/29/18 17:52 05/30/18 05:28 Temperature 98.2 F 97.7 F Pulse Rate 95 H 113 H Respiratory Rate 18 16 Blood Pressure 121/82 107/76 Pulse Oximetry 97 94 L Intake & Output 05/29/18 05/30/18 05/30/18 18:59 06:59 18:59 Intake Total 1080 / 1080 240 / 240 Balance 1080 / 1080 240 / 240 Intake: Oral 1080 / 1080 240 / 240 Other: # Voids 4 1 Date of Last Bowel Movement 05/27/18 05/27/18 Narrative: GENERAL: Well-developed, well-nourished, young female, laying in bed in no apparent distress SKIN: Warm and dry. HEAD: Atraumatic. Normocephalic. EYES: Pupils equal and round. No scleral icterus. No injection or drainage. ENT: No nasal bleeding or discharge. Mucous membranes pink and moist. NECK: Trachea midline. No JVD. CARDIOVASCULAR: Regular rate and rhythm. RESPIRATORY: No accessory muscle use. Clear to auscultation. Breath sounds equal bilaterally. GASTROINTESTINAL: Abdomen obese, soft, slight lower abdominal tenderness, on the incision site. nondistended.Hepatic and splenic margins not palpable. SECOND MILLER: Lower abdominal incision site dressed with dry and intact. Incision with ecchimosis and medium size hematoma noted and marked bigger on the left side, with sanguinous drainage on 3 areas of incision site slightly open. MUSCULOSKELETAL: Extremities without clubbing, cyanosis, or edema. No obvious deformities. NEUROLOGICAL: Awake and alert. No obvious cranial nerve deficits. Motor grossly within normal limits. Five out of 5 muscle strength in the arms and legs. Normal speech. PSYCHIATRIC: Flat mood and affect; insight and judgment poor. Results - Labs CBC & Chem 7: 05/28/18 06:39 05/26/18 09:18 Laboratory Results - last 24 hr 05/29/18 13:50 Urine Color Yellow Urine Clarity Clear Urine pH 7.0 Ur Specific [place] 1.010 Urine Protein Negative Urine Glucose (UA) Negative Urine Ketones Negative Urine Occult Blood Negative Urine Nitrate Negative Urine Bilirubin Negative Urine Urobilinogen Less than 2 Ur Leukocyte Esterase Small H Urine RBC Less than 1 Urine WBC 5 Ur Squamous Epith Cells 1 Amorphous Sediment Rare H Urine Mucus Few H Micro UA Comment Culture not ind Ur Microscopic Review Not Reportable Urine Culture Comments Culture not ind Assessment and Plan - Assessment (1) Hx of Clostridium difficile infection Code(s): Z86.19 - Personal history of other infectious and parasitic diseases Status: Acute (2) Psychosis Code(s): F29 - Unspecified psychosis not due to a substance or known physiological condition Status: Acute (3) Anxiety Code(s): F41.9 - Anxiety disorder, unspecified Status: Acute (4) IBS (irritable bowel syndrome) Code(s): K58.9 - Irritable bowel syndrome without diarrhea Status: Acute (5) Cholestatic liver disease Code(s): K76.89 - Other specified diseases of liver Status: Acute (6) Status post delivery Code(s): Z98.891 - History of uterine scar from previous surgery Status: Acute (7) Wound hematoma following section, Code(s): O90.2 - Hematoma of obstetric wound Status: Acute - Plan This is a 32 years old young female, , domiciled in [place] with her , who recently gave to a daughter on 04/23/2018 with past medical history of IBS, anxiety, chronic C. difficile, depression, agoraphobia and new onset psychosis. Patient was initially admitted to the psychiatric unit under the Leone act trying to hurt her and herself. Her baby was sent home with the family. Patient was transferred to the psychiatric unit for this psychiatric evaluation and management. JEWEL BEARING BROACHER was following and was cleared from the [facility]ARING [facility]OACHER team. Medicine team was consulted for medical management. Hx of Clostridium difficile infection/IBS (irritable bowel syndrome) Personal history of other infectious and parasitic diseases, Acute on chronic -complaints of "pooping and peeping" all the time, but unwitnessed -monitor for stools, place a hat int he bathroom commode, discussed with nursing to monitor stools and report diarrhea -Send stool if have diarrhea: no diarrhea - Urine for UA with C & S if indicated: negative -monitor labs, CBC, BMP, Mag level -no diarrhea reported by nursing, continue to monitor stool and have hat in the commode at all times -WBC 10.4, no fever or chills, monitor signs and symptoms Status post delivery/ Wound hematoma following section, History of uterine scar from previous surgery, Acute Hematoma of obstetric wound, Acute -OBGYN signed off -continue incision care and dressing changes -slight sanguinous drainage noted on the incision site, 3 small open areas with sanguinous drainaige,ecchymosis and moderate size hematoma -wound care consult for incisional wound management: Consulted general surgery for possible necrotizing infection -Reconsult J[facility] BEARING [facility]OACHER, appreciate recommendation, spoke to Dr. Kuo Leukocytosis WBC slightly elevated, improving, 10.4 today Likely related to post op with incision complication -no fever or chills -monitor CBC Cholestatic liver disease Other specified diseases of liver, Acute -pre- -Resolved post -LFT, within normal limits Psychosis/ Anxiety/depression/agopraphobia Unspecified psychosis not due to a substance or known physiological condition, Acute -continue on current medications -Management by the psychiatry Team DVT prophylaxis: ambulatory Code Status: Full code Discussed Condition With: Patient, nurse, and sitter Dr. Kuo/JEW[facility] BEARING BROACHER (2) Psychosis Qualifiers: Schizoaffective disorder type: depressive (4) IBS (irritable bowel syndrome) Qualifiers: Irritable bowel syndrome type: with diarrhea Qualified Code(s): K58.0 - Irritable bowel syndrome with diarrhea
[2018-05-30 10:49] LABS: Baso # (Auto) 0.1 th/mm3 (0.0-0.2); Baso % (Auto) 0.5 % (0.0-2.0); Eos # (Auto) 0.3 th/mm3 (0.0-0.4); Eos % (Auto) 2.6 % (0.0-4.0); Hematocrit 39.6 % (35.0-46.0); Hemoglobin 12.9 gm/dL (11.6-15.3); Lymph # (Auto) 1.7 th/mm3 (1.0-4.8); Mean Corpuscular HGB Conc 32.5 % (32.0-36.0); Mean Corpuscular Hemoglobin 28.8 pg (27.0-34.0); Mean Corpuscular Volume 88.8 fL (80.0-100.0); Mean Platelet Volume 9.9 fL (7.0-11.0); Mono # (Auto) 0.7 th/mm3 (0.0-0.9); Mono % (Auto) 6.6 % (0.0-8.0); Neut # (Auto) 8.6 th/mm3 (1.8-7.7); Neut % (Auto) 75.3 % (16.0-70.0); Platelet Count 357 th/mm3 (150-450); Red Blood Count 4.46 mil/mm3 (4.00-5.30); Red Cell Distribution Width 14.9 % (11.6-17.2); White Blood Count 11.4 th/mm3 (4.0-11.0)
--- NOTE | 2018-05-30 11:25 | P.OBGPN ---
S: Patient seen and examined this morning by OB team. She states that she is doing well. She states that she mostly lays in bed all day, has not been up and walking around much. She has been showering and has been experiencing some bloody drainage from her incision site. Her pain is well controlled. O: General: White female laying in bed, in no acute distress SNOW REMOVAL SUPERVISOR: Incision site with some sanguinous drainage from 3 small 1-2mm openings in the incision, hematoma significantly decreased from 1 week ago, no erythema or signs of infection, no warmth to the site A/P: 32-year-old postop day 26 from due to preeclampsia OB team reconsulted for postsurgical hematoma evaluation -Hematoma has significantly decreased in size from 1 week ago -No signs of infection on exam -Check CBC for any leukocytosis or drop in hemoglobin -Check temperature every 4 hours for 24 hours -Team explained to patient that she may have increased drainage from area after change in position from laying to standing -Plan to continue to have her body naturally resorb the hematoma, surgically evacuating the hematoma will put patient at increased risk of drop in hemoglobin , infection, and prolonged healing process due to the wound needing to be kept open and packed twice daily vs possible wound VAC placement -Continue current management -OB team will see pt as needed PRETSONW Dr. Kuo and patient's nurse
--- NOTE | 2018-05-30 11:26 | P.PNPSY ---
Subjective Chief Complaint: psychosis Remarks: Patient seen for follow-up, chart reviewed. Discussion with nursing staff reported that patient was seen by OB consult regarding incision wound which they state is progressing well with continued recommendations of dressing changes. Patient showered and shaved this morning and ate majority of her dinner last night and breakfast today. Patient was found ambulating on the unit , seen with nurse. Patient noted be with improved affect, improve eye contact able to engage fully in conversation and speaking about her upbringing in [place] as well as a support system she has with her family currently. She states that she slept well last evening and that she continues to feel "a little sad" because she is here in the hospital but states that if she was not here in the hospital she did feel happy. She states looks forward to take care of the baby and to her . She mentions that she has support from her family to assist her and be with her upon discharge. She states that her appetite is improving and would like to be discharged home soon. Patient also mentions that she has an upcoming outpatient mental health follow-up appointment with her outpatient psychiatrist Dr. Viera this Monday. Review of Systems All other systems reviewed negative except as stated in HPI Mental Status Examination Appearance: Appropriate Consciousness: Alert Orientation: Person, Place Motor Activity: Normal gait Speech: Other (Low volume) Language: Adequate Fund of Knowledge: Adequate Attention and Concentration: Inadequate (Improved) Memory: Impaired Mood: Anxious Affect: Appropriate Thought Process & Associations: Intact, Goal directed (Want to be discharged home), Linear Thought Content: Preoccupations (On going home) Hallucination Type: None Delusion Type: None Suicidal Ideation: No Suicidal Plan: No Suicidal Intention: No Homicidal Ideation: No Homicidal Plan: No Homicidal Intention: No Insight: Poor Judgment: Impulsive Assessment and Plan - Assessment (1) Brief psychotic disorder with peripartum onset Code(s): O99.345 - Other mental disorders complicating the puerperium Status: Acute - Plan Plan: Patient with improved mood and affect, noted to be more participatory and engaging with ADLs. Patient continues dressing changes as scheduled for wound care. Patient continues to be compliant with medications. We will continue to monitor mood and behavior. We will coordinate with patient's family for possible discharge tomorrow with outpatient follow-up in [place] as well as to arrange a safe plan of supervision once patient is at home in regards to her own safety as well as the safety of the baby. Discharge planning in progress. Justification for Continued Inpatient Stay: At risk of further decompensation at lower level care. Request Healthcare Surrogate/Guardian Advocate?: Yes
--- NOTE | 2018-05-30 14:14 | P.PNID ---
Subjective Remarks: pt is draining dark blood from abdominal wound less drainage today no fever no leukocytosis Antibiotics: none Allergies/Adverse Reactions: Allergies vortioxetine [From Brintellix] Allergy (Verified 04/23/18 20:36) Hives ziprasidone [From Geodon] Allergy (Verified 04/23/18 20:36) Chest Pain Objective Vital Signs 05/29/18 17:52 05/30/18 05:28 Temperature 98.2 F 97.7 F Pulse Rate 95 H 113 H Respiratory Rate 18 16 Blood Pressure 121/82 107/76 Pulse Oximetry 97 94 L Intake & Output 05/29/18 05/30/18 05/30/18 18:59 06:59 18:59 Intake Total 1080 / 1080 240 / 240 720 / 720 Balance 1080 / 1080 240 / 240 720 / 720 Intake: Oral 1080 / 1080 240 / 240 720 / 720 Other: # Voids 4 1 Date of Last Bowel Movement 05/27/18 05/27/18 Lab - Hematology Results 05/30/18 10:08 WBC 11.4 H RBC 4.46 Hgb 12.9 Hct 39.6 MCV 88.8 MCH 28.8 MCHC 32.5 RDW 14.9 Plt Count 357 MPV 9.9 Neut % (Auto) 75.3 H Lymph % (Auto) 15.0 [place] % (Auto) 6.6 Eos % (Auto) 2.6 Baso % (Auto) 0.5 Neut # (Auto) 8.6 H Lymph # (Auto) 1.7 [place] # (Auto) 0.7 Eos # (Auto) 0.3 Baso # (Auto) 0.1 WBC Differential . Differential Comment Auto diff final Imaging: ITS Impressions Pelvis CT 05/17/18 16:02 CONCLUSION: High density collection in the subcutaneous tissues of the low anterior pelvic wall which looks most like a hematoma. Small low density collection in the right rectus abdominis muscle which could be liquefied hematoma or small abscess. Physical Exam: GENERAL: NAD SKIN: Warm and dry. nonrash EYES: Pupils equal and round. No scleral icterus. No injection or drainage. ENT: No nasal bleeding or discharge. Mucous membranes pink and moist. RESPIRATORY: No accessory muscle use. Breathing unlaboured GASTROINTESTINAL: Abdomen soft, non-tender, nondistended. Lower transverse incisions with several small openings draining thick odorless very dark blood MUSCULOSKELETAL: Extremities without clubbing, cyanosis, or edema. No obvious deformities. NEUROLOGICAL: Awake and alert. Non focal PSYCHIATRIC: Appropriate mood and affect; insight and judgment normal. Assessment and Plan - Plan A/P: S/p C section on 05/04 post op evolving hematoma small fluid collection - grupo liquified hematoma persistent drainage low grade leukocytosis (ANC 8600) no e/o infx will culture no abx lars JAMES
[2018-05-30] MEDS: LORazepam 1 MG Tablet PO SCH ×3 (16:05→20:21)
[2018-05-30] MEDS: OLANZapine 10 MG Tablet PO SCH ×2 (16:05→20:21)
[2018-05-30 18:31] VITALS: O2SAT 96
[2018-05-31 05:28] VITALS: BP 138/79; PULSE 116; RESP 16; TEMP 97.8
--- NOTE | 2018-05-31 17:03 | P.DSPSY ---
Psychiatry Discharge Summary Inpatient Psychiatric care?: Yes Advance Directives: No Mental Health Advance Directive: No Health Care Proxy: No - Admission Admission Date: May 05, 2018 18:30 Brief History: The patient is a 32-year-old woman, , domiciled in [place] with her , unemployed, with a psychiatric history of OCD, MDD, LIZ, peripartum psychosis,1 recent previous psychiatric hospitalization due to a new onset psychosis. Patient was transferred to the medical floor after her stay here in psychiatry. She is subsequently gave 2 days ago to daughter named Jocelyn. Today, patient is quite psychotic. She is very flat and actively responding to internal stimuli. She admits to auditory hallucinations telling her her baby is going to . She says that if she does not see the baby she is going to however she refused a visit with her baby this morning. She continues to be monitored by the one-to-one. Patient is a poor historian, is quite flat and minimally interactive during the interview. Patient admits to suicidal ideation today with plan to stab herself with a knife. She denies any intent of hurting herself on the unit From the her previous note: "On my psychiatric evaluation today I find a patient that is very agitated, very psychotic, paranoid, stating that she needs to go home, but she is afraid and she does not want to talk with anybody. She says that she carries at baby, "I killed my two babys and the are inside of my". The patient refuses to answer any of my questions. And she continued to try to elope from the ER and have finally to be medicated with Haldol 5 mg IM and Benadryl 25 mg IM in order to calm her down. I got collateral information from her , Ollie Miranda [phone], who explains that the patient has psychiatric history of anxiety, obsessive- compulsive disorder and depression. But about 2 months ago 1 of her checkups it was noted that she had elevated transaminases. They had discontinued her psychotropic medicines and felt that her elevated transaminases were most likely due to cholestasis. Patient also has had a history of chronic C. difficile. She is on oral vancomycin. ( Patient's liver functions have normalized according to the medical record). After the medication was discontinued, the patient started to become psychotic. Initially the patient refused to eat a stating that by eating she was hurting her baby. Then, 1 day he found her inside the bathroom with a knife stating that she wanted to kill her baby. She was hospitalized for 2 weeks in a psychiatric hospital in [facility], but she was discharged back home in 2 -3 days after discharge the patient became psychotic again. He clarifies that the patient does not have any history of schizophrenia or bipolar disorder. The patient has been treated for anxiety and depression as an outpatient by a private psychiatrist in [place]. Patient does not have any previous suicidal attempt. She did become depressed after a miscarriage before this she has been anxious since then." Past psychiatric history :OCD, MDD, LIZ, peripartum psychosis,1 recent previous psychiatric hospitalization due to a new onset psychosis (admitted due to report patient trying to starve herself to start the baby), no previous suicidal attempts, the patient has being on Luvox 75 mg, Lamictal 25 mg daily, Seroquel 50 mg twice daily, trazodone 100 mg at bedtime she has an outpatient psychiatric doctor in [place], past medical history: IBS, anxiety, chronic C. difficile, depression and agoraphobia. Surgical history: Denies Social history: The patient was born in [place], she lives in [place] with her she is unemployed, supported by her , her highest level of education is a master degree in occupational therapy. Substance abuse history :denies alcohol tobacco. Denies drugs. Currently . Tobacco Use In Past 30 Days: No How Often Do You Have a Drink Containing Alcohol: Never Hospital Course: Patient is a 32-year-old woman, , domiciled, with a past psychiatric history of OCD, LIZ, depression, peripartum psychosis, one previous psychiatric admission, denies suicide attempts with a past medical history significant for IBS, chronic C. difficile, hepatic cholangitis and currently with 33-week gestation IUP was brought in under Leone act due to acute psychosis , transferred from medical facility, and admitted to the inpatient psychiatry for further evaluation and management. Patient was admitted to a locked, inpatient psychiatric unit. Appropriate precautions were in place throughout patient's hospital stay. Patient was seen and examined on the unit by psychiatry. Psychotropic medications were started and adjusted. Patient was started on Haldol and titrated to 10 mg twice daily, maintain a one-to-one observation for safety and continue with OB consult follow-up to monitor fetus. Patient at that time continues with poor p.o. intake and continue with suicide ideation and delusions. Patient had performed by OB team due to concern of distress which baby was kept in NICU for further evaluation and discharged to baby's father's care as of the appropriate interval observation. Patient was cross titrated over to olanzapine 10 mg p.o. twice daily and started on lorazepam 1 mg p.o. 3 times daily and fluvoxamine 75 mg p.o. twice daily which patient began to improve with decrease in suicidality and decrease and delusions. There was no further evidence of any suicidality or homicidality on the inpatient unit. Patient's mood improved with the benefit of psychopharmacological treatment and had no behavioral disturbance since admission. Patient was noted to have reached stable mood, noted to participate and engage in treatment and interact with staff adequately toward end of admission. Patient noted to be future oriented with plans to continue treatment and outpatient follow-up appointments for continuity of care. Counselor has arranged discharge plan with patient's which patient will be taken back to [place] with the support of family. Discussion of plan of support was reviewed with patient's which he relayed that patient would have someone with the patient at all times especially when patient was with patient's baby for safety. The importance of the safety plan was stressed with patient's which he acknowledged and agreed. Importance of patient requiring to follow up appointment already scheduled with outpatient psychiatrist, Dr. Viera on 06/01/18, was stressed and encouraged with patient' s and patient were to acknowledge and agreed with. This plan has of support has been reviewed with patient as well which she acknowledged and agrees with. Patient during post has been monitored of noted hematoma in the incision which no antibiotics were required or surgical intervention but managed conservatively throughout admission with plan with patient having outpatient follow-up with her OB physician for continued wound care. Discussion with infectious disease consultants mentioned that wound culture was performed prior to her discharge and at the time of evaluation did not see any signs of infection and did not recommend any need of antibiotic treatment but wanted to discuss results of wound culture with patient's outpatient OB physician and requested contact information so that ID safety consultant can relay findings and recommendations to him or her. Patient's outpatient OB physician is Dr. Galvan ([phone]) which arranged for outpatient follow-up was arranged by counselor on day of discharge. On the day of discharge: Patient seen and examined; chart reviewed. Case discussed with nurse and counselor. No behavioral issues overnight. On my examination today, the patient denies any suicidal homicidal ideation, intent or plan on direct questioning and contracts for safety. Patient denies any perceptional disturbances and no delusional material verbalized today. Patient denies any side effects from medication and has understanding of medication regimen and education. No physical complaints. Suicide and violence risk assessment on day of discharge both suggest lower imminent risk, and the patient's level of function is adequate for plan level of outpatient care. Patient has maximized benefit from this inpatient psychiatric hospital stay and will be discharged with discharge plan as arranged by counselor. Patient advised to return to psychiatric emergency room for any concerning psychiatric symptoms. Patient agrees with plan. - Discharge Discharge Date: 05/31/18 - Discharge Diagnosis (1) Brief psychotic disorder with peripartum onset Code(s): O99.345 - Other mental disorders complicating the puerperium Status: Acute Discharge Disposition: Home - Discharge Instructions Discharge Diet: Heart Healthy Diet Activities You Can Perform: Weight Bearing As Tolerat - Discharge Time > 30 minutes Mental Status Examination Appearance: Appropriate Consciousness: Alert Orientation: Person, Place Motor Activity: Normal gait Speech: Other (Low volume) Language: Adequate Fund of Knowledge: Adequate Attention and Concentration: Inadequate (Improved) Memory: Impaired Mood: Appropriate Affect: Appropriate Thought Process & Associations: Intact, Goal directed (Want to be discharged home), Linear Thought Content: Appropriate Hallucination Type: None Delusion Type: None Suicidal Ideation: No Suicidal Plan: No Suicidal Intention: No Homicidal Ideation: No Homicidal Plan: No Homicidal Intention: No Insight: Fair Judgment: Impulsive Discharge/Advance Care Plan - Results Vital Signs: Last Vital Signs Temp 97.8 F 05/31/18 05:27 Pulse 116 H 05/31/18 05:27 Resp 16 05/31/18 05:27 BP 138/79 05/31/18 05:27 Pulse Ox 96 05/31/18 05:27 Lab Results: Laboratory Results TSH 1.140 uIU/mL (0.358-3.740) 05/27/18 07:27 Urine Culture Comments Culture not ind 05/29/18 13:50 Summary of Procedures: none Imaging: ITS Impressions Pelvis CT 05/17/18 16:02 CONCLUSION: High density collection in the subcutaneous tissues of the low anterior pelvic wall which looks most like a hematoma. Small low density collection in the right rectus abdominis muscle which could be liquefied hematoma or small abscess. Pending Results: None - Medications Number of antipsychotic medications at discharge: 1 - Discharge Care Plan Goals to Promote Your Health: * To prevent worsening of your condition and complications * To maintain your health at the optimal level Directions to Meet Your Goals: Take your medications as prescribed Follow your dietary instruction Follow activity as directed Keep your appointments as scheduled Take your immunizations and boosters as scheduled If your symptoms worsen call your PCP, if no PCP go to Urgent Care Center or Emergency Room For 13/02 questions related to your inpatient stay or results of tests pending at discharge, please contact Dr. Ollie Garvey MD at Smoking is Dangerous to Your Health. Avoid second hand smoking
== END 2018-05-31 09:40 | disposition home or self-care (01) ==
LOC: H4EA 18:30 → HCPC 05-21 09:02 → H4EA 05-21 09:05
PROVIDERS: ADMIT Student in an Organized Health Care Education/Training Program; ATTEND Student in an Organized Health Care Education/Training Program